=== PATIENT | male | born 1945 | race African-American/Black ===

== ENCOUNTER → 2016-05-19 | Outpatient (CLI) | payer MEDICARE, BC ==
[2014-12-27 11:24] VITALS: BP 149/92
[~2016-05-19] MED LIST: ACET325T9 PO; ALBUTEROL; AMOX1TAB11 PO; ASPI-482 PO; AZEL137S3 NS; Albuterol Sulfate NEB; Cholestyramine/Aspartame PO; DUTA0.5C PO; FLUT1DIS5 IH; FURO-69 PO; GABA-586 PO; Hydrocodone/Acetaminophen PO; Ipratropium/Albuterol Sulfate NEB; LACT1CAP PO; LORA1TAB47 PO; MONT10TA9 PO; NAPR500T3 PO; ONDA4TAB7 PO; PANT40TA5 PO; PRED20TA PO; SIMV20TA PO; TAMS0.4C97 PO; Vancomycin Hcl PO
--- NOTE | 2016-05-19 15:18 | RAD ---
EXAM: Chest 2 views. HISTORY: Chronic obstructive pulmonary disease. COMPARISON: 09/17/2015. FINDINGS: Frontal and lateral views of the chest are obtained. Negative for chronic obstructive pulmonary disease there is some scarring or atelectasis along one of the major fissures on the lateral projection. There are no clear acute infiltrates. There is no pneumothorax or pleural effusion. The heart is not enlarged. IMPRESSION: 1. Chronic obstructive pulmonary disease. Increased scarring or atelectasis along one of the major fissures. Ongoing follow-up is suggested.
== END | disposition home or self-care (01) ==
LOC: RAD 11:59
PROVIDERS: ATTEND Family Medicine
DX: J44.1 Chronic obstructive pulmonary disease with (acute) exacerbation (principal)
CPT/HCPCS: 71020

== ENCOUNTER 2016-05-25 03:57 | Inpatient (IN) | payer MEDICARE, BC ==
[~2016-05-25] VITALS: Ht 175.3 cm; Wt 43.2 kg
[~2016-05-25 03:57] MED LIST changes: -AMOX1TAB11 PO; -AZEL137S3 NS; -DUTA0.5C PO; -FLUT1DIS5 IH; -FURO-69 PO; -GABA-586 PO; -PANT40TA5 PO
[2016-05-25] MEDS ORDERED: PREDNISONE 10 MG TABLET PO ONE (04:15)
[2016-05-25] MEDS ORDERED: IPRATRPIUM/ALBUTEROL 0.5/2.5MG 3 ML NEBU. NEB ONE (04:15)
[2016-05-25] MEDS ORDERED: HYDROCODONE/APAP 5/325MG TABLET. PO ONE (04:45)
[2016-05-25 04:51] LABS: BASO % 0 % (0-3); EOS % 0 % (0-3); HEMATOCRIT 46.8 % (39.0-53.0); HEMOGLOBIN 15.2 g/dL (13.0-17.5); LYMPH # 1.1 x10^3/uL (1.0-4.8); LYMPH % 8 % (24-48); MEAN CORPUSCULAR HEMOGLOBIN 31 pg (25-35); MEAN CORPUSCULAR HGB CONC 33 g/dL (31-37); MEAN CORPUSCULAR VOLUME 95 fL (79-100); MONO % 7 % (0-9); NEUT % 84 % (31-73); PLATELET COUNT 150 x10^3/uL (140-400); RED BLOOD COUNT 4.92 x10^6/uL (4.30-5.70); RED CELL DISTRIBUTION WIDTH 15.5 % (11.5-14.5); WHITE BLOOD COUNT 12.7 x10^3/uL (4.0-11.0)
[2016-05-25 05:00] LABS: OBC FLU VALID
[2016-05-25 05:03] LABS: CALCIUM 8.8 mg/dL (8.5-10.1); CREATININE 1.3 mg/dL (0.7-1.3); GFR 66.2; POTASSIUM 4.1 mmol/L (3.5-5.1)
[2016-05-25 05:08] LABS: ALBUMIN 3.3 g/dL (3.4-5.0); ALBUMIN/GLOBULIN RATIO 1.1 (1.0-1.7); TOTAL BILIRUBIN 0.4 mg/dL (0.2-1.0); TOTAL PROTEIN 6.3 g/dL (6.4-8.2)
--- NOTE | 2016-05-25 05:25 | PHYS DOC ---
Past Medical History Past Medical History: COPD, High Cholesterol, Other Additional Past Medical Histor: enlarged prostate, sob(not actually dx copd, gets alb neb qid) Past Surgical History: Other Additional Past Surgical Histo: foot surgery, bladder surgery Alcohol Use: None Drug Use: None Adult General Chief Complaint Chief Complaint: SHORTNESS OF BREATH HPI HPI Patient is a 71 year old male who presents with SOB. Patient reports this is been building up over the past day. In addition, he says he was getting up to get to the bathroom tonight when he fell against a wall. He did not lose consciousness. He is little sore throat side, but does not have any focal pain. Lastly, his feet have been increasingly swollen over the past 2 days and painful. No prior similar episodes of swelling. He denies any chest pain. He has been taking Augmentin and prednisone (10mg) recently for a sinus infection. Review of Systems Review of Systems Constitutional: Denies fever or chills Eyes: Denies change in visual acuity or eye pain HENT: Denies nasal congestion or sore throat Respiratory: Shortness of breath, wheezing Cardiovascular: Denies chest pain GI: Denies abdominal pain, nausea, vomiting, bloody stools or diarrhea : Denies dysuria or hematuria Musculoskeletal: BLE edema. Denies back pain or joint pain Integument: Denies rash or skin lesions Neurologic: Denies headache, focal weakness or sensory changes Current Medications Current Medications Current Medications Medications (Trade) Dose Ordered Sig/Dandre Start Time Stop Time Status Last Admin Dose Admin Acetaminophen/ Hydrocodone Bitart (Lortab 5/325) 1 tab 1X ONCE 05/25/16 04:45 05/25/16 04:51 DC 05/25/16 04:44 1 TAB Albuterol/ Ipratropium (Duoneb) 6 ml 1X ONCE 05/25/16 04:15 05/25/16 04:16 DC 05/25/16 05:16 6 ML Prednisone (Prednisone) 50 mg 1X ONCE 05/25/16 04:15 05/25/16 04:16 DC 05/25/16 04:44 50 MG Allergies Allergies Allergies Coded Allergies Type Severity Reaction Last Updated Verified No Known Drug Allergies 12/27/14 No Physical Exam Physical Exam Constitutional: Well developed, well nourished, no acute distress, non-toxic appearance HENT: Normocephalic, atraumatic, bilateral external ears normal Eyes: EOMI, conjunctiva normal, no discharge Neck: Normal range of motion, no stridor Cardiovascular: Heart rate normal, regular rhythm, no murmur Lungs & Thorax: Speaking in stuttering breaths, diffuse expiratory wheezing Abdomen: Bowel sounds normal, soft, non-distended, no TTP Skin: Warm, dry, no erythema, no rash Extremities: No obvious deformity, 2+ BLE pitting edema Neurologic: Alert and oriented X 3, no gross deficits noted Current Patient Data Vital Signs Vital Signs Date Time Temp Pulse Resp B/P Pulse Ox O2 Delivery O2 Flow Rate FiO2 05/25/16 05:20 97 Room Air 05/25/16 04:44 23 05/25/16 03:57 98.4 73 161/92 98.4 Lab Values Laboratory Tests Test 05/25/16 03:50 05/25/16 04:35 White Blood Count 12.7x10^3/uL (4.0-11.0) H Red Blood Count 4.92x10^6/uL (4.30-5.70) Hemoglobin 15.2g/dL (13.0-17.5) Hematocrit 46.8% (39.0-53.0) Mean Corpuscular Volume 95fL (79-100) Mean Corpuscular Hemoglobin 31pg (25-35) Mean Corpuscular Hemoglobin Concent 33g/dL (31-37) Red Cell Distribution Width 15.5% (11.5-14.5) H Platelet Count 150x10^3/uL (140-400) Neutrophils (%) (Auto) 84% (31-73) H Lymphocytes (%) (Auto) 8% (24-48) L Monocytes (%) (Auto) 7% (0-9) Eosinophils (%) (Auto) 0% (0-3) Basophils (%) (Auto) 0% (0-3) Neutrophils # (Auto) 10.8x10^3uL (1.8-7.7) H Lymphocytes # (Auto) 1.1x10^3/uL (1.0-4.8) Monocytes # (Auto) 0.9x10^3/uL (0.0-1.1) Eosinophils # (Auto) 0.0x10^3/uL (0.0-0.7) Basophils # (Auto) 0.0x10^3/uL (0.0-0.2) Platelet Estimate Pending Sodium Level 146mmol/L (136-145) H Potassium Level 4.1mmol/L (3.5-5.1) Chloride Level 109mmol/L (98-107) H Carbon Dioxide Level 33mmol/L (21-32) H Anion Gap 4 (6-14) L Blood Urea Nitrogen 22mg/dL (8-26) Creatinine 1.3mg/dL (0.7-1.3) Estimated GFR (Cockcroft-Gault) 66.2 BUN/Creatinine Ratio 17 (6-20) Glucose Level 118mg/dL (70-99) H Calcium Level 8.8mg/dL (8.5-10.1) Total Bilirubin 0.4mg/dL (0.2-1.0) Aspartate Amino Transferase (AST) 14U/L (15-37) L Alanine Aminotransferase (ALT) 21U/L (16-63) Alkaline Phosphatase 66U/L (46-116) Troponin I Quantitative 0.022ng/mL (0.000-0.055) EL-Vci-G-Type Natriuretic Peptide 505pg/mL (0-124) H Total Protein 6.3g/dL (6.4-8.2) L Albumin 3.3g/dL (3.4-5.0) L Albumin/Globulin Ratio 1.1 (1.0-1.7) Influenza Type A Antigen Negative (NEGATIVE) Influenza Type B Antigen Negative (NEGATIVE) Laboratory Tests 05/25/16 03:50 Laboratory Tests 05/25/16 03:50 EKG EKG EKG (my read): sinus rhythm, rate 71, normal axis, intervals wnl, no acute ST/T changes Radiology/Procedures Radiology/Procedures CXR (my read): No acute abnormality Course & Med Decision Making Course & Med Decision Making Pertinent Labs and Imaging studies reviewed. (See chart for details) Patient is 71-year-old male presents with shortness of breath and wheezing; apparent COPD exacerbation. He also has significant bilateral lower extremity edema, concerning for possibility of heart failure. Will check EKG, chest x-ray , labs to evaluate. Breathing treatment and dose of steroids ordered. Labs notable for mild leukocytosis (possibly related to steroid use, no fever or tachycardia on exam), few minor electrolyte abnormalities, elevated BNP. Discussed results with patient, who still has significant wheezing after breathing treatments. Will give dose small dose of Lasix for peripheral edema. Discussed with Dr. Bland, will admit under his care for further evaluation and treatment. Dragon Disclaimer Dragon Disclaimer This electronic medical record was generated, in whole or in part, using a voice recognition dictation system. Departure Departure Impression: Primary Impression: COPD exacerbation Additional Impression: Peripheral edema Disposition: ADMITTED INPATIENT Admitting Physician: Haresh Bland Condition: STABLE Referrals: HARESH BLAND MD (PCP) Problem Qualifiers KAEL GAINES MD May 25, 2016 05:25
[2016-05-25] MEDS ORDERED: ONDANSETRON PF 4 MG/2 ML VIAL. IV PRN (05:45)
[2016-05-25] MEDS ORDERED: ACETAMINOPHEN 325 MG TABLET. PO PRN ×2 (05:45→08:30)
[2016-05-25] MEDS ORDERED: MORPHINE SULFATE 2 MG/ML DISP.SYRIN. IV PRN (05:45)
[2016-05-25] MEDS ORDERED: FUROSEMIDE 20 MG/2 ML VIAL IVP ONE (06:00)
--- NOTE | 2016-05-25 06:46 | ACF ---
Admission Forms Criteria COPD Clinical Indications for Admission to Inpatient Care (Place 'X' for any and all applicable criteria): Admission is indicated for ANY ONE of the following (1)(2)(3): [X]I. Acute exacerbation by high-risk comorbidity (e.g., pneumonia, dysrhythmia, heart failure, pleural effusion, pneumothorax) or severe underlying COPD (e.g., steroid dependent) [ ]II. Inpatient admission required rather than observation care (see Chronic Obstructive Pulmonary Disease: Observation Care) because of ANY ONE of the following: [ ]a) New or pre-existing signs or symptoms of COPD (eg, dyspnea or Tachypnea at rest or with minimal activity) that persist despite outpatient and observation care treatment [ ]b) New-onset hypoxemia (room air SaO2 less than 90%, PO2 less than 60 mm Hg (8.0 kPa)) that persists despite outpatient and observation care treatment [ ]c) Worsening of pre-existing hypoxemia (eg, new or increased requirement for supplemental oxygen to maintain oxygenation at baseline level) that persists despite outpatient and observation care treatment, with oxygen treatment needs performable only in acute inpatient setting [ ]d) Hypercarbia (PCO2 greater than 40 mm Hg (5.3 kPa))-induced respiratory acidosis (pH less than 7.35) that persists despite outpatient and observation care treatment [ ]e) Supplemental oxygen or respiratory treatments for over 24 hours that are performable only in acute inpatient setting [ ]f) Chest tube placement with active evacuation (e.g., suction, drainage) (5) [ ]g) Other condition, treatment or monitoring requiring inpatient admission [ ]III. Planned invasive surgical or diagnostic procedures requiring acute- care hospitalization [ ]IV. Acute respiratory failure (e.g., uncompensated hypercarbia, severe hypoxemia) [ ]V. Severe comorbid condition (e.g., severe steroid myopathy, acute vertebral fracture) that has acutely worsened pulmonary function [ ]. Confusion state, lethargy, obtundation, stupor or coma Extended stay beyond goal length of stay may be needed for (31)(32): [ ]a ) Respiratory Failure. [ ]b) Severe or persisting hypoxemia or hypercarbia [ ]c) Severe or persistent dyspnea [ ]d) Comorbidities (e.g. chronic heart failure, atrial fibrillation with rapid response, pneumonia) [ ]e) Malnutrition The original [facility] content created by [facility] has been revised. The portions of the content which have been revised are identified through the use of italic text or in bold, and [facility] has neither reviewed nor approved the modified material. All other unmodified content is copyright [facility]. Please see references footnoted in the original [facility] edition 2016 Admission Criteria Met?: Yes HEIDI VIZCAINO May 25, 2016 06:46
--- NOTE | 2016-05-25 07:11 | EKG ---
[facility] [address] [place] [address] Test Date: 2016-05-25 Test Time: 04:12:09 Pat Name: JUAN PABLO WATERMAN Department: Room: Gender: Male Nuclear Medicine Chief Technologist: KWASI : 1945 Requested By: KAEL GAINES Order Number: [id number] Reading MD: Dolores Gibbs Measurements Intervals [place] Rate: 71 P: 66 ME: 140 QRS: 38 QRSD: 86 T: 58 QT: 396 QTc: 435 Interpretive Statements SINUS RHYTHM. MISSING LEAD V4. OTHERWISE NORMAL EKG Electronically Signed On 05-26-2016 21:08:58 CDT by Dolores Gibbs
--- NOTE | 2016-05-25 07:15 | RAD ---
Indication: Short of breath and wheezing. Technique: Upright portable chest radiograph was obtained. Comparison is from May 19, 2016. Findings: There is no airspace disease. There is no pleural effusion. The heart is not enlarged. There are degenerative changes in the shoulders. Leads overlie the patient. Impression: No active pulmonary disease.
[2016-05-25 07:41] LABS: BILIRUBIN,URINE NEGATIVE (NEG); GLUCOSE,URINE NEGATIVE (NEG); NITRITE,URINE NEGATIVE (NEG); PH,URINE 6.5; PROTEIN,URINE NEGATIVE (NEG-TRACE); UROBILINOGEN,URINE 0.2 mg/dL (0.2 mg/dL)
[2016-05-25 07:55] LABS: BACTERIA,URINE 0 /HPF (0-FEW); RBC,URINE OCC /HPF (0-2); SQUAMOUS EPITHELIAL CELL,UR OCC /LPF; WBC,URINE 0 /HPF (0-4)
[2016-05-25 08:00] VITALS: BP 150/94
[2016-05-25] MEDS: IPRATRPIUM/ALBUTEROL 0.5/2.5MG 3 ML NEBU. NEB SCH ×5 (08:00→18:30)
--- NOTE | 2016-05-25 08:22 | PDOC ---
Provider Note Provider Note See Admission H&P dictation #[id number] Impression: 1. COPD exacerbation: 2. Lower extremity edema: 3. Hypertension: 4. BPH: 5. History of sleep apnea: HARESH BLAND MD May 25, 2016 08:22
[2016-05-25] MEDS ORDERED: NAPROXEN 500 MG TABLET PO PRN (08:30)
[2016-05-25] MEDS ORDERED: ALBUTEROL SULFATE 2.5 MG/3 ML NEBU. NEB PRN (08:30)
[2016-05-25] MEDS ORDERED: DUTA0.5C PO (08:54)
[2016-05-25] MEDS ORDERED: GABA-586 PO (08:55)
[2016-05-25] MEDS ORDERED: FLUT1DIS5 IH (08:56)
[2016-05-25] MEDS ORDERED: AZEL137S3 NS (08:57)
[2016-05-25] MEDS ORDERED: AMOX1TAB11 PO (08:59)
--- NOTE | 2016-05-25 09:51 | PDOC ---
PULMONARY PROGRESS NOTES Vitals Vital Signs Date Time Temp Pulse Resp B/P Pulse Ox O2 Delivery O2 Flow Rate FiO2 05/25/16 09:36 Room Air 05/25/16 08:41 20 95 05/25/16 08:00 98.0 62 150/94 2.0 98.0 General: Alert, Oriented X4 HEENT: Other Lungs: Clear, Other Cardiovascular: S1, S2 Abdomen: Soft, Non-tender Extremities: No Edema Labs Laboratory Tests Test 05/25/16 03:50 05/25/16 04:35 05/25/16 07:30 White Blood Count 12.7x10^3/uL (4.0-11.0) Red Blood Count 4.92x10^6/uL (4.30-5.70) Hemoglobin 15.2g/dL (13.0-17.5) Hematocrit 46.8% (39.0-53.0) Mean Corpuscular Volume 95fL (79-100) Mean Corpuscular Hemoglobin 31pg (25-35) Mean Corpuscular Hemoglobin Concent 33g/dL (31-37) Red Cell Distribution Width 15.5% (11.5-14.5) Platelet Count 150x10^3/uL (140-400) Neutrophils (%) (Auto) 84% (31-73) Lymphocytes (%) (Auto) 8% (24-48) Monocytes (%) (Auto) 7% (0-9) Eosinophils (%) (Auto) 0% (0-3) Basophils (%) (Auto) 0% (0-3) Neutrophils # (Auto) 10.8x10^3uL (1.8-7.7) Lymphocytes # (Auto) 1.1x10^3/uL (1.0-4.8) Monocytes # (Auto) 0.9x10^3/uL (0.0-1.1) Eosinophils # (Auto) 0.0x10^3/uL (0.0-0.7) Basophils # (Auto) 0.0x10^3/uL (0.0-0.2) Sodium Level 146mmol/L (136-145) Potassium Level 4.1mmol/L (3.5-5.1) Chloride Level 109mmol/L (98-107) Carbon Dioxide Level 33mmol/L (21-32) Anion Gap 4 (6-14) Blood Urea Nitrogen 22mg/dL (8-26) Creatinine 1.3mg/dL (0.7-1.3) Estimated GFR (Cockcroft-Gault) 66.2 BUN/Creatinine Ratio 17 (6-20) Glucose Level 118mg/dL (70-99) Calcium Level 8.8mg/dL (8.5-10.1) Total Bilirubin 0.4mg/dL (0.2-1.0) Aspartate Amino Transf (AST/SGOT) 14U/L (15-37) Alanine Aminotransferase (ALT/SGPT) 21U/L (16-63) Alkaline Phosphatase 66U/L (46-116) Troponin I Quantitative 0.022ng/mL (0.000-0.055) EE-Evd-V-Type Natriuretic Peptide 505pg/mL (0-124) Total Protein 6.3g/dL (6.4-8.2) Albumin 3.3g/dL (3.4-5.0) Albumin/Globulin Ratio 1.1 (1.0-1.7) Influenza Type A Antigen Negative (NEGATIVE) Influenza Type B Antigen Negative (NEGATIVE) Urine Collection Type Unknown Urine Color Yellow Urine Clarity Clear Urine pH 6.5 Urine Specific [place] <=1.005 Urine Protein Negativemg/dL (NEG-TRACE) Urine Glucose (UA) Negativemg/dL (NEG) Urine Ketones (Stick) Negativemg/dL (NEG) Urine Blood Negative (NEG) Urine Nitrite Negative (NEG) Urine Bilirubin Negative (NEG) Urine Urobilinogen Dipstick 0.2mg/dL (0.2 mg/dL) Urine Leukocyte Esterase Negative (NEG) Urine RBC Occ/HPF (0-2) Urine WBC 0/HPF (0-4) Urine Squamous Epithelial Cells Occ/LPF Urine Bacteria 0/HPF (0-FEW) Urine Mucus Slight/LPF Laboratory Tests Test 05/25/16 03:50 05/25/16 04:35 05/25/16 07:30 White Blood Count 12.7x10^3/uL (4.0-11.0) Red Blood Count 4.92x10^6/uL (4.30-5.70) Hemoglobin 15.2g/dL (13.0-17.5) Hematocrit 46.8% (39.0-53.0) Mean Corpuscular Volume 95fL (79-100) Mean Corpuscular Hemoglobin 31pg (25-35) Mean Corpuscular Hemoglobin Concent 33g/dL (31-37) Red Cell Distribution Width 15.5% (11.5-14.5) Platelet Count 150x10^3/uL (140-400) Neutrophils (%) (Auto) 84% (31-73) Lymphocytes (%) (Auto) 8% (24-48) Monocytes (%) (Auto) 7% (0-9) Eosinophils (%) (Auto) 0% (0-3) Basophils (%) (Auto) 0% (0-3) Neutrophils # (Auto) 10.8x10^3uL (1.8-7.7) Lymphocytes # (Auto) 1.1x10^3/uL (1.0-4.8) Monocytes # (Auto) 0.9x10^3/uL (0.0-1.1) Eosinophils # (Auto) 0.0x10^3/uL (0.0-0.7) Basophils # (Auto) 0.0x10^3/uL (0.0-0.2) Sodium Level 146mmol/L (136-145) Potassium Level 4.1mmol/L (3.5-5.1) Chloride Level 109mmol/L (98-107) Carbon Dioxide Level 33mmol/L (21-32) Anion Gap 4 (6-14) Blood Urea Nitrogen 22mg/dL (8-26) Creatinine 1.3mg/dL (0.7-1.3) Estimated GFR (Cockcroft-Gault) 66.2 BUN/Creatinine Ratio 17 (6-20) Glucose Level 118mg/dL (70-99) Calcium Level 8.8mg/dL (8.5-10.1) Total Bilirubin 0.4mg/dL (0.2-1.0) Aspartate Amino Transf (AST/SGOT) 14U/L (15-37) Alanine Aminotransferase (ALT/SGPT) 21U/L (16-63) Alkaline Phosphatase 66U/L (46-116) Troponin I Quantitative 0.022ng/mL (0.000-0.055) XT-Xqj-T-Type Natriuretic Peptide 505pg/mL (0-124) Total Protein 6.3g/dL (6.4-8.2) Albumin 3.3g/dL (3.4-5.0) Albumin/Globulin Ratio 1.1 (1.0-1.7) Influenza Type A Antigen Negative (NEGATIVE) Influenza Type B Antigen Negative (NEGATIVE) Urine Collection Type Unknown Urine Color Yellow Urine Clarity Clear Urine pH 6.5 Urine Specific [place] <=1.005 Urine Protein Negativemg/dL (NEG-TRACE) Urine Glucose (UA) Negativemg/dL (NEG) Urine Ketones (Stick) Negativemg/dL (NEG) Urine Blood Negative (NEG) Urine Nitrite Negative (NEG) Urine Bilirubin Negative (NEG) Urine Urobilinogen Dipstick 0.2mg/dL (0.2 mg/dL) Urine Leukocyte Esterase Negative (NEG) Urine RBC Occ/HPF (0-2) Urine WBC 0/HPF (0-4) Urine Squamous Epithelial Cells Occ/LPF Urine Bacteria 0/HPF (0-FEW) Urine Mucus Slight/LPF Medications Active Scripts Medications Dose Route/Sig Days Date Category Amox Tr-K Clv 875-125 Mg Tab (Amoxicillin/Potassium Clav) 1 Each Tablet 1 Tab PO BID 05/25/16 Reported Azelastine Hcl 137 Mcg/0.137 Ml [place].pump 2 [place] NS BID 05/25/16 Reported Advair 500-50 Diskus (Fluticasone/Salmeterol) 1 Each Disk.w.dev 1 Inh IH BID 05/25/16 Reported Gabapentin 300 Mg Capsule 300 Mg PO HS 05/25/16 Reported Avodart (Dutasteride) 0.5 Mg Capsule 1 Cap PO HS 05/25/16 Reported Claritin-D 12 Hour Tablet (Loratadine/Pseudoephedrine) 1 Each Tab.er.12h 1 Tab PO BID 09/17/15 Rx Montelukast Sodium Tablet (Montelukast Sodium) 10 Mg Tablet 1 Tab PO DAILY 12/27/14 Reported Naproxen 500 Mg Tablet 1 Tab PO BID 12/27/14 Reported Aspir 81 (Aspirin) 81 Mg Tablet.dr 1 Tab PO DAILY 12/27/14 Reported [Albuterol Sulfate] 2.5 MG/3 ML Nebu 2.5 Mg NEB PRN Q2HR PRN 1 11/15/13 Rx Tylenol (Acetaminophen) 325 Mg Tablet 650 Mg PO PRN Q6HRS PRN 28 11/15/13 Rx Flomax (Tamsulosin Hcl) 0.4 Mg Cap.er.24h 0.4 Mg PO QHS 02/10/13 Reported Zocor (Simvastatin) 20 Mg Tablet 20 Mg PO QHS 02/10/13 Reported GINA ERAZO MD May 25, 2016 09:51
[2016-05-25 10:15] LABS: % EOS 1 % (0-5)
[2016-05-25 10:24] LABS: PLT ESTIMATE ADEQUATE (ADEQUATE)
--- NOTE | 2016-05-25 10:43 | RAD ---
Clinical Indication: Bilateral lower extremity edema Technique: Study is dated May 25, 2016. Owen scale, color flow and spectral waveform analysis was performed of both lower extremities with and without compression. Findings: There is normal compressibility of all visualized vein segments. No evidence of DVT is present on grayscale or color images. There is normal phasicity of waveform. There is normal augmentation . Impression: No evidence of deep vein thrombosis in either lower extremity.
[2016-05-25 11:00] VITALS: BP 140/77
[2016-05-25] MEDS: ASPIRIN ENTERIC COATED 81 MG TABLET.DR. PO SCH (13:02)
[2016-05-25] MEDS: methylPREDNISolone SOD SUCC PF 40 MG/ML VIAL. IV SCH ×2 (13:02→21:18)
[2016-05-25 14:54] VITALS: BP 134/75
[2016-05-25] MEDS: ENOXAPARIN 40 MG/0.4 ML DISP.SYRIN. SQ SCH (16:01)
--- NOTE | 2016-05-25 16:51 | CARD ---
APPROVED REPORT EXAM: Two-dimensional and M-mode echocardiogram with Doppler and color Doppler. Other Information Quality : AverageHR: 70bpm INDICATION Edema, elevated BNP 2D DIMENSIONS RVDd3.2 (2.9-3.5cm)Left Atrium(2D)3.1 (1.6-4.0cm) IVSd1.0 (0.7-1.1cm)Aortic Root(2D)2.7 (2.0-3.7cm) LVDd5.0 (3.9-5.9cm)LVOT Diameter2.2 (1.8-2.4cm) PWd1.0 (0.7-1.1cm)LVDs3.5 (2.5-4.0cm) FS (%) 29.4 %SV66.7 ml LVEF(%)56.0 (>50%) Aortic Valve AoV Peak Jovani.133.8cm/sAoV VTI23.9cm AO Peak GR.7.2mmHgLVOT Peak Jovani.100.7cm/s LVOT VTI 22.41cmAO Mean GR.4mmHg RORO (VMAX)2.40se6RVJ (VTI)3.62cm2 Mitral Valve MV E Jptnofoe513.6cm/sMV DECEL AJZC519tc MV A Dbzpbwbb140.2cm/sMV E Mean Gr.3mmHg MV KAE08fxL/A Ratio0.8 MV A Bfbjugjn378bsEMG (PHT)3.59cm2 TDI E/Lateral E'11.8E/Medial E'14.1 Pulmonary Valve PV Peak Secsihvn545.5cm/sPV Peak Grad.4mmHg RVOT VTI14.3cm Tricuspid Valve TR P. Ehwbqhom029ca/sRAP HHQDMKDV9erCs TR Peak Gr.24cnJsSCZU68hhTg Pulmonary Vein S1 Cjmfnrgv26.8cm/sD2 Rhamhfki70.9cm/s PVa juosrhdt303vypw LEFT VENTRICLE The left ventricle is normal size. There is normal left ventricular wall thickness. Left ventricle sy stolic function is low normal. The Ejection Fraction is 56%. There is normal LV segmental wall motion . Transmitral Doppler flow pattern is Grade I-abnormal relaxation pattern. RIGHT VENTRICLE The right ventricle is normal size. The right ventricular systolic function is normal. ATRIA The left atrium size is normal. The right atrium size is normal. The interatrial septum is intact wit h no evidence for an atrial septal defect or patent foramen ovale as noted on 2-D or Doppler imaging. AORTIC VALVE The aortic valve is calcified but opens well. Doppler and Color Flow revealed no significant aortic r egurgitation. There is no significant aortic valvular stenosis. MITRAL VALVE The mitral valve is calcified but opens well. There is no evidence of mitral valve prolapse. There is no mitral valve stenosis. Doppler and Color-flow revealed trace mitral regurgitation. TRICUSPID VALVE The tricuspid valve is normal in structure Doppler and Color Flow revealed trace tricuspid regurgitat ion. There is moderate pulmonary hypertension. The PA pressure was estimated at 45 mmHg. There is no tricuspid valve stenosis. PULMONIC VALVE The pulmonary valve is normal in structure and function. Doppler and Color Flow revealed no pulmonic valvular regurgitation. There is no pulmonic valvular stenosis. GREAT VESSELS The aortic root is normal in size. The ascending aorta is not well seen. The IVC is dilated and colla pses >50% with inspiration. PERICARDIAL EFFUSION There is no evidence of significant pericardial effusion. Critical Notification Critical Value: No <Conclusion> Left ventricle systolic function is low normal. The Ejection Fraction is 56%. Transmitral Doppler flow pattern is Grade I-abnormal relaxation pattern. The left atrium size is normal. The right atrium size is normal. The aortic valve is calcified but opens well. Doppler and Color-flow revealed trace mitral regurgitation. Doppler and Color Flow revealed trace tricuspid regurgitation. There is moderate pulmonary hypertension. The PA pressure was estimated at 45 mmHg. The pulmonary valve is normal in structure and function. There is no evidence of significant pericardial effusion.
[2016-05-25 19:30] VITALS: BP 143/72
[2016-05-25] MEDS: BUDESONIDE 0.5 MG/2 ML NEBU NEB SCH (20:00)
--- NOTE | 2016-05-25 20:05 | PDOC ---
PULMONARY PROGRESS NOTES Vitals Vital Signs Date Time Temp Pulse Resp B/P Pulse Ox O2 Delivery O2 Flow Rate FiO2 05/25/16 18:30 96 Room Air 05/25/16 14:54 98.7 74 18 134/75 98.7 05/25/16 08:00 2.0 HEENT: Other Labs Laboratory Tests Test 05/25/16 03:50 05/25/16 04:35 05/25/16 07:30 White Blood Count 12.7x10^3/uL (4.0-11.0) Red Blood Count 4.92x10^6/uL (4.30-5.70) Hemoglobin 15.2g/dL (13.0-17.5) Hematocrit 46.8% (39.0-53.0) Mean Corpuscular Volume 95fL (79-100) Mean Corpuscular Hemoglobin 31pg (25-35) Mean Corpuscular Hemoglobin Concent 33g/dL (31-37) Red Cell Distribution Width 15.5% (11.5-14.5) Platelet Count 150x10^3/uL (140-400) Neutrophils (%) (Auto) 84% (31-73) Lymphocytes (%) (Auto) 8% (24-48) Monocytes (%) (Auto) 7% (0-9) Eosinophils (%) (Auto) 0% (0-3) Basophils (%) (Auto) 0% (0-3) Neutrophils # (Auto) 10.8x10^3uL (1.8-7.7) Lymphocytes # (Auto) 1.1x10^3/uL (1.0-4.8) Monocytes # (Auto) 0.9x10^3/uL (0.0-1.1) Eosinophils # (Auto) 0.0x10^3/uL (0.0-0.7) Basophils # (Auto) 0.0x10^3/uL (0.0-0.2) Segmented Neutrophils % 72% (35-66) Band Neutrophils % 12% (0-9) Lymphocytes % 8% (24-48) Monocytes % 6% (0-10) Eosinophils % 1% (0-5) Myelocytes % 1% (0-0) Platelet Estimate Adequate (ADEQUATE) Platelet Clumps, EDTA Present Sodium Level 146mmol/L (136-145) Potassium Level 4.1mmol/L (3.5-5.1) Chloride Level 109mmol/L (98-107) Carbon Dioxide Level 33mmol/L (21-32) Anion Gap 4 (6-14) Blood Urea Nitrogen 22mg/dL (8-26) Creatinine 1.3mg/dL (0.7-1.3) Estimated GFR (Cockcroft-Gault) 66.2 BUN/Creatinine Ratio 17 (6-20) Glucose Level 118mg/dL (70-99) Calcium Level 8.8mg/dL (8.5-10.1) Total Bilirubin 0.4mg/dL (0.2-1.0) Aspartate Amino Transf (AST/SGOT) 14U/L (15-37) Alanine Aminotransferase (ALT/SGPT) 21U/L (16-63) Alkaline Phosphatase 66U/L (46-116) Troponin I Quantitative 0.022ng/mL (0.000-0.055) EL-Wsz-V-Type Natriuretic Peptide 505pg/mL (0-124) Total Protein 6.3g/dL (6.4-8.2) Albumin 3.3g/dL (3.4-5.0) Albumin/Globulin Ratio 1.1 (1.0-1.7) Influenza Type A Antigen Negative (NEGATIVE) Influenza Type B Antigen Negative (NEGATIVE) Urine Collection Type Unknown Urine Color Yellow Urine Clarity Clear Urine pH 6.5 Urine Specific [place] <=1.005 Urine Protein Negativemg/dL (NEG-TRACE) Urine Glucose (UA) Negativemg/dL (NEG) Urine Ketones (Stick) Negativemg/dL (NEG) Urine Blood Negative (NEG) Urine Nitrite Negative (NEG) Urine Bilirubin Negative (NEG) Urine Urobilinogen Dipstick 0.2mg/dL (0.2 mg/dL) Urine Leukocyte Esterase Negative (NEG) Urine RBC Occ/HPF (0-2) Urine WBC 0/HPF (0-4) Urine Squamous Epithelial Cells Occ/LPF Urine Bacteria 0/HPF (0-FEW) Urine Mucus Slight/LPF Laboratory Tests Test 05/25/16 03:50 05/25/16 04:35 05/25/16 07:30 White Blood Count 12.7x10^3/uL (4.0-11.0) Red Blood Count 4.92x10^6/uL (4.30-5.70) Hemoglobin 15.2g/dL (13.0-17.5) Hematocrit 46.8% (39.0-53.0) Mean Corpuscular Volume 95fL (79-100) Mean Corpuscular Hemoglobin 31pg (25-35) Mean Corpuscular Hemoglobin Concent 33g/dL (31-37) Red Cell Distribution Width 15.5% (11.5-14.5) Platelet Count 150x10^3/uL (140-400) Neutrophils (%) (Auto) 84% (31-73) Lymphocytes (%) (Auto) 8% (24-48) Monocytes (%) (Auto) 7% (0-9) Eosinophils (%) (Auto) 0% (0-3) Basophils (%) (Auto) 0% (0-3) Neutrophils # (Auto) 10.8x10^3uL (1.8-7.7) Lymphocytes # (Auto) 1.1x10^3/uL (1.0-4.8) Monocytes # (Auto) 0.9x10^3/uL (0.0-1.1) Eosinophils # (Auto) 0.0x10^3/uL (0.0-0.7) Basophils # (Auto) 0.0x10^3/uL (0.0-0.2) Segmented Neutrophils % 72% (35-66) Band Neutrophils % 12% (0-9) Lymphocytes % 8% (24-48) Monocytes % 6% (0-10) Eosinophils % 1% (0-5) Myelocytes % 1% (0-0) Platelet Estimate Adequate (ADEQUATE) Platelet Clumps, EDTA Present Sodium Level 146mmol/L (136-145) Potassium Level 4.1mmol/L (3.5-5.1) Chloride Level 109mmol/L (98-107) Carbon Dioxide Level 33mmol/L (21-32) Anion Gap 4 (6-14) Blood Urea Nitrogen 22mg/dL (8-26) Creatinine 1.3mg/dL (0.7-1.3) Estimated GFR (Cockcroft-Gault) 66.2 BUN/Creatinine Ratio 17 (6-20) Glucose Level 118mg/dL (70-99) Calcium Level 8.8mg/dL (8.5-10.1) Total Bilirubin 0.4mg/dL (0.2-1.0) Aspartate Amino Transf (AST/SGOT) 14U/L (15-37) Alanine Aminotransferase (ALT/SGPT) 21U/L (16-63) Alkaline Phosphatase 66U/L (46-116) Troponin I Quantitative 0.022ng/mL (0.000-0.055) GM-Rbp-N-Type Natriuretic Peptide 505pg/mL (0-124) Total Protein 6.3g/dL (6.4-8.2) Albumin 3.3g/dL (3.4-5.0) Albumin/Globulin Ratio 1.1 (1.0-1.7) Influenza Type A Antigen Negative (NEGATIVE) Influenza Type B Antigen Negative (NEGATIVE) Urine Collection Type Unknown Urine Color Yellow Urine Clarity Clear Urine pH 6.5 Urine Specific [place] <=1.005 Urine Protein Negativemg/dL (NEG-TRACE) Urine Glucose (UA) Negativemg/dL (NEG) Urine Ketones (Stick) Negativemg/dL (NEG) Urine Blood Negative (NEG) Urine Nitrite Negative (NEG) Urine Bilirubin Negative (NEG) Urine Urobilinogen Dipstick 0.2mg/dL (0.2 mg/dL) Urine Leukocyte Esterase Negative (NEG) Urine RBC Occ/HPF (0-2) Urine WBC 0/HPF (0-4) Urine Squamous Epithelial Cells Occ/LPF Urine Bacteria 0/HPF (0-FEW) Urine Mucus Slight/LPF Medications Active Scripts Medications Dose Route/Sig Days Date Category Amox Tr-K Clv 875-125 Mg Tab (Amoxicillin/Potassium Clav) 1 Each Tablet 1 Tab PO BID 05/25/16 Reported Azelastine Hcl 137 Mcg/0.137 Ml [place].pump 2 [place] NS BID 05/25/16 Reported Advair 500-50 Diskus (Fluticasone/Salmeterol) 1 Each Disk.w.dev 1 Inh IH BID 05/25/16 Reported Gabapentin 300 Mg Capsule 300 Mg PO HS 05/25/16 Reported Avodart (Dutasteride) 0.5 Mg Capsule 1 Cap PO HS 05/25/16 Reported Claritin-D 12 Hour Tablet (Loratadine/Pseudoephedrine) 1 Each Tab.er.12h 1 Tab PO BID 7/6/16 Rx Montelukast Sodium Tablet (Montelukast Sodium) 10 Mg Tablet 1 Tab PO DAILY 12/27/14 Reported Naproxen 500 Mg Tablet 1 Tab PO BID 12/27/14 Reported Aspir 81 (Aspirin) 81 Mg Tablet.dr 1 Tab PO DAILY 12/27/14 Reported [Albuterol Sulfate] 2.5 MG/3 ML Nebu 2.5 Mg NEB PRN Q2HR PRN 1 11/15/13 Rx Tylenol (Acetaminophen) 325 Mg Tablet 650 Mg PO PRN Q6HRS PRN 28 11/15/13 Rx Flomax (Tamsulosin Hcl) 0.4 Mg Cap.er.24h 0.4 Mg PO QHS 02/10/13 Reported Zocor (Simvastatin) 20 Mg Tablet 20 Mg PO QHS 02/10/13 Reported Impression . AECOPD full note dictated agree with current RX thanks GINA ERAZO MD May 25, 2016 20:05
[2016-05-25] MEDS: MONTELUKAST SODIUM 10 MG TABLET. PO SCH (21:17)
[2016-05-25] MEDS: SIMVASTATIN 20 MG TABLET PO SCH (21:17)
[2016-05-25] MEDS: TAMSULOSIN 0.4 MG CAP.ER.24H. PO SCH (21:17)
[2016-05-25 23:35] VITALS: BP 135/103
[2016-05-25 23:46] VITALS: BP 139/77
--- NOTE | 2016-05-26 02:46 | CONS ---
DATE OF CONSULTATION: 05/25/2016 ATTENDING PHYSICIAN: Dr. Gallo. REASON FOR CONSULTATION: The patient seen in pulmonary consultation at the request of Dr. Gallo for increasing shortness of air. HISTORY OF PRESENT ILLNESS: The patient is a 71-year-old with history of COPD, smokes approximately 2-3 cigarettes a day, experiences acute exacerbation of COPD approximately 2-3 times a year, presented with increasing shortness of breath. He also lost his balance and fell at home. He had a sore throat. No fever, chills or night sweats. Denied any chest pain or pressure. He was taking Augmentin and prednisone as an outpatient sinus infection. PAST MEDICAL HISTORY: COPD, tobacco dependent, hyperlipidemia, BPH. PAST SURGICAL HISTORY: Foot surgery, bladder surgery. ALLERGIES: No known drug allergies. HOME MEDICATIONS: List was reviewed. Please see the MRAD. SOCIAL HISTORY: He continues to smoke. FAMILY HISTORY: Noncontributory. REVIEW OF SYSTEMS: As indicated above, otherwise, a 10-point system was reviewed and negative. PHYSICAL EXAMINATION: VITAL SIGNS: The patient is currently on 2 liters of oxygen supplementation normally. Normally he is on no oxygen. HEENT: Eyes, the sclerae were nonicteric. NECK: Jugular venous distention was not elevated. No lymphadenopathy. CHEST: Full expansion. LUNGS: Coarse breath sounds with expiratory wheeze. CARDIOVASCULAR: Regular rate and rhythm with S1, S2, no S3. ABDOMEN: Soft, nontender, nondistended. EXTREMITIES: No clubbing, cyanosis or edema. NEUROLOGIC: The patient was awake, alert, following commands. A detailed neuro exam was not performed. LABORATORY DATA: White count was slightly elevated. Hemoglobin and hematocrit were noted. Electrolytes were noted. BUN and creatinine was noted. Serology was negative for influenza. Chest x-ray reviewed, no acute cardiopulmonary process. IMPRESSION: 1. Progressive dyspnea secondary to acute exacerbation of chronic obstructive pulmonary disease. 2. Acute exacerbation of chronic obstructive pulmonary disease. 3. Recent sinusitis. 4. Hyperlipidemia. 5. Tobacco dependence. PLAN: 1. The patient instructed on the importance of discontinuing tobacco use. 2. Concur with current medical regimen including nebulized treatments and prednisone. 3. No need for antibiotics. 4. A 6-minute walk prior to discharge. I do appreciate the privilege in sharing in the patient's care. GINA ERAZO MD DR: Gera JOB#: [id number] / [id number]
[2016-05-26 03:35] VITALS: BP 137/84
[2016-05-26 05:25] LABS: CALCIUM 8.8 mg/dL (8.5-10.1); CREATININE 1.3 mg/dL (0.7-1.3); GFR 66.2; POTASSIUM 4.8 mmol/L (3.5-5.1)
[2016-05-26 05:30] LABS: BASO % 0 % (0-3); EOS % 0 % (0-3); HEMATOCRIT 45.8 % (39.0-53.0); HEMOGLOBIN 14.7 g/dL (13.0-17.5); LYMPH # 0.8 x10^3/uL (1.0-4.8); LYMPH % 5 % (24-48); MEAN CORPUSCULAR HEMOGLOBIN 31 pg (25-35); MEAN CORPUSCULAR HGB CONC 32 g/dL (31-37); MEAN CORPUSCULAR VOLUME 95 fL (79-100); MONO % 4 % (0-9); NEUT % 91 % (31-73); PLATELET COUNT 141 x10^3/uL (140-400); RED BLOOD COUNT 4.82 x10^6/uL (4.30-5.70); WHITE BLOOD COUNT 15.8 x10^3/uL (4.0-11.0)
[2016-05-26] MEDS: methylPREDNISolone SOD SUCC PF 40 MG/ML VIAL. IV SCH ×3 (06:07→20:38)
[2016-05-26 07:47] VITALS: BP 138/75
[2016-05-26] MEDS: IPRATRPIUM/ALBUTEROL 0.5/2.5MG 3 ML NEBU. NEB SCH ×4 (08:00→19:43)
[2016-05-26] MEDS: BUDESONIDE 0.5 MG/2 ML NEBU NEB SCH ×2 (08:00→20:00)
[2016-05-26] MEDS: ASPIRIN ENTERIC COATED 81 MG TABLET.DR. PO SCH (09:24)
--- NOTE | 2016-05-26 11:06 | PDOC ---
PULMONARY PROGRESS NOTES Subjective Pt feel better at times he looses his voice Vitals Vital Signs Date Time Temp Pulse Resp B/P Pulse Ox O2 Delivery O2 Flow Rate FiO2 05/26/16 08:02 95 Room Air 05/26/16 07:47 98.1 60 24 138/75 98.1 05/25/16 08:00 2.0 ROS: No Nausea, No Chest Pain, No Abdominal Pain, No Increase Cough HEENT: Other Lungs: Clear Cardiovascular: S1, S2 Abdomen: Soft Neuro Exam: Alert Extremities: No Edema Skin: Warm Labs Laboratory Tests Test 05/25/16 03:50 05/25/16 04:35 05/25/16 07:30 05/26/16 04:22 White Blood Count 12.7x10^3/uL (4.0-11.0) 15.8x10^3/uL (4.0-11.0) Red Blood Count 4.92x10^6/uL (4.30-5.70) 4.82x10^6/uL (4.30-5.70) Hemoglobin 15.2g/dL (13.0-17.5) 14.7g/dL (13.0-17.5) Hematocrit 46.8% (39.0-53.0) 45.8% (39.0-53.0) Mean Corpuscular Volume 95fL (79-100) 95fL (79-100) Mean Corpuscular Hemoglobin 31pg (25-35) 31pg (25-35) Mean Corpuscular Hemoglobin Concent 33g/dL (31-37) 32g/dL (31-37) Red Cell Distribution Width 15.5% (11.5-14.5) 16.0% (11.5-14.5) Platelet Count 150x10^3/uL (140-400) 141x10^3/uL (140-400) Neutrophils (%) (Auto) 84% (31-73) 91% (31-73) Lymphocytes (%) (Auto) 8% (24-48) 5% (24-48) Monocytes (%) (Auto) 7% (0-9) 4% (0-9) Eosinophils (%) (Auto) 0% (0-3) 0% (0-3) Basophils (%) (Auto) 0% (0-3) 0% (0-3) Neutrophils # (Auto) 10.8x10^3uL (1.8-7.7) 14.5x10^3uL (1.8-7.7) Lymphocytes # (Auto) 1.1x10^3/uL (1.0-4.8) 0.8x10^3/uL (1.0-4.8) Monocytes # (Auto) 0.9x10^3/uL (0.0-1.1) 0.6x10^3/uL (0.0-1.1) Eosinophils # (Auto) 0.0x10^3/uL (0.0-0.7) 0.0x10^3/uL (0.0-0.7) Basophils # (Auto) 0.0x10^3/uL (0.0-0.2) 0.0x10^3/uL (0.0-0.2) Segmented Neutrophils % 72% (35-66) Band Neutrophils % 12% (0-9) Lymphocytes % 8% (24-48) Monocytes % 6% (0-10) Eosinophils % 1% (0-5) Myelocytes % 1% (0-0) Platelet Estimate Adequate (ADEQUATE) Platelet Clumps, EDTA Present Sodium Level 146mmol/L (136-145) Potassium Level 4.1mmol/L (3.5-5.1) Chloride Level 109mmol/L (98-107) Carbon Dioxide Level 33mmol/L (21-32) Anion Gap 4 (6-14) Blood Urea Nitrogen 22mg/dL (8-26) Creatinine 1.3mg/dL (0.7-1.3) Estimated GFR (Cockcroft-Gault) 66.2 BUN/Creatinine Ratio 17 (6-20) Glucose Level 118mg/dL (70-99) Calcium Level 8.8mg/dL (8.5-10.1) Total Bilirubin 0.4mg/dL (0.2-1.0) Aspartate Amino Transf (AST/SGOT) 14U/L (15-37) Alanine Aminotransferase (ALT/SGPT) 21U/L (16-63) Alkaline Phosphatase 66U/L (46-116) Troponin I Quantitative 0.022ng/mL (0.000-0.055) NK-Gmm-P-Type Natriuretic Peptide 505pg/mL (0-124) Total Protein 6.3g/dL (6.4-8.2) Albumin 3.3g/dL (3.4-5.0) Albumin/Globulin Ratio 1.1 (1.0-1.7) Influenza Type A Antigen Negative (NEGATIVE) Influenza Type B Antigen Negative (NEGATIVE) Urine Collection Type Unknown Urine Color Yellow Urine Clarity Clear Urine pH 6.5 Urine Specific [place] <=1.005 Urine Protein Negativemg/dL (NEG-TRACE) Urine Glucose (UA) Negativemg/dL (NEG) Urine Ketones (Stick) Negativemg/dL (NEG) Urine Blood Negative (NEG) Urine Nitrite Negative (NEG) Urine Bilirubin Negative (NEG) Urine Urobilinogen Dipstick 0.2mg/dL (0.2 mg/dL) Urine Leukocyte Esterase Negative (NEG) Urine RBC Occ/HPF (0-2) Urine WBC 0/HPF (0-4) Urine Squamous Epithelial Cells Occ/LPF Urine Bacteria 0/HPF (0-FEW) Urine Mucus Slight/LPF Test 05/26/16 04:42 Sodium Level 143mmol/L (136-145) Potassium Level 4.8mmol/L (3.5-5.1) Chloride Level 104mmol/L (98-107) Carbon Dioxide Level 31mmol/L (21-32) Anion Gap 8 (6-14) Blood Urea Nitrogen 28mg/dL (8-26) Creatinine 1.3mg/dL (0.7-1.3) Estimated GFR (Cockcroft-Gault) 66.2 Glucose Level 149mg/dL (70-99) Calcium Level 8.8mg/dL (8.5-10.1) Laboratory Tests Test 05/26/16 04:22 05/26/16 04:42 White Blood Count 15.8x10^3/uL (4.0-11.0) Red Blood Count 4.82x10^6/uL (4.30-5.70) Hemoglobin 14.7g/dL (13.0-17.5) Hematocrit 45.8% (39.0-53.0) Mean Corpuscular Volume 95fL (79-100) Mean Corpuscular Hemoglobin 31pg (25-35) Mean Corpuscular Hemoglobin Concent 32g/dL (31-37) Red Cell Distribution Width 16.0% (11.5-14.5) Platelet Count 141x10^3/uL (140-400) Neutrophils (%) (Auto) 91% (31-73) Lymphocytes (%) (Auto) 5% (24-48) Monocytes (%) (Auto) 4% (0-9) Eosinophils (%) (Auto) 0% (0-3) Basophils (%) (Auto) 0% (0-3) Neutrophils # (Auto) 14.5x10^3uL (1.8-7.7) Lymphocytes # (Auto) 0.8x10^3/uL (1.0-4.8) Monocytes # (Auto) 0.6x10^3/uL (0.0-1.1) Eosinophils # (Auto) 0.0x10^3/uL (0.0-0.7) Basophils # (Auto) 0.0x10^3/uL (0.0-0.2) Sodium Level 143mmol/L (136-145) Potassium Level 4.8mmol/L (3.5-5.1) Chloride Level 104mmol/L (98-107) Carbon Dioxide Level 31mmol/L (21-32) Anion Gap 8 (6-14) Blood Urea Nitrogen 28mg/dL (8-26) Creatinine 1.3mg/dL (0.7-1.3) Estimated GFR (Cockcroft-Gault) 66.2 Glucose Level 149mg/dL (70-99) Calcium Level 8.8mg/dL (8.5-10.1) Medications Active Scripts Medications Dose Route/Sig Days Date Category Amox Tr-K Clv 875-125 Mg Tab (Amoxicillin/Potassium Clav) 1 Each Tablet 1 Tab PO BID 05/25/16 Reported Azelastine Hcl 137 Mcg/0.137 Ml [place].pump 2 [place] NS BID 05/25/16 Reported Advair 500-50 Diskus (Fluticasone/Salmeterol) 1 Each Disk.w.dev 1 Inh IH BID 05/25/16 Reported Gabapentin 300 Mg Capsule 300 Mg PO HS 05/25/16 Reported Avodart (Dutasteride) 0.5 Mg Capsule 1 Cap PO HS 05/25/16 Reported Claritin-D 12 Hour Tablet (Loratadine/Pseudoephedrine) 1 Each Tab.er.12h 1 Tab PO BID 09/17/15 Rx Montelukast Sodium Tablet (Montelukast Sodium) 10 Mg Tablet 1 Tab PO DAILY 12/27/14 Reported Naproxen 500 Mg Tablet 1 Tab PO BID 12/27/14 Reported Aspir 81 (Aspirin) 81 Mg Tablet.dr 1 Tab PO DAILY 12/27/14 Reported [Albuterol Sulfate] 2.5 MG/3 ML Nebu 2.5 Mg NEB PRN Q2HR PRN 1 11/15/13 Rx Tylenol (Acetaminophen) 325 Mg Tablet 650 Mg PO PRN Q6HRS PRN 28 11/15/13 Rx Flomax (Tamsulosin Hcl) 0.4 Mg Cap.er.24h 0.4 Mg PO QHS 02/10/13 Reported Zocor (Simvastatin) 20 Mg Tablet 20 Mg PO QHS 02/10/13 Reported Impression . 1. Progressive dyspnea secondary to acute exacerbation of chronic obstructive pulmonary disease. 2. Acute exacerbation of chronic obstructive pulmonary disease. 3. Recent sinusitis. 4. Hyperlipidemia. 5. Tobacco dependence. 6. Possible vocal cord dysfunction Plan . 1. The patient instructed on the importance of discontinuing tobacco use. 2. Concur with current medical regimen including nebulized treatments and prednisone. 3. No need for antibiotics. 4. A 6-minute walk prior to discharge. 5. Stop all caffine intake to avpid GERD 6. Spirometry to look at flow volume loop, spoke with Dr Gallo if no better in 2 months needs an ENT evaluation GINA ERAZO MD May 26, 2016 11:06
[2016-05-26 11:08] VITALS: BP 139/70
[2016-05-26 14:33] VITALS: BP 118/62
[2016-05-26] MEDS: ENOXAPARIN 40 MG/0.4 ML DISP.SYRIN. SQ SCH (16:23)
--- NOTE | 2016-05-26 18:31 | PDOC ---
SUBJECTIVE Subjective Feels like he is doing better overall. The voice is a little bit better but still very hoarse. He is breathing a little bit easier. The swelling is improved in his legs. He is eating and drinking okay. Voiding okay. OBJECTIVE Vital Signs Vital Signs Date Time Temp Pulse Resp B/P Pulse Ox O2 Delivery O2 Flow Rate FiO2 05/26/16 15:22 Room Air 05/26/16 14:33 99.1 70 18 118/62 93 Room Air 99.1 05/26/16 11:37 Room Air 05/26/16 11:08 98.1 66 20 139/70 94 Room Air 98.1 05/26/16 08:02 95 Room Air 05/26/16 08:00 Room Air 05/26/16 07:47 98.1 60 24 138/75 92 Room Air 98.1 05/26/16 03:35 98.2 57 18 137/84 95 Room Air 98.2 05/25/16 23:46 139/77 05/25/16 23:35 98.5 63 18 135/103 95 Room Air 98.5 05/25/16 23:24 Room Air 05/25/16 20:00 Room Air 05/25/16 19:30 99.1 63 16 143/72 93 Room Air 99.1 I & O Intake and Output 05/26/16 07:00 Intake Total 770 ml Output Total 1100 ml Balance -330 ml Intake Oral 770 ml Output Urine Total 1100 ml # Voids 3 # Bowel Movements 1 PHYSICAL EXAM Physical Exam General: No acute distress. Sitting in the chair. Mental status: Alert and oriented. Chest: Clear to auscultation except for some end expiratory wheezes with forced air movement. Fair air movement CV: Normal rate. Regular rhythm. No murmur. Abdomen: Normal bowel sounds. Soft. Not distended. No tenderness. No guarding. No rebound. Extremities: 1+ lower extremity edema. ASSESSMENT/PLAN Assessment/Plan 1. COPD exacerbation: Making improvement. Continue per pulmonology. Pulmonary function testing per their recommendations. Discussed with Dr. Sung. 2. Diastolic congestive heart failure, acute: likely due to underlying lung disease and moderate pulmonary hypertension. Continue diuresis for now. 3. Hypertension: Stable. 4. BPH: Stable. 5. History of sleep apnea: Stable. 6. Hoarseness: Probably due to spasm from gastroesophageal reflux. We will attempt to control that better with medication and if not improving in the next month or 2 then consider ENT evaluation. Problems: COMMENT Lab Laboratory Tests Test 05/26/16 04:22 05/26/16 04:42 White Blood Count 15.8x10^3/uL (4.0-11.0) Red Blood Count 4.82x10^6/uL (4.30-5.70) Hemoglobin 14.7g/dL (13.0-17.5) Hematocrit 45.8% (39.0-53.0) Mean Corpuscular Volume 95fL (79-100) Mean Corpuscular Hemoglobin 31pg (25-35) Mean Corpuscular Hemoglobin Concent 32g/dL (31-37) Red Cell Distribution Width 16.0% (11.5-14.5) Platelet Count 141x10^3/uL (140-400) Neutrophils (%) (Auto) 91% (31-73) Lymphocytes (%) (Auto) 5% (24-48) Monocytes (%) (Auto) 4% (0-9) Eosinophils (%) (Auto) 0% (0-3) Basophils (%) (Auto) 0% (0-3) Neutrophils # (Auto) 14.5x10^3uL (1.8-7.7) Lymphocytes # (Auto) 0.8x10^3/uL (1.0-4.8) Monocytes # (Auto) 0.6x10^3/uL (0.0-1.1) Eosinophils # (Auto) 0.0x10^3/uL (0.0-0.7) Basophils # (Auto) 0.0x10^3/uL (0.0-0.2) Sodium Level 143mmol/L (136-145) Potassium Level 4.8mmol/L (3.5-5.1) Chloride Level 104mmol/L (98-107) Carbon Dioxide Level 31mmol/L (21-32) Anion Gap 8 (6-14) Blood Urea Nitrogen 28mg/dL (8-26) Creatinine 1.3mg/dL (0.7-1.3) Estimated GFR (Cockcroft-Gault) 66.2 Glucose Level 149mg/dL (70-99) Calcium Level 8.8mg/dL (8.5-10.1) HARESH BLAND MD May 26, 2016 18:31
[2016-05-26 19:18] VITALS: BP 154/93
[2016-05-26] MEDS: SIMVASTATIN 20 MG TABLET PO SCH (20:37)
[2016-05-26] MEDS: TAMSULOSIN 0.4 MG CAP.ER.24H. PO SCH (20:37)
[2016-05-26] MEDS: MONTELUKAST SODIUM 10 MG TABLET. PO SCH (20:38)
[2016-05-26 23:30] VITALS: BP 143/76
[2016-05-27 04:00] VITALS: BP 134/84
[2016-05-27] MEDS: methylPREDNISolone SOD SUCC PF 40 MG/ML VIAL. IV SCH ×2 (06:12→14:50)
[2016-05-27 07:00] VITALS: BP 142/79
[2016-05-27] MEDS: IPRATRPIUM/ALBUTEROL 0.5/2.5MG 3 ML NEBU. NEB SCH ×3 (07:22→16:04)
[2016-05-27] MEDS: BUDESONIDE 0.5 MG/2 ML NEBU NEB SCH (07:22)
[2016-05-27] MEDS ORDERED: PANTOPRAZOLE 40 MG TABLET. PO SCH (07:30)
[2016-05-27] MEDS: ASPIRIN ENTERIC COATED 81 MG TABLET.DR. PO SCH (08:32)
[2016-05-27 10:45] VITALS: BP 139/78
--- NOTE | 2016-05-27 11:18 | PDOC ---
PULMONARY PROGRESS NOTES Vitals Vital Signs Date Time Temp Pulse Resp B/P Pulse Ox O2 Delivery O2 Flow Rate FiO2 05/27/16 10:45 98.1 69 20 139/78 95 Room Air 98.1 HEENT: Other Labs Laboratory Tests Test 05/26/16 04:22 05/26/16 04:42 White Blood Count 15.8x10^3/uL (4.0-11.0) Red Blood Count 4.82x10^6/uL (4.30-5.70) Hemoglobin 14.7g/dL (13.0-17.5) Hematocrit 45.8% (39.0-53.0) Mean Corpuscular Volume 95fL (79-100) Mean Corpuscular Hemoglobin 31pg (25-35) Mean Corpuscular Hemoglobin Concent 32g/dL (31-37) Red Cell Distribution Width 16.0% (11.5-14.5) Platelet Count 141x10^3/uL (140-400) Neutrophils (%) (Auto) 91% (31-73) Lymphocytes (%) (Auto) 5% (24-48) Monocytes (%) (Auto) 4% (0-9) Eosinophils (%) (Auto) 0% (0-3) Basophils (%) (Auto) 0% (0-3) Neutrophils # (Auto) 14.5x10^3uL (1.8-7.7) Lymphocytes # (Auto) 0.8x10^3/uL (1.0-4.8) Monocytes # (Auto) 0.6x10^3/uL (0.0-1.1) Eosinophils # (Auto) 0.0x10^3/uL (0.0-0.7) Basophils # (Auto) 0.0x10^3/uL (0.0-0.2) Sodium Level 143mmol/L (136-145) Potassium Level 4.8mmol/L (3.5-5.1) Chloride Level 104mmol/L (98-107) Carbon Dioxide Level 31mmol/L (21-32) Anion Gap 8 (6-14) Blood Urea Nitrogen 28mg/dL (8-26) Creatinine 1.3mg/dL (0.7-1.3) Estimated GFR (Cockcroft-Gault) 66.2 Glucose Level 149mg/dL (70-99) Calcium Level 8.8mg/dL (8.5-10.1) Medications Active Scripts Medications Dose Route/Sig Days Date Category Amox Tr-K Clv 875-125 Mg Tab (Amoxicillin/Potassium Clav) 1 Each Tablet 1 Tab PO BID 05/25/16 Reported Azelastine Hcl 137 Mcg/0.137 Ml [place].pump 2 [place] NS BID 05/25/16 Reported Advair 500-50 Diskus (Fluticasone/Salmeterol) 1 Each Disk.w.dev 1 Inh IH BID 05/25/16 Reported Gabapentin 300 Mg Capsule 300 Mg PO HS 05/25/16 Reported Avodart (Dutasteride) 0.5 Mg Capsule 1 Cap PO HS 05/25/16 Reported Claritin-D 12 Hour Tablet (Loratadine/Pseudoephedrine) 1 Each Tab.er.12h 1 Tab PO BID 09/17/15 Rx Montelukast Sodium Tablet (Montelukast Sodium) 10 Mg Tablet 1 Tab PO DAILY 12/27/14 Reported Naproxen 500 Mg Tablet 1 Tab PO BID 12/27/14 Reported Aspir 81 (Aspirin) 81 Mg Tablet.dr 1 Tab PO DAILY 12/27/14 Reported [Albuterol Sulfate] 2.5 MG/3 ML Nebu 2.5 Mg NEB PRN Q2HR PRN 1 11/15/13 Rx Tylenol (Acetaminophen) 325 Mg Tablet 650 Mg PO PRN Q6HRS PRN 28 11/15/13 Rx Flomax (Tamsulosin Hcl) 0.4 Mg Cap.er.24h 0.4 Mg PO QHS 02/10/13 Reported Zocor (Simvastatin) 20 Mg Tablet 20 Mg PO QHS 02/10/13 Reported Impression . 1. Progressive dyspnea secondary to acute exacerbation of chronic obstructive pulmonary disease. 2. Acute exacerbation of chronic obstructive pulmonary disease. 3. Recent sinusitis. 4. Hyperlipidemia. 5. Tobacco dependence. Plan . PLAN: 1. The patient instructed on the importance of discontinuing tobacco use. 2. Concur with current medical regimen including nebulized treatments and prednisone. 3. No need for antibiotics. 4. A 6-minute walk prior to discharge. GINA ERAZO MD May 27, 2016 11:18
[2016-05-27 15:00] VITALS: BP 125/69
--- NOTE | 2016-05-27 15:44 | DISCH ---
DISCHARGE INSTRUCTIONS Condition on Discharge Condition on Discharge: Stable Activity After Discharge Activity Instructions for Disc: Activity as tolerated Diet after Discharge Diet after Discharge: Cardiac Checks after Discharge Checks after discharge: Weigh Yourself Daily (his Lasix if weight increases 3 pounds in 3 days or 5 pounds in 1 week) Contacting the DR. after DC Call your doctor for: If your condition worsens Follow-Up Follow up with: Dr Bland in 1-2 weeks Treatment/Equipment after DC Discharge Respiratory Equipmen: Nebulizer (current nebulizer is not functioning ) HARESH BLAND MD May 27, 2016 15:44
[2016-05-27] MEDS ORDERED: PANT40TA5 PO (15:53)
[2016-05-27] MEDS ORDERED: Albuterol Sulfate NEB (15:53)
[2016-05-27] MEDS ORDERED: FURO-69 PO (15:53)
--- NOTE | 2016-05-27 16:28 | HP ---
ADMIT DATE: 05/25/2016 ATTENDING PHYSICIAN: Dr. Haresh Bland. CHIEF COMPLAINT: Shortness of breath. HISTORY OF PRESENT ILLNESS: The patient is a 71-year-old male with a history of COPD who had the onset approximately 3 weeks of worsening shortness of breath. He did have a recent sinus infection and was placed on antibiotics for that. He has had some worsening shortness of breath since then. On the morning of admission, he woke up and could not breathe. He has had some swelling in his bilateral lower legs for the last 2 days. He denies any fever. He has had a nonproductive cough for the most part, although he occasionally gets some phlegm and sputum. He was having difficulty with breathing and actually fell this morning and hit his left side which is causing him some pain with deep inspiration at this point. Shortness of breath is significant for him. PAST MEDICAL HISTORY: Significant for COPD, hyperlipidemia, hypertension, BPH, mild sleep apnea, perineal allergic rhinitis, recurrent sinusitis, and urethral stricture. PAST SURGICAL HISTORY: Bilateral foot surgery, cochlear implant on the right, right ear surgery, and tonsillectomy. SOCIAL HISTORY: The patient is . He smokes 3 to 4 cigarettes per month, although that varies. He denies any significant alcohol use, no illicit drug use. He has had surgery for his urethral stricture as well. FAMILY HISTORY: Noncontributory. ALLERGIES TO MEDICATIONS: No known drug allergies. MEDICATIONS: At the time of admission include Tylenol 650 mg p.o. q. 6 hours p.r.n., aspirin 81 mg p.o. daily, Astelin nasal spray 2 sprays b.i.d., Avodart 0.5 mg p.o. daily, Advair 500/50 one puff b.i.d., gabapentin 300 mg p.o. at bedtime, Claritin-D b.i.d. p.r.n., Singulair 10 mg p.o. daily, naproxen 500 mg p.o. b.i.d. p.r.n., Zocor 20 mg p.o. daily, Flomax 0.4 mg p.o. daily, and albuterol nebulizer treatments q.i.d. REVIEW OF SYSTEMS: The patient denies any fevers. He has been having some upper respiratory congestion and drainage. No hearing changes. He has seen ENT recently regarding his ear and hearing. He has had a hoarse voice for the last 3 weeks at least. He is not having any difficulty swallowing. He denies any heartburn or reflux symptoms. He denies any productive cough. He denies any chest pain or palpitations. He has had lower extremity edema, which has worsened over the past 2 days and is unusual for him. He has been voiding normally for him without any change. He denies any dysuria, hematuria, no blood in stools. No diarrhea. He denies any focal weakness or paraesthesia. Mood is okay. PHYSICAL EXAMINATION: VITAL SIGNS: At the time of admission, temperature 98.4, pulse 73, respiratory rate 22, blood pressure 161/92, and O2 sat 96% on room air. GENERAL: The patient is a well-developed, well-nourished male in some mild respiratory distress and unable to speak in full sentences at present. He is alert and oriented. HEENT: The pupils are equal and round. Extraocular motions are intact. Sclerae are anicteric. Oropharynx is moist. NECK: Without JVD. There is no bruit. No thyromegaly. CHEST: Has decreased air movement throughout. There are expiratory wheezes bilaterally. CARDIOVASCULAR: The heart has a regular rate and rhythm without murmur. ABDOMEN: Positive bowel sounds, soft, nontender, no guarding, or rebound. EXTREMITIES: There is 2+ edema in the bilateral lower legs. NEUROLOGIC: Grossly intact and nonfocal. PSYCHIATRIC: Mood and affect appear appropriate. LABORATORY DATA: At the time of admission, WBC 12.7, hemoglobin 15.2, hematocrit 46.8, and platelets 150. UA was negative for nitrite and leukocyte esterase. Influenza A and B were negative. Sodium 146, potassium 4.1, chloride 109, CO2 of 33, BUN 22, creatinine 1.3, and glucose 118. BNP was 505. Albumin was 3.3. Chest x-ray showed no acute or active pulmonary disease. EKG shows sinus rhythm, missing lead V4, otherwise normal. IMPRESSION: 1. Chronic obstructive pulmonary disease exacerbation. 2. Lower extremity edema, but this probably represents congestive heart failure. 3. Hypertension. 4. BPH. 5. History of sleep apnea. PLAN: The patient is admitted. We will give him IV Lasix. We will check ultrasound of the lower extremities to rule out deep venous thrombosis. We will use Lovenox for deep venous thrombosis prophylaxis. We will consult Pulmonology. We will get an echocardiogram to evaluate the heart for systolic dysfunction versus possible diastolic dysfunction. We will use supplemental oxygen as needed, frequent nebulizer treatments, and IV steroids. We will see how he does depending on those interventions and make further treatments based on that. It does not appear that he needs to be on antibiotics at this point in time. HARESH BLAND MD DR: MANISHA/hardik JOB#: [id number] / [id number] JAK
--- NOTE | 2016-06-03 18:28 | PDOC ---
Provider Note Provider Note See discharge summary dictation #[id number] HARESH BLAND MD Jun 03, 2016 18:28
--- NOTE | 2016-06-03 19:09 | DS ---
DATE OF DISCHARGE: 05/27/2016 ATTENDING PHYSICIAN: Haresh Bland M.D. CHIEF COMPLAINT: Shortness of breath. HISTORY OF PRESENT ILLNESS: The patient is a 71-year-old male with a history of COPD who had the onset approximately 3 weeks prior to admission with worsening shortness of breath. He was treated with antibiotics during that time. In the last 2-3 days, he had noticed increased shortness of breath as well as swelling in his bilateral lower extremities. Over the past 2 days, there was something relatively new for him. He did have a nonproductive cough, although he occasionally did have some minimal phlegm and sputum. He had fallen on his left side and hit that on the morning of admission, which made more pain with deep inspiration. HOSPITAL COURSE: The patient was admitted. He was started on empiric antibiotics as well as steroid. He had frequent nebulizer treatments. He was given supplemental oxygen. He was seen in consultation with Pulmonology. He did have improvement in his symptoms. The chest x-ray did not show any acute abnormality. Lower extremity ultrasound did not show any evidence of DVT in either leg. He did undergo an echocardiogram, which showed low normal systolic function with an ejection fraction of 56%. There is a grade 1 abnormal relaxation pattern, moderate pulmonary hypertension with a pulmonary artery pressure estimated at 45. No significant valvular disease. It was felt that his lower extremity swelling was probably due to diastolic dysfunction. At the time of discharge, the patient was tolerating his diet without any difficulty. He was eating and drinking. His voice was still hoarse. It was thought that that may be contributing to some of his wheezing. He was overall improved. He is afebrile. His vital signs were stable. He is maintaining O2 saturations in the mid 90s on room air. He was ambulating without any significant difficulty. He felt ready to go home. The chest was clear to auscultation with improved air movement. There are no wheezes. Heart had a regular rate and rhythm without murmur. The abdomen was nontender. The lower extremity edema was resolved. DISCHARGE DIAGNOSES: 1. Acute exacerbation of chronic obstructive pulmonary disease. 2. Diastolic congestive heart failure, acute with probably chronic underlying diastolic heart failure. 3. Hypertension. 4. History of sleep apnea. 5. Hoarseness probably related to spasm from gastroesophageal reflux. DISCHARGE DIET: Cardiac diet. DISCHARGE ACTIVITY: As tolerated. MEDICATIONS AT THE TIME OF DISCHARGE: Include Lasix 20 mg p.o. daily if he has increased weight. A discussion was had with him regarding the appropriate finding of that, but not on a daily basis regularly. At this time, Protonix 40 mg p.o. daily, prednisone taper, Tylenol 650 mg p.o. q. 6hours p.r.n., Augmentin 875 mg p.o. b.i.d., aspirin 81 mg p.o. daily, Azelastine 2 sprays each nostril b.i.d., Avodart 0.5 mg p.o. daily, Advair 500/50 Diskus 1 puff b.i.d., Singulair 10 mg p.o. daily, naproxen 500 mg p.o. b.i.d., Zocor 20 mg p.o. daily, Flomax 0.4 mg p.o. at bedtime, albuterol nebulizer treatments q.i.d. and every 2 hours as needed. FOLLOWUP: He is to follow up with Dr. Bland in 1 week. He is to follow up with Pulmonology per their recommendations. HARESH BLAND MD DR: MANISHA/hardik JOB#: [id number] / [id number]
== END 2016-05-27 18:10 | disposition home or self-care (01) | DRG 190 ==
LOC: ER 03:57 → 6 SOUTH 05:40
PROVIDERS: ADMIT Family Medicine; ATTEND Family Medicine
DX: J44.1 Chronic obstructive pulmonary disease with (acute) exacerbation (principal); I50.31 Acute diastolic (congestive) heart failure; E78.5 Hyperlipidemia, unspecified; F17.210 Nicotine dependence, cigarettes, uncomplicated; I27.2 Other secondary pulmonary hypertension; J32.9 Chronic sinusitis, unspecified; K21.9 Gastro-esophageal reflux disease without esophagitis; N40.0 Benign prostatic hyperplasia without lower urinary tract symptoms; E78.00 Pure hypercholesterolemia, unspecified; J30.9 Allergic rhinitis, unspecified; I11.0 Hypertensive heart disease with heart failure
CPT/HCPCS: 36415; 71010; 80048; 80053; 81001; 83880; 84484; 85007; 85027; 87804; 93005; 93306; 93970; 94250; 94620; 94640; 94760; 96374; J1650; J2920; J7512; J7620; 97110; 99285-25

== ENCOUNTER 2016-06-03 11:43 | Inpatient (IN) | payer MEDICARE, BC ==
[~2016-06-03] VITALS: Ht 177.8 cm; Wt 82.3 kg
[~2016-06-03 11:43] MED LIST changes: +AMOX1TAB11 PO; +AZEL137S3 NS; +DUTA0.5C PO; +FLUT1DIS5 IH; +FURO-69 PO; +GABA-586 PO; +PANT40TA5 PO
--- NOTE | 2016-06-03 12:13 | RAD ---
Portable chest, 06/03/2016: History: Chest pain, shortness of breath Comparison is made to a study from 05/25/2016. The heart size and pulmonary vascularity are normal. No pulmonary infiltrates are seen. There is no evidence of pleural fluid. There is a mild thoracic scoliosis. IMPRESSION: No acute cardiopulmonary abnormality is detected.
[2016-06-03] MEDS ORDERED: IPRATRPIUM/ALBUTEROL 0.5/2.5MG 3 ML NEBU. NEB ONE (12:15)
[2016-06-03 12:27] LABS: BASO # 0.1 x10^3/uL (0.0-0.2); BASO % 1 % (0-3); EOS % 2 % (0-3); LYMPH # 0.8 x10^3/uL (1.0-4.8); LYMPH % 6 % (24-48); MEAN CORPUSCULAR HEMOGLOBIN 31 pg (25-35); MEAN CORPUSCULAR HGB CONC 33 g/dL (31-37); MEAN CORPUSCULAR VOLUME 95 fL (79-100); MONO % 4 % (0-9); NEUT % 88 % (31-73); PLATELET COUNT 137 x10^3/uL (140-400); RED BLOOD COUNT 5.18 x10^6/uL (4.30-5.70); RED CELL DISTRIBUTION WIDTH 15.7 % (11.5-14.5)
[2016-06-03 12:37] LABS: CALCIUM 8.8 mg/dL (8.5-10.1); CREATININE 1.2 mg/dL (0.7-1.3); GFR 72.6; POTASSIUM 4.4 mmol/L (3.5-5.1)
[2016-06-03 12:43] LABS: ALBUMIN 3.2 g/dL (3.4-5.0); DIRECT BILIRUBIN 0.1 mg/dL (0.0-0.2); TOTAL BILIRUBIN 0.5 mg/dL (0.2-1.0); TOTAL PROTEIN 6.4 g/dL (6.4-8.2)
--- NOTE | 2016-06-03 12:59 | PHYS DOC ---
Past Medical History Past Medical History: CHF, COPD, High Cholesterol, Other Additional Past Medical Histor: enlarged prostate, sob(not actually dx copd, gets alb neb qid) Past Surgical History: Other Additional Past Surgical Histo: foot surgery, bladder surgery Alcohol Use: None Drug Use: None Adult General Chief Complaint Chief Complaint: SHORTNESS OF BREATH HPI HPI 71-year-old male presenting to the emergency department with worsening shortness of breath over the last few months with bilateral pedal edema and worsening weight gain. His shortness of breath is worse with walking. It is improved with rest. He denies chest pain. It is associated with weight gain. Nonradiating. Review of systems is negative for chest pain abdominal pain nausea vomiting fevers chills or cough. All other review of systems is negative unless otherwise noted in history of present illness. Review of Systems Review of Systems SEE ABOVE. Current Medications Current Medications Current Medications Medications (Trade) Dose Ordered Sig/Dandre Start Time Stop Time Status Last Admin Dose Admin Albuterol/ Ipratropium (Duoneb) 3 ml 1X ONCE 06/03/16 12:15 06/03/16 12:16 DC 06/03/16 12:20 3 ML Furosemide (Lasix) 20 mg 1X ONCE 06/03/16 13:00 06/03/16 13:02 DC 06/03/16 13:10 20 MG Allergies Allergies Allergies Coded Allergies Type Severity Reaction Last Updated Verified No Known Drug Allergies 12/27/14 No Physical Exam Physical Exam Constitutional: Well developed, well nourished, no acute distress, non-toxic appearance. HENT: Normocephalic, atraumatic, bilateral external ears normal, oropharynx moist, no oral exudates, nose normal. Eyes: PERRLA, EOMI, conjunctiva normal, no discharge. [] Neck: Normal range of motion, no tenderness, supple, no stridor. Cardiovascular: Lungs are clear to auscultation bilaterally. No crackles or wheezing present. Lungs & Thorax: Bilateral breath sounds clear to auscultation [] Abdomen: Bowel sounds normal, soft, no tenderness, no masses, no pulsatile masses. [] Skin: Warm, dry, no erythema, no rash. Back: No tenderness, no CVA tenderness. [] Extremities: No tenderness, no cyanosis, no clubbing, ROM intact, 3+ edema. Neurologic: Alert and oriented X 3, normal motor function, normal sensory function, no focal deficits noted. Psychologic: Affect normal, judgement normal, mood normal. [] Current Patient Data Vital Signs Vital Signs Date Time Temp Pulse Resp B/P Pulse Ox O2 Delivery O2 Flow Rate FiO2 06/03/16 12:20 Room Air 06/03/16 11:45 97.8 99 24 137/92 97 97.8 Lab Values Laboratory Tests Test 06/03/16 12:08 White Blood Count 15.0x10^3/uL (4.0-11.0) H Red Blood Count 5.18x10^6/uL (4.30-5.70) Hemoglobin 16.0g/dL (13.0-17.5) Hematocrit 49.0% (39.0-53.0) Mean Corpuscular Volume 95fL (79-100) Mean Corpuscular Hemoglobin 31pg (25-35) Mean Corpuscular Hemoglobin Concent 33g/dL (31-37) Red Cell Distribution Width 15.7% (11.5-14.5) H Platelet Count 137x10^3/uL (140-400) L Neutrophils (%) (Auto) 88% (31-73) H Lymphocytes (%) (Auto) 6% (24-48) L Monocytes (%) (Auto) 4% (0-9) Eosinophils (%) (Auto) 2% (0-3) Basophils (%) (Auto) 1% (0-3) Neutrophils # (Auto) 13.2x10^3uL (1.8-7.7) H Lymphocytes # (Auto) 0.8x10^3/uL (1.0-4.8) L Monocytes # (Auto) 0.6x10^3/uL (0.0-1.1) Eosinophils # (Auto) 0.4x10^3/uL (0.0-0.7) Basophils # (Auto) 0.1x10^3/uL (0.0-0.2) Segmented Neutrophils % 70% (35-66) H Band Neutrophils % 13% (0-9) H Lymphocytes % 14% (24-48) L Monocytes % 3% (0-10) Toxic Granulation Slight Toxic Vacuolation Slight Platelet Estimate Adequate (ADEQUATE) Sodium Level 142mmol/L (136-145) Potassium Level 4.4mmol/L (3.5-5.1) Chloride Level 101mmol/L (98-107) Carbon Dioxide Level 34mmol/L (21-32) H Anion Gap 7 (6-14) Blood Urea Nitrogen 24mg/dL (8-26) Creatinine 1.2mg/dL (0.7-1.3) Estimated GFR (Cockcroft-Gault) 72.6 Glucose Level 166mg/dL (70-99) H Calcium Level 8.8mg/dL (8.5-10.1) Total Bilirubin 0.5mg/dL (0.2-1.0) Direct Bilirubin 0.1mg/dL (0.0-0.2) Aspartate Amino Transferase (AST) 12U/L (15-37) L Alanine Aminotransferase (ALT) 29U/L (16-63) Alkaline Phosphatase 68U/L (46-116) Troponin I Quantitative < 0.017ng/mL (0.000-0.055) QJ-Fbc-W-Type Natriuretic Peptide 94pg/mL (0-124) Total Protein 6.4g/dL (6.4-8.2) Albumin 3.2g/dL (3.4-5.0) L Lipase 170U/L (73-393) Laboratory Tests 06/03/16 12:08 Laboratory Tests 06/03/16 12:08 EKG EKG EKG shows sinus rhythm with a regular rate. [place] is normal. Intervals are normal. ST segments are congruent. [] Radiology/Procedures Radiology/Procedures [] Course & Med Decision Making Course & Med Decision Making Pertinent Labs and Imaging studies reviewed. (See chart for details) [] 71-year-old male presenting to the emergency department with worsening weight gain and shortness of breath with exertion. Triage vital signs show that the patient is afebrile. Pulse mildly elevated at 99. Respiratory rate mildly increased at 24. Mildly hypertensive. The patient is saturating well on room air. Pertinent physical exam findings show edema without any crackles in the lungs. Chest x-ray obtained which was unremarkable. EKG unremarkable. Blood work sent. CBC shows leukocytosis likely secondary to recent initiation of steroids. Chemistry panel shows negative troponin. Normal lipase. Otherwise mild CO2 retention present. We attempted to get orthostatics and walking desaturations in the emergency department however unfortunately multiple attempts were unsuccessful. The patient had severe muscle cramping and was unable to walk in the emergency department. He was subsequently admitted to our hospital for further evaluation workup and care. He was given oral Lasix in the emergency department prior to being admitted. Dragon Disclaimer Dragon Disclaimer This electronic medical record was generated, in whole or in part, using a voice recognition dictation system. Departure Departure Impression: Primary Impression: Shortness of breath Additional Impressions: Weight gain Peripheral edema Disposition: ADMITTED INPATIENT Admitting Physician: Other (Dr. Agudelo) Condition: STABLE Referrals: HARESH BLAND MD (PCP) Patient Instructions: Edema Additional Instructions: Thank you for allowing us to participate in your care today. Followup with your primary care physician in 3 days if your symptoms do not improve. If you do not have a primary care provider you can ask for a list of our primary care providers. Return to the emergency department you have any new or concerning findings. This should be evaluated by the primary care physician and any necessary consulting services for continued management within a few days after discharge. Return to emergency room if you have any new or concerning symptoms including but not limited to fever, chills, nausea, vomiting, intractable pain, any new rashes, chest pain, shortness of air, uncontrolled bleeding, difficulty breathing, and/or vision loss. Problem Qualifiers INOCENCIA FINLEY MD Jun 03, 2016 12:59
[2016-06-03] MEDS ORDERED: FUROSEMIDE 40 MG TABLET PO ONE (13:00)
--- NOTE | 2016-06-03 13:07 | EKG ---
[facility] [address] [place] [address] Test Date: 2016-06-03 Test Time: 12:16:49 Pat Name: JUAN PABLO WATERMAN Department: Room: Gender: M Overhead Line Worker: : 1945 Requested By: INOCENCIA FINLEY Order Number: [id number] Reading MD: Measurements Intervals [place] Rate: 89 P: 78 MN: 134 QRS: 47 QRSD: 84 T: 55 QT: 360 QTc: 444 Interpretive Statements SINUS RHYTHM R-S TRANSITION ZONE IN V LEADS DISPLACED TO THE LEFT QRS(T) CONTOUR ABNORMALITY CONSIDER ANTEROSEPTAL MYOCARDIAL DAMAGE POSSIBLY ABNORMAL ECG RI6.01 No previous ECG available for comparison
[2016-06-03 14:14] LABS: PLT ESTIMATE ADEQUATE (ADEQUATE); TOXIC GRANULATION SLIGHT; TOXIC VACUOLATION SLIGHT
[2016-06-03] MEDS ORDERED: ONDANSETRON PF 4 MG/2 ML VIAL. IV PRN (15:15)
[2016-06-03] MEDS ORDERED: MORPHINE SULFATE 2 MG/ML DISP.SYRIN. IV PRN (15:15)
[2016-06-03 16:30] VITALS: BP 125/76
[2016-06-03] MEDS ORDERED: PRED20TA PO (18:14)
[2016-06-03 19:00] VITALS: BP 127/96
[2016-06-03] MEDS ORDERED: ACETAMINOPHEN 325 MG TABLET. PO PRN ×2 (19:00)
[2016-06-03] MEDS: CYCLOBENZAPRINE 10 MG TABLET. PO PRN (19:26)
[2016-06-03] MEDS: IPRATRPIUM/ALBUTEROL 0.5/2.5MG 3 ML NEBU. NEB SCH (21:02)
[2016-06-03] MEDS: TAMSULOSIN 0.4 MG CAP.ER.24H. PO SCH (21:10)
[2016-06-03] MEDS: SIMVASTATIN 20 MG TABLET PO SCH (21:10)
[2016-06-03 22:57] VITALS: BP 115/73
[2016-06-04 05:31] LABS: BASO # 0.1 x10^3/uL (0.0-0.2); BASO % 0 % (0-3); EOS % 0 % (0-3); HEMATOCRIT 51.9 % (39.0-53.0); HEMOGLOBIN 16.8 g/dL (13.0-17.5); LYMPH # 0.8 x10^3/uL (1.0-4.8); LYMPH % 5 % (24-48); MEAN CORPUSCULAR HEMOGLOBIN 30 pg (25-35); MEAN CORPUSCULAR HGB CONC 32 g/dL (31-37); MEAN CORPUSCULAR VOLUME 94 fL (79-100); MONO % 3 % (0-9); NEUT % 92 % (31-73); PLATELET COUNT 129 x10^3/uL (140-400); RED BLOOD COUNT 5.53 x10^6/uL (4.30-5.70); RED CELL DISTRIBUTION WIDTH 16.2 % (11.5-14.5); WHITE BLOOD COUNT 15.8 x10^3/uL (4.0-11.0)
[2016-06-04 05:52] LABS: CALCIUM 9.1 mg/dL (8.5-10.1); CREATININE 1.4 mg/dL (0.7-1.3); GFR 60.8; POTASSIUM 5.2 mmol/L (3.5-5.1)
[2016-06-04 07:10] VITALS: BP 126/78
[2016-06-04] MEDS: IPRATRPIUM/ALBUTEROL 0.5/2.5MG 3 ML NEBU. NEB SCH ×4 (07:17→19:47)
--- NOTE | 2016-06-04 08:17 | PDOC1 ---
History and Physical Date of Admission Date of Admission DATE: 06/03/16 Identification/Chief Complaint Chief Complaint swelling in feet, shortness of air Source Source: Patient History of Present Illness History of Present Illness Pt was recently admitted to the hospital and treated for COPD exacerbation and CHF. He says that his biggest concern which brought him back to the ER was increased swelling in his lower extremities. He also continues to feel short of air and started to experience muscle cramps. Past Medical History Cardiovascular: CHF, Hyperlipidemia, Pulmonary hypertension Pulmonary: COPD GI: Other (Hx SBO) Heme/Onc: No pertinent hx Hepatobiliary: No pertinent hx Psych: No pertinent hx Rheumatologic: No pertinent hx Infectious disease: No pertinent hx ENT: Sincusitis Renal/: Benign prostatic enlarg. Endocrine: No pertinent hx Dermatology: No pertinent hx Past Surgical History Past Surgical History: Other (Foot surgery, Bladder surgery, Bowel obstruction repair, hearing implant) Family History Family History: Cancer (Prostate), Stroke, Other Social History Smoke: <1 pack per day ALCOHOL: none Drugs: None Current Problem List Problem List Problems Medical Problems: (1) Peripheral edema Status: Acute (2) Shortness of breath Status: Acute (3) Shortness of breath Status: Acute (4) Weight gain Status: Acute Problems: Current Medications Current Medications Current Medications Albuterol/ Ipratropium (Duoneb) 3 ml 1X ONCE NEB Last administered on 12:20; Start 06/03/16 at 12:15; Stop 06/03/16 at 12:16; Status DC Furosemide (Lasix) 20 mg 1X ONCE PO Last administered on 06/03/16 13:10; Start 06/03/16 at 13:00; Stop 06/03/16 at 13:02; Status DC Ondansetron HCl (Zofran) 4 mg PRN Q8HRS PRN IV NAUSEA/VOMITING; Start 06/03/16 at 15:15; Stop 06/04/16 at 15:14 Morphine Sulfate 2 mg PRN Q2HR PRN IV PAIN; Start 06/03/16 at 15:15; Stop 06/04 at 15:14 Cyclobenzaprine HCl (Flexeril) 5 mg PRN TID PRN PO MUSCLE SPASMS Last administered on 06/03/16 19:26; Start 06/03/16 at 19:00 Acetaminophen (Tylenol) 325 mg PRN Q6HRS PRN PO MILD PAIN / TEMP; Start at 19:00 Acetaminophen (Tylenol) 650 mg PRN Q6HRS PRN PO MILD PAIN / TEMP; Start at 19:00 Albuterol/ Ipratropium (Duoneb) 3 ml RTQID NEB Last administered on 06/04/16 07:17; Start 06/03/16 at 20:00 Simvastatin (Zocor) 20 mg QHS PO Last administered on 06/03/16 21:10; Start at 21:00 Tamsulosin HCl (Flomax) 0.4 mg QHS PO Last administered on 06/03/16 21:10; Start 06/03/16 at 21:00 Active Scripts Active Lasix (Furosemide) 20 Mg Tablet 1 Tab PO DAILY PRN Pantoprazole Sodium 40 Mg Tablet.dr 40 Mg PO DAILYAC [Albuterol Sulfate] 2.5 MG/3 ML Nebu 2.5 Mg NEB QID AND Q 2 HOURS NE PRN Tylenol (Acetaminophen) 325 Mg Tablet 650 Mg PO PRN Q6HRS PRN 28 Days Reported Prednisone 20 Mg Tablet 1 Tab PO DAILY Amox Tr-K Clv 875-125 Mg Tab (Amoxicillin/Potassium Clav) 1 Each Tablet 1 Tab PO BID Azelastine Hcl 137 Mcg/0.137 Ml [place].pump 2 [place] NS BID Advair 500-50 Diskus (Fluticasone/Salmeterol) 1 Each Disk.w.dev 1 Inh IH BID Avodart (Dutasteride) 0.5 Mg Capsule 1 Cap PO HS Montelukast Sodium Tablet (Montelukast Sodium) 10 Mg Tablet 1 Tab PO DAILY Naproxen 500 Mg Tablet 1 Tab PO BID Aspir 81 (Aspirin) 81 Mg Tablet.dr 1 Tab PO DAILY Flomax (Tamsulosin Hcl) 0.4 Mg Cap.er.24h 0.4 Mg PO QHS Zocor (Simvastatin) 20 Mg Tablet 20 Mg PO QHS Allergies Allergies: Coded Allergies: No Known Drug Allergies (Unverified , 12/27/14) ROS General: No: Chills, Night Sweats PSYCHOLOGICAL ROS: No: Anxiety, Depression Eyes: No Decreased vision, No Eye Pain HEENT: YES: Nasal congestion, Sinus pain, Sore Throat ALLERGY AND IMMUNOLOGY: No: Hives, Post Nasal Drip Hematological and Lymphatic: No: Bleeding Problems, Blood Clots Respiratory: YES: Cough, Shortness of breath, No: Sputum Changes Cardiovascular: yes Edema, No Chest Pain, No Palpitations Gastrointestinal: No Abdominal Pain, No Constipation, No Diarrhea, No Nausea, No Vomiting Genitourinary: No Dysuria, No Urgency Musculoskeletal: Yes Joint Pain, Yes Muscle Pain Neurological: No Impaired Coord/balance, No Numbness/Tingling Skin: No Rash, No Skin Lesion Changes Physical Exam General: Alert, Oriented X3 HEENT: Atraumatic, PERRLA, EOMI, Mucous membr. moist/pink Lungs: Other (decreased air movement throughout, rhonchi anterior chest, clear posterior chest) Abdomen: Normal bowel sounds, Soft, No tenderness, No hepatosplenomegaly Extremities: No clubbing, No cyanosis, Other (2+ edema left foot and ankle) Skin: No rashes, No breakdown, No significant lesion Neuro: Normal speech, Normal tone, Sensation intact, Cranial nerves 3-12 NL, Other (decreased hearing) Psych/Mental Status: Mental status NL, Mood NL Vitals Vitals Vital Signs Date Time Temp Pulse Resp B/P Pulse Ox O2 Delivery O2 Flow Rate FiO2 06/04/16 07:17 94 Room Air 06/04/16 07:10 97.7 65 18 126/78 97.7 Labs Labs Laboratory Tests Test 06/03/16 12:08 06/03/16 20:40 06/04/16 03:15 White Blood Count 15.0x10^3/uL (4.0-11.0) 15.8x10^3/uL (4.0-11.0) Red Blood Count 5.18x10^6/uL (4.30-5.70) 5.53x10^6/uL (4.30-5.70) Hemoglobin 16.0g/dL (13.0-17.5) 16.8g/dL (13.0-17.5) Hematocrit 49.0% (39.0-53.0) 51.9% (39.0-53.0) Mean Corpuscular Volume 95fL (79-100) 94fL (79-100) Mean Corpuscular Hemoglobin 31pg (25-35) 30pg (25-35) Mean Corpuscular Hemoglobin Concent 33g/dL (31-37) 32g/dL (31-37) Red Cell Distribution Width 15.7% (11.5-14.5) 16.2% (11.5-14.5) Platelet Count 137x10^3/uL (140-400) 129x10^3/uL (140-400) Neutrophils (%) (Auto) 88% (31-73) 92% (31-73) Lymphocytes (%) (Auto) 6% (24-48) 5% (24-48) Monocytes (%) (Auto) 4% (0-9) 3% (0-9) Eosinophils (%) (Auto) 2% (0-3) 0% (0-3) Basophils (%) (Auto) 1% (0-3) 0% (0-3) Neutrophils # (Auto) 13.2x10^3uL (1.8-7.7) 14.5x10^3uL (1.8-7.7) Lymphocytes # (Auto) 0.8x10^3/uL (1.0-4.8) 0.8x10^3/uL (1.0-4.8) Monocytes # (Auto) 0.6x10^3/uL (0.0-1.1) 0.4x10^3/uL (0.0-1.1) Eosinophils # (Auto) 0.4x10^3/uL (0.0-0.7) 0.0x10^3/uL (0.0-0.7) Basophils # (Auto) 0.1x10^3/uL (0.0-0.2) 0.1x10^3/uL (0.0-0.2) Segmented Neutrophils % 70% (35-66) Band Neutrophils % 13% (0-9) Lymphocytes % 14% (24-48) Monocytes % 3% (0-10) Toxic Granulation Slight Toxic Vacuolation Slight Platelet Estimate Adequate (ADEQUATE) Sodium Level 142mmol/L (136-145) 140mmol/L (136-145) Potassium Level 4.4mmol/L (3.5-5.1) 5.2mmol/L (3.5-5.1) Chloride Level 101mmol/L (98-107) 100mmol/L (98-107) Carbon Dioxide Level 34mmol/L (21-32) 29mmol/L (21-32) Anion Gap 7 (6-14) 11 (6-14) Blood Urea Nitrogen 24mg/dL (8-26) 30mg/dL (8-26) Creatinine 1.2mg/dL (0.7-1.3) 1.4mg/dL (0.7-1.3) Estimated GFR (Cockcroft-Gault) 72.6 60.8 Glucose Level 166mg/dL (70-99) 174mg/dL (70-99) Calcium Level 8.8mg/dL (8.5-10.1) 9.1mg/dL (8.5-10.1) Total Bilirubin 0.5mg/dL (0.2-1.0) Direct Bilirubin 0.1mg/dL (0.0-0.2) Aspartate Amino Transf (AST/SGOT) 12U/L (15-37) Alanine Aminotransferase (ALT/SGPT) 29U/L (16-63) Alkaline Phosphatase 68U/L (46-116) Troponin I Quantitative < 0.017ng/mL (0.000-0.055) < 0.017ng/mL (0.000-0.055) < 0.017ng/mL (0.000-0.055) VR-Azq-X-Type Natriuretic Peptide 94pg/mL (0-124) Total Protein 6.4g/dL (6.4-8.2) Albumin 3.2g/dL (3.4-5.0) Lipase 170U/L (73-393) Laboratory Tests Test 06/03/16 12:08 06/03/16 20:40 06/04/16 03:15 White Blood Count 15.0x10^3/uL (4.0-11.0) 15.8x10^3/uL (4.0-11.0) Red Blood Count 5.18x10^6/uL (4.30-5.70) 5.53x10^6/uL (4.30-5.70) Hemoglobin 16.0g/dL (13.0-17.5) 16.8g/dL (13.0-17.5) Hematocrit 49.0% (39.0-53.0) 51.9% (39.0-53.0) Mean Corpuscular Volume 95fL (79-100) 94fL (79-100) Mean Corpuscular Hemoglobin 31pg (25-35) 30pg (25-35) Mean Corpuscular Hemoglobin Concent 33g/dL (31-37) 32g/dL (31-37) Red Cell Distribution Width 15.7% (11.5-14.5) 16.2% (11.5-14.5) Platelet Count 137x10^3/uL (140-400) 129x10^3/uL (140-400) Neutrophils (%) (Auto) 88% (31-73) 92% (31-73) Lymphocytes (%) (Auto) 6% (24-48) 5% (24-48) Monocytes (%) (Auto) 4% (0-9) 3% (0-9) Eosinophils (%) (Auto) 2% (0-3) 0% (0-3) Basophils (%) (Auto) 1% (0-3) 0% (0-3) Neutrophils # (Auto) 13.2x10^3uL (1.8-7.7) 14.5x10^3uL (1.8-7.7) Lymphocytes # (Auto) 0.8x10^3/uL (1.0-4.8) 0.8x10^3/uL (1.0-4.8) Monocytes # (Auto) 0.6x10^3/uL (0.0-1.1) 0.4x10^3/uL (0.0-1.1) Eosinophils # (Auto) 0.4x10^3/uL (0.0-0.7) 0.0x10^3/uL (0.0-0.7) Basophils # (Auto) 0.1x10^3/uL (0.0-0.2) 0.1x10^3/uL (0.0-0.2) Segmented Neutrophils % 70% (35-66) Band Neutrophils % 13% (0-9) Lymphocytes % 14% (24-48) Monocytes % 3% (0-10) Toxic Granulation Slight Toxic Vacuolation Slight Platelet Estimate Adequate (ADEQUATE) Sodium Level 142mmol/L (136-145) 140mmol/L (136-145) Potassium Level 4.4mmol/L (3.5-5.1) 5.2mmol/L (3.5-5.1) Chloride Level 101mmol/L (98-107) 100mmol/L (98-107) Carbon Dioxide Level 34mmol/L (21-32) 29mmol/L (21-32) Anion Gap 7 (6-14) 11 (6-14) Blood Urea Nitrogen 24mg/dL (8-26) 30mg/dL (8-26) Creatinine 1.2mg/dL (0.7-1.3) 1.4mg/dL (0.7-1.3) Estimated GFR (Cockcroft-Gault) 72.6 60.8 Glucose Level 166mg/dL (70-99) 174mg/dL (70-99) Calcium Level 8.8mg/dL (8.5-10.1) 9.1mg/dL (8.5-10.1) Total Bilirubin 0.5mg/dL (0.2-1.0) Direct Bilirubin 0.1mg/dL (0.0-0.2) Aspartate Amino Transf (AST/SGOT) 12U/L (15-37) Alanine Aminotransferase (ALT/SGPT) 29U/L (16-63) Alkaline Phosphatase 68U/L (46-116) Troponin I Quantitative < 0.017ng/mL (0.000-0.055) < 0.017ng/mL (0.000-0.055) < 0.017ng/mL (0.000-0.055) MP-Myc-I-Type Natriuretic Peptide 94pg/mL (0-124) Total Protein 6.4g/dL (6.4-8.2) Albumin 3.2g/dL (3.4-5.0) Lipase 170U/L (73-393) VTE Prophylaxis Ordered VTE Prophylaxis Devices: Yes VTE Pharmacological Prophylaxi: No Assessment/Plan Assessment/Plan Pt is a 71yo AAM admitted with limiting dyspnea and increased LE swelling 1)Dyspnea- pt has history of COPD and CHF. Pt was recently treated for COPD exacerbation. No wheezing heard on exam. Pt is having a dry cough. Pt is being treated for CHF. Cardiology consulted in ER; will consult pulm as well. Pt's current dyspnea possible related to pulmonary HTN as well? 2)COPD- pt continued on breathing treatments 3)CHF- diastolic, compensated. Will start IV Lasix 20mg 4)LLE swelling- pt had recent fall. Will get xray 5)Acute sinusitis- will treat with Augmentin 6)Dysuria- will get U/A 7)Leukocytosis- with bandemia. U/A ordered. Pt being treated for sinus infection as well. Pt with recent steroid use 8)Thrombocytopenia- mild 9)Hyperkalemia- possibly due to hemolyzation. Will repeat in am 10)MISAEL- likely 2/2 diuretic use. CTM 11)Hyperglycemia- pt was recently on steroids, will check HbA1C 12)PEM- mild 13)HLD- pt continued on Simvastatin 14)BPH- pt continued on flomax, holding Avodart KALANI FIERRO MD Jun 04, 2016 08:17
[2016-06-04] MEDS: FUROSEMIDE 20 MG/2 ML VIAL IVP SCH (08:30)
[2016-06-04] MEDS: AMOXICILLIN/K CLAV 875/125MG TABLET. PO SCH ×2 (08:30→20:44)
[2016-06-04 10:32] LABS: BILIRUBIN,URINE NEGATIVE (NEG); GLUCOSE,URINE NEGATIVE (NEG); NITRITE,URINE NEGATIVE (NEG); PH,URINE 7.5; PROTEIN,URINE NEGATIVE (NEG-TRACE); UROBILINOGEN,URINE 0.2 mg/dL (0.2 mg/dL)
[2016-06-04 10:40] VITALS: BP 118/75
[2016-06-04 10:46] LABS: BACTERIA,URINE 0 /HPF (0-FEW); RBC,URINE OCC /HPF (0-2); SQUAMOUS EPITHELIAL CELL,UR FEW /LPF
--- NOTE | 2016-06-04 11:01 | RAD ---
Left ankle, 2 views, 06/04/2016: History: Ankle pain and swelling after a fall There is moderate diffuse soft tissue swelling about the ankle. No fracture or dislocation is identified. IMPRESSION: No acute bony abnormality is detected.
--- NOTE | 2016-06-04 11:58 | PDOC ---
Provider Note Provider Note [id number] dyspnea chf copd acute bronchitis see orders. DEWEY MCNEAL MD Jun 04, 2016 11:58
--- NOTE | 2016-06-04 12:34 | CONS ---
DATE OF CONSULTATION: 06/04/2016 I was asked to see this 71-year-old gentleman for shortness of breath. HISTORY OF PRESENT ILLNESS: He was discharged from the hospital about a week ago. He was admitted with CHF and COPD. He has history of 28-30 pack a year smoking, continues to smoke a few cigarettes per day. He said he came to the hospital because of shortness of breath. He fell and also had lower extremity edema. He had lower extremity venous Doppler done on 05/25/2016,which did not show DVT. PAST MEDICAL HISTORY: CHF, COPD, hypercholesterolemia. ALLERGIES: No known drug allergies. MEDICATIONS: The patient on Atrovent nebulizer, Lasix 20 mg IV daily, Augmentin 1 b.i.d., Flomax, Zocor, DuoNeb, Tylenol. SOCIAL HISTORY: History of 20-30 pack a year smoking, continues to smoke a few cigarettes per day. FAMILY HISTORY: There is no history of lung disease. REVIEW OF SYSTEMS: As mentioned as above, other systems otherwise negative. PHYSICAL EXAMINATION: GENERAL: This is a well-developed gentleman. VITAL SIGNS: His O2 saturation is 94%, respiratory rate 18, heart rate 86, blood pressure 118/75, temperature 98.1. HEENT: Normocephalic, atraumatic. Pupils equal, round, reactive to light. Throat is clear. Nose is clear. NECK: There is no JVD, lymphadenopathy or thyromegaly. CARDIOVASCULAR: Regular rate and rhythm. PMI is nondisplaced. CHEST: Inspection is normal. LUNGS: There are a few bibasilar crackles. There is no wheezing. ABDOMEN: Soft. Bowel sounds are good. There is no mass. EXTREMITIES: There is trace edema. LYMPHATICS: There is no lymphadenopathy. NEUROLOGIC: Alert and oriented x 3. SKIN: Warm. LABORATORY DATA: I reviewed the following lab data: Chest x-ray does not show any infiltrate. Sodium 140, potassium 5.2, chloride 100, CO2 of 29, glucose 174, BUN 30, creatinine 1.4. WBC 15.8, hemoglobin 16.8. He has troponin less than 0.17. IMPRESSION: 1. Dyspnea, multifactorial in etiology, worse, which I suspect this secondary to congestive heart failure. 2. Chronic obstructive pulmonary disease. 3. Tobacco habituation. 4. Leukocytosis. 5. Hyperkalemia. 6. Acute kidney injury. 7. Status post fall. PLAN AND RECOMMENDATIONS: 1. Titrate FiO2 to keep O2 saturation 92%. 2. I agree with bronchodilator. 3. I agree with Augmentin for 7 days. 4. Keep intake less on output, monitor potassium and creatinine. 5. Lovenox for deep vein thrombosis prophylaxis. 6. Echocardiogram if it is not done. 7. The findings and recommendations were discussed with the patient and RN. I have answered all of the patient's questions. He understood and agreed to proceed with the plan. I had a long discussion with him regarding smoking cessation. I have advised him to stop smoking forever. Different methods of quitting were discussed. Thank you very much for allowing me to participate in care of this very nice gentleman. DEWEY MCNEAL M.D. DR: Phong JOB#: [id number] / [id number] JAK
--- NOTE | 2016-06-04 14:09 | PDOC2 ---
CONSULT Date of Consult Date of Consult DATE: 06/04/16 TIME: 14:05 Reason for Consult Reason for Consult: Worsening edema Referring Physician Referring Physician: Dr Agudelo Identification/Chief Complaint Chief Complaint Worsening edema in LE, L>R History of Present Illness Reason for Visit: Patient reports he was recently hospitalized last week and swelling had improved. After discharge, he noted swelling had returned and has been worsening since Tuesday. States it became painful to walk, has some shortness of breath on exertion. Denies pain in left calf, not hot or red. Also complains of cramping on left side in legs and abdomen. Lasix this visit has decreased swelling. Past Medical History Cardiovascular: CHF, Hyperlipidemia, Pulmonary hypertension Pulmonary: COPD GI: Other (Hx SBO) Heme/Onc: No pertinent hx Hepatobiliary: No pertinent hx Psych: No pertinent hx Rheumatologic: No pertinent hx Infectious disease: No pertinent hx ENT: Sincusitis Renal/: Benign prostatic enlarg. Endocrine: No pertinent hx Dermatology: No pertinent hx Past Surgical History Past Surgical History: Other (Foot surgery, Bladder surgery, Bowel obstruction repair, hearing implant) Family History Family History: Cancer (Prostate), Stroke, Other Social History <1 pack per day ALCOHOL: none Drugs: None Lives: Alone Current Problem List Problem List Problems Medical Problems: (1) Peripheral edema Status: Acute (2) Shortness of breath Status: Acute (3) Shortness of breath Status: Acute (4) Weight gain Status: Acute Current Medications Current Medications Current Medications Albuterol/ Ipratropium (Duoneb) 3 ml 1X ONCE NEB Last administered on 12:20; Start 06/03/16 at 12:15; Stop 06/03/16 at 12:16; Status DC Furosemide (Lasix) 20 mg 1X ONCE PO Last administered on 06/03/16t 13:10; Start 06/03/16 at 13:00; Stop 06/03/16 at 13:02; Status DC Ondansetron HCl (Zofran) 4 mg PRN Q8HRS PRN IV NAUSEA/VOMITING; Start 06/03/16 at 15:15; Stop 06/04/16 at 15:14 Morphine Sulfate 2 mg PRN Q2HR PRN IV PAIN; Start 06/03/16 at 15:15; Stop 06/04 at 15:14 Cyclobenzaprine HCl (Flexeril) 5 mg PRN TID PRN PO MUSCLE SPASMS Last administered on 06/03/16 19:26; Start 06/03/16 at 19:00 Acetaminophen (Tylenol) 325 mg PRN Q6HRS PRN PO MILD PAIN / TEMP; Start at 19:00 Acetaminophen (Tylenol) 650 mg PRN Q6HRS PRN PO MILD PAIN / TEMP; Start at 19:00 Albuterol/ Ipratropium (Duoneb) 3 ml RTQID NEB Last administered on 06/04/16 11:06; Start 06/03/16 at 20:00 Simvastatin (Zocor) 20 mg QHS PO Last administered on 06/03/16 21:10; Start at 21:00 Tamsulosin HCl (Flomax) 0.4 mg QHS PO Last administered on 06/03/16 21:10; Start 06/03/16 at 21:00 Amoxicillin/ Clavulanate Potassium (Augmentin 875/ 125mg) 1 tab BID PO Last administered on 06/04/16 08:30; Start 06/04/16 at 09:00 Furosemide (Lasix) 20 mg DAILY IVP Last administered on 06/04/16 08:30; Start 06/04/16 at 09:00 Enoxaparin Sodium (Lovenox 40mg Syringe) 40 mg Q24H SQ ; Start 06/04/16 at 13:00 Active Scripts Active Lasix (Furosemide) 20 Mg Tablet 1 Tab PO DAILY PRN Pantoprazole Sodium 40 Mg Tablet.dr 40 Mg PO DAILYAC [Albuterol Sulfate] 2.5 MG/3 ML Nebu 2.5 Mg NEB QID AND Q 2 HOURS [place] PRN Tylenol (Acetaminophen) 325 Mg Tablet 650 Mg PO PRN Q6HRS PRN 28 Days Reported Prednisone 20 Mg Tablet 1 Tab PO DAILY Amox Tr-K Clv 875-125 Mg Tab (Amoxicillin/Potassium Clav) 1 Each Tablet 1 Tab PO BID Azelastine Hcl 137 Mcg/0.137 Ml [place].pump 2 [place] NS BID Advair 500-50 Diskus (Fluticasone/Salmeterol) 1 Each Disk.w.dev 1 Inh IH BID Avodart (Dutasteride) 0.5 Mg Capsule 1 Cap PO HS Montelukast Sodium Tablet (Montelukast Sodium) 10 Mg Tablet 1 Tab PO DAILY Naproxen 500 Mg Tablet 1 Tab PO BID Aspir 81 (Aspirin) 81 Mg Tablet.dr 1 Tab PO DAILY Flomax (Tamsulosin Hcl) 0.4 Mg Cap.er.24h 0.4 Mg PO QHS Zocor (Simvastatin) 20 Mg Tablet 20 Mg PO QHS Allergies Allergies: Coded Allergies: No Known Drug Allergies (Unverified , 12/27/14) Physical Exam General: Alert, Cooperative, No acute distress Lungs: Clear to auscultation Heart: Regular rate, Other (S1-S2, 1/6 systolic murmur best at the left sternal border second intercostal space.) Extremities: Normal pulses, Other (Edema in LE, L>R) Vitals VITALS Vital Signs Date Time Temp Pulse Resp B/P Pulse Ox O2 Delivery O2 Flow Rate FiO2 06/04/16 11:07 92 Room Air 06/04/16 10:40 98.1 86 18 118/75 98.1 Labs Labs Laboratory Tests Test 06/03/16 12:08 06/03/16 20:40 06/04/16 03:15 06/04/16 09:30 White Blood Count 15.0x10^3/uL (4.0-11.0) 15.8x10^3/uL (4.0-11.0) Red Blood Count 5.18x10^6/uL (4.30-5.70) 5.53x10^6/uL (4.30-5.70) Hemoglobin 16.0g/dL (13.0-17.5) 16.8g/dL (13.0-17.5) Hematocrit 49.0% (39.0-53.0) 51.9% (39.0-53.0) Mean Corpuscular Volume 95fL (79-100) 94fL (79-100) Mean Corpuscular Hemoglobin 31pg (25-35) 30pg (25-35) Mean Corpuscular Hemoglobin Concent 33g/dL (31-37) 32g/dL (31-37) Red Cell Distribution Width 15.7% (11.5-14.5) 16.2% (11.5-14.5) Platelet Count 137x10^3/uL (140-400) 129x10^3/uL (140-400) Neutrophils (%) (Auto) 88% (31-73) 92% (31-73) Lymphocytes (%) (Auto) 6% (24-48) 5% (24-48) Monocytes (%) (Auto) 4% (0-9) 3% (0-9) Eosinophils (%) (Auto) 2% (0-3) 0% (0-3) Basophils (%) (Auto) 1% (0-3) 0% (0-3) Neutrophils # (Auto) 13.2x10^3uL (1.8-7.7) 14.5x10^3uL (1.8-7.7) Lymphocytes # (Auto) 0.8x10^3/uL (1.0-4.8) 0.8x10^3/uL (1.0-4.8) Monocytes # (Auto) 0.6x10^3/uL (0.0-1.1) 0.4x10^3/uL (0.0-1.1) Eosinophils # (Auto) 0.4x10^3/uL (0.0-0.7) 0.0x10^3/uL (0.0-0.7) Basophils # (Auto) 0.1x10^3/uL (0.0-0.2) 0.1x10^3/uL (0.0-0.2) Segmented Neutrophils % 70% (35-66) Band Neutrophils % 13% (0-9) Lymphocytes % 14% (24-48) Monocytes % 3% (0-10) Toxic Granulation Slight Toxic Vacuolation Slight Platelet Estimate Adequate (ADEQUATE) Sodium Level 142mmol/L (136-145) 140mmol/L (136-145) Potassium Level 4.4mmol/L (3.5-5.1) 5.2mmol/L (3.5-5.1) Chloride Level 101mmol/L (98-107) 100mmol/L (98-107) Carbon Dioxide Level 34mmol/L (21-32) 29mmol/L (21-32) Anion Gap 7 (6-14) 11 (6-14) Blood Urea Nitrogen 24mg/dL (8-26) 30mg/dL (8-26) Creatinine 1.2mg/dL (0.7-1.3) 1.4mg/dL (0.7-1.3) Estimated GFR (Cockcroft-Gault) 72.6 60.8 Glucose Level 166mg/dL (70-99) 174mg/dL (70-99) Calcium Level 8.8mg/dL (8.5-10.1) 9.1mg/dL (8.5-10.1) Total Bilirubin 0.5mg/dL (0.2-1.0) Direct Bilirubin 0.1mg/dL (0.0-0.2) Aspartate Amino Transf (AST/SGOT) 12U/L (15-37) Alanine Aminotransferase (ALT/SGPT) 29U/L (16-63) Alkaline Phosphatase 68U/L (46-116) Troponin I Quantitative < 0.017ng/mL (0.000-0.055) < 0.017ng/mL (0.000-0.055) < 0.017ng/mL (0.000-0.055) AD-Ord-I-Type Natriuretic Peptide 94pg/mL (0-124) Total Protein 6.4g/dL (6.4-8.2) Albumin 3.2g/dL (3.4-5.0) Lipase 170U/L (73-393) Urine Collection Type Unknown Urine Color Yellow Urine Clarity Clear Urine pH 7.5 Urine Specific [place] 1.025 Urine Protein Negativemg/dL (NEG-TRACE) Urine Glucose (UA) Negativemg/dL (NEG) Urine Ketones (Stick) Negativemg/dL (NEG) Urine Blood Negative (NEG) Urine Nitrite Negative (NEG) Urine Bilirubin Negative (NEG) Urine Urobilinogen Dipstick 0.2mg/dL (0.2 mg/dL) Urine Leukocyte Esterase Negative (NEG) Urine RBC Occ/HPF (0-2) Urine WBC 1-4/HPF (0-4) Urine Squamous Epithelial Cells Few/LPF Urine Bacteria 0/HPF (0-FEW) Urine Mucus Slight/LPF Laboratory Tests Test 06/03/16 20:40 06/04/16 03:15 06/04/16 09:30 Troponin I Quantitative < 0.017ng/mL (0.000-0.055) < 0.017ng/mL (0.000-0.055) White Blood Count 15.8x10^3/uL (4.0-11.0) Red Blood Count 5.53x10^6/uL (4.30-5.70) Hemoglobin 16.8g/dL (13.0-17.5) Hematocrit 51.9% (39.0-53.0) Mean Corpuscular Volume 94fL (79-100) Mean Corpuscular Hemoglobin 30pg (25-35) Mean Corpuscular Hemoglobin Concent 32g/dL (31-37) Red Cell Distribution Width 16.2% (11.5-14.5) Platelet Count 129x10^3/uL (140-400) Neutrophils (%) (Auto) 92% (31-73) Lymphocytes (%) (Auto) 5% (24-48) Monocytes (%) (Auto) 3% (0-9) Eosinophils (%) (Auto) 0% (0-3) Basophils (%) (Auto) 0% (0-3) Neutrophils # (Auto) 14.5x10^3uL (1.8-7.7) Lymphocytes # (Auto) 0.8x10^3/uL (1.0-4.8) Monocytes # (Auto) 0.4x10^3/uL (0.0-1.1) Eosinophils # (Auto) 0.0x10^3/uL (0.0-0.7) Basophils # (Auto) 0.1x10^3/uL (0.0-0.2) Sodium Level 140mmol/L (136-145) Potassium Level 5.2mmol/L (3.5-5.1) Chloride Level 100mmol/L (98-107) Carbon Dioxide Level 29mmol/L (21-32) Anion Gap 11 (6-14) Blood Urea Nitrogen 30mg/dL (8-26) Creatinine 1.4mg/dL (0.7-1.3) Estimated GFR (Cockcroft-Gault) 60.8 Glucose Level 174mg/dL (70-99) Calcium Level 9.1mg/dL (8.5-10.1) Urine Collection Type Unknown Urine Color Yellow Urine Clarity Clear Urine pH 7.5 Urine Specific [place] 1.025 Urine Protein Negativemg/dL (NEG-TRACE) Urine Glucose (UA) Negativemg/dL (NEG) Urine Ketones (Stick) Negativemg/dL (NEG) Urine Blood Negative (NEG) Urine Nitrite Negative (NEG) Urine Bilirubin Negative (NEG) Urine Urobilinogen Dipstick 0.2mg/dL (0.2 mg/dL) Urine Leukocyte Esterase Negative (NEG) Urine RBC Occ/HPF (0-2) Urine WBC 1-4/HPF (0-4) Urine Squamous Epithelial Cells Few/LPF Urine Bacteria 0/HPF (0-FEW) Urine Mucus Slight/LPF Assessment/Plan Assessment/Plan COPD Dyspnea A edema of the left leg with mild edema of the right leg. The patient has a normal left ventricular function with a normal ejection fraction in the echocardiogram done 2 weeks ago. That echocardiogram showed mild pulmonary hypertension and no significant valvular heart disease. I agree to continue with the diuresis in this patient but this is not all secondary to acute CHF. Thank you very much for asking me to participate in the care of this patient PABLITO FREDERICK MD Jun 04, 2016 14:08
[2016-06-04] MEDS: CYCLOBENZAPRINE 10 MG TABLET. PO PRN ×2 (14:17→20:44)
[2016-06-04] MEDS: DO NOT USE 40 MG/0.4 ML DISP.SYRIN SQ SCH (14:17)
[2016-06-04 14:45] VITALS: BP 119/80
[2016-06-04 19:45] VITALS: BP 103/74
[2016-06-04] MEDS: SIMVASTATIN 20 MG TABLET PO SCH (20:44)
[2016-06-04] MEDS: TAMSULOSIN 0.4 MG CAP.ER.24H. PO SCH (20:44)
[2016-06-04 23:59] VITALS: BP 124/80
[2016-06-05] VITALS (10 sets, daily range): BP systolic 108–121; BP diastolic 67–80
[2016-06-05 04:54] LABS: BASO % 0 % (0-3); EOS % 1 % (0-3); HEMATOCRIT 46.5 % (39.0-53.0); HEMOGLOBIN 14.9 g/dL (13.0-17.5); LYMPH # 1.8 x10^3/uL (1.0-4.8); LYMPH % 22 % (24-48); MEAN CORPUSCULAR HEMOGLOBIN 31 pg (25-35); MEAN CORPUSCULAR HGB CONC 32 g/dL (31-37); MEAN CORPUSCULAR VOLUME 95 fL (79-100); MONO % 6 % (0-9); NEUT % 71 % (31-73); PLATELET COUNT 120 x10^3/uL (140-400); RED BLOOD COUNT 4.89 x10^6/uL (4.30-5.70); RED CELL DISTRIBUTION WIDTH 16.6 % (11.5-14.5); WHITE BLOOD COUNT 8.4 x10^3/uL (4.0-11.0)
[2016-06-05 05:31] LABS: CALCIUM 8.3 mg/dL (8.5-10.1); CREATININE 1.3 mg/dL (0.7-1.3); GFR 66.2; POTASSIUM 3.9 mmol/L (3.5-5.1)
[2016-06-05] MEDS: IPRATRPIUM/ALBUTEROL 0.5/2.5MG 3 ML NEBU. NEB SCH ×4 (07:21→19:32)
--- NOTE | 2016-06-05 07:50 | PDOC ---
PULMONARY PROGRESS NOTES Subjective has sob, cough, better, has l ankle pain, has post nasal drip Vitals Vital Signs Date Time Temp Pulse Resp B/P Pulse Ox O2 Delivery O2 Flow Rate FiO2 06/05/16 07:23 92 Room Air 06/05/16 03:00 97.9 78 18 113/75 97.9 Comments ros as mentioned as above other sys otherwise neg ROS: No Nausea, No Chest Pain, No Abdominal Pain General: Alert, Oriented X4 (nc at perrl, throat nose clear. ) HEENT: Other Lungs: Clear Cardiovascular: S1, S2 Abdomen: Soft, Non-tender Neuro Exam: Alert, Oriented Extremities: No Edema Skin: Warm Labs Laboratory Tests Test 06/03/16 12:08 06/03/16 20:40 06/04/16 03:15 06/04/16 09:30 White Blood Count 15.0x10^3/uL (4.0-11.0) 15.8x10^3/uL (4.0-11.0) Red Blood Count 5.18x10^6/uL (4.30-5.70) 5.53x10^6/uL (4.30-5.70) Hemoglobin 16.0g/dL (13.0-17.5) 16.8g/dL (13.0-17.5) Hematocrit 49.0% (39.0-53.0) 51.9% (39.0-53.0) Mean Corpuscular Volume 95fL (79-100) 94fL (79-100) Mean Corpuscular Hemoglobin 31pg (25-35) 30pg (25-35) Mean Corpuscular Hemoglobin Concent 33g/dL (31-37) 32g/dL (31-37) Red Cell Distribution Width 15.7% (11.5-14.5) 16.2% (11.5-14.5) Platelet Count 137x10^3/uL (140-400) 129x10^3/uL (140-400) Neutrophils (%) (Auto) 88% (31-73) 92% (31-73) Lymphocytes (%) (Auto) 6% (24-48) 5% (24-48) Monocytes (%) (Auto) 4% (0-9) 3% (0-9) Eosinophils (%) (Auto) 2% (0-3) 0% (0-3) Basophils (%) (Auto) 1% (0-3) 0% (0-3) Neutrophils # (Auto) 13.2x10^3uL (1.8-7.7) 14.5x10^3uL (1.8-7.7) Lymphocytes # (Auto) 0.8x10^3/uL (1.0-4.8) 0.8x10^3/uL (1.0-4.8) Monocytes # (Auto) 0.6x10^3/uL (0.0-1.1) 0.4x10^3/uL (0.0-1.1) Eosinophils # (Auto) 0.4x10^3/uL (0.0-0.7) 0.0x10^3/uL (0.0-0.7) Basophils # (Auto) 0.1x10^3/uL (0.0-0.2) 0.1x10^3/uL (0.0-0.2) Segmented Neutrophils % 70% (35-66) Band Neutrophils % 13% (0-9) Lymphocytes % 14% (24-48) Monocytes % 3% (0-10) Toxic Granulation Slight Toxic Vacuolation Slight Platelet Estimate Adequate (ADEQUATE) Sodium Level 142mmol/L (136-145) 140mmol/L (136-145) Potassium Level 4.4mmol/L (3.5-5.1) 5.2mmol/L (3.5-5.1) Chloride Level 101mmol/L (98-107) 100mmol/L (98-107) Carbon Dioxide Level 34mmol/L (21-32) 29mmol/L (21-32) Anion Gap 7 (6-14) 11 (6-14) Blood Urea Nitrogen 24mg/dL (8-26) 30mg/dL (8-26) Creatinine 1.2mg/dL (0.7-1.3) 1.4mg/dL (0.7-1.3) Estimated GFR (Cockcroft-Gault) 72.6 60.8 Glucose Level 166mg/dL (70-99) 174mg/dL (70-99) Calcium Level 8.8mg/dL (8.5-10.1) 9.1mg/dL (8.5-10.1) Total Bilirubin 0.5mg/dL (0.2-1.0) Direct Bilirubin 0.1mg/dL (0.0-0.2) Aspartate Amino Transf (AST/SGOT) 12U/L (15-37) Alanine Aminotransferase (ALT/SGPT) 29U/L (16-63) Alkaline Phosphatase 68U/L (46-116) Troponin I Quantitative < 0.017ng/mL (0.000-0.055) < 0.017ng/mL (0.000-0.055) < 0.017ng/mL (0.000-0.055) LG-Nmd-J-Type Natriuretic Peptide 94pg/mL (0-124) Total Protein 6.4g/dL (6.4-8.2) Albumin 3.2g/dL (3.4-5.0) Lipase 170U/L (73-393) Hemoglobin A1c 6.5% (4.8-5.6) Urine Collection Type Unknown Urine Color Yellow Urine Clarity Clear Urine pH 7.5 Urine Specific [place] 1.025 Urine Protein Negativemg/dL (NEG-TRACE) Urine Glucose (UA) Negativemg/dL (NEG) Urine Ketones (Stick) Negativemg/dL (NEG) Urine Blood Negative (NEG) Urine Nitrite Negative (NEG) Urine Bilirubin Negative (NEG) Urine Urobilinogen Dipstick 0.2mg/dL (0.2 mg/dL) Urine Leukocyte Esterase Negative (NEG) Urine RBC Occ/HPF (0-2) Urine WBC 1-4/HPF (0-4) Urine Squamous Epithelial Cells Few/LPF Urine Bacteria 0/HPF (0-FEW) Urine Mucus Slight/LPF Test 06/05/16 04:00 White Blood Count 8.4x10^3/uL (4.0-11.0) Red Blood Count 4.89x10^6/uL (4.30-5.70) Hemoglobin 14.9g/dL (13.0-17.5) Hematocrit 46.5% (39.0-53.0) Mean Corpuscular Volume 95fL (79-100) Mean Corpuscular Hemoglobin 31pg (25-35) Mean Corpuscular Hemoglobin Concent 32g/dL (31-37) Red Cell Distribution Width 16.6% (11.5-14.5) Platelet Count 120x10^3/uL (140-400) Neutrophils (%) (Auto) 71% (31-73) Lymphocytes (%) (Auto) 22% (24-48) Monocytes (%) (Auto) 6% (0-9) Eosinophils (%) (Auto) 1% (0-3) Basophils (%) (Auto) 0% (0-3) Neutrophils # (Auto) 6.0x10^3uL (1.8-7.7) Lymphocytes # (Auto) 1.8x10^3/uL (1.0-4.8) Monocytes # (Auto) 0.5x10^3/uL (0.0-1.1) Eosinophils # (Auto) 0.1x10^3/uL (0.0-0.7) Basophils # (Auto) 0.0x10^3/uL (0.0-0.2) Sodium Level 146mmol/L (136-145) Potassium Level 3.9mmol/L (3.5-5.1) Chloride Level 108mmol/L (98-107) Carbon Dioxide Level 33mmol/L (21-32) Anion Gap 5 (6-14) Blood Urea Nitrogen 33mg/dL (8-26) Creatinine 1.3mg/dL (0.7-1.3) Estimated GFR (Cockcroft-Gault) 66.2 Glucose Level 139mg/dL (70-99) Calcium Level 8.3mg/dL (8.5-10.1) Laboratory Tests Test 06/04/16 09:30 06/05/16 04:00 Urine Collection Type Unknown Urine Color Yellow Urine Clarity Clear Urine pH 7.5 Urine Specific [place] 1.025 Urine Protein Negativemg/dL (NEG-TRACE) Urine Glucose (UA) Negativemg/dL (NEG) Urine Ketones (Stick) Negativemg/dL (NEG) Urine Blood Negative (NEG) Urine Nitrite Negative (NEG) Urine Bilirubin Negative (NEG) Urine Urobilinogen Dipstick 0.2mg/dL (0.2 mg/dL) Urine Leukocyte Esterase Negative (NEG) Urine RBC Occ/HPF (0-2) Urine WBC 1-4/HPF (0-4) Urine Squamous Epithelial Cells Few/LPF Urine Bacteria 0/HPF (0-FEW) Urine Mucus Slight/LPF White Blood Count 8.4x10^3/uL (4.0-11.0) Red Blood Count 4.89x10^6/uL (4.30-5.70) Hemoglobin 14.9g/dL (13.0-17.5) Hematocrit 46.5% (39.0-53.0) Mean Corpuscular Volume 95fL (79-100) Mean Corpuscular Hemoglobin 31pg (25-35) Mean Corpuscular Hemoglobin Concent 32g/dL (31-37) Red Cell Distribution Width 16.6% (11.5-14.5) Platelet Count 120x10^3/uL (140-400) Neutrophils (%) (Auto) 71% (31-73) Lymphocytes (%) (Auto) 22% (24-48) Monocytes (%) (Auto) 6% (0-9) Eosinophils (%) (Auto) 1% (0-3) Basophils (%) (Auto) 0% (0-3) Neutrophils # (Auto) 6.0x10^3uL (1.8-7.7) Lymphocytes # (Auto) 1.8x10^3/uL (1.0-4.8) Monocytes # (Auto) 0.5x10^3/uL (0.0-1.1) Eosinophils # (Auto) 0.1x10^3/uL (0.0-0.7) Basophils # (Auto) 0.0x10^3/uL (0.0-0.2) Sodium Level 146mmol/L (136-145) Potassium Level 3.9mmol/L (3.5-5.1) Chloride Level 108mmol/L (98-107) Carbon Dioxide Level 33mmol/L (21-32) Anion Gap 5 (6-14) Blood Urea Nitrogen 33mg/dL (8-26) Creatinine 1.3mg/dL (0.7-1.3) Estimated GFR (Cockcroft-Gault) 66.2 Glucose Level 139mg/dL (70-99) Calcium Level 8.3mg/dL (8.5-10.1) Medications Active Scripts Medications Dose Route/Sig Days Date Category Prednisone 20 Mg Tablet 1 Tab PO DAILY 06/03/16 Reported Lasix (Furosemide) 20 Mg Tablet 1 Tab PO DAILY PRN 05/27/16 Rx Pantoprazole Sodium 40 Mg Tablet.dr 40 Mg PO DAILYAC 05/27/16 Rx [Albuterol Sulfate] 2.5 MG/3 ML Nebu 2.5 Mg NEB QID AND Q 2 HOURS UT PRN 05/27/16 Rx Amox Tr-K Clv 875-125 Mg Tab (Amoxicillin/Potassium Clav) 1 Each Tablet 1 Tab PO BID 05/25/16 Reported Azelastine Hcl 137 Mcg/0.137 Ml [place].pump 2 [place] NS BID 05/25/16 Reported Advair 500-50 Diskus (Fluticasone/Salmeterol) 1 Each Disk.w.dev 1 Inh IH BID 05/25/16 Reported Avodart (Dutasteride) 0.5 Mg Capsule 1 Cap PO HS 05/25/16 Reported Montelukast Sodium Tablet (Montelukast Sodium) 10 Mg Tablet 1 Tab PO DAILY 12/27/14 Reported Naproxen 500 Mg Tablet 1 Tab PO BID 12/27/14 Reported Aspir 81 (Aspirin) 81 Mg Tablet.dr 1 Tab PO DAILY 12/27/14 Reported Tylenol (Acetaminophen) 325 Mg Tablet 650 Mg PO PRN Q6HRS PRN 28 11/15/13 Rx Flomax (Tamsulosin Hcl) 0.4 Mg Cap.er.24h 0.4 Mg PO QHS 02/10/13 Reported Zocor (Simvastatin) 20 Mg Tablet 20 Mg PO QHS 02/10/13 Reported Comments cxr reviewed. No acute cardiopulmonary abnormality is detected. Impression . IMPRESSION: 1. Dyspnea, multifactorial in etiology, worse, which I suspect this secondary to congestive heart failure. 2. Chronic obstructive pulmonary disease. 3. Tobacco habituation. 4. Leukocytosis. 5. Hyperkalemia. 6. Acute kidney injury. 7. Status post fall. 8. allergic rhinitis Plan . PLAN AND RECOMMENDATIONS: 1. Titrate FiO2 to keep O2 saturation 92%. 2. bronchodilator. 3. Augmentin for 7 days. 4. Keep intake less on output, monitor potassium and creatinine. 5. Lovenox for deep vein thrombosis prophylaxis. 6. Echocardiogram if it is not done. 7. I have advised him to stop smoking forever. Different methods of quitting were discussed. 8. add Singulair 9. l ankle edema, ? etiology, s/p fall, ? soft tissue injury The findings and recommendations were discussed with the patient and RN. I have answered all of the patient's questions. He understood and agreed to proceed with the plan. DEWEY MCNEAL MD Jun 05, 2016 07:50
[2016-06-05] MEDS: FUROSEMIDE 20 MG/2 ML VIAL IVP SCH (08:42)
[2016-06-05] MEDS: AMOXICILLIN/K CLAV 875/125MG TABLET. PO SCH ×2 (08:42→20:54)
[2016-06-05] MEDS: DO NOT USE 40 MG/0.4 ML DISP.SYRIN SQ SCH (14:00)
--- NOTE | 2016-06-05 14:00 | PDOC ---
PROGRESS NOTES Subjective Subjective Patient feels breathing is improving, as is swelling in L LE. Objective Objective Vital Signs Date Time Temp Pulse Resp B/P Pulse Ox O2 Delivery O2 Flow Rate FiO2 06/05/16 11:18 Room Air 06/05/16 11:00 99.7 90 18 121/80 92 99.7 Intake and Output 06/05/16 07:00 Intake Total 934 ml Output Total 800 ml Balance 134 ml Intake Oral 934 ml Output Urine Total 800 ml # Voids 3 Physical Exam Abdomen: Normal bowel sounds, Soft, No tenderness Heart: Regular rate Extremities: Other (R LE without edema. L LE with mild edema distally) General: Alert, Oriented X3, No acute distress Lungs: Other (BS moderately decreased throughout but otherwise CTA, no wheezing heard) Assessment Assessment Problems Medical Problems: (1) Peripheral edema Status: Acute (2) Shortness of breath Status: Acute (3) Shortness of breath Status: Acute (4) Weight gain Status: Acute Plan Plan of Care 1. COPD with SOA - no hypoxia on room air. Patient's symptoms are improving, continue present tx. Patient states he intends to quit smoking. 2 acute sinusitis with AR - continue Augmentin and present meds. 3. CHF - only mild diastolic dysfunction seen on recent Echo. Continue low dose Lasix, Dr Arcos does not think he will need to continue this on discharge. 4. L LE edema - patient had bilateral venous dopplers that were WNL on his last hospitalization but presented this time with only unilateral edema. Ankle xray without fracture. Edema is improving. Check L LE venous doppler. 5. glucose intolerance - new diagnosis for patient with A1C elevated to 6.5 Discussed. Patient has had a lot of sugar in his diet and feels he can definitely improve on this. Will change to ADA diet while he is here. Follow as outpatient. Comment Review of Relevant I have reviewed the following items myra (where applicable) has been applied. Labs Laboratory Tests Test 06/03/16 20:40 06/04/16 03:15 06/04/16 09:30 06/05/16 04:00 Troponin I Quantitative < 0.017ng/mL (0.000-0.055) < 0.017ng/mL (0.000-0.055) White Blood Count 15.8x10^3/uL (4.0-11.0) 8.4x10^3/uL (4.0-11.0) Red Blood Count 5.53x10^6/uL (4.30-5.70) 4.89x10^6/uL (4.30-5.70) Hemoglobin 16.8g/dL (13.0-17.5) 14.9g/dL (13.0-17.5) Hematocrit 51.9% (39.0-53.0) 46.5% (39.0-53.0) Mean Corpuscular Volume 94fL (79-100) 95fL (79-100) Mean Corpuscular Hemoglobin 30pg (25-35) 31pg (25-35) Mean Corpuscular Hemoglobin Concent 32g/dL (31-37) 32g/dL (31-37) Red Cell Distribution Width 16.2% (11.5-14.5) 16.6% (11.5-14.5) Platelet Count 129x10^3/uL (140-400) 120x10^3/uL (140-400) Neutrophils (%) (Auto) 92% (31-73) 71% (31-73) Lymphocytes (%) (Auto) 5% (24-48) 22% (24-48) Monocytes (%) (Auto) 3% (0-9) 6% (0-9) Eosinophils (%) (Auto) 0% (0-3) 1% (0-3) Basophils (%) (Auto) 0% (0-3) 0% (0-3) Neutrophils # (Auto) 14.5x10^3uL (1.8-7.7) 6.0x10^3uL (1.8-7.7) Lymphocytes # (Auto) 0.8x10^3/uL (1.0-4.8) 1.8x10^3/uL (1.0-4.8) Monocytes # (Auto) 0.4x10^3/uL (0.0-1.1) 0.5x10^3/uL (0.0-1.1) Eosinophils # (Auto) 0.0x10^3/uL (0.0-0.7) 0.1x10^3/uL (0.0-0.7) Basophils # (Auto) 0.1x10^3/uL (0.0-0.2) 0.0x10^3/uL (0.0-0.2) Sodium Level 140mmol/L (136-145) 146mmol/L (136-145) Potassium Level 5.2mmol/L (3.5-5.1) 3.9mmol/L (3.5-5.1) Chloride Level 100mmol/L (98-107) 108mmol/L (98-107) Carbon Dioxide Level 29mmol/L (21-32) 33mmol/L (21-32) Anion Gap 11 (6-14) 5 (6-14) Blood Urea Nitrogen 30mg/dL (8-26) 33mg/dL (8-26) Creatinine 1.4mg/dL (0.7-1.3) 1.3mg/dL (0.7-1.3) Estimated GFR (Cockcroft-Gault) 60.8 66.2 Glucose Level 174mg/dL (70-99) 139mg/dL (70-99) Hemoglobin A1c 6.5% (4.8-5.6) Calcium Level 9.1mg/dL (8.5-10.1) 8.3mg/dL (8.5-10.1) Urine Collection Type Unknown Urine Color Yellow Urine Clarity Clear Urine pH 7.5 Urine Specific [place] 1.025 Urine Protein Negativemg/dL (NEG-TRACE) Urine Glucose (UA) Negativemg/dL (NEG) Urine Ketones (Stick) Negativemg/dL (NEG) Urine Blood Negative (NEG) Urine Nitrite Negative (NEG) Urine Bilirubin Negative (NEG) Urine Urobilinogen Dipstick 0.2mg/dL (0.2 mg/dL) Urine Leukocyte Esterase Negative (NEG) Urine RBC Occ/HPF (0-2) Urine WBC 1-4/HPF (0-4) Urine Squamous Epithelial Cells Few/LPF Urine Bacteria 0/HPF (0-FEW) Urine Mucus Slight/LPF Laboratory Tests Test 06/05/16 04:00 White Blood Count 8.4x10^3/uL (4.0-11.0) Red Blood Count 4.89x10^6/uL (4.30-5.70) Hemoglobin 14.9g/dL (13.0-17.5) Hematocrit 46.5% (39.0-53.0) Mean Corpuscular Volume 95fL (79-100) Mean Corpuscular Hemoglobin 31pg (25-35) Mean Corpuscular Hemoglobin Concent 32g/dL (31-37) Red Cell Distribution Width 16.6% (11.5-14.5) Platelet Count 120x10^3/uL (140-400) Neutrophils (%) (Auto) 71% (31-73) Lymphocytes (%) (Auto) 22% (24-48) Monocytes (%) (Auto) 6% (0-9) Eosinophils (%) (Auto) 1% (0-3) Basophils (%) (Auto) 0% (0-3) Neutrophils # (Auto) 6.0x10^3uL (1.8-7.7) Lymphocytes # (Auto) 1.8x10^3/uL (1.0-4.8) Monocytes # (Auto) 0.5x10^3/uL (0.0-1.1) Eosinophils # (Auto) 0.1x10^3/uL (0.0-0.7) Basophils # (Auto) 0.0x10^3/uL (0.0-0.2) Sodium Level 146mmol/L (136-145) Potassium Level 3.9mmol/L (3.5-5.1) Chloride Level 108mmol/L (98-107) Carbon Dioxide Level 33mmol/L (21-32) Anion Gap 5 (6-14) Blood Urea Nitrogen 33mg/dL (8-26) Creatinine 1.3mg/dL (0.7-1.3) Estimated GFR (Cockcroft-Gault) 66.2 Glucose Level 139mg/dL (70-99) Calcium Level 8.3mg/dL (8.5-10.1) Medications Current Medications Albuterol/ Ipratropium (Duoneb) 3 ml 1X ONCE NEB Last administered on 12:20; Start 06/03/16 at 12:15; Stop 06/03/16 at 12:16; Status DC Furosemide (Lasix) 20 mg 1X ONCE PO Last administered on 06/03/16 13:10; Start 06/03/16 at 13:00; Stop 06/03/16 at 13:02; Status DC Ondansetron HCl (Zofran) 4 mg PRN Q8HRS PRN IV NAUSEA/VOMITING; Start 06/03/16 at 15:15; Stop 06/04/16 at 15:14; Status DC Morphine Sulfate 2 mg PRN Q2HR PRN IV PAIN; Start 06/03/16 at 15:15; Stop 06/04 at 15:14; Status DC Cyclobenzaprine HCl (Flexeril) 5 mg PRN TID PRN PO MUSCLE SPASMS Last administered on 06/04/16 20:44; Start 06/03/16 at 19:00 Acetaminophen (Tylenol) 325 mg PRN Q6HRS PRN PO MILD PAIN / TEMP; Start at 19:00 Acetaminophen (Tylenol) 650 mg PRN Q6HRS PRN PO MILD PAIN / TEMP; Start at 19:00 Albuterol/ Ipratropium (Duoneb) 3 ml RTQID NEB Last administered on 06/05/16 11:17; Start 06/03/16 at 20:00 Simvastatin (Zocor) 20 mg QHS PO Last administered on 06/04/16 20:44; Start at 21:00 Tamsulosin HCl (Flomax) 0.4 mg QHS PO Last administered on 06/04/16 20:44; Start 06/03/16 at 21:00 Amoxicillin/ Clavulanate Potassium (Augmentin 875/ 125mg) 1 tab BID PO Last administered on 06/05/16 08:42; Start 06/04/16 at 09:00 Furosemide (Lasix) 20 mg DAILY IVP Last administered on 06/05/16 08:42; Start 06/04/16 at 09:00 Enoxaparin Sodium (Lovenox 40mg Syringe) 40 mg Q24H SQ Last administered on 14:17; Start 06/04/16 at 13:00 Montelukast Sodium (Singulair) 10 mg QHS PO ; Start 06/05/16 at 21:00 Active Scripts Active Lasix (Furosemide) 20 Mg Tablet 1 Tab PO DAILY PRN Pantoprazole Sodium 40 Mg Tablet.dr 40 Mg PO DAILYAC [Albuterol Sulfate] 2.5 MG/3 ML Nebu 2.5 Mg NEB QID AND Q 2 HOURS NE PRN Tylenol (Acetaminophen) 325 Mg Tablet 650 Mg PO PRN Q6HRS PRN 28 Days Reported Prednisone 20 Mg Tablet 1 Tab PO DAILY Amox Tr-K Clv 875-125 Mg Tab (Amoxicillin/Potassium Clav) 1 Each Tablet 1 Tab PO BID Azelastine Hcl 137 Mcg/0.137 Ml [place].pump 2 [place] NS BID Advair 500-50 Diskus (Fluticasone/Salmeterol) 1 Each Disk.w.dev 1 Inh IH BID Avodart (Dutasteride) 0.5 Mg Capsule 1 Cap PO HS Montelukast Sodium Tablet (Montelukast Sodium) 10 Mg Tablet 1 Tab PO DAILY Naproxen 500 Mg Tablet 1 Tab PO BID Aspir 81 (Aspirin) 81 Mg Tablet.dr 1 Tab PO DAILY Flomax (Tamsulosin Hcl) 0.4 Mg Cap.er.24h 0.4 Mg PO QHS Zocor (Simvastatin) 20 Mg Tablet 20 Mg PO QHS Vitals/I & O Vital Sign - Last 24 Hours 06/04/16 06/04/16 06/04/16 06/04/16 14:45 19:45 19:47 20:45 Temp 97.7 98.8 97.7 98.8 Pulse 87 82 Resp 22 18 B/P 119/80 103/74 Pulse Ox 95 93 94 O2 Delivery Room Air Room Air Room Air Room Air 06/04/16 06/05/16 06/05/16 06/05/16 23:59 03:00 07:00 07:23 Temp 97.9 97.9 98.8 97.9 97.9 98.8 Pulse 84 78 86 Resp 18 18 20 B/P 124/80 113/75 120/79 Pulse Ox 94 94 94 92 O2 Delivery Room Air Room Air Room Air Room Air 06/05/16 06/05/16 06/05/16 06/05/16 08:00 08:55 08:59 09:00 Pulse 88 89 89 B/P 108/67 111/67 111/67 O2 Delivery Room Air 06/05/16 06/05/16 06/05/16 09:05 11:00 11:18 Temp 99.7 99.7 Pulse 104 90 Resp 18 B/P 119/75 121/80 Pulse Ox 92 O2 Delivery Room Air Room Air Intake and Output 06/04/16 06/04/16 06/05/16 15:00 23:00 07:00 Intake Total 400 ml 534 ml Output Total 800 ml Balance -400 ml 534 ml LESLI SCHWARTZ MD Jun 05, 2016 14:00
--- NOTE | 2016-06-05 14:13 | PDOC ---
PROGRESS NOTES Subjective Subjective Patient feels a little better. No complaints of chest pains. Objective Objective Vital Signs Date Time Temp Pulse Resp B/P Pulse Ox O2 Delivery O2 Flow Rate FiO2 06/05/16 11:18 Room Air 06/05/16 11:00 99.7 90 18 121/80 92 99.7 Intake and Output 06/05/16 07:00 Intake Total 934 ml Output Total 800 ml Balance 134 ml Intake Oral 934 ml Output Urine Total 800 ml # Voids 3 Physical Exam Physical Exam The edema of the left leg is decreasing. The edema of the right leg is gone. No other changes in cardiac exam. Assessment Assessment Patient seems to be a doing better. However I am still concerned with the situation of Y such severe edema on just one leg. Agree with a venous Doppler. Case discussed with Dr. Blanc. Problems Medical Problems: (1) Peripheral edema Status: Acute (2) Shortness of breath Status: Acute (3) Shortness of breath Status: Acute (4) Weight gain Status: Acute Comment Review of Relevant I have reviewed the following items myra (where applicable) has been applied. Labs Laboratory Tests Test 06/03/16 20:40 06/04/16 03:15 06/04/16 09:30 06/05/16 04:00 Troponin I Quantitative < 0.017ng/mL (0.000-0.055) < 0.017ng/mL (0.000-0.055) White Blood Count 15.8x10^3/uL (4.0-11.0) 8.4x10^3/uL (4.0-11.0) Red Blood Count 5.53x10^6/uL (4.30-5.70) 4.89x10^6/uL (4.30-5.70) Hemoglobin 16.8g/dL (13.0-17.5) 14.9g/dL (13.0-17.5) Hematocrit 51.9% (39.0-53.0) 46.5% (39.0-53.0) Mean Corpuscular Volume 94fL (79-100) 95fL (79-100) Mean Corpuscular Hemoglobin 30pg (25-35) 31pg (25-35) Mean Corpuscular Hemoglobin Concent 32g/dL (31-37) 32g/dL (31-37) Red Cell Distribution Width 16.2% (11.5-14.5) 16.6% (11.5-14.5) Platelet Count 129x10^3/uL (140-400) 120x10^3/uL (140-400) Neutrophils (%) (Auto) 92% (31-73) 71% (31-73) Lymphocytes (%) (Auto) 5% (24-48) 22% (24-48) Monocytes (%) (Auto) 3% (0-9) 6% (0-9) Eosinophils (%) (Auto) 0% (0-3) 1% (0-3) Basophils (%) (Auto) 0% (0-3) 0% (0-3) Neutrophils # (Auto) 14.5x10^3uL (1.8-7.7) 6.0x10^3uL (1.8-7.7) Lymphocytes # (Auto) 0.8x10^3/uL (1.0-4.8) 1.8x10^3/uL (1.0-4.8) Monocytes # (Auto) 0.4x10^3/uL (0.0-1.1) 0.5x10^3/uL (0.0-1.1) Eosinophils # (Auto) 0.0x10^3/uL (0.0-0.7) 0.1x10^3/uL (0.0-0.7) Basophils # (Auto) 0.1x10^3/uL (0.0-0.2) 0.0x10^3/uL (0.0-0.2) Sodium Level 140mmol/L (136-145) 146mmol/L (136-145) Potassium Level 5.2mmol/L (3.5-5.1) 3.9mmol/L (3.5-5.1) Chloride Level 100mmol/L (98-107) 108mmol/L (98-107) Carbon Dioxide Level 29mmol/L (21-32) 33mmol/L (21-32) Anion Gap 11 (6-14) 5 (6-14) Blood Urea Nitrogen 30mg/dL (8-26) 33mg/dL (8-26) Creatinine 1.4mg/dL (0.7-1.3) 1.3mg/dL (0.7-1.3) Estimated GFR (Cockcroft-Gault) 60.8 66.2 Glucose Level 174mg/dL (70-99) 139mg/dL (70-99) Hemoglobin A1c 6.5% (4.8-5.6) Calcium Level 9.1mg/dL (8.5-10.1) 8.3mg/dL (8.5-10.1) Urine Collection Type Unknown Urine Color Yellow Urine Clarity Clear Urine pH 7.5 Urine Specific [place] 1.025 Urine Protein Negativemg/dL (NEG-TRACE) Urine Glucose (UA) Negativemg/dL (NEG) Urine Ketones (Stick) Negativemg/dL (NEG) Urine Blood Negative (NEG) Urine Nitrite Negative (NEG) Urine Bilirubin Negative (NEG) Urine Urobilinogen Dipstick 0.2mg/dL (0.2 mg/dL) Urine Leukocyte Esterase Negative (NEG) Urine RBC Occ/HPF (0-2) Urine WBC 1-4/HPF (0-4) Urine Squamous Epithelial Cells Few/LPF Urine Bacteria 0/HPF (0-FEW) Urine Mucus Slight/LPF Laboratory Tests Test 06/05/16 04:00 White Blood Count 8.4x10^3/uL (4.0-11.0) Red Blood Count 4.89x10^6/uL (4.30-5.70) Hemoglobin 14.9g/dL (13.0-17.5) Hematocrit 46.5% (39.0-53.0) Mean Corpuscular Volume 95fL (79-100) Mean Corpuscular Hemoglobin 31pg (25-35) Mean Corpuscular Hemoglobin Concent 32g/dL (31-37) Red Cell Distribution Width 16.6% (11.5-14.5) Platelet Count 120x10^3/uL (140-400) Neutrophils (%) (Auto) 71% (31-73) Lymphocytes (%) (Auto) 22% (24-48) Monocytes (%) (Auto) 6% (0-9) Eosinophils (%) (Auto) 1% (0-3) Basophils (%) (Auto) 0% (0-3) Neutrophils # (Auto) 6.0x10^3uL (1.8-7.7) Lymphocytes # (Auto) 1.8x10^3/uL (1.0-4.8) Monocytes # (Auto) 0.5x10^3/uL (0.0-1.1) Eosinophils # (Auto) 0.1x10^3/uL (0.0-0.7) Basophils # (Auto) 0.0x10^3/uL (0.0-0.2) Sodium Level 146mmol/L (136-145) Potassium Level 3.9mmol/L (3.5-5.1) Chloride Level 108mmol/L (98-107) Carbon Dioxide Level 33mmol/L (21-32) Anion Gap 5 (6-14) Blood Urea Nitrogen 33mg/dL (8-26) Creatinine 1.3mg/dL (0.7-1.3) Estimated GFR (Cockcroft-Gault) 66.2 Glucose Level 139mg/dL (70-99) Calcium Level 8.3mg/dL (8.5-10.1) Medications Current Medications Albuterol/ Ipratropium (Duoneb) 3 ml 1X ONCE NEB Last administered on 12:20; Start 06/03/16 at 12:15; Stop 06/03/16 at 12:16; Status DC Furosemide (Lasix) 20 mg 1X ONCE PO Last administered on 06/03/16 13:10; Start 06/03/16 at 13:00; Stop 06/03/16 at 13:02; Status DC Ondansetron HCl (Zofran) 4 mg PRN Q8HRS PRN IV NAUSEA/VOMITING; Start 06/03/16 at 15:15; Stop 06/04/16 at 15:14; Status DC Morphine Sulfate 2 mg PRN Q2HR PRN IV PAIN; Start 06/03/16 at 15:15; Stop 06/04 at 15:14; Status DC Cyclobenzaprine HCl (Flexeril) 5 mg PRN TID PRN PO MUSCLE SPASMS Last administered on 06/04/16 20:44; Start 06/03/16 at 19:00 Acetaminophen (Tylenol) 325 mg PRN Q6HRS PRN PO MILD PAIN / TEMP; Start at 19:00 Acetaminophen (Tylenol) 650 mg PRN Q6HRS PRN PO MILD PAIN / TEMP; Start at 19:00 Albuterol/ Ipratropium (Duoneb) 3 ml RTQID NEB Last administered on 06/05/16 11:17; Start 06/03/16 at 20:00 Simvastatin (Zocor) 20 mg QHS PO Last administered on 06/04/16 20:44; Start at 21:00 Tamsulosin HCl (Flomax) 0.4 mg QHS PO Last administered on 06/04/16 20:44; Start 06/03/16 at 21:00 Amoxicillin/ Clavulanate Potassium (Augmentin 875/ 125mg) 1 tab BID PO Last administered on 06/05/16 08:42; Start 06/04/16 at 09:00 Furosemide (Lasix) 20 mg DAILY IVP Last administered on 06/05/16 08:42; Start 06/04/16 at 09:00 Enoxaparin Sodium (Lovenox 40mg Syringe) 40 mg Q24H SQ Last administered on 14:00; Start 06/04/16 at 13:00 Montelukast Sodium (Singulair) 10 mg QHS PO ; Start 06/05/16 at 21:00 Active Scripts Active Lasix (Furosemide) 20 Mg Tablet 1 Tab PO DAILY PRN Pantoprazole Sodium 40 Mg Tablet.dr 40 Mg PO DAILYAC [Albuterol Sulfate] 2.5 MG/3 ML Nebu 2.5 Mg NEB QID AND Q 2 HOURS [place] PRN Tylenol (Acetaminophen) 325 Mg Tablet 650 Mg PO PRN Q6HRS PRN 28 Days Reported Prednisone 20 Mg Tablet 1 Tab PO DAILY Amox Tr-K Clv 875-125 Mg Tab (Amoxicillin/Potassium Clav) 1 Each Tablet 1 Tab PO BID Azelastine Hcl 137 Mcg/0.137 Ml [place].pump 2 [place] NS BID Advair 500-50 Diskus (Fluticasone/Salmeterol) 1 Each Disk.w.dev 1 Inh IH BID Avodart (Dutasteride) 0.5 Mg Capsule 1 Cap PO HS Montelukast Sodium Tablet (Montelukast Sodium) 10 Mg Tablet 1 Tab PO DAILY Naproxen 500 Mg Tablet 1 Tab PO BID Aspir 81 (Aspirin) 81 Mg Tablet.dr 1 Tab PO DAILY Flomax (Tamsulosin Hcl) 0.4 Mg Cap.er.24h 0.4 Mg PO QHS Zocor (Simvastatin) 20 Mg Tablet 20 Mg PO QHS Vitals/I & O Vital Sign - Last 24 Hours 06/04/16 06/04/16 06/04/16 06/04/16 14:45 19:45 19:47 20:45 Temp 97.7 98.8 97.7 98.8 Pulse 87 82 Resp 22 18 B/P 119/80 103/74 Pulse Ox 95 93 94 O2 Delivery Room Air Room Air Room Air Room Air 06/04/16 06/05/16 06/05/16 06/05/16 23:59 03:00 07:00 07:23 Temp 97.9 97.9 98.8 97.9 97.9 98.8 Pulse 84 78 86 Resp 18 18 20 B/P 124/80 113/75 120/79 Pulse Ox 94 94 94 92 O2 Delivery Room Air Room Air Room Air Room Air 06/05/16 06/05/16 06/05/16 06/05/16 08:00 08:55 08:59 09:00 Pulse 88 89 89 B/P 108/67 111/67 111/67 O2 Delivery Room Air 06/05/16 06/05/16 06/05/16 09:05 11:00 11:18 Temp 99.7 99.7 Pulse 104 90 Resp 18 B/P 119/75 121/80 Pulse Ox 92 O2 Delivery Room Air Room Air Intake and Output 06/04/16 06/04/16 06/05/16 15:00 23:00 07:00 Intake Total 400 ml 534 ml Output Total 800 ml Balance -400 ml 534 ml PABLITO FREDERICK MD Jun 05, 2016 14:13
--- NOTE | 2016-06-05 14:49 | RAD ---
Indication pain. Grayscale color Doppler and spectral imaging was performed. The examination was targeted to the veins of the left lower extremity. The common femoral, femoral and popliteal vessels demonstrate normal flow compressibility and augmentation. No thrombus is seen. Those calf veins which are seen appeared normal. IMPRESSION: Negative left lower extremity venous analysis for DVT
[2016-06-05] MEDS: SIMVASTATIN 20 MG TABLET PO SCH (20:54)
[2016-06-05] MEDS: MONTELUKAST SODIUM 10 MG TABLET. PO SCH (20:54)
[2016-06-05] MEDS: TAMSULOSIN 0.4 MG CAP.ER.24H. PO SCH (20:54)
[2016-06-06 03:00] VITALS: BP 121/85
[2016-06-06 07:00] VITALS: BP 119/88
[2016-06-06] MEDS: FUROSEMIDE 20 MG/2 ML VIAL IVP SCH (08:47)
[2016-06-06] MEDS: AMOXICILLIN/K CLAV 875/125MG TABLET. PO SCH ×2 (08:47→20:50)
[2016-06-06] MEDS: IPRATRPIUM/ALBUTEROL 0.5/2.5MG 3 ML NEBU. NEB SCH ×4 (08:55→19:32)
--- NOTE | 2016-06-06 10:41 | PDOC ---
PROGRESS NOTES Subjective Subjective Patient reports some post-nasal drainage. Denies sinus pain at present. Objective Objective Vital Signs Date Time Temp Pulse Resp B/P Pulse Ox O2 Delivery O2 Flow Rate FiO2 06/06/16 08:56 96 Room Air 06/06/16 07:00 97.7 77 18 119/88 97.7 Intake and Output 06/06/16 07:00 Intake Total 686 ml Balance 686 ml Intake Oral 686 ml # Voids 6 Physical Exam Abdomen: Normal bowel sounds, Soft, No tenderness Heart: Regular rate Extremities: Other (scant edema L ankle area, otherwise WNL) General: Alert, Oriented X3, No acute distress Lungs: Other (BS decreased throughout but CTA) Assessment Assessment Problems Medical Problems: (1) Peripheral edema Status: Acute (2) Shortness of breath Status: Acute (3) Shortness of breath Status: Acute (4) Weight gain Status: Acute Plan Plan of Care 1. COPD with SOA - improving. Patient continues without hypoxia on RA. 2. elevated temperature with sinusitis - patient did have temp to 100 yesterday. CXR at admission was clear. Continue Augmentin, add Flonase. 3. glucose intolerance - new diagnosis for patient this admission with A1C 6.5 Continue ADA diet, patient aware he needs to change his diet at home to avoid sugars. 4. CHF with mild diastolic dysfunction - receiving low dose Lasix here, Dr Arcos does not think he will need this at discharge. Check electrolytes in AM. 5. L LE - much improved. Venous dopplers negative. Comment Review of Relevant I have reviewed the following items myra (where applicable) has been applied. Labs Laboratory Tests Test 06/05/16 04:00 White Blood Count 8.4x10^3/uL (4.0-11.0) Red Blood Count 4.89x10^6/uL (4.30-5.70) Hemoglobin 14.9g/dL (13.0-17.5) Hematocrit 46.5% (39.0-53.0) Mean Corpuscular Volume 95fL (79-100) Mean Corpuscular Hemoglobin 31pg (25-35) Mean Corpuscular Hemoglobin Concent 32g/dL (31-37) Red Cell Distribution Width 16.6% (11.5-14.5) Platelet Count 120x10^3/uL (140-400) Neutrophils (%) (Auto) 71% (31-73) Lymphocytes (%) (Auto) 22% (24-48) Monocytes (%) (Auto) 6% (0-9) Eosinophils (%) (Auto) 1% (0-3) Basophils (%) (Auto) 0% (0-3) Neutrophils # (Auto) 6.0x10^3uL (1.8-7.7) Lymphocytes # (Auto) 1.8x10^3/uL (1.0-4.8) Monocytes # (Auto) 0.5x10^3/uL (0.0-1.1) Eosinophils # (Auto) 0.1x10^3/uL (0.0-0.7) Basophils # (Auto) 0.0x10^3/uL (0.0-0.2) Sodium Level 146mmol/L (136-145) Potassium Level 3.9mmol/L (3.5-5.1) Chloride Level 108mmol/L (98-107) Carbon Dioxide Level 33mmol/L (21-32) Anion Gap 5 (6-14) Blood Urea Nitrogen 33mg/dL (8-26) Creatinine 1.3mg/dL (0.7-1.3) Estimated GFR (Cockcroft-Gault) 66.2 Glucose Level 139mg/dL (70-99) Calcium Level 8.3mg/dL (8.5-10.1) Microbiology 06/04/16 Urine Culture - Preliminary, Resulted 06/04/16 Urine Culture Result 1 (CHRISTIANO) - Preliminary, Resulted Medications Current Medications Albuterol/ Ipratropium (Duoneb) 3 ml 1X ONCE NEB Last administered on 12:20; Start 06/03/16 at 12:15; Stop 06/03/16 at 12:16; Status DC Furosemide (Lasix) 20 mg 1X ONCE PO Last administered on 06/03/16 13:10; Start 06/03/16 at 13:00; Stop 06/03/16 at 13:02; Status DC Ondansetron HCl (Zofran) 4 mg PRN Q8HRS PRN IV NAUSEA/VOMITING; Start 06/03/16 at 15:15; Stop 06/04/16 at 15:14; Status DC Morphine Sulfate 2 mg PRN Q2HR PRN IV PAIN; Start 06/03/16 at 15:15; Stop 06/04 at 15:14; Status DC Cyclobenzaprine HCl (Flexeril) 5 mg PRN TID PRN PO MUSCLE SPASMS Last administered on 06/04/16 20:44; Start 06/03/16 at 19:00 Acetaminophen (Tylenol) 325 mg PRN Q6HRS PRN PO MILD PAIN / TEMP; Start at 19:00 Acetaminophen (Tylenol) 650 mg PRN Q6HRS PRN PO MILD PAIN / TEMP Last administered on 06/05/16 20:54; Start 06/03/16 at 19:00 Albuterol/ Ipratropium (Duoneb) 3 ml RTQID NEB Last administered on 06/06/16 08:55; Start 06/03/16 at 20:00 Simvastatin (Zocor) 20 mg QHS PO Last administered on 06/05/16 20:54; Start at 21:00 Tamsulosin HCl (Flomax) 0.4 mg QHS PO Last administered on 06/05/16 20:54; Start 06/03/16 at 21:00 Amoxicillin/ Clavulanate Potassium (Augmentin 875/ 125mg) 1 tab BID PO Last administered on 06/06/16 08:47; Start 06/04/16 at 09:00 Furosemide (Lasix) 20 mg DAILY IVP Last administered on 06/06/16 08:47; Start 06/04/16 at 09:00 Enoxaparin Sodium (Lovenox 40mg Syringe) 40 mg Q24H SQ Last administered on 14:00; Start 06/04/16 at 13:00 Montelukast Sodium (Singulair) 10 mg QHS PO Last administered on 06/05/16 20: 54; Start 06/05/16 at 21:00 Active Scripts Active Lasix (Furosemide) 20 Mg Tablet 1 Tab PO DAILY PRN Pantoprazole Sodium 40 Mg Tablet.dr 40 Mg PO DAILYAC [Albuterol Sulfate] 2.5 MG/3 ML Nebu 2.5 Mg NEB QID AND Q 2 HOURS [place] PRN Tylenol (Acetaminophen) 325 Mg Tablet 650 Mg PO PRN Q6HRS PRN 28 Days Reported Prednisone 20 Mg Tablet 1 Tab PO DAILY Amox Tr-K Clv 875-125 Mg Tab (Amoxicillin/Potassium Clav) 1 Each Tablet 1 Tab PO BID Azelastine Hcl 137 Mcg/0.137 Ml [place].pump 2 [place] NS BID Advair 500-50 Diskus (Fluticasone/Salmeterol) 1 Each Disk.w.dev 1 Inh IH BID Avodart (Dutasteride) 0.5 Mg Capsule 1 Cap PO HS Montelukast Sodium Tablet (Montelukast Sodium) 10 Mg Tablet 1 Tab PO DAILY Naproxen 500 Mg Tablet 1 Tab PO BID Aspir 81 (Aspirin) 81 Mg Tablet.dr 1 Tab PO DAILY Flomax (Tamsulosin Hcl) 0.4 Mg Cap.er.24h 0.4 Mg PO QHS Zocor (Simvastatin) 20 Mg Tablet 20 Mg PO QHS Vitals/I & O Vital Sign - Last 24 Hours 06/05/16 06/05/16 06/05/16 06/05/16 11:00 11:18 15:57 16:16 Temp 99.7 99.7 99.7 99.7 Pulse 90 89 Resp 18 20 B/P 121/80 118/73 Pulse Ox 92 95 O2 Delivery Room Air Room Air Room Air Room Air 06/05/16 06/05/16 06/05/16 06/05/16 19:00 19:32 20:00 23:00 Temp 100.0 99.7 100.0 99.7 Pulse 84 80 Resp 18 18 B/P 113/77 115/76 Pulse Ox 93 95 O2 Delivery Room Air Room Air Room Air Room Air 06/06/16 06/06/16 06/06/16 06/06/16 03:00 07:00 08:00 08:56 Temp 98.1 97.7 98.1 97.7 Pulse 75 77 Resp 18 18 B/P 121/85 119/88 Pulse Ox 94 94 96 O2 Delivery Room Air Room Air Room Air Room Air Intake and Output 06/05/16 06/05/16 06/06/16 15:00 23:00 07:00 Intake Total 236 ml 450 ml Balance 236 ml 450 ml LESLI SCHWARTZ MD Jun 06, 2016 10:41
[2016-06-06] MEDS: FLUTICASONE 50MCG/NASAL SPRAY 16GM BOTTLE. NS SCH (10:45)
[2016-06-06 10:52] VITALS: BP 122/81
--- NOTE | 2016-06-06 11:25 | PDOC ---
PULMONARY PROGRESS NOTES Subjective has sob, cough, better, has l ankle pain better, has post nasal drip, better Vitals Vital Signs Date Time Temp Pulse Resp B/P Pulse Ox O2 Delivery O2 Flow Rate FiO2 06/06/16 10:52 98.6 103 18 122/81 92 Room Air 98.6 Comments ros as mentioned as above other sys otherwise neg ROS: No Nausea, No Chest Pain, No Abdominal Pain General: Alert, Oriented X4 (nc at perrl, throat nose clear. ) HEENT: Other Lungs: Clear Cardiovascular: S1, S2 Abdomen: Soft, Non-tender Neuro Exam: Alert, Oriented Extremities: No Edema Skin: Warm Labs Laboratory Tests Test 06/05/16 04:00 White Blood Count 8.4x10^3/uL (4.0-11.0) Red Blood Count 4.89x10^6/uL (4.30-5.70) Hemoglobin 14.9g/dL (13.0-17.5) Hematocrit 46.5% (39.0-53.0) Mean Corpuscular Volume 95fL (79-100) Mean Corpuscular Hemoglobin 31pg (25-35) Mean Corpuscular Hemoglobin Concent 32g/dL (31-37) Red Cell Distribution Width 16.6% (11.5-14.5) Platelet Count 120x10^3/uL (140-400) Neutrophils (%) (Auto) 71% (31-73) Lymphocytes (%) (Auto) 22% (24-48) Monocytes (%) (Auto) 6% (0-9) Eosinophils (%) (Auto) 1% (0-3) Basophils (%) (Auto) 0% (0-3) Neutrophils # (Auto) 6.0x10^3uL (1.8-7.7) Lymphocytes # (Auto) 1.8x10^3/uL (1.0-4.8) Monocytes # (Auto) 0.5x10^3/uL (0.0-1.1) Eosinophils # (Auto) 0.1x10^3/uL (0.0-0.7) Basophils # (Auto) 0.0x10^3/uL (0.0-0.2) Sodium Level 146mmol/L (136-145) Potassium Level 3.9mmol/L (3.5-5.1) Chloride Level 108mmol/L (98-107) Carbon Dioxide Level 33mmol/L (21-32) Anion Gap 5 (6-14) Blood Urea Nitrogen 33mg/dL (8-26) Creatinine 1.3mg/dL (0.7-1.3) Estimated GFR (Cockcroft-Gault) 66.2 Glucose Level 139mg/dL (70-99) Calcium Level 8.3mg/dL (8.5-10.1) Medications Active Scripts Medications Dose Route/Sig Days Date Category Prednisone 20 Mg Tablet 1 Tab PO DAILY 06/03/16 Reported Lasix (Furosemide) 20 Mg Tablet 1 Tab PO DAILY PRN 05/27/16 Rx Pantoprazole Sodium 40 Mg Tablet.dr 40 Mg PO DAILYAC 05/27/16 Rx [Albuterol Sulfate] 2.5 MG/3 ML Nebu 2.5 Mg NEB QID AND Q 2 HOURS [place] PRN 05/27/16 Rx Amox Tr-K Clv 875-125 Mg Tab (Amoxicillin/Potassium Clav) 1 Each Tablet 1 Tab PO BID 05/25/16 Reported Azelastine Hcl 137 Mcg/0.137 Ml [place].pump 2 [place] NS BID 05/25/16 Reported Advair 500-50 Diskus (Fluticasone/Salmeterol) 1 Each Disk.w.dev 1 Inh IH BID 05/25/16 Reported Avodart (Dutasteride) 0.5 Mg Capsule 1 Cap PO HS 05/25/16 Reported Montelukast Sodium Tablet (Montelukast Sodium) 10 Mg Tablet 1 Tab PO DAILY 12/27/14 Reported Naproxen 500 Mg Tablet 1 Tab PO BID 12/27/14 Reported Aspir 81 (Aspirin) 81 Mg Tablet.dr 1 Tab PO DAILY 12/27/14 Reported Tylenol (Acetaminophen) 325 Mg Tablet 650 Mg PO PRN Q6HRS PRN 28 11/15/13 Rx Flomax (Tamsulosin Hcl) 0.4 Mg Cap.er.24h 0.4 Mg PO QHS 02/10/13 Reported Zocor (Simvastatin) 20 Mg Tablet 20 Mg PO QHS 02/10/13 Reported Comments cxr reviewed. No acute cardiopulmonary abnormality is detected. Impression . IMPRESSION: 1. Dyspnea, multifactorial in etiology, worse, which I suspect this secondary to congestive heart failure. 2. Chronic obstructive pulmonary disease. 3. Tobacco habituation. 4. Leukocytosis. 5. Hyperkalemia. 6. Acute kidney injury. 7. Status post fall. 8. allergic rhinitis Plan . PLAN AND RECOMMENDATIONS: 1. Titrate FiO2 to keep O2 saturation 92%. 2. bronchodilator. 3. Augmentin for 7 days. 4. Keep intake less on output, monitor potassium and creatinine. 5. Lovenox for deep vein thrombosis prophylaxis. 6. Echocardiogram if it is not done. 7. I have advised him to stop smoking forever. Different methods of quitting were discussed. 8. Singulair 9. l ankle edema, ? etiology, s/p fall, ? soft tissue injury discussed w pt ok to dc from pulm standpoint DEWEY MCNEAL MD Jun 06, 2016 11:24
[2016-06-06] MEDS: DO NOT USE 40 MG/0.4 ML DISP.SYRIN SQ SCH (11:52)
[2016-06-06 15:00] VITALS: BP 125/92
--- NOTE | 2016-06-06 15:29 | PDOC ---
Provider Note Provider Note Covering for Dr. Arcos. There is no swelling of the left leg. There is minimal swelling of the right leg. There is no evidence of deep venous thrombosis. Dr. Arcos returns tomorrow. DEVONTE GRACE MD Jun 06, 2016 15:29
[2016-06-06 19:00] VITALS: BP 126/81
[2016-06-06] MEDS: TAMSULOSIN 0.4 MG CAP.ER.24H. PO SCH (20:50)
[2016-06-06] MEDS: MONTELUKAST SODIUM 10 MG TABLET. PO SCH (20:50)
[2016-06-06] MEDS: SIMVASTATIN 20 MG TABLET PO SCH (20:50)
[2016-06-06 23:00] VITALS: BP 120/74
[2016-06-07 03:00] VITALS: BP 138/75
[2016-06-07 05:12] LABS: CALCIUM 8.5 mg/dL (8.5-10.1); CREATININE 1.3 mg/dL (0.7-1.3); GFR 66.2; POTASSIUM 4.6 mmol/L (3.5-5.1)
[2016-06-07 07:00] VITALS: BP 136/82
[2016-06-07] MEDS: IPRATRPIUM/ALBUTEROL 0.5/2.5MG 3 ML NEBU. NEB SCH ×3 (07:33→15:45)
[2016-06-07] MEDS: AMOXICILLIN/K CLAV 875/125MG TABLET. PO SCH (08:07)
[2016-06-07] MEDS: FLUTICASONE 50MCG/NASAL SPRAY 16GM BOTTLE. NS SCH (08:08)
[2016-06-07] MEDS: FUROSEMIDE 20 MG/2 ML VIAL IVP SCH (08:08)
[2016-06-07 11:00] VITALS: BP 140/79
[2016-06-07] MEDS: DO NOT USE 40 MG/0.4 ML DISP.SYRIN SQ SCH (13:00)
--- NOTE | 2016-06-07 13:03 | PDOC ---
PROGRESS NOTES Subjective Subjective Patient is feeling better and swelling is much improved in his leg. Objective Objective Vital Signs Date Time Temp Pulse Resp B/P Pulse Ox O2 Delivery O2 Flow Rate FiO2 06/07/16 11:26 Room Air 06/07/16 11:00 97.9 95 18 140/79 95 97.9 Intake and Output 06/07/16 07:00 Intake Total 1250 ml Output Total 700 ml Balance 550 ml Intake Oral 1250 ml Output Urine Total 700 ml # Voids 5 Physical Exam Physical Exam Leg swelling markedly improved. Remainder of exam unchanged. Assessment Assessment Problems Medical Problems: (1) Peripheral edema Status: Acute (2) Shortness of breath Status: Acute (3) Shortness of breath Status: Acute (4) Weight gain Status: Acute Plan Plan of Care Patient is ready for discharge from a cardiac standpoint. Comment Review of Relevant I have reviewed the following items myra (where applicable) has been applied. Labs Laboratory Tests Test 06/07/16 04:10 Sodium Level 143mmol/L (136-145) Potassium Level 4.6mmol/L (3.5-5.1) Chloride Level 106mmol/L (98-107) Carbon Dioxide Level 30mmol/L (21-32) Anion Gap 7 (6-14) Blood Urea Nitrogen 27mg/dL (8-26) Creatinine 1.3mg/dL (0.7-1.3) Estimated GFR (Cockcroft-Gault) 66.2 Glucose Level 129mg/dL (70-99) Calcium Level 8.5mg/dL (8.5-10.1) Laboratory Tests Test 06/07/16 04:10 Sodium Level 143mmol/L (136-145) Potassium Level 4.6mmol/L (3.5-5.1) Chloride Level 106mmol/L (98-107) Carbon Dioxide Level 30mmol/L (21-32) Anion Gap 7 (6-14) Blood Urea Nitrogen 27mg/dL (8-26) Creatinine 1.3mg/dL (0.7-1.3) Estimated GFR (Cockcroft-Gault) 66.2 Glucose Level 129mg/dL (70-99) Calcium Level 8.5mg/dL (8.5-10.1) Microbiology 06/04/16 Urine Culture - Final, Complete 3/24/17 Urine Culture Result 1 (CHRISTIANO) - Final, Complete Medications Current Medications Albuterol/ Ipratropium (Duoneb) 3 ml 1X ONCE NEB Last administered on 12:20; Start 06/03/16 at 12:15; Stop 06/03/16 at 12:16; Status DC Furosemide (Lasix) 20 mg 1X ONCE PO Last administered on 06/03/16 13:10; Start 06/03/16 at 13:00; Stop 06/03/16 at 13:02; Status DC Ondansetron HCl (Zofran) 4 mg PRN Q8HRS PRN IV NAUSEA/VOMITING; Start 06/03/16 at 15:15; Stop 06/04/16 at 15:14; Status DC Morphine Sulfate 2 mg PRN Q2HR PRN IV PAIN; Start 06/03/16 at 15:15; Stop 06/04 at 15:14; Status DC Cyclobenzaprine HCl (Flexeril) 5 mg PRN TID PRN PO MUSCLE SPASMS Last administered on 06/04/16 20:44; Start 06/03/16 at 19:00 Acetaminophen (Tylenol) 325 mg PRN Q6HRS PRN PO MILD PAIN / TEMP; Start at 19:00 Acetaminophen (Tylenol) 650 mg PRN Q6HRS PRN PO MILD PAIN / TEMP Last administered on 06/05/16 20:54; Start 06/03/16 at 19:00 Albuterol/ Ipratropium (Duoneb) 3 ml RTQID NEB Last administered on 06/07/16 11:25; Start 06/03/16 at 20:00 Simvastatin (Zocor) 20 mg QHS PO Last administered on 06/06/16 20:50; Start at 21:00 Tamsulosin HCl (Flomax) 0.4 mg QHS PO Last administered on 06/06/16 20:50; Start 06/03/16 at 21:00 Amoxicillin/ Clavulanate Potassium (Augmentin 875/ 125mg) 1 tab BID PO Last administered on 06/07/16 08:07; Start 06/04/16 at 09:00 Furosemide (Lasix) 20 mg DAILY IVP Last administered on 06/07/16 08:08; Start 06/04/16 at 09:00 Enoxaparin Sodium (Lovenox 40mg Syringe) 40 mg Q24H SQ Last administered on 11:52; Start 06/04/16 at 13:00 Montelukast Sodium (Singulair) 10 mg QHS PO Last administered on 06/06/16 20: 50; Start 06/05/16 at 21:00 Fluticasone Propionate (Flonase) 2 spray DAILY NS Last administered on 08:08; Start 06/06/16 at 10:45 Active Scripts Active Lasix (Furosemide) 20 Mg Tablet 1 Tab PO DAILY PRN Pantoprazole Sodium 40 Mg Tablet.dr 40 Mg PO DAILYAC [Albuterol Sulfate] 2.5 MG/3 ML Nebu 2.5 Mg NEB QID AND Q 2 HOURS [place] PRN Tylenol (Acetaminophen) 325 Mg Tablet 650 Mg PO PRN Q6HRS PRN 28 Days Reported Prednisone 20 Mg Tablet 1 Tab PO DAILY Amox Tr-K Clv 875-125 Mg Tab (Amoxicillin/Potassium Clav) 1 Each Tablet 1 Tab PO BID Azelastine Hcl 137 Mcg/0.137 Ml [place].pump 2 [place] NS BID Advair 500-50 Diskus (Fluticasone/Salmeterol) 1 Each Disk.w.dev 1 Inh IH BID Avodart (Dutasteride) 0.5 Mg Capsule 1 Cap PO HS Montelukast Sodium Tablet (Montelukast Sodium) 10 Mg Tablet 1 Tab PO DAILY Naproxen 500 Mg Tablet 1 Tab PO BID Aspir 81 (Aspirin) 81 Mg Tablet.dr 1 Tab PO DAILY Flomax (Tamsulosin Hcl) 0.4 Mg Cap.er.24h 0.4 Mg PO QHS Zocor (Simvastatin) 20 Mg Tablet 20 Mg PO QHS Vitals/I & O Vital Sign - Last 24 Hours 06/06/16 06/06/16 06/06/16 06/06/16 15:00 16:12 19:00 19:32 Temp 97.7 97.7 97.7 97.7 Pulse 89 94 Resp 18 18 B/P 125/92 126/81 Pulse Ox 95 94 O2 Delivery Room Air Room Air Room Air Room Air 06/06/16 06/06/16 06/07/16 06/07/16 20:50 23:00 03:00 07:00 Temp 98.8 97.9 98.1 98.8 97.9 98.1 Pulse 64 88 96 Resp 18 18 18 B/P 120/74 138/75 136/82 Pulse Ox 93 92 95 O2 Delivery Room Air Room Air Room Air Room Air 06/07/16 06/07/16 06/07/16 06/07/16 07:35 08:00 11:00 11:26 Temp 97.9 97.9 Pulse 95 Resp 18 B/P 140/79 Pulse Ox 94 95 O2 Delivery Room Air Room Air Room Air Room Air Intake and Output 06/06/16 06/06/16 06/07/16 15:00 23:00 07:00 Intake Total 360 ml 890 ml Output Total 700 ml Balance 360 ml 890 ml -700 ml PABLITO FREDERICK MD Jun 07, 2016 13:03
--- NOTE | 2016-06-07 13:11 | PDOC ---
PULMONARY PROGRESS NOTES Subjective feels better Vitals Vital Signs Date Time Temp Pulse Resp B/P Pulse Ox O2 Delivery O2 Flow Rate FiO2 06/07/16 11:26 Room Air 06/07/16 11:00 97.9 95 18 140/79 95 97.9 Comments ros as mentioned as above other sys otherwise neg ROS: No Nausea, No Chest Pain, No Abdominal Pain General: Alert, Oriented X4 (nc at perrl, throat nose clear. ) HEENT: Other Lungs: Clear Cardiovascular: S1, S2 Abdomen: Soft, Non-tender Neuro Exam: Alert, Oriented Extremities: No Edema Skin: Warm Labs Laboratory Tests Test 06/07/16 04:10 Sodium Level 143mmol/L (136-145) Potassium Level 4.6mmol/L (3.5-5.1) Chloride Level 106mmol/L (98-107) Carbon Dioxide Level 30mmol/L (21-32) Anion Gap 7 (6-14) Blood Urea Nitrogen 27mg/dL (8-26) Creatinine 1.3mg/dL (0.7-1.3) Estimated GFR (Cockcroft-Gault) 66.2 Glucose Level 129mg/dL (70-99) Calcium Level 8.5mg/dL (8.5-10.1) Laboratory Tests Test 06/07/16 04:10 Sodium Level 143mmol/L (136-145) Potassium Level 4.6mmol/L (3.5-5.1) Chloride Level 106mmol/L (98-107) Carbon Dioxide Level 30mmol/L (21-32) Anion Gap 7 (6-14) Blood Urea Nitrogen 27mg/dL (8-26) Creatinine 1.3mg/dL (0.7-1.3) Estimated GFR (Cockcroft-Gault) 66.2 Glucose Level 129mg/dL (70-99) Calcium Level 8.5mg/dL (8.5-10.1) Medications Active Scripts Medications Dose Route/Sig Days Date Category Prednisone 20 Mg Tablet 1 Tab PO DAILY 06/03/16 Reported Lasix (Furosemide) 20 Mg Tablet 1 Tab PO DAILY PRN 05/27/16 Rx Pantoprazole Sodium 40 Mg Tablet.dr 40 Mg PO DAILYAC 05/27/16 Rx [Albuterol Sulfate] 2.5 MG/3 ML Nebu 2.5 Mg NEB QID AND Q 2 HOURS SC PRN 05/27/16 Rx Amox Tr-K Clv 875-125 Mg Tab (Amoxicillin/Potassium Clav) 1 Each Tablet 1 Tab PO BID 05/25/16 Reported Azelastine Hcl 137 Mcg/0.137 Ml [place].pump 2 [place] NS BID 05/25/16 Reported Advair 500-50 Diskus (Fluticasone/Salmeterol) 1 Each Disk.w.dev 1 Inh IH BID 05/25/16 Reported Avodart (Dutasteride) 0.5 Mg Capsule 1 Cap PO HS 05/25/16 Reported Montelukast Sodium Tablet (Montelukast Sodium) 10 Mg Tablet 1 Tab PO DAILY 12/27/14 Reported Naproxen 500 Mg Tablet 1 Tab PO BID 12/27/14 Reported Aspir 81 (Aspirin) 81 Mg Tablet.dr 1 Tab PO DAILY 12/27/14 Reported Tylenol (Acetaminophen) 325 Mg Tablet 650 Mg PO PRN Q6HRS PRN 28 11/15/13 Rx Flomax (Tamsulosin Hcl) 0.4 Mg Cap.er.24h 0.4 Mg PO QHS 02/10/13 Reported Zocor (Simvastatin) 20 Mg Tablet 20 Mg PO QHS 02/10/13 Reported Comments cxr reviewed. No acute cardiopulmonary abnormality is detected. Impression . 1. Dyspnea, multifactorial in etiology which I suspect this secondary to AECOPD and possible mild diastolic congestive heart failure. 2. Chronic obstructive pulmonary disease. 3. Tobacco habituation. 4. Leukocytosis. 5. Hyperkalemia. 6. Acute kidney injury. 7. Status post fall. 8. allergic rhinitis Plan . 1. wean off oxygen, keep O2 saturation 92%. 2. bronchodilator. 3. Augmentin for 7 days. 4. Keep intake less on output, monitor potassium and creatinine. 5. Lovenox for deep vein thrombosis prophylaxis. 6. Echocardiogram with grade I diastolic dysfunction 7. I have advised him to stop smoking forever. Different methods of quitting were discussed. 8. can shayna Tinajero 9. ok to dc from pulm standpoint ERASMO TORRES MD Jun 07, 2016 13:11
[2016-06-07 14:58] VITALS: BP 138/81
--- NOTE | 2016-06-07 18:15 | DISCH ---
DISCHARGE INSTRUCTIONS Condition on Discharge Condition on Discharge: Stable Activity After Discharge Activity Instructions for Disc: Activity as tolerated Diet after Discharge Diet after Discharge: Cardiac, No Added Sugar Checks after Discharge Checks after discharge: Weigh Yourself Daily Contacting the DR. after DC Call your doctor for: If your condition worsens Follow-Up Follow up with: Dr Bland as scheduled this Tuesday HARESH BLAND MD Jun 07, 2016 18:15
[2016-06-07] MEDS ORDERED: FURO-69 PO (18:18)
[2016-06-07] MEDS ORDERED: AMOX1TAB11 PO (18:18)
--- NOTE | 2016-06-07 18:19 | PDOC ---
Provider Note Provider Note See discharge summary dictation # HARESH BLAND MD Jun 07, 2016 18:19
== END 2016-06-07 18:51 | disposition home or self-care (01) | DRG 292 ==
LOC: ER 11:43 → 5 NORTH 14:22
PROVIDERS: ADMIT Family Medicine; ATTEND Family Medicine
DX: I50.30 Unspecified diastolic (congestive) heart failure (principal); N17.9 Acute kidney failure, unspecified; J44.1 Chronic obstructive pulmonary disease with (acute) exacerbation; J44.0 Chronic obstructive pulmonary disease with (acute) lower respiratory infection; D69.6 Thrombocytopenia, unspecified; E78.00 Pure hypercholesterolemia, unspecified; E78.5 Hyperlipidemia, unspecified; E87.5 Hyperkalemia; J20.9 Acute bronchitis, unspecified; Z60.2 Problems related to living alone; D72.825 Bandemia; R73.9 Hyperglycemia, unspecified; D72.829 Elevated white blood cell count, unspecified; I27.2 Other secondary pulmonary hypertension; J30.9 Allergic rhinitis, unspecified; N40.0 Benign prostatic hyperplasia without lower urinary tract symptoms; T50.2X5A Adverse effect of carbonic-anhydrase inhibitors, benzothiadiazides and other diuretics, initial encounter; Z87.891 Personal history of nicotine dependence; Z82.3 Family history of stroke; Z68.26 Body mass index [BMI] 26.0-26.9, adult
CPT/HCPCS: 36415; 71010; 73600; 80048; 80076; 81001; 83036; 83690; 83880; 84484; 85007; 85027; 87086; 93005; 93971; 94250; 94640; 94760; G0379; J1650; J7620; 99285-25

== ENCOUNTER → 2016-09-15 | Outpatient (CLI) | payer MEDICARE, BC ==
[2016-09-15 11:26] LABS: ALBUMIN 3.8 g/dL (3.4-5.0); ALBUMIN/GLOBULIN RATIO 1.2 (1.0-1.7); CALCIUM 8.9 mg/dL (8.5-10.1); CREATININE 1.3 mg/dL (0.7-1.3); GFR 66.2; POTASSIUM 3.7 mmol/L (3.5-5.1); TOTAL BILIRUBIN 0.5 mg/dL (0.2-1.0)
== END ==
LOC: LAB 10:37
PROVIDERS: ATTEND Family Medicine
DX: R73.09 Other abnormal glucose (principal)
CPT/HCPCS: 36415; 80053; 83036

== ENCOUNTER → 2016-09-15 | Outpatient (CLI) | payer MEDICARE, BC ==
--- NOTE | 2016-09-15 15:46 | RAD ---
Indication shortness of air. PA and lateral views of the chest were obtained. Comparison is made to a single view exam 06/03/2016. The heart and pulmonary vessels are unchanged. Acute parenchymal infiltrate is not seen. There is no significant pleural fluid. There is no pneumothorax. There is slight wedging of an upper thoracic vertebral body segment similar to an examination 05/31/2016. Mild scoliosis is additionally noted. IMPRESSION:: No acute finding apparent in the chest
== END ==
LOC: RAD 11:07
PROVIDERS: ATTEND Internal Medicine Pulmonary Disease
DX: R06.02 Shortness of breath (principal); M41.84 Other forms of scoliosis, thoracic region
CPT/HCPCS: 71020

== ENCOUNTER → 2016-10-25 | Outpatient (CLI) | payer MEDICARE, BC ==
--- NOTE | 2016-10-25 11:56 | RAD ---
CT lung cancer screening Clinical information: Screening baseline for lung cancer. Comparison: None Findings: Diagnostic quality: Satisfactory. Lung nodules: None. Lungs: Mild COPD. No evidence for fibrosis. No enlarged lymph nodes in the axilla, mediastinal or hilar regions. Pleural spaces: No pleural effusions, calcifications or thickening. No pneumothorax. Heart: Heart size is normal. No significant coronary vascular calcification. Upper Abdomen: There is a 3.5 cm cyst in the midpole the right kidney. There is a exophytic 16 mm cyst in the midpole the left kidney. Otherwise, visualized portions of upper abdomen are within normal limits. Impression: Lung- RADS 0. No solid noncalcified pulmonary nodules are identified. Follow up CT 12 months from screening examination. PQRS Compliance Statement: One or more of the following individualized dose reduction techniques were utilized for this examination: 1. Automated exposure control 2. Adjustment of the mA and/or kV according to patient size 3. Use of iterative reconstruction technique
== END | disposition home or self-care (01) ==
LOC: CT 10:15
PROVIDERS: ATTEND Internal Medicine Pulmonary Disease
DX: Z12.2 Encounter for screening for malignant neoplasm of respiratory organs (principal); J44.9 Chronic obstructive pulmonary disease, unspecified; Z72.0 Tobacco use
CPT/HCPCS: 71250

== ENCOUNTER 2017-03-05 11:07 | Inpatient (IN) | payer MEDICARE, BC ==
[~2017-03-05] VITALS: Ht 175.3 cm; Wt 79.4 kg
[~2017-03-05 11:07] MED LIST changes: -NAPR500T3 PO; +NAPR500T4 PO
--- NOTE | 2017-03-05 13:13 | RAD ---
AP PORTABLE CHEST Clinical Indication: hemoptysis. Chest pain. Comparison: Two-view chest 09/15/2016. Findings: The cardiomediastinal silhouette is normal. There is left basilar airspace disease. Considerations include pneumonia, atelectasis, or aspiration. There is no pneumothorax. No pleural effusion is appreciated. There is no acute bone abnormality. Mild right convexity upper thoracic scoliosis. IMPRESSION: Left basilar airspace disease.
[2017-03-05 14:01] LABS: BASO % 1 % (0-3); EOS % 2 % (0-3); HEMATOCRIT 45.4 % (39.0-53.0); HEMOGLOBIN 14.8 g/dL (13.0-17.5); LYMPH # 1.8 x10^3/uL (1.0-4.8); LYMPH % 28 % (24-48); MEAN CORPUSCULAR HEMOGLOBIN 31 pg (25-35); MEAN CORPUSCULAR HGB CONC 33 g/dL (31-37); MEAN CORPUSCULAR VOLUME 93 fL (79-100); MONO % 9 % (0-9); NEUT % 60 % (31-73); PLATELET COUNT 143 x10^3/uL (140-400); RED BLOOD COUNT 4.86 x10^6/uL (4.30-5.70); RED CELL DISTRIBUTION WIDTH 16.4 % (11.5-14.5); WHITE BLOOD COUNT 6.5 x10^3/uL (4.0-11.0)
--- NOTE | 2017-03-05 14:01 | EKG ---
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
[2017-03-05 14:08] LABS: INR 1.1 (0.8-1.1); PROTHROMBIN TIME PATIENT 13.2 SEC (11.7-14.0)
[2017-03-05 14:12] LABS: CALCIUM 8.2 mg/dL (8.5-10.1); CREATININE 1.1 mg/dL (0.7-1.3); GFR 80.1; POTASSIUM 4.2 mmol/L (3.5-5.1)
[2017-03-05 14:17] LABS: ALBUMIN 3.1 g/dL (3.4-5.0); TOTAL BILIRUBIN 0.5 mg/dL (0.2-1.0); TOTAL PROTEIN 6.3 g/dL (6.4-8.2)
[2017-03-05] MEDS ORDERED: IOHEXOL 300 MG/ML 100ML VIAL. IV ONE (14:30)
[2017-03-05] MEDS ORDERED: CONTRAST GIVEN MC PRN (14:30)
--- NOTE | 2017-03-05 14:58 | RAD ---
PQRS Compliance Statement: One or more of the following individualized dose reduction techniques were utilized for this examination: 1. Automated exposure control 2. Adjustment of the mA and/or kV according to patient size 3. Use of iterative reconstruction technique CT CHEST WITH CONTRAST, PULMONARY ANGIOGRAM History: HEMOPTYSIS, shortness of breath. Comparison: CT chest without contrast, 10/25/2016. Technique: Helical CT of the chest was performed after the administration of 75 cc of Omnipaque 300 intravenous contrast according to PE protocol. 3-D MIP coronal reconstruction was performed to better evaluate the pulmonary arteries. Findings: Pulmonary arteries are adequately opacified. There is no evidence of pulmonary embolism. Cannot evaluate the lumen of the thoracic aorta due to limited contrast opacification. The thyroid is symmetric. The great vessels are normal caliber. No adenopathy in the chest. Cardiac size normal, no pericardial effusion. No pleural effusion. The bilateral main stem bronchi demonstrate mild dependent retained secretions or mucous. There is moderate centrilobular emphysema. There is patchy consolidation in the basilar left lower lobe mainly posterior and lateral. There is consolidation in the inferior lingula that is unchanged from prior study. Tiny amount of contrast is present in the upper renal collecting systems. There may also be a tiny calculus in the upper pole of the left kidney, image 143. There is a right renal cyst, incompletely imaged. There are 2 small cysts of the left kidney. No compression fracture in the thoracic spine. IMPRESSION: 1. There is no CT evidence of pulmonary embolus. 2. There is patchy consolidation in the basilar left lower lobe, probably bronchopneumonia. 3. Centrilobular emphysema.
[2017-03-05] MEDS ORDERED: ONDANSETRON PF 4 MG/2 ML VIAL. IV PRN (15:30)
[2017-03-05] MEDS ORDERED: AZITHRMYCN 500MG IVPB FOR OMNI 250 ML IV ONE (15:30)
[2017-03-05] MEDS ORDERED: AZITHROMYCIN 500 MG in IV NORMAL SALINE 250ML 250 ML IV ONE (15:30)
[2017-03-05] MEDS ORDERED: MORPHINE SULFATE 2 MG/ML DISP.SYRIN. IV PRN (15:30)
[2017-03-05] MEDS ORDERED: ACETAMINOPHEN 325 MG TABLET. PO PRN ×2 (15:30→18:15)
[2017-03-05] MEDS ORDERED: IPRATRPIUM/ALBUTEROL 0.5/2.5MG 3 ML NEBU. NEB SCH (16:00)
[2017-03-05] MEDS ORDERED: ALBU2.5V5 NEB (17:16)
[2017-03-05] MEDS ORDERED: TAMS0.4C97 PO (17:16)
[2017-03-05] MEDS ORDERED: POTASSIUM CHLO10 MEQ PO (17:16)
--- NOTE | 2017-03-05 17:54 | PHYS DOC ---
Past Medical History Past Medical History: CHF, COPD, High Cholesterol, Prostatitis, Other Additional Past Medical Histor: enlarged prostate, sob(not actually dx copd, gets alb neb qid) Past Surgical History: Other Additional Past Surgical Histo: foot surgery, bladder surgery Alcohol Use: None Drug Use: None Adult General Chief Complaint Chief Complaint: COUGH HPI HPI Patient is a 72 year old male who presents with hemoptysis. The patient states that last night & twice today he coughed up sputum which was maroon colored. He reports recent cough. Denies wheezing or shortness of breath. He denies fevers/chills, chest pain, lower extremity pain/swelling. Denies epistaxis, hematemesis, hematochezia/melena, hematuria. Denies use of blood thinners. No previous similar episode. He has COPD/emphysema, current daily smoker. Took antibiotics last week for bronchitis, prescribed by his PCP Dr. Gallo. Review of Systems Review of Systems Constitutional: Denies fever or chills Eyes: Denies change in visual acuity HENT: Denies nasal congestion or sore throat Respiratory: Reports cough & hemoptysis, denies shortness of breath Cardiovascular: Denies chest pain or edema GI: Denies abdominal pain, nausea, vomiting, bloody stools or diarrhea : Denies dysuria or hematuria Musculoskeletal: Denies back pain or joint pain Integument: Denies rash or skin lesions Neurologic: Denies headache, focal weakness or sensory changes All other systems were reviewed and found to be within normal limits, except as documented in this note. Current Medications Current Medications Current Medications Medications (Trade) Dose Ordered Sig/Dandre Start Time Stop Time Status Last Admin Dose Admin Info (Do NOT chart on this entry -- for MONITORING) 1 each PRN DAILY PRN 03/05/17 14:30 03/07/17 14:29 Iohexol (Omnipaque 300 Mg/ml) 100 ml 1X ONCE 03/05/17 14:30 03/05/17 14:31 DC 03/05/17 14:40 100 ML Allergies Allergies Allergies Coded Allergies Type Severity Reaction Last Updated Verified No Known Drug Allergies 12/27/14 No Physical Exam Physical Exam Constitutional: Well developed, well nourished, no acute distress, non-toxic appearance. HENT: Normocephalic, atraumatic, bilateral external ears normal, oropharynx moist, nose normal. Eyes: PERRLA, EOMI, conjunctiva normal, no discharge. Neck: supple, no stridor. Cardiovascular: RRR, no murmurs, no edema. Lungs & Thorax: LCTAB, no wheezing, no respiratory distress. Abdomen: soft, nontender, nondistended. Skin: Warm, dry, no erythema, no rash. Back: No tenderness. Extremities: No tenderness, no edema. no calf tenderness or swelling. Neurologic: Alert and oriented X 3, no focal deficits noted. Psychologic: Affect normal, judgement normal, mood normal. Current Patient Data Vital Signs Vital Signs Date Time Temp Pulse Resp B/P (MAP) Pulse Ox O2 Delivery O2 Flow Rate FiO2 03/05/17 15:20 80 25 170/89 (116) 99 Room Air 03/05/17 11:11 97.5 97.5 Lab Values Laboratory Tests Test 03/05/17 13:42 White Blood Count 6.5 x10^3/uL (4.0-11.0) Red Blood Count 4.86 x10^6/uL (4.30-5.70) Hemoglobin 14.8 g/dL (13.0-17.5) Hematocrit 45.4 % (39.0-53.0) Mean Corpuscular Volume 93 fL (79-100) Mean Corpuscular Hemoglobin 31 pg (25-35) Mean Corpuscular Hemoglobin Concent 33 g/dL (31-37) Red Cell Distribution Width 16.4 % (11.5-14.5) H Platelet Count 143 x10^3/uL (140-400) Neutrophils (%) (Auto) 60 % (31-73) Lymphocytes (%) (Auto) 28 % (24-48) Monocytes (%) (Auto) 9 % (0-9) Eosinophils (%) (Auto) 2 % (0-3) Basophils (%) (Auto) 1 % (0-3) Neutrophils # (Auto) 3.9 x10^3uL (1.8-7.7) Lymphocytes # (Auto) 1.8 x10^3/uL (1.0-4.8) Monocytes # (Auto) 0.6 x10^3/uL (0.0-1.1) Eosinophils # (Auto) 0.2 x10^3/uL (0.0-0.7) Basophils # (Auto) 0.0 x10^3/uL (0.0-0.2) Prothrombin Time 13.2 SEC (11.7-14.0) Prothrombin Time INR 1.1 (0.8-1.1) PTT 24 SEC (24-38) Sodium Level 147 mmol/L (136-145) H Potassium Level 4.2 mmol/L (3.5-5.1) Chloride Level 109 mmol/L (98-107) H Carbon Dioxide Level 31 mmol/L (21-32) Anion Gap 7 (6-14) Blood Urea Nitrogen 13 mg/dL (8-26) Creatinine 1.1 mg/dL (0.7-1.3) Estimated GFR (Cockcroft-Gault) 80.1 BUN/Creatinine Ratio 12 (6-20) Glucose Level 110 mg/dL (70-99) H Calcium Level 8.2 mg/dL (8.5-10.1) L Total Bilirubin 0.5 mg/dL (0.2-1.0) Aspartate Amino Transferase (AST) 15 U/L (15-37) Alanine Aminotransferase (ALT) 13 U/L (16-63) L Alkaline Phosphatase 66 U/L (46-116) Troponin I Quantitative < 0.017 ng/mL (0.000-0.055) HB-Qqg-N-Type Natriuretic Peptide 179 pg/mL (0-124) H Total Protein 6.3 g/dL (6.4-8.2) L Albumin 3.1 g/dL (3.4-5.0) L Albumin/Globulin Ratio 1.0 (1.0-1.7) Laboratory Tests 03/05/17 13:42 Laboratory Tests 03/05/17 13:42 EKG EKG Interpreted by me: Sinus rhythm rate 55, QTC prolonged 494 ms, no acute ST or T wave changes, normal intervals, no ectopy[] Radiology/Procedures Radiology/Procedures PROCEDURE: CHEST AP ONLY AP PORTABLE CHEST Clinical Indication: hemoptysis. Chest pain. Comparison: Two-view chest 09/15/2016. Findings: The cardiomediastinal silhouette is normal. There is left basilar airspace disease. Considerations include pneumonia, atelectasis, or aspiration. There is no pneumothorax. No pleural effusion is appreciated. There is no acute bone abnormality. Mild right convexity upper thoracic scoliosis. IMPRESSION: Left basilar airspace disease. DICTATED and SIGNED BY: FENG PIERCE MD DATE: 03/05/17 1307 PROCEDURE: CT ANGIOGRAPHY CHEST PQRS Compliance Statement: One or more of the following individualized dose reduction techniques were utilized for this examination: 1. Automated exposure control 2. Adjustment of the mA and/or kV according to patient size 3. Use of iterative reconstruction technique CT CHEST WITH CONTRAST, PULMONARY ANGIOGRAM History: HEMOPTYSIS, shortness of breath. Comparison: CT chest without contrast, 10/25/2016. Technique: Helical CT of the chest was performed after the administration of 75 cc of Omnipaque 300 intravenous contrast according to PE protocol. 3-D MIP coronal reconstruction was performed to better evaluate the pulmonary arteries. Findings: Pulmonary arteries are adequately opacified. There is no evidence of pulmonary embolism. Cannot evaluate the lumen of the thoracic aorta due to limited contrast opacification. The thyroid is symmetric. The great vessels are normal caliber. No adenopathy in the chest. Cardiac size normal, no pericardial effusion. No pleural effusion. The bilateral main stem bronchi demonstrate mild dependent retained secretions or mucous. There is moderate centrilobular emphysema. There is patchy consolidation in the basilar left lower lobe mainly posterior and lateral. There is consolidation in the inferior lingula that is unchanged from prior study. Tiny amount of contrast is present in the upper renal collecting systems. There may also be a tiny calculus in the upper pole of the left kidney, image 143. There is a right renal cyst, incompletely imaged. There are 2 small cysts of the left kidney. No compression fracture in the thoracic spine. IMPRESSION: 1. There is no CT evidence of pulmonary embolus. 2. There is patchy consolidation in the basilar left lower lobe, probably bronchopneumonia. 3. Centrilobular emphysema. DICTATED and SIGNED BY: FENG PIERCE MD DATE: 03/05/17 3767[] Course & Med Decision Making Course & Med Decision Making Pertinent Labs and Imaging studies reviewed. (See chart for details) The patient presents with cough & hemoptysis. He had no further episodes here. Vitals are stable. His lungs were clear, declined breathing treatment. Obtained CXR which was unremarkable, obtained CTA chest to evaluated for PE or lung mass. Neither of these was identified, but he did have pneumonia. No evidence of large volume hemoptysis here but with failed outpatient treatment for bronchitis/pneumonia plus reported hemoptysis, recommend admit for pulmonary consultation & IV antibiotics. The patient agrees with plan of care. Discussed with Dr. Thompson who agrees to admit to inpatient status, pulmonary consult to Dr. Llamas. The patient is admitted in stable condition. [] Dragon Disclaimer Dragon Disclaimer This electronic medical record was generated, in whole or in part, using a voice recognition dictation system. Departure Departure Impression: Primary Impression: Hemoptysis Additional Impression: Community acquired pneumonia Disposition: ADMITTED INPATIENT Admitting Physician: Lolis Thompson Condition: STABLE Problem Qualifiers JOAQUIN ENCARNACION MD Mar 05, 2017 17:54
[2017-03-05 20:04] VITALS: BP 101/69
[2017-03-05] MEDS: ALBUTEROL SULFATE 2.5 MG/3 ML NEBU. NEB SCH (20:34)
[2017-03-05] MEDS: BUDESONIDE 0.5 MG/2 ML NEBU. NEB SCH (20:34)
[2017-03-05] MEDS: AZELASTINE NASAL SPRAY 30ML BOTTLE. NS SCH (20:57)
[2017-03-05] MEDS: SIMVASTATIN 20 MG TABLET PO SCH (20:57)
[2017-03-05] MEDS: DUTASTERIDE 0.5 MG CAPSULE PO SCH (20:57)
[2017-03-05] MEDS ORDERED: NON FORMULARY ITEM (Fluticasone/Salmeterol (Advair 500-50 Diskus) 1 INH) IH SCH (21:00)
--- NOTE | 2017-03-05 21:18 | PDOC1 ---
History and Physical Date of Admission Date of Admission DATE: 03/05/17 TIME: 21:14 Identification/Chief Complaint Chief Complaint cough, dyspnea Problems: Source Source: Chart review, Patient History of Present Illness History of Present Illness dyspnea w. cough for a few days, was seen in primary care office, given Augmentin, but symtpoms did not improve known COPD, still smokes, cough and dyspnea worse over days, productive sputum for > 24 horus then blood today, noted maroon sputum, then blood streaked sample here cough, myalgia, dyspnea, Past Medical History Cardiovascular: CHF, Hyperlipidemia, Pulmonary hypertension Pulmonary: COPD GI: Other Heme/Onc: No pertinent hx Hepatobiliary: No pertinent hx Psych: No pertinent hx Rheumatologic: No pertinent hx Infectious disease: No pertinent hx Renal/: Benign prostatic enlarg. Endocrine: No pertinent hx Past Surgical History Past Surgical History: Other Family History Family History: Cancer, Stroke, Other Social History Smoke: <1 pack per day ALCOHOL: none Drugs: None Current Problem List Problem List Problems Medical Problems: (1) Community acquired pneumonia Status: Acute (2) Hemoptysis Status: Acute Problems: Current Medications Current Medications Current Medications Iohexol (Omnipaque 300 Mg/ml) 100 ml 1X ONCE IV Last administered on 14:40; Start 03/05/17 at 14:30; Stop 03/05/17 at 14:31; Status DC Info (Do NOT chart on this entry -- for MONITORING) 1 each PRN DAILY PRN MC SEE COMMENTS; Start 03/05/17 at 14:30; Stop 03/07/17 at 14:29 Ceftriaxone Sodium 50 ml @ 100 mls/hr 1X ONCE IV Last administered on 15:39; Start 03/05/17 at 15:30; Stop 03/05/17 at 15:59; Status DC Azithromycin 500 mg/Sodium Chloride 250 ml @ 250 mls/hr 1X ONCE IV ; Start at 15:30; Stop 03/05/17 at 16:29; Status UNV Azithromycin 250 ml @ 250 mls/hr 1X ONCE IV Last administered on 03/05/17 15:39; Start 03/05/17 at 15:30; Stop 03/05/17 at 16:29; Status DC Ondansetron HCl (Zofran) 4 mg PRN Q8HRS PRN IV NAUSEA/VOMITING; Start at 15:30; Stop 03/06/17 at 15:29 Morphine Sulfate 2 mg PRN Q2HR PRN IV PAIN; Start 03/05/17 at 15:30; Stop at 15:29 Acetaminophen (Tylenol) 650 mg PRN Q4HRS PRN PO FEVER; Start 03/05/17 at 15:30 ; Stop 03/06/17 at 15:29 Albuterol/ Ipratropium (Duoneb) 3 ml RTQID NEB Last administered on 03/05/17 15:55; Start 03/05/17 at 16:00; Stop 03/05/17 at 18:18; Status DC Azithromycin (Zithromax) 250 mg DAILY PO ; Start 03/06/17 at 09:00 Ceftriaxone Sodium 1 gm/ Dextrose 50 ml @ 100 mls/hr Q24H IV ; Start 03/05/17 at 18:15; Status UNV Budesonide (Pulmicort) 0.5 mg RTBID NEB Last administered on 03/05/17 20:34; Start 03/05/17 at 20:00 Acetaminophen (Tylenol) 650 mg PRN Q6HRS PRN PO MILD PAIN / TEMP; Start at 18:15 Albuterol Sulfate (Ventolin Neb Soln) 2.5 mg RTQID NEB Last administered on 20:34; Start 03/05/17 at 20:00 Aspirin (Ecotrin) 81 mg DAILY PO ; Start 03/06/17 at 09:00 Azelastine HCl (Astelin) 2 spray BID NS Last administered on 03/05/17 20:57; Start 03/05/17 at 21:00 Dutasteride (Avodart) 0.5 mg HS PO Last administered on 03/05/17 20:57; Start 03/05/17 at 21:00 Furosemide (Lasix) 20 mg DAILY PO ; Start 03/06/17 at 09:00 Montelukast Sodium (Singulair) 10 mg DAILY PO ; Start 03/06/17 at 09:00 Pantoprazole Sodium (Protonix) 40 mg DAILYAC PO ; Start 03/06/17 at 07:30 Simvastatin (Zocor) 20 mg QHS PO Last administered on 03/05/17t 20:57; Start 03/05/17 at 21:00 Tamsulosin HCl (Flomax) 0.8 mg DAILY PO ; Start 03/06/17 at 09:00; Stop at 09:00; Status DC Non-Formulary Medication 1 inh BID IH ; Start 03/05/17 at 21:00; Stop at 21:00; Status DC Albuterol/ Ipratropium (Duoneb) 3 ml Q4HRS W/A NEB ; Start 03/05/17 at 22:00; Stop 03/06/17 at 21:59 Pneumococcal Polyvalent Vaccine (Do NOT chart on this placeholder) 1 each 1X ONCE MC ; Start 03/06/17 at 09:00; Stop 03/06/17 at 09:01; Status UNV Ceftriaxone Sodium (Rocephin) 1 gm Q24H IVP ; Start 03/06/17 at 09:00 Pneumococcal Polyvalent Vaccine (Pneumovax 23) 0.5 ml ONCE ONCE VAX IM ; Start 03/06/17 at 09:00; Stop 03/06/17 at 09:01 Tamsulosin HCl (Flomax) 0.8 mg DAILY PO ; Start 03/05/17 at 21:30; Stop at 21:30; Status DC Tamsulosin HCl (Flomax) 0.8 mg QHS PO ; Start 03/06/17 at 21:00 Active Scripts Active Lasix (Furosemide) 20 Mg Tablet 1 Tab PO DAILY Amox Tr-K Clv 875-125 Mg Tab (Amoxicillin/Potassium Clav) 1 Each Tablet 1 Tab PO BID Pantoprazole Sodium 40 Mg Tablet.dr 40 Mg PO DAILYAC [Albuterol Sulfate] 2.5 MG/3 ML Nebu 2.5 Mg NEB QID AND Q 2 HOURS [facility] PRN Tylenol (Acetaminophen) 325 Mg Tablet 650 Mg PO PRN Q6HRS PRN 28 Days Reported Flomax (Tamsulosin Hcl) 0.4 Mg Cap.er.24h 2 Cap PO DAILY Albuterol Sulfate Neb Soln (Albuterol Sulfate) 2.5 Mg/3 Ml Vial.neb 2.5 Mg NEB QID Potassium Chloride 10 Meq Capsule.er 10 Meq PO DAILY Azelastine Hcl 137 Mcg/0.137 Ml [place].pump 2 [place] NS BID Advair 500-50 Diskus (Fluticasone/Salmeterol) 1 Each Disk.w.dev 1 Inh IH BID Avodart (Dutasteride) 0.5 Mg Capsule 1 Cap PO HS Montelukast Sodium Tablet (Montelukast Sodium) 10 Mg Tablet 1 Tab PO DAILY Naproxen 500 Mg Tablet 1 Tab PO BID Aspir 81 (Aspirin) 81 Mg Tablet.dr 1 Tab PO DAILY Zocor (Simvastatin) 20 Mg Tablet 20 Mg PO QHS Allergies Allergies: Coded Allergies: No Known Drug Allergies (Unverified , 12/27/14) ROS General: YES: Fatigue, Malaise, No: Chills, Night Sweats, Appetite, Other PSYCHOLOGICAL ROS: No: Anxiety, Behavioral Disorder, Concentration difficultie , Decreased libido, Depression, Disorientation, Hallucinations, Hostility, Irritablity, Memory difficulties, Mood Swings, Obsessive thoughts, Physical abuse, Sexual abuse, Sleep disturbances, Suicidal ideation, Other Eyes: No Blurry vision, No Decreased vision, No Double vision, No Dry eyes, No Excessive tearing, No Eye Pain, No Itchy Eyes, No Loss of vision, No Photophobia , No Scotomata, No Uses contacts, No Uses glasses, No Other HEENT: YES: Heacaches, No: Visual Changes, Hearing change, Nasal congestion, Nasal discharge, Oral lesions, Sinus pain, Sore Throat, Epistaxis, Sneezing, Snoring, Tinnitus, Vertigo, Vocal changes, Other Respiratory: YES: Cough, SOB with excertion, Sputum Changes, Tachypnea, Other ( hemoptysis) Cardiovascular: No Chest Pain, No Palpitations, No Orthopnea, No Paroxysmal Noc. Dyspnea, No Edema, No Lt Headedness, No Other Gastrointestinal: Yes Nausea, No Vomiting, No Abdominal Pain, No Diarrhea, No Constipation, No Melena, No Hematochezia, No Other Genitourinary: No Dysuria, No Frequency, No Incontinence, No Hematuria, No Retention, No Discharge, No Urgency, No Pain, No Flank Pain, No Other, No , No , No , No , No , No , No Musculoskeletal: No Gait Disturbance, No Joint Pain, No Joint Stiffness, No Joint Swelling, No Muscle Pain, No Muscular Weakness, No Pain In:, No Swelling In:, No Other Neurological: No Behavorial Changes, No Bowel/Bladder ControlChng, No Confusion , No Dizziness, No Gait Disturbance, No Headaches, No Impaired Coord/balance, No Memory Loss, No Numbness/Tingling, No Seizures, No Speech Problems, No Tremors, No Visual Changes, No Weakness, No Other Skin: Yes Dry Skin, No Eczema, No Hair Changes, No Lumps, No Mole Changes, No Mottling, No Nail Changes, No Pruritus, No Rash, No Skin Lesion Changes, No Other, No Acne Physical Exam General: Alert, Oriented X3, mild distress HEENT: Atraumatic, PERRLA Lungs: Other (limited vol, dull bases, rales, no wheeze) Breasts: Normal Abdomen: Normal bowel sounds, Soft Rectal Exam: not examined Extremities: No cyanosis, No edema, Normal pulses Skin: No rashes, No significant lesion Neuro: Normal speech, Normal tone, Sensation intact, Cranial nerves 3-12 NL Psych/Mental Status: Mental status NL, Mood NL Vitals Vitals Vital Signs Date Time Temp Pulse Resp B/P (MAP) Pulse Ox O2 Delivery O2 Flow Rate FiO2 03/05/17 20:36 95 Room Air 03/05/17 20:04 98.4 74 16 101/69 (80) 98.4 Labs Labs Laboratory Tests Test 03/05/17 13:42 White Blood Count 6.5 x10^3/uL (4.0-11.0) Red Blood Count 4.86 x10^6/uL (4.30-5.70) Hemoglobin 14.8 g/dL (13.0-17.5) Hematocrit 45.4 % (39.0-53.0) Mean Corpuscular Volume 93 fL (79-100) Mean Corpuscular Hemoglobin 31 pg (25-35) Mean Corpuscular Hemoglobin Concent 33 g/dL (31-37) Red Cell Distribution Width 16.4 % (11.5-14.5) Platelet Count 143 x10^3/uL (140-400) Neutrophils (%) (Auto) 60 % (31-73) Lymphocytes (%) (Auto) 28 % (24-48) Monocytes (%) (Auto) 9 % (0-9) Eosinophils (%) (Auto) 2 % (0-3) Basophils (%) (Auto) 1 % (0-3) Neutrophils # (Auto) 3.9 x10^3uL (1.8-7.7) Lymphocytes # (Auto) 1.8 x10^3/uL (1.0-4.8) Monocytes # (Auto) 0.6 x10^3/uL (0.0-1.1) Eosinophils # (Auto) 0.2 x10^3/uL (0.0-0.7) Basophils # (Auto) 0.0 x10^3/uL (0.0-0.2) Prothrombin Time 13.2 SEC (11.7-14.0) Prothromb Time International Ratio 1.1 (0.8-1.1) Activated Partial Thromboplast Time 24 SEC (24-38) Sodium Level 147 mmol/L (136-145) Potassium Level 4.2 mmol/L (3.5-5.1) Chloride Level 109 mmol/L (98-107) Carbon Dioxide Level 31 mmol/L (21-32) Anion Gap 7 (6-14) Blood Urea Nitrogen 13 mg/dL (8-26) Creatinine 1.1 mg/dL (0.7-1.3) Estimated GFR (Cockcroft-Gault) 80.1 BUN/Creatinine Ratio 12 (6-20) Glucose Level 110 mg/dL (70-99) Calcium Level 8.2 mg/dL (8.5-10.1) Total Bilirubin 0.5 mg/dL (0.2-1.0) Aspartate Amino Transf (AST/SGOT) 15 U/L (15-37) Alanine Aminotransferase (ALT/SGPT) 13 U/L (16-63) Alkaline Phosphatase 66 U/L (46-116) Troponin I Quantitative < 0.017 ng/mL (0.000-0.055) XN-Tmi-Q-Type Natriuretic Peptide 179 pg/mL (0-124) Total Protein 6.3 g/dL (6.4-8.2) Albumin 3.1 g/dL (3.4-5.0) Albumin/Globulin Ratio 1.0 (1.0-1.7) Laboratory Tests Test 03/05/17 13:42 White Blood Count 6.5 x10^3/uL (4.0-11.0) Red Blood Count 4.86 x10^6/uL (4.30-5.70) Hemoglobin 14.8 g/dL (13.0-17.5) Hematocrit 45.4 % (39.0-53.0) Mean Corpuscular Volume 93 fL (79-100) Mean Corpuscular Hemoglobin 31 pg (25-35) Mean Corpuscular Hemoglobin Concent 33 g/dL (31-37) Red Cell Distribution Width 16.4 % (11.5-14.5) Platelet Count 143 x10^3/uL (140-400) Neutrophils (%) (Auto) 60 % (31-73) Lymphocytes (%) (Auto) 28 % (24-48) Monocytes (%) (Auto) 9 % (0-9) Eosinophils (%) (Auto) 2 % (0-3) Basophils (%) (Auto) 1 % (0-3) Neutrophils # (Auto) 3.9 x10^3uL (1.8-7.7) Lymphocytes # (Auto) 1.8 x10^3/uL (1.0-4.8) Monocytes # (Auto) 0.6 x10^3/uL (0.0-1.1) Eosinophils # (Auto) 0.2 x10^3/uL (0.0-0.7) Basophils # (Auto) 0.0 x10^3/uL (0.0-0.2) Prothrombin Time 13.2 SEC (11.7-14.0) Prothromb Time International Ratio 1.1 (0.8-1.1) Activated Partial Thromboplast Time 24 SEC (24-38) Sodium Level 147 mmol/L (136-145) Potassium Level 4.2 mmol/L (3.5-5.1) Chloride Level 109 mmol/L (98-107) Carbon Dioxide Level 31 mmol/L (21-32) Anion Gap 7 (6-14) Blood Urea Nitrogen 13 mg/dL (8-26) Creatinine 1.1 mg/dL (0.7-1.3) Estimated GFR (Cockcroft-Gault) 80.1 BUN/Creatinine Ratio 12 (6-20) Glucose Level 110 mg/dL (70-99) Calcium Level 8.2 mg/dL (8.5-10.1) Total Bilirubin 0.5 mg/dL (0.2-1.0) Aspartate Amino Transf (AST/SGOT) 15 U/L (15-37) Alanine Aminotransferase (ALT/SGPT) 13 U/L (16-63) Alkaline Phosphatase 66 U/L (46-116) Troponin I Quantitative < 0.017 ng/mL (0.000-0.055) TB-Cbx-Q-Type Natriuretic Peptide 179 pg/mL (0-124) Total Protein 6.3 g/dL (6.4-8.2) Albumin 3.1 g/dL (3.4-5.0) Albumin/Globulin Ratio 1.0 (1.0-1.7) VTE Prophylaxis Ordered VTE Prophylaxis Devices: Yes VTE Pharmacological Prophylaxi: No Assessment/Plan Assessment/Plan pneumonia, LLL, suspect gram negatives, broad abx started, hemoptysis, from PNA COPD, acute bronchitis, consult PULM, nebs, steriods, abx BPH hyperlipids, hypernatremia, dry moderate malnutrition KODAK HILLS MD Mar 05, 2017 21:18
[2017-03-05] MEDS ORDERED: predniSONE 20 MG TABLET PO ONE (21:30)
[2017-03-05] MEDS ORDERED: TAMSULOSIN 0.4 MG CAP.ER.24H. PO SCH (21:30)
[2017-03-05] MEDS: IPRATRPIUM/ALBUTEROL 0.5/2.5MG 3 ML NEBU. NEB SCH (21:49)
[2017-03-05] MEDS ORDERED: ENOXAPARIN 40 MG/0.4 ML SYRINGE. SQ SCH (22:00)
[2017-03-05] MEDS: TAMSULOSIN 0.4 MG CAP.ER.24H. PO SCH (23:08)
[2017-03-05 23:11] VITALS: BP 124/79
[2017-03-06 03:21] VITALS: BP 129/74
[2017-03-06 04:29] LABS: BASO % 0 % (0-3); EOS % 0 % (0-3); HEMATOCRIT 46.5 % (39.0-53.0); HEMOGLOBIN 15.2 g/dL (13.0-17.5); LYMPH # 0.7 x10^3/uL (1.0-4.8); LYMPH % 9 % (24-48); MEAN CORPUSCULAR HEMOGLOBIN 31 pg (25-35); MEAN CORPUSCULAR HGB CONC 33 g/dL (31-37); MEAN CORPUSCULAR VOLUME 94 fL (79-100); MONO % 1 % (0-9); NEUT % 90 % (31-73); PLATELET COUNT 142 x10^3/uL (140-400); RED BLOOD COUNT 4.95 x10^6/uL (4.30-5.70); RED CELL DISTRIBUTION WIDTH 15.9 % (11.5-14.5); WHITE BLOOD COUNT 7.7 x10^3/uL (4.0-11.0)
[2017-03-06 05:44] LABS: CALCIUM 8.4 mg/dL (8.5-10.1); CREATININE 1.3 mg/dL (0.7-1.3); POTASSIUM 4.4 mmol/L (3.5-5.1)
[2017-03-06] MEDS: IPRATRPIUM/ALBUTEROL 0.5/2.5MG 3 ML NEBU. NEB SCH (06:00)
[2017-03-06 07:00] VITALS: BP 129/78
[2017-03-06 08:06] LABS: % EOS 1 % (0-5); PLT ESTIMATE ADEQUATE (ADEQUATE)
[2017-03-06] MEDS: AZELASTINE NASAL SPRAY 30ML BOTTLE. NS SCH ×2 (08:17→20:24)
[2017-03-06] MEDS: PANTOPRAZOLE 40 MG TABLET.DR. PO SCH (08:17)
[2017-03-06] MEDS: MONTELUKAST SODIUM 10 MG TABLET. PO SCH (08:17)
[2017-03-06] MEDS: AZITHROMYCIN 250 MG TABLET. PO SCH (08:17)
[2017-03-06] MEDS: ASPIRIN ENTERIC COATED 81 MG TABLET.DR. PO SCH (08:17)
[2017-03-06] MEDS: FUROSEMIDE 20 MG TABLET PO SCH (08:18)
[2017-03-06] MEDS: predniSONE 20 MG TABLET PO SCH (08:18)
[2017-03-06] MEDS: TAMSULOSIN 0.4 MG CAP.ER.24H. PO SCH ×2 (08:22→20:25)
[2017-03-06] MEDS: cefTRIAXone IV Push 1 GM VIAL. IVP SCH (08:25)
[2017-03-06] MEDS: ALBUTEROL SULFATE 2.5 MG/3 ML NEBU. NEB SCH ×4 (08:37→19:24)
[2017-03-06] MEDS: BUDESONIDE 0.5 MG/2 ML NEBU. NEB SCH ×2 (08:37→19:24)
[2017-03-06] MEDS ORDERED: TAMSULOSIN 0.4 MG CAP.ER.24H. PO SCH (09:00)
[2017-03-06] MEDS ORDERED: PNEUMOCOCCAL VAX SCREEN BY RX. MC ONE (09:00)
[2017-03-06] MEDS ORDERED: PNEUMOC CONJ VACC 23-VALENT 0.5 ML VIAL. VAX IM ONE (09:00)
[2017-03-06 11:00] VITALS: BP 137/76
--- NOTE | 2017-03-06 11:51 | CONS ---
DATE OF CONSULTATION: 03/06/2017 PULMONARY CONSULTATION ATTENDING PHYSICIAN: Dr. Thompson. REASON FOR CONSULTATION: Hemoptysis and abnormal CT chest. HISTORY OF PRESENT ILLNESS: The patient is a 72-year-old male who has a history of smoking since age 19 and continues to smoke 1/2 pack per day. He came in to the hospital with dark-colored hemoptysis. It was not bright red. This was for the last 24 hours. He had some subjective fever at home, but had no significant shortness of breath. No significant weight loss. He underwent CT angiogram, which was reviewed by me. There was no evidence of pulmonary embolism. However, there was evidence of consolidation involving the left lower lobe consistent with pneumonia. He was started on IV antibiotics, and I have been asked to see him for further evaluation. PAST MEDICAL HISTORY: Significant for ongoing tobaccoism, suspect COPD, history of hyperlipidemia and pulmonary hypertension secondary to his COPD, BPH. PAST SURGICAL HISTORY: No recent surgery. ALLERGIES: None. MEDICATIONS: Reviewed including antibiotics, oral prednisone and Lovenox for DVT prophylaxis. REVIEW OF SYSTEMS: Twelve-point system obtained. Pertinent positives discussed in my history of present illness, otherwise noncontributory. All systems that were negative were reviewed as well. SOCIAL HISTORY: Smoker since age 19 and continues to smoke 1/2 pack per day. PHYSICAL EXAMINATION: VITAL SIGNS: Stable. Pulse ox 93% room air. NECK: Supple. LUNGS: With diminished breath sounds anteriorly and slightly rhonchi in the left lower lobe. CARDIOVASCULAR: Regular rate and rhythm. ABDOMEN: Soft, nontender. EXTREMITIES: With no pitting edema. LABORATORY DATA: Reviewed. White cell count 7.7, hemoglobin 15.2 and platelets are 142. BUN is 13, creatinine 1.3. IMPRESSION: 1. Hemoptysis, most likely secondary to underlying left lower lobe pneumonia. 2. 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 [address] chest with left lower lobe consolidation, no definite mass seen. RECOMMENDATIONS: 1. At this time, I would continue with antibiotics. His hemoptysis related to infectious etiology. 2. I would recommend discontinuing Lovenox until hemoptysis has resolved. 3. If hemoptysis persist after being on antibiotics for 48-72 hours, then we will consider doing bronchoscopy. 4. Smoking cessation counseling provided. 5. PFTs as an outpatient. 6. Continue bronchodilators. 7. Continue oral steroids. Appreciate the privilege in providing care for your patient. ERASMO TORRES MD DR: DIMPLE/hardik JOB#: [id number] / [id number] KODAK Wolf MD
--- NOTE | 2017-03-06 12:24 | PDOC ---
PROGRESS NOTES Chief Complaint Chief Complaint Cough, dyspnea, pneumonia COPD Hemoptysis CHF Pulmonary HTN Hyperlipidemia History of Present Illness History of Present Illness Awaiting pulmonary input Short of breath VSS Receiving breathing treatments Receiving antibiotics Vitals Vitals Vital Signs Date Time Temp Pulse Resp B/P (MAP) Pulse Ox O2 Delivery O2 Flow Rate FiO2 03/06/17 11:08 Room Air 03/06/17 11:00 97.6 71 18 137/76 (96) 93 97.6 Physical Exam General: Alert, Oriented X3, mild distress Lungs: Clear Abdomen: Normal bowel sounds, Soft Extremities: No cyanosis, No edema, Normal pulses Skin: No rashes, No significant lesion Labs LABS Laboratory Tests Test 03/05/17 13:42 03/06/17 03:35 White Blood Count 6.5 x10^3/uL (4.0-11.0) 7.7 x10^3/uL (4.0-11.0) Red Blood Count 4.86 x10^6/uL (4.30-5.70) 4.95 x10^6/uL (4.30-5.70) Hemoglobin 14.8 g/dL (13.0-17.5) 15.2 g/dL (13.0-17.5) Hematocrit 45.4 % (39.0-53.0) 46.5 % (39.0-53.0) Mean Corpuscular Volume 93 fL (79-100) 94 fL (79-100) Mean Corpuscular Hemoglobin 31 pg (25-35) 31 pg (25-35) Mean Corpuscular Hemoglobin Concent 33 g/dL (31-37) 33 g/dL (31-37) Red Cell Distribution Width 16.4 % (11.5-14.5) 15.9 % (11.5-14.5) Platelet Count 143 x10^3/uL (140-400) 142 x10^3/uL (140-400) Neutrophils (%) (Auto) 60 % (31-73) 90 % (31-73) Lymphocytes (%) (Auto) 28 % (24-48) 9 % (24-48) Monocytes (%) (Auto) 9 % (0-9) 1 % (0-9) Eosinophils (%) (Auto) 2 % (0-3) 0 % (0-3) Basophils (%) (Auto) 1 % (0-3) 0 % (0-3) Neutrophils # (Auto) 3.9 x10^3uL (1.8-7.7) 6.9 x10^3uL (1.8-7.7) Lymphocytes # (Auto) 1.8 x10^3/uL (1.0-4.8) 0.7 x10^3/uL (1.0-4.8) Monocytes # (Auto) 0.6 x10^3/uL (0.0-1.1) 0.1 x10^3/uL (0.0-1.1) Eosinophils # (Auto) 0.2 x10^3/uL (0.0-0.7) 0.0 x10^3/uL (0.0-0.7) Basophils # (Auto) 0.0 x10^3/uL (0.0-0.2) 0.0 x10^3/uL (0.0-0.2) Prothrombin Time 13.2 SEC (11.7-14.0) Prothromb Time International Ratio 1.1 (0.8-1.1) Activated Partial Thromboplast Time 24 SEC (24-38) Sodium Level 147 mmol/L (136-145) 141 mmol/L (136-145) Potassium Level 4.2 mmol/L (3.5-5.1) 4.4 mmol/L (3.5-5.1) Chloride Level 109 mmol/L (98-107) 106 mmol/L (98-107) Carbon Dioxide Level 31 mmol/L (21-32) 25 mmol/L (21-32) Anion Gap 7 (6-14) 10 (6-14) Blood Urea Nitrogen 13 mg/dL (8-26) 13 mg/dL (8-26) Creatinine 1.1 mg/dL (0.7-1.3) 1.3 mg/dL (0.7-1.3) Estimated GFR (Cockcroft-Gault) 80.1 66.0 BUN/Creatinine Ratio 12 (6-20) Glucose Level 110 mg/dL (70-99) 173 mg/dL (70-99) Calcium Level 8.2 mg/dL (8.5-10.1) 8.4 mg/dL (8.5-10.1) Total Bilirubin 0.5 mg/dL (0.2-1.0) Aspartate Amino Transf (AST/SGOT) 15 U/L (15-37) Alanine Aminotransferase (ALT/SGPT) 13 U/L (16-63) Alkaline Phosphatase 66 U/L (46-116) Troponin I Quantitative < 0.017 ng/mL (0.000-0.055) DQ-Iah-N-Type Natriuretic Peptide 179 pg/mL (0-124) Total Protein 6.3 g/dL (6.4-8.2) Albumin 3.1 g/dL (3.4-5.0) Albumin/Globulin Ratio 1.0 (1.0-1.7) Segmented Neutrophils % 84 % (35-66) Lymphocytes % 15 % (24-48) Eosinophils % 1 % (0-5) Platelet Estimate Adequate (ADEQUATE) Review of Systems Review of Systems Short of breath Denies abdominal pain Assessment and Plan Assessmemt and Plan Problems Medical Problems: (1) Community acquired pneumonia Status: Acute (2) Hemoptysis Status: Acute Assessment Cough, dyspnea, pneumonia COPD Hemoptysis CHF Pulmonary HTN Hyperlipidemia Plan Continue antibiotics - azithromycin Continue steroids - prednisone Continue breathing treatments PT/OT Home meds Recheck labs Await pulmonary input Problems: Comment Review of Relevant I have reviewed the following items myra (where applicable) has been applied. Labs Laboratory Tests Test 03/05/17 13:42 03/06/17 03:35 White Blood Count 6.5 x10^3/uL (4.0-11.0) 7.7 x10^3/uL (4.0-11.0) Red Blood Count 4.86 x10^6/uL (4.30-5.70) 4.95 x10^6/uL (4.30-5.70) Hemoglobin 14.8 g/dL (13.0-17.5) 15.2 g/dL (13.0-17.5) Hematocrit 45.4 % (39.0-53.0) 46.5 % (39.0-53.0) Mean Corpuscular Volume 93 fL (79-100) 94 fL (79-100) Mean Corpuscular Hemoglobin 31 pg (25-35) 31 pg (25-35) Mean Corpuscular Hemoglobin Concent 33 g/dL (31-37) 33 g/dL (31-37) Red Cell Distribution Width 16.4 % (11.5-14.5) 15.9 % (11.5-14.5) Platelet Count 143 x10^3/uL (140-400) 142 x10^3/uL (140-400) Neutrophils (%) (Auto) 60 % (31-73) 90 % (31-73) Lymphocytes (%) (Auto) 28 % (24-48) 9 % (24-48) Monocytes (%) (Auto) 9 % (0-9) 1 % (0-9) Eosinophils (%) (Auto) 2 % (0-3) 0 % (0-3) Basophils (%) (Auto) 1 % (0-3) 0 % (0-3) Neutrophils # (Auto) 3.9 x10^3uL (1.8-7.7) 6.9 x10^3uL (1.8-7.7) Lymphocytes # (Auto) 1.8 x10^3/uL (1.0-4.8) 0.7 x10^3/uL (1.0-4.8) Monocytes # (Auto) 0.6 x10^3/uL (0.0-1.1) 0.1 x10^3/uL (0.0-1.1) Eosinophils # (Auto) 0.2 x10^3/uL (0.0-0.7) 0.0 x10^3/uL (0.0-0.7) Basophils # (Auto) 0.0 x10^3/uL (0.0-0.2) 0.0 x10^3/uL (0.0-0.2) Prothrombin Time 13.2 SEC (11.7-14.0) Prothromb Time International Ratio 1.1 (0.8-1.1) Activated Partial Thromboplast Time 24 SEC (24-38) Sodium Level 147 mmol/L (136-145) 141 mmol/L (136-145) Potassium Level 4.2 mmol/L (3.5-5.1) 4.4 mmol/L (3.5-5.1) Chloride Level 109 mmol/L (98-107) 106 mmol/L (98-107) Carbon Dioxide Level 31 mmol/L (21-32) 25 mmol/L (21-32) Anion Gap 7 (6-14) 10 (6-14) Blood Urea Nitrogen 13 mg/dL (8-26) 13 mg/dL (8-26) Creatinine 1.1 mg/dL (0.7-1.3) 1.3 mg/dL (0.7-1.3) Estimated GFR (Cockcroft-Gault) 80.1 66.0 BUN/Creatinine Ratio 12 (6-20) Glucose Level 110 mg/dL (70-99) 173 mg/dL (70-99) Calcium Level 8.2 mg/dL (8.5-10.1) 8.4 mg/dL (8.5-10.1) Total Bilirubin 0.5 mg/dL (0.2-1.0) Aspartate Amino Transf (AST/SGOT) 15 U/L (15-37) Alanine Aminotransferase (ALT/SGPT) 13 U/L (16-63) Alkaline Phosphatase 66 U/L (46-116) Troponin I Quantitative < 0.017 ng/mL (0.000-0.055) HU-Xyk-P-Type Natriuretic Peptide 179 pg/mL (0-124) Total Protein 6.3 g/dL (6.4-8.2) Albumin 3.1 g/dL (3.4-5.0) Albumin/Globulin Ratio 1.0 (1.0-1.7) Segmented Neutrophils % 84 % (35-66) Lymphocytes % 15 % (24-48) Eosinophils % 1 % (0-5) Platelet Estimate Adequate (ADEQUATE) Laboratory Tests Test 03/05/17 13:42 03/06/17 03:35 White Blood Count 6.5 x10^3/uL (4.0-11.0) 7.7 x10^3/uL (4.0-11.0) Red Blood Count 4.86 x10^6/uL (4.30-5.70) 4.95 x10^6/uL (4.30-5.70) Hemoglobin 14.8 g/dL (13.0-17.5) 15.2 g/dL (13.0-17.5) Hematocrit 45.4 % (39.0-53.0) 46.5 % (39.0-53.0) Mean Corpuscular Volume 93 fL (79-100) 94 fL (79-100) Mean Corpuscular Hemoglobin 31 pg (25-35) 31 pg (25-35) Mean Corpuscular Hemoglobin Concent 33 g/dL (31-37) 33 g/dL (31-37) Red Cell Distribution Width 16.4 % (11.5-14.5) 15.9 % (11.5-14.5) Platelet Count 143 x10^3/uL (140-400) 142 x10^3/uL (140-400) Neutrophils (%) (Auto) 60 % (31-73) 90 % (31-73) Lymphocytes (%) (Auto) 28 % (24-48) 9 % (24-48) Monocytes (%) (Auto) 9 % (0-9) 1 % (0-9) Eosinophils (%) (Auto) 2 % (0-3) 0 % (0-3) Basophils (%) (Auto) 1 % (0-3) 0 % (0-3) Neutrophils # (Auto) 3.9 x10^3uL (1.8-7.7) 6.9 x10^3uL (1.8-7.7) Lymphocytes # (Auto) 1.8 x10^3/uL (1.0-4.8) 0.7 x10^3/uL (1.0-4.8) Monocytes # (Auto) 0.6 x10^3/uL (0.0-1.1) 0.1 x10^3/uL (0.0-1.1) Eosinophils # (Auto) 0.2 x10^3/uL (0.0-0.7) 0.0 x10^3/uL (0.0-0.7) Basophils # (Auto) 0.0 x10^3/uL (0.0-0.2) 0.0 x10^3/uL (0.0-0.2) Prothrombin Time 13.2 SEC (11.7-14.0) Prothromb Time International Ratio 1.1 (0.8-1.1) Activated Partial Thromboplast Time 24 SEC (24-38) Sodium Level 147 mmol/L (136-145) 141 mmol/L (136-145) Potassium Level 4.2 mmol/L (3.5-5.1) 4.4 mmol/L (3.5-5.1) Chloride Level 109 mmol/L (98-107) 106 mmol/L (98-107) Carbon Dioxide Level 31 mmol/L (21-32) 25 mmol/L (21-32) Anion Gap 7 (6-14) 10 (6-14) Blood Urea Nitrogen 13 mg/dL (8-26) 13 mg/dL (8-26) Creatinine 1.1 mg/dL (0.7-1.3) 1.3 mg/dL (0.7-1.3) Estimated GFR (Cockcroft-Gault) 80.1 66.0 BUN/Creatinine Ratio 12 (6-20) Glucose Level 110 mg/dL (70-99) 173 mg/dL (70-99) Calcium Level 8.2 mg/dL (8.5-10.1) 8.4 mg/dL (8.5-10.1) Total Bilirubin 0.5 mg/dL (0.2-1.0) Aspartate Amino Transf (AST/SGOT) 15 U/L (15-37) Alanine Aminotransferase (ALT/SGPT) 13 U/L (16-63) Alkaline Phosphatase 66 U/L (46-116) Troponin I Quantitative < 0.017 ng/mL (0.000-0.055) ZQ-Qun-K-Type Natriuretic Peptide 179 pg/mL (0-124) Total Protein 6.3 g/dL (6.4-8.2) Albumin 3.1 g/dL (3.4-5.0) Albumin/Globulin Ratio 1.0 (1.0-1.7) Segmented Neutrophils % 84 % (35-66) Lymphocytes % 15 % (24-48) Eosinophils % 1 % (0-5) Platelet Estimate Adequate (ADEQUATE) Medications Current Medications Iohexol (Omnipaque 300 Mg/ml) 100 ml 1X ONCE IV Last administered on t 14:40; Start 03/05/17 at 14:30; Stop 03/05/17 at 14:31; Status DC Info (Do NOT chart on this entry -- for MONITORING) 1 each PRN DAILY PRN MC SEE COMMENTS; Start 03/05/17 at 14:30; Stop 03/07/17 at 14:29 Ceftriaxone Sodium 50 ml @ 100 mls/hr 1X ONCE IV Last administered on 15:39; Start 03/05/17 at 15:30; Stop 03/05/17 at 15:59; Status DC Azithromycin 500 mg/Sodium Chloride 250 ml @ 250 mls/hr 1X ONCE IV ; Start at 15:30; Stop 03/05/17 at 16:29; Status UNV Azithromycin 250 ml @ 250 mls/hr 1X ONCE IV Last administered on 03/05/17 15:39; Start 03/05/17 at 15:30; Stop 03/05/17 at 16:29; Status DC Ondansetron HCl (Zofran) 4 mg PRN Q8HRS PRN IV NAUSEA/VOMITING; Start at 15:30; Stop 03/06/17 at 15:29 Morphine Sulfate 2 mg PRN Q2HR PRN IV PAIN; Start 03/05/17 at 15:30; Stop at 15:29 Acetaminophen (Tylenol) 650 mg PRN Q4HRS PRN PO FEVER; Start 03/05/17 at 15:30 ; Stop 03/06/17 at 15:29 Albuterol/ Ipratropium (Duoneb) 3 ml RTQID NEB Last administered on 03/05/17 15:55; Start 03/05/17 at 16:00; Stop 03/05/17 at 18:18; Status DC Azithromycin (Zithromax) 250 mg DAILY PO Last administered on 03/06/17 08:17 ; Start 03/06/17 at 09:00 Ceftriaxone Sodium 1 gm/ Dextrose 50 ml @ 100 mls/hr Q24H IV ; Start 03/05/17 at 18:15; Status UNV Budesonide (Pulmicort) 0.5 mg RTBID NEB Last administered on 03/06/17 08:37; Start 03/05/17 at 20:00 Acetaminophen (Tylenol) 650 mg PRN Q6HRS PRN PO MILD PAIN / TEMP; Start at 18:15 Albuterol Sulfate (Ventolin Neb Soln) 2.5 mg RTQID NEB Last administered on 11:06; Start 03/05/17 at 20:00 Aspirin (Ecotrin) 81 mg DAILY PO Last administered on 03/06/17 08:17; Start 03/06/17 at 09:00 Azelastine HCl (Astelin) 2 spray BID NS Last administered on 03/06/17 08:17; Start 03/05/17 at 21:00 Dutasteride (Avodart) 0.5 mg HS PO Last administered on 03/05/17 20:57; Start 03/05/17 at 21:00 Furosemide (Lasix) 20 mg DAILY PO Last administered on 03/06/17 08:18; Start 03/06/17 at 09:00 Montelukast Sodium (Singulair) 10 mg DAILY PO Last administered on 03/06/17 08:17; Start 03/06/17 at 09:00 Pantoprazole Sodium (Protonix) 40 mg DAILYAC PO Last administered on 08:17; Start 03/06/17 at 07:30 Simvastatin (Zocor) 20 mg QHS PO Last administered on 03/05/17 20:57; Start 03/05/17 at 21:00 Tamsulosin HCl (Flomax) 0.8 mg DAILY PO ; Start 03/06/17 at 09:00; Stop at 09:00; Status DC Non-Formulary Medication 1 inh BID IH ; Start 03/05/17 at 21:00; Stop at 21:00; Status DC Albuterol/ Ipratropium (Duoneb) 3 ml Q4HRS W/A NEB ; Start 03/05/17 at 22:00; Stop 03/06/17 at 21:59 Pneumococcal Polyvalent Vaccine (Do NOT chart on this placeholder) 1 each 1X ONCE MC ; Start 03/06/17 at 09:00; Stop 03/06/17 at 09:01; Status UNV Ceftriaxone Sodium (Rocephin) 1 gm Q24H IVP Last administered on 03/06/17 08: 25; Start 03/06/17 at 09:00 Pneumococcal Polyvalent Vaccine (Pneumovax 23) 0.5 ml ONCE ONCE VAX IM Last administered on 03/06/17 11:56; Start 03/06/17 at 09:00; Stop 12/24/17 at 09 :01; Status DC Tamsulosin HCl (Flomax) 0.8 mg DAILY PO ; Start 03/05/17 at 21:30; Stop at 21:30; Status DC Tamsulosin HCl (Flomax) 0.8 mg QHS PO Last administered on 03/05/17 23:08; Start 03/05/17 at 22:00 Prednisone (Prednisone) 60 mg 1X ONCE PO Last administered on 03/05/17 23:07 ; Start 03/05/17 at 21:30; Stop 03/05/17 at 21:31; Status DC Prednisone (Prednisone) 40 mg DAILY PO Last administered on 03/06/17 08:18; Start 03/06/17 at 09:00 Enoxaparin Sodium (Lovenox Per Pharmacy Prophylaxis Dosing) 1 each PRN DAILY PRN MC SEE COMMENTS; Start 03/05/17 at 21:30; Stop 03/06/17 at 11:28; Status DC Enoxaparin Sodium (Lovenox 40mg Syringe) 40 mg Q24H SQ Last administered on 23:09; Start 03/05/17 at 22:00; Stop 03/06/17 at 11:28; Status DC Active Scripts Active Lasix (Furosemide) 20 Mg Tablet 1 Tab PO DAILY Amox Tr-K Clv 875-125 Mg Tab (Amoxicillin/Potassium Clav) 1 Each Tablet 1 Tab PO BID Pantoprazole Sodium 40 Mg Tablet.dr 40 Mg PO DAILYAC [Albuterol Sulfate] 2.5 MG/3 ML Nebu 2.5 Mg NEB QID AND Q 2 HOURS MA PRN Tylenol (Acetaminophen) 325 Mg Tablet 650 Mg PO PRN Q6HRS PRN 28 Days Reported Flomax (Tamsulosin Hcl) 0.4 Mg Cap.er.24h 2 Cap PO DAILY Albuterol Sulfate Neb Soln (Albuterol Sulfate) 2.5 Mg/3 Ml Vial.neb 2.5 Mg NEB QID Potassium Chloride 10 Meq Capsule.er 10 Meq PO DAILY Azelastine Hcl 137 Mcg/0.137 Ml [place].pump 2 [place] NS BID Advair 500-50 Diskus (Fluticasone/Salmeterol) 1 Each Disk.w.dev 1 Inh IH BID Avodart (Dutasteride) 0.5 Mg Capsule 1 Cap PO HS Montelukast Sodium Tablet (Montelukast Sodium) 10 Mg Tablet 1 Tab PO DAILY Naproxen 500 Mg Tablet 1 Tab PO BID Aspir 81 (Aspirin) 81 Mg Tablet. 1 Tab PO DAILY Zocor (Simvastatin) 20 Mg Tablet 20 Mg PO QHS Vitals/I & O Vital Sign - Last 24 Hours 03/05/17 03/05/17 03/05/17 03/05/17 12:50 13:20 13:50 14:20 Pulse 64 70 84 64 Resp 16 17 26 25 B/P (MAP) 137/73 (94) 142/72 (95) 154/97 (116) 161/105 (123) Pulse Ox 100 98 98 99 O2 Delivery Room Air Room Air Room Air Room Air 03/05/17 03/05/17 03/05/17 03/05/17 15:02 15:20 15:50 15:55 Pulse 64 80 70 Resp 25 28 B/P (MAP) 156/88 (110) 170/89 (116) 164/122 (136) Pulse Ox 98 99 98 99 O2 Delivery Room Air Room Air Room Air Room Air 03/05/17 03/05/17 03/05/17 03/05/17 15:57 16:20 18:17 20:00 Pulse 64 84 Resp 11 20 B/P (MAP) 158/77 (104) 132/80 (97) Pulse Ox 99 99 O2 Delivery Room Air Room Air Room Air Room Air 03/05/17 03/05/17 03/05/17 03/05/17 20:04 20:35 20:36 23:11 Temp 98.4 98.2 98.4 98.2 Pulse 74 75 Resp 16 16 B/P (MAP) 101/69 (80) 124/79 (94) Pulse Ox 93 95 95 91 O2 Delivery Room Air Room Air Room Air Room Air 03/06/17 03/06/17 03/06/17 03/06/17 03:21 07:00 08:00 08:38 Temp 98.4 98.2 98.4 98.2 Pulse 62 72 Resp 16 18 B/P (MAP) 129/74 (92) 129/78 (95) Pulse Ox 93 97 95 O2 Delivery Room Air Room Air Room Air Room Air 03/06/17 03/06/17 11:00 11:08 Temp 97.6 97.6 Pulse 71 Resp 18 B/P (MAP) 137/76 (96) Pulse Ox 93 O2 Delivery Room Air Room Air Intake and Output 03/05/17 03/05/17 03/06/17 15:00 23:00 07:00 Intake Total 170 ml 270 ml Balance 170 ml 270 ml GISELL ORTEGA III DO Mar 06, 2017 12:24
[2017-03-06 15:00] VITALS: BP 112/67
[2017-03-06 19:25] VITALS: BP 109/57
[2017-03-06] MEDS: DUTASTERIDE 0.5 MG CAPSULE PO SCH (20:25)
[2017-03-06] MEDS: LACTOBACILLUS RHAMNOSUS GG 1 CAPSULE. PO SCH (20:25)
[2017-03-06] MEDS: SIMVASTATIN 20 MG TABLET PO SCH (20:25)
[2017-03-06 23:25] VITALS: BP 102/63
[2017-03-07 03:25] VITALS: BP 129/72
[2017-03-07 05:44] LABS: BASO % 0 % (0-3); EOS % 0 % (0-3); HEMATOCRIT 44.9 % (39.0-53.0); HEMOGLOBIN 14.5 g/dL (13.0-17.5); LYMPH # 1.8 x10^3/uL (1.0-4.8); LYMPH % 12 % (24-48); MEAN CORPUSCULAR HEMOGLOBIN 30 pg (25-35); MEAN CORPUSCULAR HGB CONC 32 g/dL (31-37); MEAN CORPUSCULAR VOLUME 94 fL (79-100); MONO % 7 % (0-9); NEUT % 81 % (31-73); PLATELET COUNT 155 x10^3/uL (140-400); RED BLOOD COUNT 4.78 x10^6/uL (4.30-5.70); RED CELL DISTRIBUTION WIDTH 15.8 % (11.5-14.5)
[2017-03-07 06:07] LABS: CALCIUM 8.6 mg/dL (8.5-10.1); CREATININE 1.3 mg/dL (0.7-1.3)
[2017-03-07] MEDS ORDERED: ALBUTEROL SULFATE 2.5 MG/3 ML NEBU. NEB PRN (06:15)
[2017-03-07] MEDS: ALBUTEROL SULFATE 2.5 MG/3 ML NEBU. NEB SCH ×4 (06:26→19:19)
[2017-03-07] MEDS: BUDESONIDE 0.5 MG/2 ML NEBU. NEB SCH ×2 (06:31→19:19)
[2017-03-07 07:00] VITALS: BP 128/82
[2017-03-07] MEDS: PANTOPRAZOLE 40 MG TABLET.DR. PO SCH (08:15)
[2017-03-07] MEDS: FUROSEMIDE 20 MG TABLET PO SCH (08:15)
[2017-03-07] MEDS: MONTELUKAST SODIUM 10 MG TABLET. PO SCH (08:15)
[2017-03-07] MEDS: AZITHROMYCIN 250 MG TABLET. PO SCH (08:15)
[2017-03-07] MEDS: LACTOBACILLUS RHAMNOSUS GG 1 CAPSULE. PO SCH ×2 (08:15→20:24)
[2017-03-07] MEDS: ASPIRIN ENTERIC COATED 81 MG TABLET.DR. PO SCH (08:15)
[2017-03-07] MEDS: AZELASTINE NASAL SPRAY 30ML BOTTLE. NS SCH ×2 (08:16→20:23)
[2017-03-07] MEDS: cefTRIAXone IV Push 1 GM VIAL. IVP SCH (08:16)
[2017-03-07] MEDS: predniSONE 20 MG TABLET PO SCH (08:16)
--- NOTE | 2017-03-07 10:20 | PDOC ---
PROGRESS NOTES Chief Complaint Chief Complaint Cough, dyspnea, pneumonia COPD Hemoptysis CHF Pulmonary HTN Hyperlipidemia History of Present Illness History of Present Illness Short of breath VSS Receiving breathing treatments Receiving antibiotics Pulmonology DC lovenox, considering bronchoscopy if hemoptysis continues, oral steroids and bronchodilators being applied Vitals Vitals Vital Signs Date Time Temp Pulse Resp B/P (MAP) Pulse Ox O2 Delivery O2 Flow Rate FiO2 03/07/17 07:36 Room Air 03/07/17 07:00 98.0 72 18 128/82 (97) 93 98.0 Physical Exam General: Alert, Oriented X3, mild distress Lungs: Clear Abdomen: Normal bowel sounds, Soft Extremities: No cyanosis, No edema, Normal pulses Skin: No rashes, No significant lesion Labs LABS Laboratory Tests Test 03/07/17 04:20 White Blood Count 15.0 x10^3/uL (4.0-11.0) Red Blood Count 4.78 x10^6/uL (4.30-5.70) Hemoglobin 14.5 g/dL (13.0-17.5) Hematocrit 44.9 % (39.0-53.0) Mean Corpuscular Volume 94 fL (79-100) Mean Corpuscular Hemoglobin 30 pg (25-35) Mean Corpuscular Hemoglobin Concent 32 g/dL (31-37) Red Cell Distribution Width 15.8 % (11.5-14.5) Platelet Count 155 x10^3/uL (140-400) Neutrophils (%) (Auto) 81 % (31-73) Lymphocytes (%) (Auto) 12 % (24-48) Monocytes (%) (Auto) 7 % (0-9) Eosinophils (%) (Auto) 0 % (0-3) Basophils (%) (Auto) 0 % (0-3) Neutrophils # (Auto) 12.1 x10^3uL (1.8-7.7) Lymphocytes # (Auto) 1.8 x10^3/uL (1.0-4.8) Monocytes # (Auto) 1.1 x10^3/uL (0.0-1.1) Eosinophils # (Auto) 0.0 x10^3/uL (0.0-0.7) Basophils # (Auto) 0.0 x10^3/uL (0.0-0.2) Sodium Level 144 mmol/L (136-145) Potassium Level 4.0 mmol/L (3.5-5.1) Chloride Level 108 mmol/L (98-107) Carbon Dioxide Level 28 mmol/L (21-32) Anion Gap 8 (6-14) Blood Urea Nitrogen 21 mg/dL (8-26) Creatinine 1.3 mg/dL (0.7-1.3) Estimated GFR (Cockcroft-Gault) 66.0 Glucose Level 126 mg/dL (70-99) Calcium Level 8.6 mg/dL (8.5-10.1) Review of Systems Review of Systems Denies abdominal pain Denies weakness or confusion Assessment and Plan Assessmemt and Plan Problems Medical Problems: (1) Community acquired pneumonia Status: Acute (2) Hemoptysis Status: Acute Assessment Cough, dyspnea, pneumonia COPD Hemoptysis CHF Pulmonary HTN Hyperlipidemia Plan Continue home meds Continue antibiotics - ceftriaxone, azithromycin Continue steroids - budesonide, prednisone PT/OT Recheck labs Appreciate subspecialty Problems: Comment Review of Relevant I have reviewed the following items myra (where applicable) has been applied. Labs Laboratory Tests Test 03/05/17 13:42 03/06/17 03:35 03/07/17 04:20 White Blood Count 6.5 x10^3/uL (4.0-11.0) 7.7 x10^3/uL (4.0-11.0) 15.0 x10^3/uL (4.0-11.0) Red Blood Count 4.86 x10^6/uL (4.30-5.70) 4.95 x10^6/uL (4.30-5.70) 4.78 x10^6/uL (4.30-5.70) Hemoglobin 14.8 g/dL (13.0-17.5) 15.2 g/dL (13.0-17.5) 14.5 g/dL (13.0-17.5) Hematocrit 45.4 % (39.0-53.0) 46.5 % (39.0-53.0) 44.9 % (39.0-53.0) Mean Corpuscular Volume 93 fL (79-100) 94 fL (79-100) 94 fL (79-100) Mean Corpuscular Hemoglobin 31 pg (25-35) 31 pg (25-35) 30 pg (25-35) Mean Corpuscular Hemoglobin Concent 33 g/dL (31-37) 33 g/dL (31-37) 32 g/dL (31-37) Red Cell Distribution Width 16.4 % (11.5-14.5) 15.9 % (11.5-14.5) 15.8 % (11.5-14.5) Platelet Count 143 x10^3/uL (140-400) 142 x10^3/uL (140-400) 155 x10^3/uL (140-400) Neutrophils (%) (Auto) 60 % (31-73) 90 % (31-73) 81 % (31-73) Lymphocytes (%) (Auto) 28 % (24-48) 9 % (24-48) 12 % (24-48) Monocytes (%) (Auto) 9 % (0-9) 1 % (0-9) 7 % (0-9) Eosinophils (%) (Auto) 2 % (0-3) 0 % (0-3) 0 % (0-3) Basophils (%) (Auto) 1 % (0-3) 0 % (0-3) 0 % (0-3) Neutrophils # (Auto) 3.9 x10^3uL (1.8-7.7) 6.9 x10^3uL (1.8-7.7) 12.1 x10^3uL (1.8-7.7) Lymphocytes # (Auto) 1.8 x10^3/uL (1.0-4.8) 0.7 x10^3/uL (1.0-4.8) 1.8 x10^3/uL (1.0-4.8) Monocytes # (Auto) 0.6 x10^3/uL (0.0-1.1) 0.1 x10^3/uL (0.0-1.1) 1.1 x10^3/uL (0.0-1.1) Eosinophils # (Auto) 0.2 x10^3/uL (0.0-0.7) 0.0 x10^3/uL (0.0-0.7) 0.0 x10^3/uL (0.0-0.7) Basophils # (Auto) 0.0 x10^3/uL (0.0-0.2) 0.0 x10^3/uL (0.0-0.2) 0.0 x10^3/uL (0.0-0.2) Prothrombin Time 13.2 SEC (11.7-14.0) Prothromb Time International Ratio 1.1 (0.8-1.1) Activated Partial Thromboplast Time 24 SEC (24-38) Sodium Level 147 mmol/L (136-145) 141 mmol/L (136-145) 144 mmol/L (136-145) Potassium Level 4.2 mmol/L (3.5-5.1) 4.4 mmol/L (3.5-5.1) 4.0 mmol/L (3.5-5.1) Chloride Level 109 mmol/L (98-107) 106 mmol/L (98-107) 108 mmol/L (98-107) Carbon Dioxide Level 31 mmol/L (21-32) 25 mmol/L (21-32) 28 mmol/L (21-32) Anion Gap 7 (6-14) 10 (6-14) 8 (6-14) Blood Urea Nitrogen 13 mg/dL (8-26) 13 mg/dL (8-26) 21 mg/dL (8-26) Creatinine 1.1 mg/dL (0.7-1.3) 1.3 mg/dL (0.7-1.3) 1.3 mg/dL (0.7-1.3) Estimated GFR (Cockcroft-Gault) 80.1 66.0 66.0 BUN/Creatinine Ratio 12 (6-20) Glucose Level 110 mg/dL (70-99) 173 mg/dL (70-99) 126 mg/dL (70-99) Calcium Level 8.2 mg/dL (8.5-10.1) 8.4 mg/dL (8.5-10.1) 8.6 mg/dL (8.5-10.1) Total Bilirubin 0.5 mg/dL (0.2-1.0) Aspartate Amino Transf (AST/SGOT) 15 U/L (15-37) Alanine Aminotransferase (ALT/SGPT) 13 U/L (16-63) Alkaline Phosphatase 66 U/L (46-116) Troponin I Quantitative < 0.017 ng/mL (0.000-0.055) MH-Guh-F-Type Natriuretic Peptide 179 pg/mL (0-124) Total Protein 6.3 g/dL (6.4-8.2) Albumin 3.1 g/dL (3.4-5.0) Albumin/Globulin Ratio 1.0 (1.0-1.7) Segmented Neutrophils % 84 % (35-66) Lymphocytes % 15 % (24-48) Eosinophils % 1 % (0-5) Platelet Estimate Adequate (ADEQUATE) Laboratory Tests Test 03/07/17 04:20 White Blood Count 15.0 x10^3/uL (4.0-11.0) Red Blood Count 4.78 x10^6/uL (4.30-5.70) Hemoglobin 14.5 g/dL (13.0-17.5) Hematocrit 44.9 % (39.0-53.0) Mean Corpuscular Volume 94 fL (79-100) Mean Corpuscular Hemoglobin 30 pg (25-35) Mean Corpuscular Hemoglobin Concent 32 g/dL (31-37) Red Cell Distribution Width 15.8 % (11.5-14.5) Platelet Count 155 x10^3/uL (140-400) Neutrophils (%) (Auto) 81 % (31-73) Lymphocytes (%) (Auto) 12 % (24-48) Monocytes (%) (Auto) 7 % (0-9) Eosinophils (%) (Auto) 0 % (0-3) Basophils (%) (Auto) 0 % (0-3) Neutrophils # (Auto) 12.1 x10^3uL (1.8-7.7) Lymphocytes # (Auto) 1.8 x10^3/uL (1.0-4.8) Monocytes # (Auto) 1.1 x10^3/uL (0.0-1.1) Eosinophils # (Auto) 0.0 x10^3/uL (0.0-0.7) Basophils # (Auto) 0.0 x10^3/uL (0.0-0.2) Sodium Level 144 mmol/L (136-145) Potassium Level 4.0 mmol/L (3.5-5.1) Chloride Level 108 mmol/L (98-107) Carbon Dioxide Level 28 mmol/L (21-32) Anion Gap 8 (6-14) Blood Urea Nitrogen 21 mg/dL (8-26) Creatinine 1.3 mg/dL (0.7-1.3) Estimated GFR (Cockcroft-Gault) 66.0 Glucose Level 126 mg/dL (70-99) Calcium Level 8.6 mg/dL (8.5-10.1) Medications Current Medications Iohexol (Omnipaque 300 Mg/ml) 100 ml 1X ONCE IV Last administered on 14:40; Start 03/05/17 at 14:30; Stop 03/05/17 at 14:31; Status DC Info (Do NOT chart on this entry -- for MONITORING) 1 each PRN DAILY PRN MC SEE COMMENTS; Start 03/05/17 at 14:30; Stop 03/07/17 at 14:29 Ceftriaxone Sodium 50 ml @ 100 mls/hr 1X ONCE IV Last administered on 15:39; Start 03/05/17 at 15:30; Stop 03/05/17 at 15:59; Status DC Azithromycin 500 mg/Sodium Chloride 250 ml @ 250 mls/hr 1X ONCE IV ; Start at 15:30; Stop 03/05/17 at 16:29; Status UNV Azithromycin 250 ml @ 250 mls/hr 1X ONCE IV Last administered on 03/05/17 15:39; Start 03/05/17 at 15:30; Stop 03/05/17 at 16:29; Status DC Ondansetron HCl (Zofran) 4 mg PRN Q8HRS PRN IV NAUSEA/VOMITING; Start at 15:30; Stop 03/06/17 at 15:29; Status DC Morphine Sulfate 2 mg PRN Q2HR PRN IV PAIN; Start 03/05/17 at 15:30; Stop at 15:29; Status DC Acetaminophen (Tylenol) 650 mg PRN Q4HRS PRN PO FEVER; Start 03/05/17 at 15:30 ; Stop 03/06/17 at 15:29; Status DC Albuterol/ Ipratropium (Duoneb) 3 ml RTQID NEB Last administered on 03/05/17 15:55; Start 03/05/17 at 16:00; Stop 03/05/17 at 18:18; Status DC Azithromycin (Zithromax) 250 mg DAILY PO Last administered on 03/07/17 08:15 ; Start 03/06/17 at 09:00 Ceftriaxone Sodium 1 gm/ Dextrose 50 ml @ 100 mls/hr Q24H IV ; Start 03/05/17 at 18:15; Status UNV Budesonide (Pulmicort) 0.5 mg RTBID NEB Last administered on 03/07/17 06:31; Start 03/05/17 at 20:00 Acetaminophen (Tylenol) 650 mg PRN Q6HRS PRN PO MILD PAIN / TEMP; Start at 18:15 Albuterol Sulfate (Ventolin Neb Soln) 2.5 mg RTQID NEB Last administered on 06:26; Start 03/05/17 at 20:00 Aspirin (Ecotrin) 81 mg DAILY PO Last administered on 03/07/17 08:15; Start 03/06/17 at 09:00 Azelastine HCl (Astelin) 2 spray BID NS Last administered on 03/07/17 08:16; Start 03/05/17 at 21:00 Dutasteride (Avodart) 0.5 mg HS PO Last administered on 03/06/17 20:25; Start 03/05/17 at 21:00 Furosemide (Lasix) 20 mg DAILY PO Last administered on 03/07/17 08:15; Start 03/06/17 at 09:00 Montelukast Sodium (Singulair) 10 mg DAILY PO Last administered on 03/07/17 08:15; Start 03/06/17 at 09:00 Pantoprazole Sodium (Protonix) 40 mg DAILYAC PO Last administered on 08:15; Start 03/06/17 at 07:30 Simvastatin (Zocor) 20 mg QHS PO Last administered on 03/06/17 20:25; Start 03/05/17 at 21:00 Tamsulosin HCl (Flomax) 0.8 mg DAILY PO ; Start 03/06/17 at 09:00; Stop at 09:00; Status DC Non-Formulary Medication 1 inh BID IH ; Start 03/05/17 at 21:00; Stop at 21:00; Status DC Albuterol/ Ipratropium (Duoneb) 3 ml Q4HRS W/A NEB ; Start 03/05/17 at 22:00; Stop 03/06/17 at 12:58; Status DC Pneumococcal Polyvalent Vaccine (Do NOT chart on this placeholder) 1 each 1X ONCE MC ; Start 03/06/17 at 09:00; Stop 03/06/17 at 09:01; Status UNV Ceftriaxone Sodium (Rocephin) 1 gm Q24H IVP Last administered on 03/07/17 08: 16; Start 03/06/17 at 09:00 Pneumococcal Polyvalent Vaccine (Pneumovax 23) 0.5 ml ONCE ONCE VAX IM Last administered on 03/06/17 11:56; Start 03/06/17 at 09:00; Stop 03/06/17 at 09 :01; Status DC Tamsulosin HCl (Flomax) 0.8 mg DAILY PO ; Start 03/05/17 at 21:30; Stop at 21:30; Status DC Tamsulosin HCl (Flomax) 0.8 mg QHS PO Last administered on 03/06/17 20:25; Start 03/05/17 at 22:00 Prednisone (Prednisone) 60 mg 1X ONCE PO Last administered on 03/05/17 23:07 ; Start 03/05/17 at 21:30; Stop 03/05/17 at 21:31; Status DC Prednisone (Prednisone) 40 mg DAILY PO Last administered on 03/07/17 08:16; Start 03/06/17 at 09:00 Enoxaparin Sodium (Lovenox Per Pharmacy Prophylaxis Dosing) 1 each PRN DAILY PRN MC SEE COMMENTS; Start 03/05/17 at 21:30; Stop 03/06/17 at 11:28; Status DC Enoxaparin Sodium (Lovenox 40mg Syringe) 40 mg Q24H SQ Last administered on 23:09; Start 03/05/17 at 22:00; Stop 03/06/17 at 11:28; Status DC Lactobacillus Rhamnosus (Culturelle) 1 cap BID PO Last administered on 12/25/ 17at 08:15; Start 03/06/17 at 21:00 Albuterol Sulfate (Ventolin Neb Soln) 2.5 mg PRN Q4HRS PRN NEB SHORTNESS OF BREATH; Start 03/07/17 at 06:15 Active Scripts Active Lasix (Furosemide) 20 Mg Tablet 1 Tab PO DAILY Amox Tr-K Clv 875-125 Mg Tab (Amoxicillin/Potassium Clav) 1 Each Tablet 1 Tab PO BID Pantoprazole Sodium 40 Mg Tablet.dr 40 Mg PO DAILYAC [Albuterol Sulfate] 2.5 MG/3 ML Nebu 2.5 Mg NEB QID AND Q 2 HOURS [place] PRN Tylenol (Acetaminophen) 325 Mg Tablet 650 Mg PO PRN Q6HRS PRN 28 Days Reported Flomax (Tamsulosin Hcl) 0.4 Mg Cap.er.24h 2 Cap PO DAILY Albuterol Sulfate Neb Soln (Albuterol Sulfate) 2.5 Mg/3 Ml Vial.neb 2.5 Mg NEB QID Potassium Chloride 10 Meq Capsule.er 10 Meq PO DAILY Azelastine Hcl 137 Mcg/0.137 Ml [place].pump 2 [place] NS BID Advair 500-50 Diskus (Fluticasone/Salmeterol) 1 Each Disk.w.dev 1 Inh IH BID Avodart (Dutasteride) 0.5 Mg Capsule 1 Cap PO HS Montelukast Sodium Tablet (Montelukast Sodium) 10 Mg Tablet 1 Tab PO DAILY Naproxen 500 Mg Tablet 1 Tab PO BID Aspir 81 (Aspirin) 81 Mg Tablet. 1 Tab PO DAILY Zocor (Simvastatin) 20 Mg Tablet 20 Mg PO QHS Vitals/I & O Vital Sign - Last 24 Hours 03/06/17 03/06/17 03/06/17 03/06/17 11:00 11:08 15:00 15:23 Temp 97.6 98.2 97.6 98.2 Pulse 71 91 Resp 18 18 B/P (MAP) 137/76 (96) 112/67 (82) Pulse Ox 93 94 O2 Delivery Room Air Room Air Room Air Room Air 03/06/17 03/06/17 03/06/17 03/06/17 19:25 19:25 19:27 20:05 Temp 97.7 97.7 Pulse 79 Resp 20 B/P (MAP) 109/57 (74) Pulse Ox 95 95 O2 Delivery Room Air Room Air Room Air Room Air 03/06/17 03/07/17 03/07/17 03/07/17 23:25 03:25 06:32 06:34 Temp 98.1 97.9 98.1 97.9 Pulse 68 68 Resp 20 20 B/P (MAP) 102/63 (76) 129/72 (91) Pulse Ox 95 94 O2 Delivery Room Air Room Air Room Air Room Air 03/07/17 03/07/17 07:00 07:36 Temp 98.0 98.0 Pulse 72 Resp 18 B/P (MAP) 128/82 (97) Pulse Ox 93 O2 Delivery Room Air Room Air Intake and Output 03/06/17 03/06/17 03/07/17 15:00 23:00 07:00 Intake Total 500 ml 240 ml Balance 500 ml 240 ml GISELL ORTEGA III DO Mar 07, 2017 10:20
[2017-03-07 11:00] VITALS: BP 118/79
--- NOTE | 2017-03-07 11:11 | PDOC ---
PULMONARY PROGRESS NOTES Subjective no hemoptysis since yesterday afternoon Vitals Vital Signs Date Time Temp Pulse Resp B/P (MAP) Pulse Ox O2 Delivery O2 Flow Rate FiO2 03/07/17 07:36 Room Air 03/07/17 07:00 98.0 72 18 128/82 (97) 93 98.0 ROS: No Nausea, No Chest Pain, No Abdominal Pain, No Increase Cough General: Alert, Oriented X4, No acute distress HEENT: Other Lungs: Clear Cardiovascular: S1, S2 Abdomen: Soft, Non-tender Neuro Exam: Alert Extremities: No Edema Skin: Warm Labs Laboratory Tests Test 03/05/17 13:42 03/06/17 03:35 03/07/17 04:20 White Blood Count 6.5 x10^3/uL (4.0-11.0) 7.7 x10^3/uL (4.0-11.0) 15.0 x10^3/uL (4.0-11.0) Red Blood Count 4.86 x10^6/uL (4.30-5.70) 4.95 x10^6/uL (4.30-5.70) 4.78 x10^6/uL (4.30-5.70) Hemoglobin 14.8 g/dL (13.0-17.5) 15.2 g/dL (13.0-17.5) 14.5 g/dL (13.0-17.5) Hematocrit 45.4 % (39.0-53.0) 46.5 % (39.0-53.0) 44.9 % (39.0-53.0) Mean Corpuscular Volume 93 fL (79-100) 94 fL (79-100) 94 fL (79-100) Mean Corpuscular Hemoglobin 31 pg (25-35) 31 pg (25-35) 30 pg (25-35) Mean Corpuscular Hemoglobin Concent 33 g/dL (31-37) 33 g/dL (31-37) 32 g/dL (31-37) Red Cell Distribution Width 16.4 % (11.5-14.5) 15.9 % (11.5-14.5) 15.8 % (11.5-14.5) Platelet Count 143 x10^3/uL (140-400) 142 x10^3/uL (140-400) 155 x10^3/uL (140-400) Neutrophils (%) (Auto) 60 % (31-73) 90 % (31-73) 81 % (31-73) Lymphocytes (%) (Auto) 28 % (24-48) 9 % (24-48) 12 % (24-48) Monocytes (%) (Auto) 9 % (0-9) 1 % (0-9) 7 % (0-9) Eosinophils (%) (Auto) 2 % (0-3) 0 % (0-3) 0 % (0-3) Basophils (%) (Auto) 1 % (0-3) 0 % (0-3) 0 % (0-3) Neutrophils # (Auto) 3.9 x10^3uL (1.8-7.7) 6.9 x10^3uL (1.8-7.7) 12.1 x10^3uL (1.8-7.7) Lymphocytes # (Auto) 1.8 x10^3/uL (1.0-4.8) 0.7 x10^3/uL (1.0-4.8) 1.8 x10^3/uL (1.0-4.8) Monocytes # (Auto) 0.6 x10^3/uL (0.0-1.1) 0.1 x10^3/uL (0.0-1.1) 1.1 x10^3/uL (0.0-1.1) Eosinophils # (Auto) 0.2 x10^3/uL (0.0-0.7) 0.0 x10^3/uL (0.0-0.7) 0.0 x10^3/uL (0.0-0.7) Basophils # (Auto) 0.0 x10^3/uL (0.0-0.2) 0.0 x10^3/uL (0.0-0.2) 0.0 x10^3/uL (0.0-0.2) Prothrombin Time 13.2 SEC (11.7-14.0) Prothromb Time International Ratio 1.1 (0.8-1.1) Activated Partial Thromboplast Time 24 SEC (24-38) Sodium Level 147 mmol/L (136-145) 141 mmol/L (136-145) 144 mmol/L (136-145) Potassium Level 4.2 mmol/L (3.5-5.1) 4.4 mmol/L (3.5-5.1) 4.0 mmol/L (3.5-5.1) Chloride Level 109 mmol/L (98-107) 106 mmol/L (98-107) 108 mmol/L (98-107) Carbon Dioxide Level 31 mmol/L (21-32) 25 mmol/L (21-32) 28 mmol/L (21-32) Anion Gap 7 (6-14) 10 (6-14) 8 (6-14) Blood Urea Nitrogen 13 mg/dL (8-26) 13 mg/dL (8-26) 21 mg/dL (8-26) Creatinine 1.1 mg/dL (0.7-1.3) 1.3 mg/dL (0.7-1.3) 1.3 mg/dL (0.7-1.3) Estimated GFR (Cockcroft-Gault) 80.1 66.0 66.0 BUN/Creatinine Ratio 12 (6-20) Glucose Level 110 mg/dL (70-99) 173 mg/dL (70-99) 126 mg/dL (70-99) Calcium Level 8.2 mg/dL (8.5-10.1) 8.4 mg/dL (8.5-10.1) 8.6 mg/dL (8.5-10.1) Total Bilirubin 0.5 mg/dL (0.2-1.0) Aspartate Amino Transf (AST/SGOT) 15 U/L (15-37) Alanine Aminotransferase (ALT/SGPT) 13 U/L (16-63) Alkaline Phosphatase 66 U/L (46-116) Troponin I Quantitative < 0.017 ng/mL (0.000-0.055) PM-Ehp-C-Type Natriuretic Peptide 179 pg/mL (0-124) Total Protein 6.3 g/dL (6.4-8.2) Albumin 3.1 g/dL (3.4-5.0) Albumin/Globulin Ratio 1.0 (1.0-1.7) Segmented Neutrophils % 84 % (35-66) Lymphocytes % 15 % (24-48) Eosinophils % 1 % (0-5) Platelet Estimate Adequate (ADEQUATE) Laboratory Tests Test 03/07/17 04:20 White Blood Count 15.0 x10^3/uL (4.0-11.0) Red Blood Count 4.78 x10^6/uL (4.30-5.70) Hemoglobin 14.5 g/dL (13.0-17.5) Hematocrit 44.9 % (39.0-53.0) Mean Corpuscular Volume 94 fL (79-100) Mean Corpuscular Hemoglobin 30 pg (25-35) Mean Corpuscular Hemoglobin Concent 32 g/dL (31-37) Red Cell Distribution Width 15.8 % (11.5-14.5) Platelet Count 155 x10^3/uL (140-400) Neutrophils (%) (Auto) 81 % (31-73) Lymphocytes (%) (Auto) 12 % (24-48) Monocytes (%) (Auto) 7 % (0-9) Eosinophils (%) (Auto) 0 % (0-3) Basophils (%) (Auto) 0 % (0-3) Neutrophils # (Auto) 12.1 x10^3uL (1.8-7.7) Lymphocytes # (Auto) 1.8 x10^3/uL (1.0-4.8) Monocytes # (Auto) 1.1 x10^3/uL (0.0-1.1) Eosinophils # (Auto) 0.0 x10^3/uL (0.0-0.7) Basophils # (Auto) 0.0 x10^3/uL (0.0-0.2) Sodium Level 144 mmol/L (136-145) Potassium Level 4.0 mmol/L (3.5-5.1) Chloride Level 108 mmol/L (98-107) Carbon Dioxide Level 28 mmol/L (21-32) Anion Gap 8 (6-14) Blood Urea Nitrogen 21 mg/dL (8-26) Creatinine 1.3 mg/dL (0.7-1.3) Estimated GFR (Cockcroft-Gault) 66.0 Glucose Level 126 mg/dL (70-99) Calcium Level 8.6 mg/dL (8.5-10.1) Medications Active Scripts Medications Dose Route/Sig Max Daily Dose Days Date Category Flomax (Tamsulosin Hcl) 0.4 Mg Cap.er.24h 2 Cap PO DAILY 03/05/17 Reported Albuterol Sulfate Neb Soln (Albuterol Sulfate) 2.5 Mg/3 Ml Vial.neb 2.5 Mg NEB QID 03/05/17 Reported Potassium Chloride 10 Meq Capsule.er 10 Meq PO DAILY 03/05/17 Reported Lasix (Furosemide) 20 Mg Tablet 1 Tab PO DAILY 06/07/16 Rx Amox Tr-K Clv 875-125 Mg Tab (Amoxicillin/Potassium Clav) 1 Each Tablet 1 Tab PO BID 06/07/16 Rx Pantoprazole Sodium 40 Mg Tablet.dr 40 Mg PO DAILYAC 05/27/16 Rx [Albuterol Sulfate] 2.5 MG/3 ML Nebu 2.5 Mg NEB QID AND Q 2 HOURS [place] PRN 05/27/16 Rx Azelastine Hcl 137 Mcg/0.137 Ml [place].pump 2 [place] NS BID 05/25/16 Reported Advair 500-50 Diskus (Fluticasone/Salmeterol) 1 Each Disk.w.dev 1 Inh IH BID 05/25/16 Reported Avodart (Dutasteride) 0.5 Mg Capsule 1 Cap PO HS 05/25/16 Reported Montelukast Sodium Tablet (Montelukast Sodium) 10 Mg Tablet 1 Tab PO DAILY 12/27/14 Reported Naproxen 500 Mg Tablet 1 Tab PO BID 12/27/14 Reported Aspir 81 (Aspirin) 81 Mg Tablet.dr 1 Tab PO DAILY 12/27/14 Reported Tylenol (Acetaminophen) 325 Mg Tablet 650 Mg PO PRN Q6HRS PRN 28 11/15/13 Rx Zocor (Simvastatin) 20 Mg Tablet 20 Mg PO QHS 02/10/13 Reported Impression . 1. Hemoptysis, most likely secondary to underlying left lower lobe pneumonia. 2. 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 3[address] chest with left lower lobe consolidation, no definite mass seen. Plan . 1. At this time, I would continue with antibiotics. His hemoptysis related to infectious etiology. 2. off Lovenox 3. If hemoptysis continues to resolve, dc home in am 4. Smoking cessation counseling provided. 5. PFTs as an outpatient. 6. Continue bronchodilators. 7. Continue oral steroids. 8. f/u ct chest in 4-6 weeks ERASMO TORRES MD Mar 07, 2017 11:11
[2017-03-07 15:00] VITALS: BP 125/76
[2017-03-07 19:00] VITALS: BP 155/82
[2017-03-07] MEDS: SIMVASTATIN 20 MG TABLET PO SCH (20:23)
[2017-03-07] MEDS: DUTASTERIDE 0.5 MG CAPSULE PO SCH (20:23)
[2017-03-07] MEDS: TAMSULOSIN 0.4 MG CAP.ER.24H. PO SCH (20:24)
[2017-03-07 23:59] VITALS: BP 137/86
[2017-03-08 03:00] VITALS: BP 122/81
[2017-03-08 05:39] LABS: BASO % 0 % (0-3); EOS % 0 % (0-3); HEMATOCRIT 43.8 % (39.0-53.0); HEMOGLOBIN 14.2 g/dL (13.0-17.5); LYMPH # 1.1 x10^3/uL (1.0-4.8); LYMPH % 9 % (24-48); MEAN CORPUSCULAR HEMOGLOBIN 30 pg (25-35); MEAN CORPUSCULAR HGB CONC 33 g/dL (31-37); MEAN CORPUSCULAR VOLUME 93 fL (79-100); MONO % 7 % (0-9); NEUT % 85 % (31-73); PLATELET COUNT 151 x10^3/uL (140-400); RED BLOOD COUNT 4.69 x10^6/uL (4.30-5.70); WHITE BLOOD COUNT 13.5 x10^3/uL (4.0-11.0)
[2017-03-08 06:01] LABS: CALCIUM 8.3 mg/dL (8.5-10.1); CREATININE 1.2 mg/dL (0.7-1.3); GFR 72.4
[2017-03-08] MEDS: BUDESONIDE 0.5 MG/2 ML NEBU. NEB SCH (06:19)
[2017-03-08] MEDS: ALBUTEROL SULFATE 2.5 MG/3 ML NEBU. NEB SCH (06:19)
[2017-03-08 07:11] VITALS: BP 103/75
[2017-03-08] MEDS: AZITHROMYCIN 250 MG TABLET. PO SCH (08:21)
[2017-03-08] MEDS: AZELASTINE NASAL SPRAY 30ML BOTTLE. NS SCH (08:21)
[2017-03-08] MEDS: PANTOPRAZOLE 40 MG TABLET.DR. PO SCH (08:21)
[2017-03-08] MEDS: MONTELUKAST SODIUM 10 MG TABLET. PO SCH (08:22)
[2017-03-08] MEDS: ASPIRIN ENTERIC COATED 81 MG TABLET.DR. PO SCH (08:22)
[2017-03-08] MEDS: LACTOBACILLUS RHAMNOSUS GG 1 CAPSULE. PO SCH (08:22)
[2017-03-08] MEDS: FUROSEMIDE 20 MG TABLET PO SCH (08:22)
[2017-03-08] MEDS: predniSONE 20 MG TABLET PO SCH (08:22)
[2017-03-08] MEDS: cefTRIAXone IV Push 1 GM VIAL. IVP SCH (08:23)
--- NOTE | 2017-03-08 09:55 | PDOC ---
PULMONARY PROGRESS NOTES Subjective no further hemoptysis Vitals Vital Signs Date Time Temp Pulse Resp B/P (MAP) Pulse Ox O2 Delivery O2 Flow Rate FiO2 03/08/17 07:25 Room Air 03/08/17 07:11 97.8 56 17 103/75 (84) 97 97.8 ROS: No Nausea, No Chest Pain, No Abdominal Pain, No Increase Cough General: Alert, Oriented X4, No acute distress HEENT: Other Lungs: Clear Cardiovascular: S1, S2 Abdomen: Soft, Non-tender Neuro Exam: Alert Extremities: No Edema Skin: Warm Labs Laboratory Tests Test 03/07/17 04:20 03/08/17 04:15 White Blood Count 15.0 x10^3/uL (4.0-11.0) 13.5 x10^3/uL (4.0-11.0) Red Blood Count 4.78 x10^6/uL (4.30-5.70) 4.69 x10^6/uL (4.30-5.70) Hemoglobin 14.5 g/dL (13.0-17.5) 14.2 g/dL (13.0-17.5) Hematocrit 44.9 % (39.0-53.0) 43.8 % (39.0-53.0) Mean Corpuscular Volume 94 fL (79-100) 93 fL (79-100) Mean Corpuscular Hemoglobin 30 pg (25-35) 30 pg (25-35) Mean Corpuscular Hemoglobin Concent 32 g/dL (31-37) 33 g/dL (31-37) Red Cell Distribution Width 15.8 % (11.5-14.5) 16.0 % (11.5-14.5) Platelet Count 155 x10^3/uL (140-400) 151 x10^3/uL (140-400) Neutrophils (%) (Auto) 81 % (31-73) 85 % (31-73) Lymphocytes (%) (Auto) 12 % (24-48) 9 % (24-48) Monocytes (%) (Auto) 7 % (0-9) 7 % (0-9) Eosinophils (%) (Auto) 0 % (0-3) 0 % (0-3) Basophils (%) (Auto) 0 % (0-3) 0 % (0-3) Neutrophils # (Auto) 12.1 x10^3uL (1.8-7.7) 11.4 x10^3uL (1.8-7.7) Lymphocytes # (Auto) 1.8 x10^3/uL (1.0-4.8) 1.1 x10^3/uL (1.0-4.8) Monocytes # (Auto) 1.1 x10^3/uL (0.0-1.1) 0.9 x10^3/uL (0.0-1.1) Eosinophils # (Auto) 0.0 x10^3/uL (0.0-0.7) 0.0 x10^3/uL (0.0-0.7) Basophils # (Auto) 0.0 x10^3/uL (0.0-0.2) 0.0 x10^3/uL (0.0-0.2) Sodium Level 144 mmol/L (136-145) 146 mmol/L (136-145) Potassium Level 4.0 mmol/L (3.5-5.1) 4.0 mmol/L (3.5-5.1) Chloride Level 108 mmol/L (98-107) 108 mmol/L (98-107) Carbon Dioxide Level 28 mmol/L (21-32) 29 mmol/L (21-32) Anion Gap 8 (6-14) 9 (6-14) Blood Urea Nitrogen 21 mg/dL (8-26) 24 mg/dL (8-26) Creatinine 1.3 mg/dL (0.7-1.3) 1.2 mg/dL (0.7-1.3) Estimated GFR (Cockcroft-Gault) 66.0 72.4 Glucose Level 126 mg/dL (70-99) 120 mg/dL (70-99) Calcium Level 8.6 mg/dL (8.5-10.1) 8.3 mg/dL (8.5-10.1) Laboratory Tests Test 03/08/17 04:15 White Blood Count 13.5 x10^3/uL (4.0-11.0) Red Blood Count 4.69 x10^6/uL (4.30-5.70) Hemoglobin 14.2 g/dL (13.0-17.5) Hematocrit 43.8 % (39.0-53.0) Mean Corpuscular Volume 93 fL (79-100) Mean Corpuscular Hemoglobin 30 pg (25-35) Mean Corpuscular Hemoglobin Concent 33 g/dL (31-37) Red Cell Distribution Width 16.0 % (11.5-14.5) Platelet Count 151 x10^3/uL (140-400) Neutrophils (%) (Auto) 85 % (31-73) Lymphocytes (%) (Auto) 9 % (24-48) Monocytes (%) (Auto) 7 % (0-9) Eosinophils (%) (Auto) 0 % (0-3) Basophils (%) (Auto) 0 % (0-3) Neutrophils # (Auto) 11.4 x10^3uL (1.8-7.7) Lymphocytes # (Auto) 1.1 x10^3/uL (1.0-4.8) Monocytes # (Auto) 0.9 x10^3/uL (0.0-1.1) Eosinophils # (Auto) 0.0 x10^3/uL (0.0-0.7) Basophils # (Auto) 0.0 x10^3/uL (0.0-0.2) Sodium Level 146 mmol/L (136-145) Potassium Level 4.0 mmol/L (3.5-5.1) Chloride Level 108 mmol/L (98-107) Carbon Dioxide Level 29 mmol/L (21-32) Anion Gap 9 (6-14) Blood Urea Nitrogen 24 mg/dL (8-26) Creatinine 1.2 mg/dL (0.7-1.3) Estimated GFR (Cockcroft-Gault) 72.4 Glucose Level 120 mg/dL (70-99) Calcium Level 8.3 mg/dL (8.5-10.1) Medications Active Scripts Medications Dose Route/Sig Max Daily Dose Days Date Category Flomax (Tamsulosin Hcl) 0.4 Mg Cap.er.24h 2 Cap PO DAILY 03/05/17 Reported Albuterol Sulfate Neb Soln (Albuterol Sulfate) 2.5 Mg/3 Ml Vial.neb 2.5 Mg NEB QID 03/05/17 Reported Potassium Chloride 10 Meq Capsule.er 10 Meq PO DAILY 03/05/17 Reported Lasix (Furosemide) 20 Mg Tablet 1 Tab PO DAILY 06/07/16 Rx Amox Tr-K Clv 875-125 Mg Tab (Amoxicillin/Potassium Clav) 1 Each Tablet 1 Tab PO BID 06/07/16 Rx Pantoprazole Sodium 40 Mg Tablet.dr 40 Mg PO DAILYAC 05/27/16 Rx [Albuterol Sulfate] 2.5 MG/3 ML Nebu 2.5 Mg NEB QID AND Q 2 HOURS PA PRN 05/27/16 Rx Azelastine Hcl 137 Mcg/0.137 Ml Asotin.pump 2 Asotin NS BID 05/25/16 Reported Advair 500-50 Diskus (Fluticasone/Salmeterol) 1 Each Disk.w.dev 1 Inh IH BID 05/25/16 Reported Avodart (Dutasteride) 0.5 Mg Capsule 1 Cap PO HS 05/25/16 Reported Montelukast Sodium Tablet (Montelukast Sodium) 10 Mg Tablet 1 Tab PO DAILY 12/27/14 Reported Naproxen 500 Mg Tablet 1 Tab PO BID 12/27/14 Reported Aspir 81 (Aspirin) 81 Mg Tablet.dr 1 Tab PO DAILY 12/27/14 Reported Tylenol (Acetaminophen) 325 Mg Tablet 650 Mg PO PRN Q6HRS PRN 28 11/15/13 Rx Zocor (Simvastatin) 20 Mg Tablet 20 Mg PO QHS 02/10/13 Reported Impression . 1. Hemoptysis, most likely secondary to underlying left lower lobe pneumonia.resolved. 2. 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 3[address] chest with left lower lobe consolidation, no definite mass seen. Plan . 1. At this time, I would continue with antibiotics. His hemoptysis related to infectious etiology. 2. off Lovenox 3. dc home today 4. Smoking cessation counseling provided. 5. PFTs as an outpatient. 6. Continue bronchodilators. 7. Continue oral steroids. 8. f/u ct chest in 4-6 weeks/ f/u given for apr 27, 1pm ERASMO TORRES MD Mar 08, 2017 09:54
--- NOTE | 2017-03-08 10:37 | PDOC ---
PROGRESS NOTES Chief Complaint Chief Complaint Cough, dyspnea, pneumonia COPD Hemoptysis CHF Pulmonary HTN Hyperlipidemia History of Present Illness History of Present Illness Patient up and walking about Pulmonology is ok with discharge and follow up in 1-2 months as outpatient VSS Receiving breathing treatments Receiving antibiotics CAROL nurse Vitals Vitals Vital Signs Date Time Temp Pulse Resp B/P (MAP) Pulse Ox O2 Delivery O2 Flow Rate FiO2 03/08/17 07:25 Room Air 03/08/17 07:11 97.8 56 17 103/75 (84) 97 97.8 Physical Exam General: Alert, Oriented X3, mild distress Lungs: Clear Abdomen: Normal bowel sounds, Soft Extremities: No cyanosis, No edema, Normal pulses Skin: No rashes, No significant lesion Labs LABS Laboratory Tests Test 03/08/17 04:15 White Blood Count 13.5 x10^3/uL (4.0-11.0) Red Blood Count 4.69 x10^6/uL (4.30-5.70) Hemoglobin 14.2 g/dL (13.0-17.5) Hematocrit 43.8 % (39.0-53.0) Mean Corpuscular Volume 93 fL (79-100) Mean Corpuscular Hemoglobin 30 pg (25-35) Mean Corpuscular Hemoglobin Concent 33 g/dL (31-37) Red Cell Distribution Width 16.0 % (11.5-14.5) Platelet Count 151 x10^3/uL (140-400) Neutrophils (%) (Auto) 85 % (31-73) Lymphocytes (%) (Auto) 9 % (24-48) Monocytes (%) (Auto) 7 % (0-9) Eosinophils (%) (Auto) 0 % (0-3) Basophils (%) (Auto) 0 % (0-3) Neutrophils # (Auto) 11.4 x10^3uL (1.8-7.7) Lymphocytes # (Auto) 1.1 x10^3/uL (1.0-4.8) Monocytes # (Auto) 0.9 x10^3/uL (0.0-1.1) Eosinophils # (Auto) 0.0 x10^3/uL (0.0-0.7) Basophils # (Auto) 0.0 x10^3/uL (0.0-0.2) Sodium Level 146 mmol/L (136-145) Potassium Level 4.0 mmol/L (3.5-5.1) Chloride Level 108 mmol/L (98-107) Carbon Dioxide Level 29 mmol/L (21-32) Anion Gap 9 (6-14) Blood Urea Nitrogen 24 mg/dL (8-26) Creatinine 1.2 mg/dL (0.7-1.3) Estimated GFR (Cockcroft-Gault) 72.4 Glucose Level 120 mg/dL (70-99) Calcium Level 8.3 mg/dL (8.5-10.1) Review of Systems Review of Systems Denies SOA or dyspnea Denies abdominal pain, N/V/D/C Assessment and Plan Assessmemt and Plan Problems Medical Problems: (1) Community acquired pneumonia Status: Acute (2) Hemoptysis Status: Acute Assessment Cough, dyspnea, pneumonia COPD Hemoptysis CHF Pulmonary HTN Hyperlipidemia Plan Discharge home with antibiotics - Augmentin and z-pack Continue home meds PT/OT Follow up with PCP in 1-2 weeks Follow up with pulmonology in 1-2 months Appreciate subspecialty Problems: Comment Review of Relevant I have reviewed the following items myra (where applicable) has been applied. Labs Laboratory Tests Test 03/07/17 04:20 03/08/17 04:15 White Blood Count 15.0 x10^3/uL (4.0-11.0) 13.5 x10^3/uL (4.0-11.0) Red Blood Count 4.78 x10^6/uL (4.30-5.70) 4.69 x10^6/uL (4.30-5.70) Hemoglobin 14.5 g/dL (13.0-17.5) 14.2 g/dL (13.0-17.5) Hematocrit 44.9 % (39.0-53.0) 43.8 % (39.0-53.0) Mean Corpuscular Volume 94 fL (79-100) 93 fL (79-100) Mean Corpuscular Hemoglobin 30 pg (25-35) 30 pg (25-35) Mean Corpuscular Hemoglobin Concent 32 g/dL (31-37) 33 g/dL (31-37) Red Cell Distribution Width 15.8 % (11.5-14.5) 16.0 % (11.5-14.5) Platelet Count 155 x10^3/uL (140-400) 151 x10^3/uL (140-400) Neutrophils (%) (Auto) 81 % (31-73) 85 % (31-73) Lymphocytes (%) (Auto) 12 % (24-48) 9 % (24-48) Monocytes (%) (Auto) 7 % (0-9) 7 % (0-9) Eosinophils (%) (Auto) 0 % (0-3) 0 % (0-3) Basophils (%) (Auto) 0 % (0-3) 0 % (0-3) Neutrophils # (Auto) 12.1 x10^3uL (1.8-7.7) 11.4 x10^3uL (1.8-7.7) Lymphocytes # (Auto) 1.8 x10^3/uL (1.0-4.8) 1.1 x10^3/uL (1.0-4.8) Monocytes # (Auto) 1.1 x10^3/uL (0.0-1.1) 0.9 x10^3/uL (0.0-1.1) Eosinophils # (Auto) 0.0 x10^3/uL (0.0-0.7) 0.0 x10^3/uL (0.0-0.7) Basophils # (Auto) 0.0 x10^3/uL (0.0-0.2) 0.0 x10^3/uL (0.0-0.2) Sodium Level 144 mmol/L (136-145) 146 mmol/L (136-145) Potassium Level 4.0 mmol/L (3.5-5.1) 4.0 mmol/L (3.5-5.1) Chloride Level 108 mmol/L (98-107) 108 mmol/L (98-107) Carbon Dioxide Level 28 mmol/L (21-32) 29 mmol/L (21-32) Anion Gap 8 (6-14) 9 (6-14) Blood Urea Nitrogen 21 mg/dL (8-26) 24 mg/dL (8-26) Creatinine 1.3 mg/dL (0.7-1.3) 1.2 mg/dL (0.7-1.3) Estimated GFR (Cockcroft-Gault) 66.0 72.4 Glucose Level 126 mg/dL (70-99) 120 mg/dL (70-99) Calcium Level 8.6 mg/dL (8.5-10.1) 8.3 mg/dL (8.5-10.1) Laboratory Tests Test 03/08/17 04:15 White Blood Count 13.5 x10^3/uL (4.0-11.0) Red Blood Count 4.69 x10^6/uL (4.30-5.70) Hemoglobin 14.2 g/dL (13.0-17.5) Hematocrit 43.8 % (39.0-53.0) Mean Corpuscular Volume 93 fL (79-100) Mean Corpuscular Hemoglobin 30 pg (25-35) Mean Corpuscular Hemoglobin Concent 33 g/dL (31-37) Red Cell Distribution Width 16.0 % (11.5-14.5) Platelet Count 151 x10^3/uL (140-400) Neutrophils (%) (Auto) 85 % (31-73) Lymphocytes (%) (Auto) 9 % (24-48) Monocytes (%) (Auto) 7 % (0-9) Eosinophils (%) (Auto) 0 % (0-3) Basophils (%) (Auto) 0 % (0-3) Neutrophils # (Auto) 11.4 x10^3uL (1.8-7.7) Lymphocytes # (Auto) 1.1 x10^3/uL (1.0-4.8) Monocytes # (Auto) 0.9 x10^3/uL (0.0-1.1) Eosinophils # (Auto) 0.0 x10^3/uL (0.0-0.7) Basophils # (Auto) 0.0 x10^3/uL (0.0-0.2) Sodium Level 146 mmol/L (136-145) Potassium Level 4.0 mmol/L (3.5-5.1) Chloride Level 108 mmol/L (98-107) Carbon Dioxide Level 29 mmol/L (21-32) Anion Gap 9 (6-14) Blood Urea Nitrogen 24 mg/dL (8-26) Creatinine 1.2 mg/dL (0.7-1.3) Estimated GFR (Cockcroft-Gault) 72.4 Glucose Level 120 mg/dL (70-99) Calcium Level 8.3 mg/dL (8.5-10.1) Microbiology 03/07/17 - Final, Resulted 03/07/17 - Final, Resulted 03/07/17 - Final, Resulted 03/07/17 Gram Stain Evaluation - Final, Resulted 03/07/17 Sputum Culture, Resulted Pending Medications Current Medications Iohexol (Omnipaque 300 Mg/ml) 100 ml 1X ONCE IV Last administered on 14:40; Start 03/05/17 at 14:30; Stop 03/05/17 at 14:31; Status DC Info (Do NOT chart on this entry -- for MONITORING) 1 each PRN DAILY PRN MC SEE COMMENTS; Start 03/05/17 at 14:30; Stop 03/07/17 at 14:29; Status DC Ceftriaxone Sodium 50 ml @ 100 mls/hr 1X ONCE IV Last administered on 15:39; Start 03/05/17 at 15:30; Stop 03/05/17 at 15:59; Status DC Azithromycin 500 mg/Sodium Chloride 250 ml @ 250 mls/hr 1X ONCE IV ; Start at 15:30; Stop 03/05/17 at 16:29; Status UNV Azithromycin 250 ml @ 250 mls/hr 1X ONCE IV Last administered on 03/05/17 15:39; Start 03/05/17 at 15:30; Stop 03/05/17 at 16:29; Status DC Ondansetron HCl (Zofran) 4 mg PRN Q8HRS PRN IV NAUSEA/VOMITING; Start at 15:30; Stop 03/06/17 at 15:29; Status DC Morphine Sulfate 2 mg PRN Q2HR PRN IV PAIN; Start 03/05/17 at 15:30; Stop at 15:29; Status DC Acetaminophen (Tylenol) 650 mg PRN Q4HRS PRN PO FEVER; Start 03/05/17 at 15:30 ; Stop 03/06/17 at 15:29; Status DC Albuterol/ Ipratropium (Duoneb) 3 ml RTQID NEB Last administered on 12/23/17at 15:55; Start 03/05/17 at 16:00; Stop 03/05/17 at 18:18; Status DC Azithromycin (Zithromax) 250 mg DAILY PO Last administered on 03/08/17 08:21 ; Start 03/06/17 at 09:00 Ceftriaxone Sodium 1 gm/ Dextrose 50 ml @ 100 mls/hr Q24H IV ; Start 03/05/17 at 18:15; Status UNV Budesonide (Pulmicort) 0.5 mg RTBID NEB Last administered on 03/08/17 06:19; Start 03/05/17 at 20:00 Acetaminophen (Tylenol) 650 mg PRN Q6HRS PRN PO MILD PAIN / TEMP; Start at 18:15 Albuterol Sulfate (Ventolin Neb Soln) 2.5 mg RTQID NEB Last administered on 06:19; Start 03/05/17 at 20:00 Aspirin (Ecotrin) 81 mg DAILY PO Last administered on 03/08/17 08:22; Start 03/06/17 at 09:00 Azelastine HCl (Astelin) 2 spray BID NS Last administered on 03/08/17 08:21; Start 03/05/17 at 21:00 Dutasteride (Avodart) 0.5 mg HS PO Last administered on 03/07/17 20:23; Start 03/05/17 at 21:00 Furosemide (Lasix) 20 mg DAILY PO Last administered on 03/08/17 08:22; Start 03/06/17 at 09:00 Montelukast Sodium (Singulair) 10 mg DAILY PO Last administered on 03/08/17 08:22; Start 03/06/17 at 09:00 Pantoprazole Sodium (Protonix) 40 mg DAILYAC PO Last administered on 08:21; Start 03/06/17 at 07:30 Simvastatin (Zocor) 20 mg QHS PO Last administered on 03/07/17 20:23; Start 03/05/17 at 21:00 Tamsulosin HCl (Flomax) 0.8 mg DAILY PO ; Start 03/06/17 at 09:00; Stop at 09:00; Status DC Non-Formulary Medication 1 inh BID IH ; Start 03/05/17 at 21:00; Stop at 21:00; Status DC Albuterol/ Ipratropium (Duoneb) 3 ml Q4HRS W/A NEB ; Start 03/05/17 at 22:00; Stop 03/06/17 at 12:58; Status DC Pneumococcal Polyvalent Vaccine (Do NOT chart on this placeholder) 1 each 1X ONCE MC ; Start 03/06/17 at 09:00; Stop 03/06/17 at 09:01; Status UNV Ceftriaxone Sodium (Rocephin) 1 gm Q24H IVP Last administered on 03/08/17 08: 23; Start 03/06/17 at 09:00 Pneumococcal Polyvalent Vaccine (Pneumovax 23) 0.5 ml ONCE ONCE VAX IM Last administered on 03/06/17 11:56; Start 03/06/17 at 09:00; Stop 03/06/17 at 09 :01; Status DC Tamsulosin HCl (Flomax) 0.8 mg DAILY PO ; Start 03/05/17 at 21:30; Stop at 21:30; Status DC Tamsulosin HCl (Flomax) 0.8 mg QHS PO Last administered on 03/07/17 20:24; Start 03/05/17 at 22:00 Prednisone (Prednisone) 60 mg 1X ONCE PO Last administered on 03/05/17 23:07 ; Start 03/05/17 at 21:30; Stop 03/05/17 at 21:31; Status DC Prednisone (Prednisone) 40 mg DAILY PO Last administered on 03/08/17 08:22; Start 03/06/17 at 09:00 Enoxaparin Sodium (Lovenox Per Pharmacy Prophylaxis Dosing) 1 each PRN DAILY PRN MC SEE COMMENTS; Start 03/05/17 at 21:30; Stop 03/06/17 at 11:28; Status DC Enoxaparin Sodium (Lovenox 40mg Syringe) 40 mg Q24H SQ Last administered on 23:09; Start 03/05/17 at 22:00; Stop 03/06/17 at 11:28; Status DC Lactobacillus Rhamnosus (Culturelle) 1 cap BID PO Last administered on 08:22; Start 03/06/17 at 21:00 Albuterol Sulfate (Ventolin Neb Soln) 2.5 mg PRN Q4HRS PRN NEB SHORTNESS OF BREATH; Start 03/07/17 at 06:15 Active Scripts Active Lasix (Furosemide) 20 Mg Tablet 1 Tab PO DAILY Amox Tr-K Clv 875-125 Mg Tab (Amoxicillin/Potassium Clav) 1 Each Tablet 1 Tab PO BID Pantoprazole Sodium 40 Mg Tablet.dr 40 Mg PO DAILYAC [Albuterol Sulfate] 2.5 MG/3 ML Nebu 2.5 Mg NEB QID AND Q 2 HOURS CO PRN Tylenol (Acetaminophen) 325 Mg Tablet 650 Mg PO PRN Q6HRS PRN 28 Days Reported Flomax (Tamsulosin Hcl) 0.4 Mg Cap.er.24h 2 Cap PO DAILY Albuterol Sulfate Neb Soln (Albuterol Sulfate) 2.5 Mg/3 Ml Vial.neb 2.5 Mg NEB QID Potassium Chloride 10 Meq Capsule.er 10 Meq PO DAILY Azelastine Hcl 137 Mcg/0.137 Ml [place].pump 2 [place] NS BID Advair 500-50 Diskus (Fluticasone/Salmeterol) 1 Each Disk.w.dev 1 Inh IH BID Avodart (Dutasteride) 0.5 Mg Capsule 1 Cap PO HS Montelukast Sodium Tablet (Montelukast Sodium) 10 Mg Tablet 1 Tab PO DAILY Naproxen 500 Mg Tablet 1 Tab PO BID Aspir 81 (Aspirin) 81 Mg Tablet. 1 Tab PO DAILY Zocor (Simvastatin) 20 Mg Tablet 20 Mg PO QHS Vitals/I & O Vital Sign - Last 24 Hours 03/07/17 03/07/17 03/07/17 03/07/17 11:00 11:30 15:00 15:00 Temp 98.2 98.0 98.2 98.0 Pulse 81 78 Resp 20 20 B/P (MAP) 118/79 (92) 125/76 (92) Pulse Ox 94 94 O2 Delivery Room Air Room Air Room Air Room Air 03/07/17 03/07/17 03/07/17 03/07/17 19:00 19:20 19:20 20:00 Temp 98.2 98.2 Pulse 68 Resp 18 B/P (MAP) 155/82 (106) Pulse Ox 99 O2 Delivery Room Air Room Air Room Air Room Air 03/07/17 03/08/17 03/08/17 03/08/17 23:59 03:00 06:19 06:20 Temp 98.1 98.1 98.1 98.1 Pulse 66 73 Resp 18 18 B/P (MAP) 137/86 (103) 122/81 (95) Pulse Ox 96 93 96 O2 Delivery Room Air Room Air Room Air Room Air 03/08/17 03/08/17 07:11 07:25 Temp 97.8 97.8 Pulse 56 Resp 17 B/P (MAP) 103/75 (84) Pulse Ox 97 O2 Delivery Room Air Room Air Intake and Output 03/07/17 03/07/17 03/08/17 15:00 23:00 07:00 Intake Total 750 ml 400 ml Balance 750 ml 400 ml GISELL ORTEGA III DO Mar 08, 2017 10:37
--- NOTE | 2017-03-10 15:53 | DS ---
DATE OF DISCHARGE: 03/08/2017 ADMISSION DIAGNOSIS: Hemoptysis. DISCHARGE DIAGNOSIS: Resolving hemoptysis. HOSPITAL COURSE: The patient is a pleasant 72-year-old male who presented with hemoptysis. He was admitted. We consulted GI. We gave him IV proton pump inhibitors and followed his hemoglobin. Over the next few days, he did better. We discharged with close outpatient followup. DISPOSITION: Home. ACTIVITY: As tolerated. MEDICATIONS: Please see MRAD. TOTAL TIME: 32 minutes. GISELL ORTEGA DO DR: GUSTAVO/hardik JOB#: [id number] / [id number]
== END 2017-03-08 10:40 | disposition home or self-care (01) | DRG 194 ==
LOC: ER 11:07 → 6 SOUTH 15:27
PROVIDERS: ADMIT Internal Medicine; ATTEND Internal Medicine
DX: J18.9 Pneumonia, unspecified organism (principal); E44.0 Moderate protein-calorie malnutrition; E87.0 Hyperosmolality and hypernatremia; I27.20 Pulmonary hypertension, unspecified; J44.0 Chronic obstructive pulmonary disease with (acute) lower respiratory infection; I50.9 Heart failure, unspecified; E78.5 Hyperlipidemia, unspecified; F17.210 Nicotine dependence, cigarettes, uncomplicated; J20.9 Acute bronchitis, unspecified; N40.0 Benign prostatic hyperplasia without lower urinary tract symptoms; Z82.3 Family history of stroke; Z68.25 Body mass index [BMI] 25.0-25.9, adult; Z71.6 Tobacco abuse counseling
CPT/HCPCS: 36415; 71010; 71275; 80048; 80053; 83880; 84484; 85007; 85025; 85610; 85730; 87070; 87205; 90732; 93005; 94640; 94760; 96365; 96368; J0456; J0690; J0696; J1650; J7512; J7613; J7620; J7626; Q0144; Q9967; 99285-25

== ENCOUNTER → 2017-04-22 | Outpatient (CLI) | payer MEDICARE | END | disposition home or self-care (01) | LOC: CT 10:02 | DX: J43.9 Emphysema, unspecified (principal); I25.10 Atherosclerotic heart disease of native coronary artery without angina pectoris; M47.894 Other spondylosis, thoracic region | CPT/HCPCS: 71250 ==

== ENCOUNTER → 2017-10-21 | Day surgery (SDC) | payer MEDICARE ==
[~2017-10-21] MED LIST changes: +ALBU2.5V5 NEB; +IV RINGERS,LACTATED 1000ML 1,000 ML IV SCH; +LIDOCAINE 1% PF 2 ML VIAL. ID PRN; +LIDOCAINE 2% PF Vial for OR 5 ML VIAL. ONE; +MIDAZOLAM HCL/PF 2 MG/2 ML VIAL. IV PRN; +NAPR-514 PO; -NAPR500T4 PO; +POTA10TA12 PO; +PROPOFOL 20 ML IV ONE; +fentaNYL PF VIAL 100 MCG/2 ML VIAL IV PRN
[2017-10-21 09:30] VITALS: BP 124/76
--- NOTE | 2017-10-24 14:12 | PATHOLOGY ---
[facility] Accession Number: [id number] . 01 Material submitted: . GASTRIC POLYP BIOPSY . 01 Clinical history: . Bloating . 02 Diagnosis: Gastric biopsies, gastric polyp: - Gastric xanthelasma. S/10/24/2017 . 02 Comment: Sections of the gastric biopsy reveal several segments of gastric body mucosa. Two of the biopsy segments show expansion of the lamina propria by an infiltrate of foamy histiocytes consistent with gastric xanthelsma. There is focal mild chronic inflammation. There are no adenomatous changes or evidence of malignancy. (JPM:sg; 10/24/2017) . 02 Electronically signed: . Saurav Mccann MD, Pathologist NPI- [id number] . 01 Gross description: . The specimen is received in formalin, labeled "Brittine, Mario and gastric polyp", are several irregular fragments of cervantes soft tissues ranging from 0.1 cm up to 0.9 cm in greatest dimension and measuring 1.0 x 0.4 x 0.2 cm in aggregate. The specimen is entirely submitted in A1. ([facility]; 10/21/2017) SHS/SHS . 02 Pathologist provided ICD-10: K31.9 . 02 CPT . 094137 Performed at: 01 [facility] [address], [place] [id number] MD Jeff Cortés MD Phone: [phone] Performed at: 02 [facility] [address] [place], [place] [id number] MD Saurav Mccann MD Phone: [phone]
== END | disposition home or self-care (01) ==
LOC: ENDOS 08:10
PROVIDERS: ATTEND Internal Medicine Gastroenterology
DX: K31.7 Polyp of stomach and duodenum (principal); K29.50 Unspecified chronic gastritis without bleeding; K31.89 Other diseases of stomach and duodenum; E78.00 Pure hypercholesterolemia, unspecified; M19.90 Unspecified osteoarthritis, unspecified site; F17.210 Nicotine dependence, cigarettes, uncomplicated; Z79.82 Long term (current) use of aspirin; Z79.899 Other long term (current) drug therapy; Z98.890 Other specified postprocedural states; I11.0 Hypertensive heart disease with heart failure; I50.9 Heart failure, unspecified; J44.9 Chronic obstructive pulmonary disease, unspecified; Z90.49 Acquired absence of other specified parts of digestive tract; K21.9 Gastro-esophageal reflux disease without esophagitis; N40.0 Benign prostatic hyperplasia without lower urinary tract symptoms; Z80.42 Family history of malignant neoplasm of prostate; Z99.81 Dependence on supplemental oxygen; Z82.3 Family history of stroke
CPT/HCPCS: 43239; 88305; J2001; J2704

== ENCOUNTER → 2017-10-31 | Outpatient (CLI) | payer MEDICARE ==
[2017-10-21 09:30] VITALS: BP 124/76
[~2017-10-31] MED LIST changes: -IV RINGERS,LACTATED 1000ML 1,000 ML IV SCH; -LIDOCAINE 1% PF 2 ML VIAL. ID PRN; -LIDOCAINE 2% PF Vial for OR 5 ML VIAL. ONE; -MIDAZOLAM HCL/PF 2 MG/2 ML VIAL. IV PRN; -PROPOFOL 20 ML IV ONE; -fentaNYL PF VIAL 100 MCG/2 ML VIAL IV PRN
--- NOTE | 2017-10-31 17:17 | RAD ---
CT CHEST WO CONTRAST Indication: Pneumonia Technique: Noncontrast CT imaging was performed of the chest, multiplanar reconstruction images submitted. One or more of the following individualized dose reduction techniques were utilized for this examination: 1. Automated exposure control 2. Adjustment of the mA and/or kV according to patient size 3. Use of iterative reconstruction technique. Contrast: None Comparison: 04/22/2017 FINDINGS: There is stable linear-appearing density of the left upper lobe abutting the fissure, also mild likely atelectasis and fibrotic change of the right middle lobe closer to the lung base. There is persistent mild density of the left lower lobe closer to the base although likely due to component of atelectasis and fibrotic change. There is noncalcified left lower lobe nodule axial image 31 series 3 about 0.7 cm. There is no pleural or pericardial effusion or pneumothorax. The major airways are patent. Thoracic aortic caliber is within normal limits. No new significantly enlarged nodes are identified of the chest. There is a hypodense lesion of the visualized right kidney about 4.7 cm, internal density measurements of 10 Hounsfield units, adjacent small subtle focus of calcification overall unchanged. There is also small likely cyst of the left kidney about 1.8 cm. There is centrilobular emphysema. There is thoracic degenerative disc disease greatest about mid thoracic levels. IMPRESSION: 1. There is stable more linear-appearing density probably related to fibrotic change of the left upper lobe abutting the fissure, also mild density left lower lobe near the base likely due to component of fibrotic change and atelectasis. There is a separate small stable noncalcified left lower lobe nodule about 0.7 cm for which attention on future follow-up at 18-24 months is recommended as per Fleischner guidelines.. 2. There is again emphysema. 3. There is again cyst right kidney with adjacent small focus of calcification, smaller cyst of the left kidney. Electronically signed by: Dimas Jimenez MD (10/31/2017 5:13 PM) [facility]
== END | disposition home or self-care (01) ==
LOC: CT 10:57
PROVIDERS: ATTEND Internal Medicine Critical Care Medicine
DX: J43.2 Centrilobular emphysema (principal); N28.1 Cyst of kidney, acquired; M51.34 Other intervertebral disc degeneration, thoracic region; I11.0 Hypertensive heart disease with heart failure; I50.9 Heart failure, unspecified; K21.9 Gastro-esophageal reflux disease without esophagitis; I25.10 Atherosclerotic heart disease of native coronary artery without angina pectoris; E78.5 Hyperlipidemia, unspecified; E78.00 Pure hypercholesterolemia, unspecified; Z90.49 Acquired absence of other specified parts of digestive tract; Z90.89 Acquired absence of other organs; Z87.891 Personal history of nicotine dependence
CPT/HCPCS: 71250

== ENCOUNTER → 2017-11-15 | Outpatient (CLI) | payer MEDICARE ==
[2017-10-21 09:30] VITALS: BP 124/76
--- NOTE | 2017-11-15 07:54 | RAD ---
Right upper quadrant abdominal ultrasound, 11/15/2017: HISTORY: Epigastric pain and bloating The gallbladder is within normal limits in size. There is no sonographic evidence of cholelithiasis. The gallbladder wall is not thickened. The common hepatic duct is of normal caliber. There is no evidence of a hepatic mass. A 4.6 cm cyst is noted in the right kidney. The right kidney is otherwise unremarkable. The visualized portions of the pancreas show no abnormality. IMPRESSION: 1. No significant gallbladder abnormality is detected. 2. Right renal cyst. Electronically signed by: Regulo Slade MD (11/15/2017 7:51 AM) [facility]
--- NOTE | 2017-11-15 11:44 | RAD ---
Radionuclide hepatobiliary scan with gallbladder ejection fraction, 11/15/2017: HISTORY: Bloating Following IV injection of 5.5 mCi of technetium 99m Choletec there was prompt uptake of the radionuclide from the blood stream by the liver. Activity is present in the gallbladder and bile ducts at 10 minutes. Small bowel activity is evident at 50 minutes. Additional imaging of the gallbladder was then performed following oral ingestion of 8 ounces of Ensure. Cholecystokinin is currently unavailable. The gallbladder ejection fraction was calculated at 62 percent. IMPRESSION: 1. Normal radionuclide hepatobiliary scan. 2. The gallbladder ejection fraction is 62 percent. Electronically signed by: Regulo Slade MD (11/15/2017 11:41 AM) [facility]
== END | disposition home or self-care (01) ==
LOC: US 06:31
PROVIDERS: ATTEND Internal Medicine Gastroenterology
DX: N28.1 Cyst of kidney, acquired (principal); E78.00 Pure hypercholesterolemia, unspecified; J43.9 Emphysema, unspecified; I13.0 Hypertensive heart and chronic kidney disease with heart failure and stage 1 through stage 4 chronic kidney disease, or unspecified chronic kidney disease; I50.9 Heart failure, unspecified; N18.9 Chronic kidney disease, unspecified; K21.9 Gastro-esophageal reflux disease without esophagitis; J43.2 Centrilobular emphysema; Z68.26 Body mass index [BMI] 26.0-26.9, adult; Z87.891 Personal history of nicotine dependence; Z80.42 Family history of malignant neoplasm of prostate
CPT/HCPCS: 76705; 78226; 96374; 96375; A9537

== ENCOUNTER → 2017-12-16 | Outpatient (CLI) | payer MEDICARE ==
[2017-10-21 09:30] VITALS: BP 124/76
--- NOTE | 2017-12-16 09:03 | RAD ---
MR#: [id number] Date of Study: 12/16/2017 Ordering Physician: KEL WALLER, Referring Physician: KEL WALLER, Tech: Halima De Luna RDMS RVT APPROVED REPORT Patient Location : OUT-PATIENT Indications History of DVT Findings Grayscale images of the bilateral saphenofemoral junctions do not reveal any obvious evidence of thro mbus on limited images. Spectral waveforms at the level of the proximal greater saphenous vein do not reveal any evidence of reflux. Bilateral lesser saphenous veins also do not reveal any evidence of r eflux. The right great saphenous vein measures 4 mm in the left great saphenous vein measures 6 mm. Critical Notification Critical Value: No <Conclusion> No evidence of reflux in the bilateral greater and lesser saphenous veins Signed by : Jacinto Mckeon, Electronically Approved : 12/16/2017 09:02:01
--- NOTE | 2017-12-16 09:40 | CARD ---
MR#: [id number] Date of Study: 12/16/2017 Ordering Physician: KEL WLALER, Referring Physician: KEL WALLER, Tech: Yolanda Allison APPROVED REPORT EXAM: Two-dimensional and M-mode echocardiogram with Doppler and color Doppler. Other Information Quality : FairHR: 56bpm Technically limited study due to body habitus. INDICATION Systolic Heart Failure RISK FACTORS Hyperlipidemia Smoking 2D DIMENSIONS RVDd3.3 (2.9-3.5cm)Left Atrium(2D)3.1 (1.6-4.0cm) IVSd1.0 (0.7-1.1cm)Aortic Root(2D)2.8 (2.0-3.7cm) LVDd4.9 (3.9-5.9cm)LVOT Diameter2.0 (1.8-2.4cm) PWd1.1 (0.7-1.1cm)IVSs3.8 (0.8-1.2cm) Aortic Valve AoV Peak Jovani.121.0cm/sAoV VTI26.8cm AO Peak GR.5.9mmHgLVOT Peak Jovani.70.8cm/s LVOT VTI 19.44cmAO Mean GR.3mmHg RORO (VMAX)1.95bn7IIB (VTI)2.21cm2 Mitral Valve MV E Ajuyntuc18.2cm/sMV DECEL SZDT367ht MV A Ukuztgwp450.8cm/sMV KXQ32us E/A Ratio0.7MVA (PHT)4.22cm2 TDI E/Lateral E'10.1E/Medial E'11.1 Pulmonary Valve PV Peak Jhqujenz93.8cm/sPV Peak Grad.4mmHg Tricuspid Valve TR P. Jualtpmg065gg/sRAP OELOFGXX7sgFq TR Peak Gr.55npBqHHAG05xkCi Pulmonary Vein S1 Nnyupitq14.6cm/sD2 Ovqovcuz91.0cm/s PVa [id number] LEFT VENTRICLE The left ventricle is normal size. There is normal left ventricular wall thickness. The systolic func tion is mildly impaired. The Ejection Fraction is 40-45%. Mild global hypokinesis with lateral wall m oderate hypokinesis. Transmitral Doppler flow pattern is Grade I-abnormal relaxation pattern. RIGHT VENTRICLE The right ventricle is mildly dilated. There is normal right ventricular wall thickness. The right ve ntricular systolic function is normal. ATRIA The left atrium size is normal. The right atrium size is normal. The interatrial septum is intact wit h no evidence for an atrial septal defect or patent foramen ovale as noted on 2-D or Doppler imaging. AORTIC VALVE The aortic valve is mildly thickened but opens well. Doppler and Color Flow revealed trace aortic reg urgitation. There is no significant aortic valvular stenosis. MITRAL VALVE The mitral valve is thickened but opens well. There is no mitral valve stenosis. Doppler and Color Fl ow revealed no mitral valve regurgitation noted. TRICUSPID VALVE The tricuspid valve is normal in structure and function. Doppler and Color Flow revealed trace tricus pid regurgitation. There is no tricuspid valve stenosis. PULMONIC VALVE The pulmonic valve is not well visualized. Doppler and Color Flow revealed no pulmonic valvular regur gitation. There is no pulmonic valvular stenosis. GREAT VESSELS The aortic root is normal in size. The IVC is normal in size and collapses >50% with inspiration. PERICARDIAL EFFUSION There is no evidence of significant pericardial effusion. Critical Notification Critical Value: No <Conclusion> The systolic function is mildly impaired. The Ejection Fraction is 40-45%. Mild global hypokinesis with lateral wall moderate hypokinesis. Signed by : Jacinto Mckeon, Electronically Approved : 12/16/2017 09:38:37
== END | disposition home or self-care (01) ==
LOC: US 07:38
PROVIDERS: ATTEND Internal Medicine Cardiovascular Disease
DX: I13.0 Hypertensive heart and chronic kidney disease with heart failure and stage 1 through stage 4 chronic kidney disease, or unspecified chronic kidney disease (principal); I50.20 Unspecified systolic (congestive) heart failure; N18.9 Chronic kidney disease, unspecified; Z86.718 Personal history of other venous thrombosis and embolism
CPT/HCPCS: 93306; 93970

== ENCOUNTER → 2018-01-26 | Outpatient (CLI) | payer MEDICARE ==
[2017-12-25 11:08] VITALS: BP 117/72
[~2018-01-26] MED LIST changes: +IPRA4AER IH; +REGADENOSON 0.4 MG/5 ML DISP.SYRIN. IV ONE
--- NOTE | 2018-01-26 12:02 | RAD ---
MR#: [id number] Date of Study: 01/26/2018 Ordering Physician: KEL GRIFFIN, Referring Physician: ANNA WATSON Tech: RHONDA Cifuentes APPROVED REPORT Test Type: Pharmacological Stress Nurse/Tech: Vivi ALLEN Test Indications: Cardiomyopathy Cardiac History: HTN, CHF, Cardiomyopathy, See EMR Medications: ASA, See EMR Medical History: COPD, Smoker, See EMR Resting Heart Rate: 57 bpm Resting Blood Pressure: 151/76mmHg Pretest Chest Pain: No chest pain Nurse/Tech Notes Lungs wheezy bilaterally in bases. Heart tones regular. Consent: The procedure was explained to the patient in lay terms. Informed consent was witnessed. Enrique eout was entered into [employer]. History and Stress Test performed by RT Jannie (R) (N) Pharm. Details Pharmacologic stress testing was performed using 0.4mg per 5ml of regadenoson given intravenously ove r 7-10 seconds. Stress Symptoms Dyspnea POST EXERCISE Reason for Termination: Infusion complete Max HR: 103 bpm Max Blood Pressure: 151/76mmHg Chest Pain: No. Arrhythmia: Yes. frequent PVCs ST Change: Yes. ST depression from resting ECG, returned to baseline during stress. No other ST bergeron es noted. INTERPRETATION Stress EKG Conclusion: The resting EKG shows a sinus rhythm with ST segment changes. The stress EKG shows no significant changes from baseline. No EKG evidence of stress-induced ischemia. Imaging Protocol IMAGE PROTOCOL: Rest Tc-99m/stress Tc-99m 1 day Rest: Stress: Viability: Radiopharm.Tc99m BhkdxewoxPp59h Sestamibi Dose11.3mCi 33mCi Duration 15min. 13min. Img Date 01/26/2018 01/26/2018 Inj-Img Ixem52alb. 60min. Rest Admin Site:IV - Left AntecubitalAdministrator:RHONDA Cifuentes Stress Admin Site: IV - Left AntecubitalAdministrator: RT Jannie (R)(N) STRESS DATA End Diast. Vol.134.0mlLVEDV index BSA70.0ml End Syst. Vol.66.0mlLVESV index BSA34.0ml Myocardial Hmbz784.0gEject. Ngwevdxr90.0% Stress Scores Regional WT2.00Summed WT17.00 Regional WM0.00Summed WM2.00 LV Perfusion The stress scans showed mild apical thinning. The rest scans showed mild apical thinning. Nuclear imaging shows no reversible ischemia. Nuclear imaging shows a fixed apical defect which may represent a small prior infarct or a technical defect in the setting of normal LV function. Wall Motion Left ventricular systolic function shows no regional wall motion abnormalities and an ejection fracti on of 51%. LV Perf. Quant 17 Seg. SSS7.00 17 Seg. SRS7.00 17 Seg. SDS0.00 Stress Defect Extent (% LAD)13.10Rest Defect Extent (% LAD)18.80Rev. Defect Extent (% LAD)0.00 Stress Defect Extent (% LCX) 7.50Rest Defect Extent (% LCX)10.00Rev. Defect Extent (% LCX)0.00 Stress Defect Extent (% RCA)0.00Rest Defect Extent (% RCA)8.90Rev. Defect Extent (% RCA)0.00 Stress Defect Extent (% TOPHER)11.70Rest Defect Extent (% TOPHER)18.90Rev. Defect Extent (% TOPHER)0.00 Conclusion 1. Abnormal baseline EKG but no EKG evidence of stressed induced ischemia. 2. Nuclear imaging shows no significant reversible ischemia. 3. Nuclear imaging shows a small fixed apical defect which may represent a previous infarct or possib ly a technical defect in the setting of normal LV function. 4. Left ventricle systolic function shows no regional wall motion abnormalities and an ejection frac tion of 51%. 5. Moderately low risk Lexiscan nuclear stress test with no reversible ischemia and an ejection fract ion of 61%. Signed by : Kel Griffin MD Electronically Approved : 01/26/2018 12:01:05
== END | disposition home or self-care (01) ==
LOC: NM 07:55
PROVIDERS: ATTEND Internal Medicine Cardiovascular Disease
DX: I42.9 Cardiomyopathy, unspecified (principal); R94.31 Abnormal electrocardiogram [ECG] [EKG]; I11.0 Hypertensive heart disease with heart failure; I50.9 Heart failure, unspecified; J44.9 Chronic obstructive pulmonary disease, unspecified; F17.200 Nicotine dependence, unspecified, uncomplicated; F32.9 Major depressive disorder, single episode, unspecified
CPT/HCPCS: 78452; 93017; 96374; 96375; 96376; A9500; J2785

== ENCOUNTER 2018-07-19 01:20 | Inpatient (IN) | payer MEDICARE ==
[~2018-07-19] VITALS: Ht 175.3 cm; Wt 79.6 kg
[~2018-07-19 01:20] MED LIST changes: -GABA-586 PO; +GABA300C18 PO; -REGADENOSON 0.4 MG/5 ML DISP.SYRIN. IV ONE
[2018-07-19 01:42] LABS: BASO # 0.1 x10^3/uL (0.0-0.2); BASO % 1 % (0-3); EOS # 0.1 x10^3/uL (0.0-0.7); EOS % 2 % (0-3); HEMATOCRIT 43.3 % (39.0-53.0); HEMOGLOBIN 14.1 g/dL (13.0-17.5); LYMPH # 2.5 x10^3/uL (1.0-4.8); LYMPH % 37 % (24-48); MEAN CORPUSCULAR HEMOGLOBIN 30 pg (25-35); MEAN CORPUSCULAR HGB CONC 33 g/dL (31-37); MEAN CORPUSCULAR VOLUME 92 fL (79-100); MONO # 0.6 x10^3/uL (0.0-1.1); MONO % 10 % (0-9); NEUT # 3.4 x10^3uL (1.8-7.7); NEUT % 51 % (31-73); PLATELET COUNT 127 x10^3/uL (140-400); RED CELL DISTRIBUTION WIDTH 15.3 % (11.5-14.5); WHITE BLOOD COUNT 6.7 x10^3/uL (4.0-11.0)
[2018-07-19] MEDS ORDERED: DEXAMETHASONE SOD PHOS 4 MG/ML VIAL IV ONE (01:45)
[2018-07-19] MEDS ORDERED: ASPIRIN 325 MG TABLET PO ONE (01:45)
[2018-07-19] MEDS ORDERED: IPRATRPIUM/ALBUTEROL 0.5/2.5MG 3 ML NEBU. NEB ONE (01:45)
--- NOTE | 2018-07-19 01:48 | PHYS DOC ---
Past Medical History Past Medical History: CHF, COPD, High Cholesterol, Hypertension Additional Past Medical Histor: enlarged prostate, sob(not actually dx copd,gets alb neb qid) Past Surgical History: No Surgical History, Tonsillectomy Additional Past Surgical Histo: foot surgery, bladder surgery, BOWEL RESECTION Smoking: Quit Less Than 1 Year Alcohol Use: None Drug Use: None Adult General Chief Complaint Chief Complaint: SHORTNESS OF BREATH HPI HPI Patient is a 73 year old male who presents with shortness of breath that began around 0030 tonight. Patient states that for the past couple days he has started feeling ill and coughing up yellow sputum with yellow nasal discharge. He felt feverish but has not taken his temperature at home. Shortness of breath was a fairly quick onset tonight while he was washing the dishes. He uses 2 L/min O2 as needed at home, typically only at nighttime. He has some chest tightness with this shortness of breath by denies nausea, diaphoresis, or radiation of the sensation. He feels that lately his dyspnea on exertion has been worse and that his LE have swollen a little more than usual. Pt received a Duoneb in transit to ED and has since had a headache that he rates at 5/10. Review of Systems Review of Systems Constitutional: Reports fever and feeling ill [] Eyes: Denies blurred vision or diplopia [] HENT: Reports nasal congestion. Denies sore throat. [] Respiratory: Reports cough or shortness of breath [] Cardiovascular: Reports chest tightness but denies palpitations [] GI: Denies abdominal pain, nausea, vomiting, or diarrhea [] : Denies dysuria or hematuria [] Musculoskeletal: Denies back pain or joint pain [] Integument: Denies rash or skin lesions [] Neurologic: Reports headache. Denies focal weakness or sensory changes [] Complete review of systems found to be within normal limits, except as documented in this note. Current Medications Current Medications Current Medications Medications (Trade) Dose Ordered Sig/Dandre Start Time Stop Time Status Last Admin Dose Admin Acetaminophen (Tylenol) 500 mg 1X ONCE 07/19/18 02:00 07/19/18 02:01 DC 07/19/18 02:14 500 MG Albuterol/ Ipratropium (Duoneb) 3 ml 1X ONCE 07/19/18 01:45 07/19/18 01:46 DC 07/19/18 01:50 3 ML Aspirin (Carlos Aspirin) 325 mg 1X ONCE 07/19/18 01:45 07/19/18 01:46 DC 07/19/18 02:14 325 MG Dexamethasone Sodium Phosphate (Decadron) 10 mg 1X ONCE 07/19/18 01:45 07/19/18 01:46 DC 07/19/18 02:17 10 MG Allergies Allergies Allergies Coded Allergies Type Severity Reaction Last Updated Verified No Known Drug Allergies 10/21/17 No Physical Exam Physical Exam Constitutional: Well developed in mild respiratory distress. [] HENT: Normocephalic, atraumatic, oropharynx moist. [] Eyes: EOMI, conjunctiva normal, no discharge. [] Neck: Supple without tenderness or lymphadenopathy [] Cardiovascular:Heart rate regular rhythm, no murmur [] Lungs & Thorax: Breath sounds diminished throughout with mild expiratory wheezing. No focal adventitious lung sounds. [] Abdomen: Soft and nontender [] Skin: Warm, dry, no erythema, no rash. [] Neurologic: Alert and oriented, no focal deficits noted. [] Psychologic: Affect normal, judgement normal, mood normal. [] Current Patient Data Vital Signs Vital Signs Date Time Temp Pulse Resp B/P (MAP) Pulse Ox O2 Delivery O2 Flow Rate FiO2 07/19/18 02:46 78 20 142/81 (101) 97 Nasal Cannula 2.0 07/19/18 01:30 97.7 97.7 Lab Values Laboratory Tests Test 07/19/18 01:30 07/19/18 01:45 White Blood Count 6.7 x10^3/uL (4.0-11.0) Red Blood Count 4.70 x10^6/uL (4.30-5.70) Hemoglobin 14.1 g/dL (13.0-17.5) Hematocrit 43.3 % (39.0-53.0) Mean Corpuscular Volume 92 fL (79-100) Mean Corpuscular Hemoglobin 30 pg (25-35) Mean Corpuscular Hemoglobin Concent 33 g/dL (31-37) Red Cell Distribution Width 15.3 % (11.5-14.5) H Platelet Count 127 x10^3/uL (140-400) L Neutrophils (%) (Auto) 51 % (31-73) Lymphocytes (%) (Auto) 37 % (24-48) Monocytes (%) (Auto) 10 % (0-9) H Eosinophils (%) (Auto) 2 % (0-3) Basophils (%) (Auto) 1 % (0-3) Neutrophils # (Auto) 3.4 x10^3uL (1.8-7.7) Lymphocytes # (Auto) 2.5 x10^3/uL (1.0-4.8) Monocytes # (Auto) 0.6 x10^3/uL (0.0-1.1) Eosinophils # (Auto) 0.1 x10^3/uL (0.0-0.7) Basophils # (Auto) 0.1 x10^3/uL (0.0-0.2) Sodium Level 143 mmol/L (136-145) Potassium Level 3.9 mmol/L (3.5-5.1) Chloride Level 108 mmol/L (98-107) H Carbon Dioxide Level 32 mmol/L (21-32) Anion Gap 3 (6-14) L Blood Urea Nitrogen 14 mg/dL (8-26) Creatinine 1.1 mg/dL (0.7-1.3) Estimated GFR (Cockcroft-Gault) 79.8 BUN/Creatinine Ratio 13 (6-20) Glucose Level 104 mg/dL (70-99) H Calcium Level 8.7 mg/dL (8.5-10.1) Magnesium Level 2.0 mg/dL (1.8-2.4) Total Bilirubin 0.5 mg/dL (0.2-1.0) Aspartate Amino Transferase (AST) 15 U/L (15-37) Alanine Aminotransferase (ALT) 13 U/L (16-63) L Alkaline Phosphatase 83 U/L (46-116) Creatine Kinase 151 U/L (39-308) Creatine Kinase MB (Mass) 3.8 ng/mL (0.0-3.6) H Creatine Kinase MB Relative Index 2.5 % (0-4) Troponin I Quantitative < 0.017 ng/mL (0.000-0.055) CC-Qjb-S-Type Natriuretic Peptide 438 pg/mL (0-124) H Total Protein 6.9 g/dL (6.4-8.2) Albumin 3.5 g/dL (3.4-5.0) Albumin/Globulin Ratio 1.0 (1.0-1.7) Lactic Acid Level 1.3 mmol/L (0.4-2.0) Influenza Type A Antigen Negative (NEGATIVE) Influenza Type B Antigen Negative (NEGATIVE) Laboratory Tests 07/19/18 01:30 Laboratory Tests 07/19/18 01:30 EKG EKG @0146: Normal sinus rhythm with rate of 66. Normal axis. No Q waves present. QT/QTc 480/505. No ST segment elevation or depression. No T wave inversion.[] Radiology/Procedures Radiology/Procedures Portable Chest 1-View @ 0119: Hyperinflated lungs. Some increased pulmonary vasculature markings compared to film on 12/24/2017. Mediastinum unremarkable. No pleural effusion or overt evidence of pneumonia. No osseous abnormalities. [] Course & Med Decision Making Course & Med Decision Making Pertinent Labs and Imaging studies reviewed. (See chart for details) Patient is a 73 year old male with past medical history of COPD, CHF and HTN who had acute onset shortness of breath and dyspnea this morning around midnight following feeling ill with productive cough for the past 2 days. On arrival, patient had SpO2 of 94% on room air but had physical signs of increased work of breathing as well as diminished breath sounds and expiratory wheezing throughout. CBC, CMP, lactate were within normal limits. Patient was afebrile. Pro-BNP 438. CK-MB mildly elevated at 438. Troponin within normal limits. Flu negative. Patient was given DuoNeb in ED with some improvement in respiratory effort. Steroids and antibiotics given for COPD exacerbation. Patient agreeable to admission for treatment of COPD exacerbation. Will admit inpatient to Dr. Haro. [] Dragon Disclaimer Dragon Disclaimer This electronic medical record was generated, in whole or in part, using a voice recognition dictation system. Departure Departure Impression: Primary Impression: COPD exacerbation Disposition: ADMITTED INPATIENT Admitting Physician: Mehdi Catalan Condition: STABLE Referrals: HARESH BLAND MD (PCP) CIRO SANTA DO July 19, 2018 01:48
[2018-07-19 01:52] LABS: CALCIUM 8.7 mg/dL (8.5-10.1); CREATININE 1.1 mg/dL (0.7-1.3); GFR 79.8; POTASSIUM 3.9 mmol/L (3.5-5.1)
[2018-07-19 01:59] LABS: ALBUMIN 3.5 g/dL (3.4-5.0); TOTAL BILIRUBIN 0.5 mg/dL (0.2-1.0); TOTAL PROTEIN 6.9 g/dL (6.4-8.2)
[2018-07-19] MEDS ORDERED: ACETAMINOPHEN 500 MG TABLET PO ONE (02:00)
[2018-07-19 02:16] LABS: INFLUENZA A PATIENT NEGATIVE (NEGATIVE); INFLUENZA B PATIENT NEGATIVE (NEGATIVE)
[2018-07-19] MEDS ORDERED: fentaNYL PF VIAL 100 MCG/2 ML VIAL IV PRN (04:15)
[2018-07-19] MEDS ORDERED: ONDANSETRON PF 4 MG/2 ML VIAL. IV PRN ×2 (04:15→09:15)
--- NOTE | 2018-07-19 05:22 | NUR ---
The patient, JUAN PABLO WATERMAN, 73 y/o, M admitted by RONNY FLORES MD, was given written information regarding hospital policies, unit procedures and contact persons. Valuables were checked and left with patient.
[2018-07-19] MEDS ORDERED: TIOT4MIS3 IH (05:32)
[2018-07-19] MEDS ORDERED: LISI-338 PO (05:32)
[2018-07-19] MEDS ORDERED: PANT20TA2 PO (05:32)
[2018-07-19] MEDS ORDERED: RANI300T PO (05:32)
[2018-07-19] MEDS ORDERED: NAPR-514 PO (05:32)
[2018-07-19 05:40] VITALS: BP 133/77
--- NOTE | 2018-07-19 06:55 | EKG ---
[facility] [address] [place] [address] Test Date: 2018-07-19 Test Time: 01:46:29 Pat Name: JUAN PABLO WATERMAN Department: Room: [facility] Gender: M Top Closer: ANGELIKA : 1945 Requested By: CIRO SANTA Order Number: [id number] Reading MD: Jacinto Mckeon MD Measurements Intervals [place] Rate: 66 P: 61 ND: 148 QRS: 28 QRSD: 88 T: 28 QT: 480 QTc: 505 Interpretive Statements SINUS RHYTHM NON-SPECIFIC ST/T CHANGES PROLONGED QT Electronically Signed On 08-14-2018 9:27:34 CDT by Jacinto Mckeon MD
[2018-07-19 07:00] VITALS: BP 134/77
[2018-07-19] MEDS ORDERED: IPRATRPIUM/ALBUTEROL 0.5/2.5MG 3 ML NEBU. NEB SCH (08:00)
--- NOTE | 2018-07-19 08:08 | RAD ---
Portable chest, 07/19/2018: HISTORY: Dyspnea Comparison is made to a study from 12/24/2017. The heart size and pulmonary vascularity are within normal limits. No pulmonary infiltrate is seen. There is no evidence of pleural fluid. IMPRESSION: No acute cardiopulmonary abnormality is detected. Electronically signed by: Regulo Slade MD (07/19/2018 8:05 AM) [facility]
[2018-07-19] MEDS ORDERED: ACETAMINOPHEN/CODEINE 300/30MG TABLET. PO PRN (09:15)
[2018-07-19] MEDS ORDERED: ACETAMINOPHEN 500 MG TABLET PO PRN (09:15)
[2018-07-19] MEDS: NAPROXEN 500 MG TABLET PO SCH ×2 (09:38→21:20)
[2018-07-19] MEDS: LISINOPRIL 5 MG TABLET. PO SCH (09:38)
[2018-07-19] MEDS: FUROSEMIDE 20 MG TABLET PO SCH (09:38)
[2018-07-19] MEDS: PANTOPRAZOLE 40 MG TABLET.DR. PO SCH (09:38)
[2018-07-19] MEDS: TAMSULOSIN 0.4 MG CAP.ER.24H. PO SCH ×3 (09:38→21:19)
[2018-07-19] MEDS: AZELASTINE NASAL SPRAY 30ML BOTTLE. NS SCH ×2 (09:39→21:00)
--- NOTE | 2018-07-19 10:57 | NUR ---
SW following pt for anticipated dc needs. Chart reviewed and discussed with RN. Pt lives at home alone. PT/OT pending. SW will await for PT/OT recommendations to assess skilled needs. Will continue to assess needs. Addendum: 07/20/18 at 0834 by SIN GLASS No skilled needs noted at this time.
[2018-07-19 11:00] VITALS: BP 125/75
[2018-07-19] MEDS: IPRATRPIUM/ALBUTEROL 0.5/2.5MG 3 ML NEBU. NEB SCH ×3 (11:50→21:14)
[2018-07-19] MEDS: BUDESONIDE 0.5 MG/2 ML NEBU. NEB SCH ×2 (11:50→21:14)
--- NOTE | 2018-07-19 12:40 | PDOC1 ---
History and Physical Date of Admission Date of Admission DATE: 07/19/18 TIME: 12:39 Identification/Chief Complaint Chief Complaint SOA, cough Source Source: Caregiver, Chart review, Patient History of Present Illness History of Present Illness 73-year-old -[place] male, not on O2 at home, known COPD, maintained on inhalers, SOA and cough few days. Flu negative. Chest x-ray negative. Wheezing and coughing after sentences or taking deep breaths. Admitted for COPD exacerbation. Walking around with no PT needs. Being treated for acute bronchitis. He takes 2 L when necessary at home usually in the night. I cant Recall if he smokes,it did not strike me as he does significantly Past Medical History Cardiovascular: CHF, Hyperlipidemia, Pulmonary hypertension Pulmonary: Bronchitis, COPD GI: Other Heme/Onc: No pertinent hx Hepatobiliary: No pertinent hx Psych: No pertinent hx Rheumatologic: No pertinent hx Infectious disease: No pertinent hx Renal/: Benign prostatic enlarg. Endocrine: No pertinent hx Past Surgical History Past Surgical History: Other Family History Family History: Cancer, Stroke, Other Social History Smoke: No ALCOHOL: none Drugs: None Current Problem List Problem List Problems Medical Problems: (1) COPD exacerbation Status: Acute Current Medications Current Medications Current Medications Aspirin (Carlos Aspirin) 325 mg 1X ONCE PO Last administered on 07/19/18at 02:14; Start 07/19/18 at 01:45; Stop 07/19/18 at 01:46; Status DC Albuterol/ Ipratropium (Duoneb) 3 ml 1X ONCE NEB Last administered on 07/19/18at 01:50; Start 07/19/18 at 01:45; Stop 07/19/18 at 01:46; Status DC Dexamethasone Sodium Phosphate (Decadron) 10 mg 1X ONCE IV Last administered on 07/19/18at 02:17; Start 07/19/18 at 01:45; Stop 07/19/18 at 01:46; Status DC Acetaminophen (Tylenol) 500 mg 1X ONCE PO Last administered on 07/19/18at 02:14; Start 07/19/18 at 02:00; Stop 07/19/18 at 02:01; Status DC Ondansetron HCl (Zofran) 4 mg PRN Q8HRS PRN IV NAUSEA/VOMITING; Start 07/19/18 at 04:15; Stop 07/19/18 at 09:08; Status DC Fentanyl Citrate (Fentanyl 2ml Vial) 50 mcg PRN Q4HRS PRN IV PAIN; Start 07/19/18 at 04:15 Albuterol/ Ipratropium (Duoneb) 3 ml RTQID NEB Last administered on 07/19/18at 08:02; Start 07/19/18 at 08:00; Stop 07/19/18 at 09:16; Status DC Levofloxacin/ Dextrose 150 ml @ 100 mls/hr 1X ONCE IV Last administered on 07/19/18at 05:41; Start 07/19/18 at 04:30; Stop 07/19/18 at 05:59; Status DC Ondansetron HCl (Zofran) 4 mg PRN Q6HRS PRN IV NAUSEA/VOMITING; Start 07/19/18 at 09:15 Acetaminophen (Tylenol) 500 mg PRN Q6HRS PRN PO MILD PAIN / TEMP; Start 07/19/18 at 09:15 Acetaminophen/ Codeine Phosphate (Tylenol #3) 1 tab PRN Q6HRS PRN PO MODERATE PAIN; Start 07/19/18 at 09:15 Aspirin (Ecotrin) 81 mg DAILY PO ; Start 07/20/18 at 10:00 Azelastine HCl (Astelin) 2 spray BID NS Last administered on 07/19/18at 09:39; Start 07/19/18 at 10:00 Furosemide (Lasix) 20 mg DAILY PO Last administered on 07/19/18at 09:38; Start 07/19/18 at 10:00 Tamsulosin HCl (Flomax) 0.8 mg DAILY PO ; Start 07/19/18 at 10:00; Stop 07/19/18 at 10:00; Status DC Dutasteride (Avodart) 0.5 mg QHS PO ; Start 07/19/18 at 21:00 Non-Formulary Medication (Fluticasone/ Salmeterol (Advair 500-50 Diskus)) 1 inh BID IH ; Start 07/19/18 at 21:00; Status UNV Lisinopril (Prinivil) 5 mg DAILY PO Last administered on 07/19/18at 09:38; Start 07/19/18 at 10:00 Naproxen (Naprosyn) 500 mg BID PO Last administered on 07/19/18at 09:38; Start 07/19/18 at 10:00 Pantoprazole Sodium (Protonix) 40 mg DAILYAC PO Last administered on 07/19/18at 09:38; Start 07/19/18 at 10:00 Famotidine (Pepcid) 20 mg QHS PO ; Start 07/19/18 at 21:00 Simvastatin (Zocor) 20 mg HS PO ; Start 07/19/18 at 21:00 Non-Formulary Medication (Tiotropium Br/ Olodaterol HCl (Stiolto Respimat Inhal [place])) 2.5 gm DAILY IH ; Start 07/20/18 at 09:00; Status UNV Albuterol/ Ipratropium (Duoneb) 3 ml RTQID NEB Last administered on 07/19/18at 11:50; Start 07/19/18 at 12:00 Budesonide (Pulmicort) 0.5 mg RTBID NEB Last administered on 07/19/18at 11:50; Start 07/19/18 at 09:30 Tamsulosin HCl (Flomax) 0.8 mg HS PO ; Start 07/19/18 at 21:00 Active Scripts Active Lasix (Furosemide) 20 Mg Tablet 1 Tab PO DAILY [Albuterol Sulfate] 2.5 MG/3 ML Nebu 2.5 Mg NEB QID AND Q 2 HOURS [place] PRN Tylenol (Acetaminophen) 325 Mg Tablet 650 Mg PO PRN Q6HRS PRN 28 Days Reported Ranitidine Hcl 300 Mg Tablet 1 Tab PO QHS Protonix (Pantoprazole Sodium) 20 Mg Tablet.dr 40 Mg PO DAILYAC Naproxen 500 Mg Tablet 1 Tab PO BID Stiolto Respimat Inhal [place] (Tiotropium Br/Olodaterol HCl) 4 Gm Mist.inhal 2.5 Gm IH DAILY Lisinopril 5 Mg Tablet 1 Tab PO DAILY Flomax (Tamsulosin Hcl) 0.4 Mg Cap.er.24h 2 Cap PO DAILY Albuterol Sulfate Neb Soln (Albuterol Sulfate) 2.5 Mg/3 Ml Vial.neb 2.5 Mg NEB QID Azelastine Hcl 137 Mcg/0.137 Ml [place].pump 2 [place] NS BID Advair 500-50 Diskus (Fluticasone/Salmeterol) 1 Each Disk.w.dev 1 Inh IH BID Avodart (Dutasteride) 0.5 Mg Capsule 1 Cap PO HS Aspir 81 (Aspirin) 81 Mg Tablet.dr 1 Tab PO DAILY Zocor (Simvastatin) 20 Mg Tablet 20 Mg PO QHS Allergies Allergies: Coded Allergies: No Known Drug Allergies (Unverified , 10/21/17) ROS Review of System As per history of present illness, the rest of ROS 14 point negative Physical Exam General: No acute distress HEENT: Atraumatic, PERRLA Lungs: Normal air movement, Other (symmetrical chest expansion no crackles, wheezy, coughs after deep breaths) Heart: S1S2, RRR, no thrills, no rubs, no gallops, no murmurs Cardiovascular: S1, S2 Abdomen: Normal bowel sounds, Soft, No tenderness, No hepatosplenomegaly, No masses Rectal Exam: not examined PELVIC: Nml ext genitalia Extremities: No clubbing, No cyanosis, No edema, Normal pulses, No tenderness/swelling Skin: No rashes, No breakdown, No significant lesion Neuro: Normal gait, Normal speech, Strength at 5/5 X4 ext, Normal tone, Sensation intact, Cranial nerves 3-12 NL, Reflexes 2+ Psych/Mental Status: Mental status NL, Mood NL Vitals Vitals Vital Signs Date Time Temp Pulse Resp B/P (MAP) Pulse Ox O2 Delivery O2 Flow Rate FiO2 07/19/18 11:50 Nasal Cannula 2.0 07/19/18 11:00 97.6 65 16 125/75 (92) 98 97.6 Labs Labs Laboratory Tests Test 07/19/18 01:30 07/19/18 01:45 White Blood Count 6.7 x10^3/uL (4.0-11.0) Red Blood Count 4.70 x10^6/uL (4.30-5.70) Hemoglobin 14.1 g/dL (13.0-17.5) Hematocrit 43.3 % (39.0-53.0) Mean Corpuscular Volume 92 fL (79-100) Mean Corpuscular Hemoglobin 30 pg (25-35) Mean Corpuscular Hemoglobin Concent 33 g/dL (31-37) Red Cell Distribution Width 15.3 % (11.5-14.5) Platelet Count 127 x10^3/uL (140-400) Neutrophils (%) (Auto) 51 % (31-73) Lymphocytes (%) (Auto) 37 % (24-48) Monocytes (%) (Auto) 10 % (0-9) Eosinophils (%) (Auto) 2 % (0-3) Basophils (%) (Auto) 1 % (0-3) Neutrophils # (Auto) 3.4 x10^3uL (1.8-7.7) Lymphocytes # (Auto) 2.5 x10^3/uL (1.0-4.8) Monocytes # (Auto) 0.6 x10^3/uL (0.0-1.1) Eosinophils # (Auto) 0.1 x10^3/uL (0.0-0.7) Basophils # (Auto) 0.1 x10^3/uL (0.0-0.2) Sodium Level 143 mmol/L (136-145) Potassium Level 3.9 mmol/L (3.5-5.1) Chloride Level 108 mmol/L (98-107) Carbon Dioxide Level 32 mmol/L (21-32) Anion Gap 3 (6-14) Blood Urea Nitrogen 14 mg/dL (8-26) Creatinine 1.1 mg/dL (0.7-1.3) Estimated GFR (Cockcroft-Gault) 79.8 BUN/Creatinine Ratio 13 (6-20) Glucose Level 104 mg/dL (70-99) Calcium Level 8.7 mg/dL (8.5-10.1) Magnesium Level 2.0 mg/dL (1.8-2.4) Total Bilirubin 0.5 mg/dL (0.2-1.0) Aspartate Amino Transf (AST/SGOT) 15 U/L (15-37) Alanine Aminotransferase (ALT/SGPT) 13 U/L (16-63) Alkaline Phosphatase 83 U/L (46-116) Creatine Kinase 151 U/L (39-308) Creatine Kinase MB (Mass) 3.8 ng/mL (0.0-3.6) Creatine Kinase MB Relative Index 2.5 % (0-4) Troponin I Quantitative < 0.017 ng/mL (0.000-0.055) ZR-Fzp-C-Type Natriuretic Peptide 438 pg/mL (0-124) Total Protein 6.9 g/dL (6.4-8.2) Albumin 3.5 g/dL (3.4-5.0) Albumin/Globulin Ratio 1.0 (1.0-1.7) Lactic Acid Level 1.3 mmol/L (0.4-2.0) Influenza Type A Antigen Negative (NEGATIVE) Influenza Type B Antigen Negative (NEGATIVE) Laboratory Tests Test 07/19/18 01:30 07/19/18 01:45 White Blood Count 6.7 x10^3/uL (4.0-11.0) Red Blood Count 4.70 x10^6/uL (4.30-5.70) Hemoglobin 14.1 g/dL (13.0-17.5) Hematocrit 43.3 % (39.0-53.0) Mean Corpuscular Volume 92 fL (79-100) Mean Corpuscular Hemoglobin 30 pg (25-35) Mean Corpuscular Hemoglobin Concent 33 g/dL (31-37) Red Cell Distribution Width 15.3 % (11.5-14.5) Platelet Count 127 x10^3/uL (140-400) Neutrophils (%) (Auto) 51 % (31-73) Lymphocytes (%) (Auto) 37 % (24-48) Monocytes (%) (Auto) 10 % (0-9) Eosinophils (%) (Auto) 2 % (0-3) Basophils (%) (Auto) 1 % (0-3) Neutrophils # (Auto) 3.4 x10^3uL (1.8-7.7) Lymphocytes # (Auto) 2.5 x10^3/uL (1.0-4.8) Monocytes # (Auto) 0.6 x10^3/uL (0.0-1.1) Eosinophils # (Auto) 0.1 x10^3/uL (0.0-0.7) Basophils # (Auto) 0.1 x10^3/uL (0.0-0.2) Sodium Level 143 mmol/L (136-145) Potassium Level 3.9 mmol/L (3.5-5.1) Chloride Level 108 mmol/L (98-107) Carbon Dioxide Level 32 mmol/L (21-32) Anion Gap 3 (6-14) Blood Urea Nitrogen 14 mg/dL (8-26) Creatinine 1.1 mg/dL (0.7-1.3) Estimated GFR (Cockcroft-Gault) 79.8 BUN/Creatinine Ratio 13 (6-20) Glucose Level 104 mg/dL (70-99) Calcium Level 8.7 mg/dL (8.5-10.1) Magnesium Level 2.0 mg/dL (1.8-2.4) Total Bilirubin 0.5 mg/dL (0.2-1.0) Aspartate Amino Transf (AST/SGOT) 15 U/L (15-37) Alanine Aminotransferase (ALT/SGPT) 13 U/L (16-63) Alkaline Phosphatase 83 U/L (46-116) Creatine Kinase 151 U/L (39-308) Creatine Kinase MB (Mass) 3.8 ng/mL (0.0-3.6) Creatine Kinase MB Relative Index 2.5 % (0-4) Troponin I Quantitative < 0.017 ng/mL (0.000-0.055) OY-Ryu-L-Type Natriuretic Peptide 438 pg/mL (0-124) Total Protein 6.9 g/dL (6.4-8.2) Albumin 3.5 g/dL (3.4-5.0) Albumin/Globulin Ratio 1.0 (1.0-1.7) Lactic Acid Level 1.3 mmol/L (0.4-2.0) Influenza Type A Antigen Negative (NEGATIVE) Influenza Type B Antigen Negative (NEGATIVE) VTE Prophylaxis Ordered VTE Prophylaxis Devices: Yes VTE Pharmacological Prophylaxi: Yes Assessment/Plan Assessment/Plan COPD exacerbation, acute bronchitis-no pneumonia on x-ray History CHF-chronic stable Flu negative Plan:pulmo consulted, might able to DC later this afternoon or tomorrow Observation status I provided copies of his x-ray NIEVES LYNNE MD July 19, 2018 12:40
[2018-07-19 15:10] VITALS: BP 124/68
--- NOTE | 2018-07-19 16:28 | PDOC ---
PULMONARY PROGRESS NOTES Vitals Vital Signs Date Time Temp Pulse Resp B/P (MAP) Pulse Ox O2 Delivery O2 Flow Rate FiO2 07/19/18 15:39 Nasal Cannula 2.0 07/19/18 15:10 98.2 91 16 124/68 (86) 96 98.2 General: Alert, Oriented X4, No acute distress HEENT: Other Lungs: Wheezing Cardiovascular: S1, S2 Abdomen: Soft, Non-tender Extremities: No Edema Labs Laboratory Tests Test 07/19/18 01:30 07/19/18 01:45 White Blood Count 6.7 x10^3/uL (4.0-11.0) Red Blood Count 4.70 x10^6/uL (4.30-5.70) Hemoglobin 14.1 g/dL (13.0-17.5) Hematocrit 43.3 % (39.0-53.0) Mean Corpuscular Volume 92 fL (79-100) Mean Corpuscular Hemoglobin 30 pg (25-35) Mean Corpuscular Hemoglobin Concent 33 g/dL (31-37) Red Cell Distribution Width 15.3 % (11.5-14.5) Platelet Count 127 x10^3/uL (140-400) Neutrophils (%) (Auto) 51 % (31-73) Lymphocytes (%) (Auto) 37 % (24-48) Monocytes (%) (Auto) 10 % (0-9) Eosinophils (%) (Auto) 2 % (0-3) Basophils (%) (Auto) 1 % (0-3) Neutrophils # (Auto) 3.4 x10^3uL (1.8-7.7) Lymphocytes # (Auto) 2.5 x10^3/uL (1.0-4.8) Monocytes # (Auto) 0.6 x10^3/uL (0.0-1.1) Eosinophils # (Auto) 0.1 x10^3/uL (0.0-0.7) Basophils # (Auto) 0.1 x10^3/uL (0.0-0.2) Sodium Level 143 mmol/L (136-145) Potassium Level 3.9 mmol/L (3.5-5.1) Chloride Level 108 mmol/L (98-107) Carbon Dioxide Level 32 mmol/L (21-32) Anion Gap 3 (6-14) Blood Urea Nitrogen 14 mg/dL (8-26) Creatinine 1.1 mg/dL (0.7-1.3) Estimated GFR (Cockcroft-Gault) 79.8 BUN/Creatinine Ratio 13 (6-20) Glucose Level 104 mg/dL (70-99) Calcium Level 8.7 mg/dL (8.5-10.1) Magnesium Level 2.0 mg/dL (1.8-2.4) Total Bilirubin 0.5 mg/dL (0.2-1.0) Aspartate Amino Transf (AST/SGOT) 15 U/L (15-37) Alanine Aminotransferase (ALT/SGPT) 13 U/L (16-63) Alkaline Phosphatase 83 U/L (46-116) Creatine Kinase 151 U/L (39-308) Creatine Kinase MB (Mass) 3.8 ng/mL (0.0-3.6) Creatine Kinase MB Relative Index 2.5 % (0-4) Troponin I Quantitative < 0.017 ng/mL (0.000-0.055) RS-Sls-F-Type Natriuretic Peptide 438 pg/mL (0-124) Total Protein 6.9 g/dL (6.4-8.2) Albumin 3.5 g/dL (3.4-5.0) Albumin/Globulin Ratio 1.0 (1.0-1.7) Lactic Acid Level 1.3 mmol/L (0.4-2.0) Influenza Type A Antigen Negative (NEGATIVE) Influenza Type B Antigen Negative (NEGATIVE) Laboratory Tests Test 07/19/18 01:30 07/19/18 01:45 White Blood Count 6.7 x10^3/uL (4.0-11.0) Red Blood Count 4.70 x10^6/uL (4.30-5.70) Hemoglobin 14.1 g/dL (13.0-17.5) Hematocrit 43.3 % (39.0-53.0) Mean Corpuscular Volume 92 fL (79-100) Mean Corpuscular Hemoglobin 30 pg (25-35) Mean Corpuscular Hemoglobin Concent 33 g/dL (31-37) Red Cell Distribution Width 15.3 % (11.5-14.5) Platelet Count 127 x10^3/uL (140-400) Neutrophils (%) (Auto) 51 % (31-73) Lymphocytes (%) (Auto) 37 % (24-48) Monocytes (%) (Auto) 10 % (0-9) Eosinophils (%) (Auto) 2 % (0-3) Basophils (%) (Auto) 1 % (0-3) Neutrophils # (Auto) 3.4 x10^3uL (1.8-7.7) Lymphocytes # (Auto) 2.5 x10^3/uL (1.0-4.8) Monocytes # (Auto) 0.6 x10^3/uL (0.0-1.1) Eosinophils # (Auto) 0.1 x10^3/uL (0.0-0.7) Basophils # (Auto) 0.1 x10^3/uL (0.0-0.2) Sodium Level 143 mmol/L (136-145) Potassium Level 3.9 mmol/L (3.5-5.1) Chloride Level 108 mmol/L (98-107) Carbon Dioxide Level 32 mmol/L (21-32) Anion Gap 3 (6-14) Blood Urea Nitrogen 14 mg/dL (8-26) Creatinine 1.1 mg/dL (0.7-1.3) Estimated GFR (Cockcroft-Gault) 79.8 BUN/Creatinine Ratio 13 (6-20) Glucose Level 104 mg/dL (70-99) Calcium Level 8.7 mg/dL (8.5-10.1) Magnesium Level 2.0 mg/dL (1.8-2.4) Total Bilirubin 0.5 mg/dL (0.2-1.0) Aspartate Amino Transf (AST/SGOT) 15 U/L (15-37) Alanine Aminotransferase (ALT/SGPT) 13 U/L (16-63) Alkaline Phosphatase 83 U/L (46-116) Creatine Kinase 151 U/L (39-308) Creatine Kinase MB (Mass) 3.8 ng/mL (0.0-3.6) Creatine Kinase MB Relative Index 2.5 % (0-4) Troponin I Quantitative < 0.017 ng/mL (0.000-0.055) FD-Clm-K-Type Natriuretic Peptide 438 pg/mL (0-124) Total Protein 6.9 g/dL (6.4-8.2) Albumin 3.5 g/dL (3.4-5.0) Albumin/Globulin Ratio 1.0 (1.0-1.7) Lactic Acid Level 1.3 mmol/L (0.4-2.0) Influenza Type A Antigen Negative (NEGATIVE) Influenza Type B Antigen Negative (NEGATIVE) Medications Active Scripts Medications Dose Route/Sig Max Daily Dose Days Date Category Ranitidine Hcl 300 Mg Tablet 1 Tab PO QHS 07/19/18 Reported Protonix (Pantoprazole Sodium) 20 Mg Tablet.dr 40 Mg PO DAILYAC 07/19/18 Reported Naproxen 500 Mg Tablet 1 Tab PO BID 07/19/18 Reported Stiolto Respimat Inhal [place] (Tiotropium Br/Olodaterol HCl) 4 Gm Mist.inhal 2.5 Gm IH DAILY 07/19/18 Reported Lisinopril 5 Mg Tablet 1 Tab PO DAILY 07/19/18 Reported Flomax (Tamsulosin Hcl) 0.4 Mg Cap.er.24h 2 Cap PO DAILY 03/05/17 Reported Albuterol Sulfate Neb Soln (Albuterol Sulfate) 2.5 Mg/3 Ml Vial.neb 2.5 Mg NEB QID 03/05/17 Reported Lasix (Furosemide) 20 Mg Tablet 1 Tab PO DAILY 06/07/16 Rx [Albuterol Sulfate] 2.5 MG/3 ML Nebu 2.5 Mg NEB QID AND Q 2 HOURS [place] PRN 05/27/16 Rx Azelastine Hcl 137 Mcg/0.137 Ml [place].pump 2 [place] NS BID 05/25/16 Reported Advair 500-50 Diskus (Fluticasone/Salmeterol) 1 Each Disk.w.dev 1 Inh IH BID 05/25/16 Reported Avodart (Dutasteride) 0.5 Mg Capsule 1 Cap PO HS 05/25/16 Reported Aspir 81 (Aspirin) 81 Mg Tablet. 1 Tab PO DAILY 12/27/14 Reported Tylenol (Acetaminophen) 325 Mg Tablet 650 Mg PO PRN Q6HRS PRN 28 11/15/13 Rx Zocor (Simvastatin) 20 Mg Tablet 20 Mg PO QHS 02/10/13 Reported Impression . DICTATED AECOPD AGREE WITH CURRENT RX GINA ERAZO MD July 19, 2018 16:28
[2018-07-19 19:42] VITALS: BP 110/57
[2018-07-19] MEDS: SIMVASTATIN 20 MG TABLET PO SCH (21:00)
[2018-07-19] MEDS ORDERED: NON FORMULARY ITEM (Fluticasone/Salmeterol (Advair 500-50 Diskus) 1 INH) IH SCH (21:00)
[2018-07-19] MEDS ORDERED: FAMOTIDINE 20 MG TABLET. PO SCH (21:00)
[2018-07-19] MEDS: DUTASTERIDE 0.5 MG CAPSULE PO SCH (21:18)
[2018-07-19 23:53] VITALS: BP 102/50
[2018-07-20] VITALS (8 sets, daily range): BP systolic 102–158; BP diastolic 61–88
--- NOTE | 2018-07-20 03:11 | CONS ---
DATE OF CONSULTATION: 07/19/2018 ATTENDING PHYSICIAN: Dr. Hendrix. REASON FOR CONSULTATION: The patient is seen in pulmonary consultation at the request of Dr. Hendrix for increasing shortness of air. HISTORY OF PRESENT ILLNESS: The patient is 73-year-old and normally follows Dr. Russo in the office. He has underlying very severe COPD, tobacco dependent, currently in remission. He states that he quit tobacco approximately a month ago. He has had previous lung nodule. The patient presented with increasing shortness of breath, cough, wheezing and coughing up some dark sputum. No teofilo hemoptysis. He does have oxygen at home, utilizes p.r.n. and at bedtime. He denies fever, chills, nausea, vomiting. PAST MEDICAL HISTORY: 1. Severe COPD. 2. Chronic respiratory failure. 3. Secondary pulmonary hypertension. 4. Hyperlipidemia. 5. Chronic heart failure. PAST SURGICAL HISTORY: No recent major surgeries. HOME MEDICATIONS: List was reviewed. ALLERGIES: No known drug allergies. FAMILY HISTORY: Hypertension. SOCIAL HISTORY: He has well over [id number] history of tobacco use, continues to smoke. He stated that he quit approximately 3-4 weeks ago. REVIEW OF SYSTEMS: CONSTITUTIONAL: No fever or chills. EYES: No change in visual acuity. HEENT: As indicated above. PULMONARY: As indicated above. CARDIOVASCULAR: No chest pain. No pressure. GASTROINTESTINAL: No nausea, vomiting or diarrhea. GENITOURINARY: No dysuria or frequency. MUSCULOSKELETAL: No localized muscle aches or joint pain. CURRENT MEDICATIONS: List was reviewed. PHYSICAL EXAMINATION: GENERAL: The patient did not appear to be in any respiratory distress. VITAL SIGNS: Stable. O2 saturation was greater than 92%, currently on 2 liters. HEENT: Eyes, the sclerae were nonicteric. NECK: Jugular venous distention was not elevated. No lymphadenopathy. CHEST: Full expansion. LUNGS: There was coarse breath sounds with inspiratory and expiratory wheeze. CARDIOVASCULAR: Regular rate and rhythm with S1, S2, no S3. ABDOMEN: Soft, nontender, nondistended. EXTREMITIES: No clubbing, cyanosis or edema. Chest x-ray reviewed. I do not appreciate a new infiltrate. IMPRESSION: 1. Acute exacerbation of chronic obstructive pulmonary disease. 2. Acute on chronic hypoxemic respiratory failure. 3. Acute nonspecific bronchitis. 4. Previously abnormal CT chest revealing pulmonary nodule. He is scheduled to follow up in the office with Dr. Russo with a repeat scan. 5. Tobacco dependence, in remission. PLAN: 1. Continue current steroids and antibiotics. 2. The patient instructed on the importance of discontinuing tobacco use. 3. Once discharged, follow up with Dr. Russo in the office. I do appreciate the privilege in sharing in the patient's care. GINA ERAZO MD DR: ALEJANDRA/hardik JOB#: [id number] / [id number]
[2018-07-20] MEDS ORDERED: ALBUTEROL SULFATE 2.5 MG/3 ML NEBU. IH PRN (04:30)
[2018-07-20] MEDS: IPRATRPIUM/ALBUTEROL 0.5/2.5MG 3 ML NEBU. NEB SCH ×4 (08:09→21:50)
[2018-07-20] MEDS: BUDESONIDE 0.5 MG/2 ML NEBU. NEB SCH ×2 (08:09→21:51)
[2018-07-20] MEDS ORDERED: NON FORMULARY ITEM (Tiotropium Br/Olodaterol HCl (Stiolto Respimat Inhal Spray) 2.5 GM) IH SCH (09:00)
--- NOTE | 2018-07-20 09:01 | PDOC ---
PULMONARY PROGRESS NOTES Subjective PT STILL [facility] Vitals Vital Signs Date Time Temp Pulse Resp B/P (MAP) Pulse Ox O2 Delivery O2 Flow Rate FiO2 07/20/18 08:12 94 Nasal Cannula 2.0 07/20/18 07:12 98.1 63 20 102/61 (75) 98.1 ROS: No Nausea, No Chest Pain, No Abdominal Pain, No Increase Cough General: Alert, Oriented X4, No acute distress HEENT: Other Lungs: Wheezing Cardiovascular: S1, S2 Abdomen: Soft, Non-tender Extremities: No Edema Labs Laboratory Tests Test 07/19/18 01:30 07/19/18 01:45 White Blood Count 6.7 x10^3/uL (4.0-11.0) Red Blood Count 4.70 x10^6/uL (4.30-5.70) Hemoglobin 14.1 g/dL (13.0-17.5) Hematocrit 43.3 % (39.0-53.0) Mean Corpuscular Volume 92 fL (79-100) Mean Corpuscular Hemoglobin 30 pg (25-35) Mean Corpuscular Hemoglobin Concent 33 g/dL (31-37) Red Cell Distribution Width 15.3 % (11.5-14.5) Platelet Count 127 x10^3/uL (140-400) Neutrophils (%) (Auto) 51 % (31-73) Lymphocytes (%) (Auto) 37 % (24-48) Monocytes (%) (Auto) 10 % (0-9) Eosinophils (%) (Auto) 2 % (0-3) Basophils (%) (Auto) 1 % (0-3) Neutrophils # (Auto) 3.4 x10^3uL (1.8-7.7) Lymphocytes # (Auto) 2.5 x10^3/uL (1.0-4.8) Monocytes # (Auto) 0.6 x10^3/uL (0.0-1.1) Eosinophils # (Auto) 0.1 x10^3/uL (0.0-0.7) Basophils # (Auto) 0.1 x10^3/uL (0.0-0.2) Sodium Level 143 mmol/L (136-145) Potassium Level 3.9 mmol/L (3.5-5.1) Chloride Level 108 mmol/L (98-107) Carbon Dioxide Level 32 mmol/L (21-32) Anion Gap 3 (6-14) Blood Urea Nitrogen 14 mg/dL (8-26) Creatinine 1.1 mg/dL (0.7-1.3) Estimated GFR (Cockcroft-Gault) 79.8 BUN/Creatinine Ratio 13 (6-20) Glucose Level 104 mg/dL (70-99) Calcium Level 8.7 mg/dL (8.5-10.1) Magnesium Level 2.0 mg/dL (1.8-2.4) Total Bilirubin 0.5 mg/dL (0.2-1.0) Aspartate Amino Transf (AST/SGOT) 15 U/L (15-37) Alanine Aminotransferase (ALT/SGPT) 13 U/L (16-63) Alkaline Phosphatase 83 U/L (46-116) Creatine Kinase 151 U/L (39-308) Creatine Kinase MB (Mass) 3.8 ng/mL (0.0-3.6) Creatine Kinase MB Relative Index 2.5 % (0-4) Troponin I Quantitative < 0.017 ng/mL (0.000-0.055) CK-Ymi-U-Type Natriuretic Peptide 438 pg/mL (0-124) Total Protein 6.9 g/dL (6.4-8.2) Albumin 3.5 g/dL (3.4-5.0) Albumin/Globulin Ratio 1.0 (1.0-1.7) Lactic Acid Level 1.3 mmol/L (0.4-2.0) Influenza Type A Antigen Negative (NEGATIVE) Influenza Type B Antigen Negative (NEGATIVE) Medications Active Scripts Medications Dose Route/Sig Max Daily Dose Days Date Category Ranitidine Hcl 300 Mg Tablet 1 Tab PO QHS 07/19/18 Reported Protonix (Pantoprazole Sodium) 20 Mg Tablet.dr 40 Mg PO DAILYAC 07/19/18 Reported Naproxen 500 Mg Tablet 1 Tab PO BID 07/19/18 Reported Stiolto Respimat Inhal [place] (Tiotropium Br/Olodaterol HCl) 4 Gm Mist.inhal 2.5 Gm IH DAILY 07/19/18 Reported Lisinopril 5 Mg Tablet 1 Tab PO DAILY 07/19/18 Reported Flomax (Tamsulosin Hcl) 0.4 Mg Cap.er.24h 2 Cap PO DAILY 03/05/17 Reported Albuterol Sulfate Neb Soln (Albuterol Sulfate) 2.5 Mg/3 Ml Vial.neb 2.5 Mg NEB QID 03/05/17 Reported Lasix (Furosemide) 20 Mg Tablet 1 Tab PO DAILY 06/07/16 Rx [Albuterol Sulfate] 2.5 MG/3 ML Nebu 2.5 Mg NEB QID AND Q 2 HOURS [place] PRN 05/27/16 Rx Azelastine Hcl 137 Mcg/0.137 Ml [place].pump 2 [place] NS BID 05/25/16 Reported Advair 500-50 Diskus (Fluticasone/Salmeterol) 1 Each Disk.w.dev 1 Inh IH BID 05/25/16 Reported Avodart (Dutasteride) 0.5 Mg Capsule 1 Cap PO HS 05/25/16 Reported Aspir 81 (Aspirin) 81 Mg Tablet.dr 1 Tab PO DAILY 12/27/14 Reported Tylenol (Acetaminophen) 325 Mg Tablet 650 Mg PO PRN Q6HRS PRN 28 11/15/13 Rx Zocor (Simvastatin) 20 Mg Tablet 20 Mg PO QHS 02/10/13 Reported Impression . IMPRESSION: 1. Acute exacerbation of chronic obstructive pulmonary disease. 2. Acute on chronic hypoxemic respiratory failure. 3. Acute nonspecific bronchitis. 4. Previously abnormal CT chest revealing pulmonary nodule. He is scheduled to follow up in the office with Dr. Perea with a repeat scan. 5. Tobacco dependence, in remission. <Conclusion> The left ventricular systolic function is mildly impaired. The Ejection Fraction is 45-50%. Transmitral Doppler flow pattern is Grade I-abnormal relaxation pattern. No significant valvular abnormalities. There is no evidence of significant pericardial effusion. Plan . HOME IN AM OK 07/[address] STEROIDS FOLLOW UP [address] PEREA D/C GINA DICK MD July 20, 2018 09:01
[2018-07-20] MEDS: AZELASTINE NASAL SPRAY 30ML BOTTLE. NS SCH ×2 (09:14→21:00)
[2018-07-20] MEDS: ASPIRIN ENTERIC COATED 81 MG TABLET.DR. PO SCH (09:14)
[2018-07-20] MEDS: NAPROXEN 500 MG TABLET PO SCH ×2 (09:15→11:22)
[2018-07-20] MEDS: PANTOPRAZOLE 40 MG TABLET.DR. PO SCH (09:15)
[2018-07-20] MEDS: LISINOPRIL 5 MG TABLET. PO SCH (09:15)
[2018-07-20] MEDS: FUROSEMIDE 20 MG TABLET PO SCH (09:16)
--- NOTE | 2018-07-20 10:06 | PDOC ---
PROGRESS NOTES Chief Complaint Chief Complaint COPD exacerbation, acute bronchitis-no pneumonia on x-ray History CHF-chronic stable Flu negative History of Present Illness History of Present Illness Not good Wheezy today Also sinus congestion all over was not able to sleep last night' Asks about abx Pt of dr Russo HE does smoke Plan Start Rocephin and azithromycin start H1 antagonist Continue other meds Start Solu-Medrol 40 IV every 8 hrs, 60 IV now Not ready to DC Smoking cessation done one-to-one Pulmonary note reviewed, follow-up Dr. Russo on discharge Vitals Vitals Vital Signs Date Time Temp Pulse Resp B/P (MAP) Pulse Ox O2 Delivery O2 Flow Rate FiO2 07/20/18 09:15 63 102/61 07/20/18 08:12 94 Nasal Cannula 2.0 07/20/18 07:12 98.1 20 98.1 Physical Exam General: Alert, Oriented X3, Cooperative, No acute distress Heart: Regular rate, Normal S1, Normal S2, No murmurs Lungs: Wheezing Abdomen: Normal bowel sounds, Soft, No tenderness, No hepatosplenomegaly, No masses Extremities: No clubbing, No cyanosis, No edema, Normal pulses, No tenderness/swelling Skin: No rashes, No breakdown, No significant lesion Review of Systems Review of Systems Wheezy, sinus congestion, cough, the rest of ROS 14 point negative Assessment and Plan Assessmemt and Plan Problems Medical Problems: (1) COPD exacerbation Status: Acute Comment Review of Relevant I have reviewed the following items myra (where applicable) has been applied. Labs Laboratory Tests Test 07/19/18 01:30 07/19/18 01:45 White Blood Count 6.7 x10^3/uL (4.0-11.0) Red Blood Count 4.70 x10^6/uL (4.30-5.70) Hemoglobin 14.1 g/dL (13.0-17.5) Hematocrit 43.3 % (39.0-53.0) Mean Corpuscular Volume 92 fL (79-100) Mean Corpuscular Hemoglobin 30 pg (25-35) Mean Corpuscular Hemoglobin Concent 33 g/dL (31-37) Red Cell Distribution Width 15.3 % (11.5-14.5) Platelet Count 127 x10^3/uL (140-400) Neutrophils (%) (Auto) 51 % (31-73) Lymphocytes (%) (Auto) 37 % (24-48) Monocytes (%) (Auto) 10 % (0-9) Eosinophils (%) (Auto) 2 % (0-3) Basophils (%) (Auto) 1 % (0-3) Neutrophils # (Auto) 3.4 x10^3uL (1.8-7.7) Lymphocytes # (Auto) 2.5 x10^3/uL (1.0-4.8) Monocytes # (Auto) 0.6 x10^3/uL (0.0-1.1) Eosinophils # (Auto) 0.1 x10^3/uL (0.0-0.7) Basophils # (Auto) 0.1 x10^3/uL (0.0-0.2) Sodium Level 143 mmol/L (136-145) Potassium Level 3.9 mmol/L (3.5-5.1) Chloride Level 108 mmol/L (98-107) Carbon Dioxide Level 32 mmol/L (21-32) Anion Gap 3 (6-14) Blood Urea Nitrogen 14 mg/dL (8-26) Creatinine 1.1 mg/dL (0.7-1.3) Estimated GFR (Cockcroft-Gault) 79.8 BUN/Creatinine Ratio 13 (6-20) Glucose Level 104 mg/dL (70-99) Calcium Level 8.7 mg/dL (8.5-10.1) Magnesium Level 2.0 mg/dL (1.8-2.4) Total Bilirubin 0.5 mg/dL (0.2-1.0) Aspartate Amino Transf (AST/SGOT) 15 U/L (15-37) Alanine Aminotransferase (ALT/SGPT) 13 U/L (16-63) Alkaline Phosphatase 83 U/L (46-116) Creatine Kinase 151 U/L (39-308) Creatine Kinase MB (Mass) 3.8 ng/mL (0.0-3.6) Creatine Kinase MB Relative Index 2.5 % (0-4) Troponin I Quantitative < 0.017 ng/mL (0.000-0.055) HV-Gwx-A-Type Natriuretic Peptide 438 pg/mL (0-124) Total Protein 6.9 g/dL (6.4-8.2) Albumin 3.5 g/dL (3.4-5.0) Albumin/Globulin Ratio 1.0 (1.0-1.7) Lactic Acid Level 1.3 mmol/L (0.4-2.0) Influenza Type A Antigen Negative (NEGATIVE) Influenza Type B Antigen Negative (NEGATIVE) Medications Current Medications Aspirin (Carlos Aspirin) 325 mg 1X ONCE PO Last administered on 07/19/18at 02:14; Start 07/19/18 at 01:45; Stop 07/19/18 at 01:46; Status DC Albuterol/ Ipratropium (Duoneb) 3 ml 1X ONCE NEB Last administered on 07/19/18at 01:50; Start 07/19/18 at 01:45; Stop 07/19/18 at 01:46; Status DC Dexamethasone Sodium Phosphate (Decadron) 10 mg 1X ONCE IV Last administered on 07/19/18at 02:17; Start 07/19/18 at 01:45; Stop 07/19/18 at 01:46; Status DC Acetaminophen (Tylenol) 500 mg 1X ONCE PO Last administered on 07/19/18at 02:14; Start 07/19/18 at 02:00; Stop 07/19/18 at 02:01; Status DC Ondansetron HCl (Zofran) 4 mg PRN Q8HRS PRN IV NAUSEA/VOMITING; Start 07/19/18 at 04:15; Stop 07/19/18 at 09:08; Status DC Fentanyl Citrate (Fentanyl 2ml Vial) 50 mcg PRN Q4HRS PRN IV PAIN; Start 07/19/18 at 04:15 Albuterol/ Ipratropium (Duoneb) 3 ml RTQID NEB Last administered on 07/19/18at 08:02; Start 07/19/18 at 08:00; Stop 07/19/18 at 09:16; Status DC Levofloxacin/ Dextrose 150 ml @ 100 mls/hr 1X ONCE IV Last administered on 07/19/18at 05:41; Start 07/19/18 at 04:30; Stop 07/19/18 at 05:59; Status DC Ondansetron HCl (Zofran) 4 mg PRN Q6HRS PRN IV NAUSEA/VOMITING; Start 07/19/18 at 09:15 Acetaminophen (Tylenol) 500 mg PRN Q6HRS PRN PO MILD PAIN / TEMP; Start 07/19/18 at 09:15 Acetaminophen/ Codeine Phosphate (Tylenol #3) 1 tab PRN Q6HRS PRN PO MODERATE PAIN; Start 07/19/18 at 09:15 Aspirin (Ecotrin) 81 mg DAILY PO Last administered on 07/20/18 09:14; Start 07/20/18 at 10:00 Azelastine HCl (Astelin) 2 spray BID NS Last administered on 07/20/18 09:14; Start 07/19/18 at 10:00 Furosemide (Lasix) 20 mg DAILY PO Last administered on 07/20/18 09:16; Start 07/19/18 at 10:00 Tamsulosin HCl (Flomax) 0.8 mg DAILY PO ; Start 07/19/18 at 10:00; Stop 07/19/18 at 10:00; Status DC Dutasteride (Avodart) 0.5 mg QHS PO Last administered on 07/19/18 21:18; Start 07/19/18 at 21:00 Non-Formulary Medication (Fluticasone/ Salmeterol (Advair 500-50 Diskus)) 1 inh BID IH ; Start 07/19/18 at 21:00; Status UNV Lisinopril (Prinivil) 5 mg DAILY PO Last administered on 07/20/18 09:15; Start 07/19/18 at 10:00 Naproxen (Naprosyn) 500 mg BID PO Last administered on 07/20/18 09:15; Start 07/19/18 at 10:00 Pantoprazole Sodium (Protonix) 40 mg DAILYAC PO Last administered on 07/20/18 09:15; Start 07/19/18 at 10:00 Famotidine (Pepcid) 20 mg QHS PO ; Start 07/19/18 at 21:00; Stop 07/19/18 at 21:00; Status DC Simvastatin (Zocor) 20 mg HS PO Last administered on 07/19/18at 21:00; Start 07/19/18 at 21:00 Non-Formulary Medication (Tiotropium Br/ Olodaterol HCl (Stiolto Respimat Inhal [place])) 2.5 gm DAILY IH ; Start 07/20/18 at 09:00; Status UNV Albuterol/ Ipratropium (Duoneb) 3 ml RTQID NEB Last administered on 07/20/18at 08:09; Start 07/19/18 at 12:00 Budesonide (Pulmicort) 0.5 mg RTBID NEB Last administered on 07/20/18at 08:09; Start 07/19/18 at 09:30 Tamsulosin HCl (Flomax) 0.8 mg HS PO Last administered on 07/19/18at 21:19; Start 07/19/18 at 21:00 Albuterol Sulfate (Ventolin Neb Soln) 2.5 mg PRN Q2HRS PRN IH SHORTNESS OF BREATH Last administered on 07/20/18at 04:39; Start 07/20/18 at 04:30 Active Scripts Active Lasix (Furosemide) 20 Mg Tablet 1 Tab PO DAILY [Albuterol Sulfate] 2.5 MG/3 ML Nebu 2.5 Mg NEB QID AND Q 2 HOURS [place] PRN Tylenol (Acetaminophen) 325 Mg Tablet 650 Mg PO PRN Q6HRS PRN 28 Days Reported Ranitidine Hcl 300 Mg Tablet 1 Tab PO QHS Protonix (Pantoprazole Sodium) 20 Mg Tablet.dr 40 Mg PO DAILYAC Naproxen 500 Mg Tablet 1 Tab PO BID Stiolto Respimat Inhal [place] (Tiotropium Br/Olodaterol HCl) 4 Gm Mist.inhal 2.5 Gm IH DAILY Lisinopril 5 Mg Tablet 1 Tab PO DAILY Flomax (Tamsulosin Hcl) 0.4 Mg Cap.er.24h 2 Cap PO DAILY Albuterol Sulfate Neb Soln (Albuterol Sulfate) 2.5 Mg/3 Ml Vial.neb 2.5 Mg NEB QID Azelastine Hcl 137 Mcg/0.137 Ml [place].pump 2 [place] NS BID Advair 500-50 Diskus (Fluticasone/Salmeterol) 1 Each Disk.w.dev 1 Inh IH BID Avodart (Dutasteride) 0.5 Mg Capsule 1 Cap PO HS Aspir 81 (Aspirin) 81 Mg Tablet.dr 1 Tab PO DAILY Zocor (Simvastatin) 20 Mg Tablet 20 Mg PO QHS Vitals/I & O Vital Sign - Last 24 Hours 07/19/18 07/19/18 07/19/18 07/19/18 11:00 11:50 15:10 15:39 Temp 97.6 98.2 97.6 98.2 Pulse 65 91 Resp 16 16 B/P (MAP) 125/75 (92) 124/68 (86) Pulse Ox 98 96 O2 Delivery Nasal Cannula Nasal Cannula Nasal Cannula Nasal Cannula O2 Flow Rate 2.0 2.0 2.0 2.0 07/19/18 07/19/18 07/19/18 07/19/18 19:42 19:49 21:15 23:53 Temp 98.3 97.9 98.3 97.9 Pulse 59 65 Resp 16 16 B/P (MAP) 110/57 (74) 102/50 (67) Pulse Ox 96 90 98 O2 Delivery Nasal Cannula Nasal Cannula Room Air Nasal Cannula O2 Flow Rate 2.0 2.0 2.0 07/20/18 07/20/18 07/20/18 07/20/18 03:39 04:39 07:12 08:12 Temp 97.8 98.1 97.8 98.1 Pulse 66 63 Resp 16 20 B/P (MAP) 158/68 (98) 102/61 (75) Pulse Ox 98 94 99 94 O2 Delivery Nasal Cannula Nasal Cannula Nasal Cannula Nasal Cannula O2 Flow Rate 2.0 2.0 2.0 2.0 07/20/18 09:15 Pulse 63 B/P (MAP) 102/61 Intake and Output 07/19/18 07/19/18 07/20/18 15:00 23:00 07:00 Intake Total 360 ml 600 ml 200 ml Balance 360 ml 600 ml 200 ml NIEVES LYNNE MD July 20, 2018 10:06
[2018-07-20] MEDS ORDERED: AZITHROMYCIN 500 MG in IV NORMAL SALINE 250ML 250 ML IV ONE (10:15)
[2018-07-20] MEDS ORDERED: methylPREDNISolone SOD SUCC PF 125 MG/2 ML VIAL. IV ONE (10:15)
[2018-07-20] MEDS: cefTRIAXone IV Push 1 GM VIAL. IVP SCH (11:12)
[2018-07-20] MEDS: CETIRIZINE HCL 10 MG TABLET. PO SCH (11:22)
--- NOTE | 2018-07-20 13:02 | PDOC2 ---
CARDIAC CONSULT DATE OF CONSULT Date of Consult DATE: 07/20/18 TIME: 12:33 REASON FOR CONSULT Reason for Consult: Frequent PVC REFERRING PHYSICIAN Referring Physician: Simeon SOURCE Source: Chart review, Patient HISTORY OF PRESENT ILLNESS HISTORY OF PRESENT ILLNESS This is a pleasant 73 yo male admitted for complains of SOA. In the last 2-3 months his activity tolerance He has told me that this yr so far he has visited the hospital twice primarily due to his COPD. In the last week he has been getting increasingly SOA despite O2 supplementation. It has gotten to a point that he could not lay down to his usual angle due to SOA and also has been having PND. Also with chills and diaphoresis and more importantly increasing productive cough with yellow sputum. His legs have been getting increasingly swollen but no redness. Denies any chest pain or palpitations or sinking feeling on his chest but has been having brief periods of dizziness parituclarly with positional changes and after bouts of coughing. Denies any nausea, vomiting or diarrhea. He has stopped smoking tobacco and has been comp;aint with his medications. PAST MEDICAL HISTORY Past Medical History Cardiovascular: CHF, Hyperlipidemia, Pulmonary hypertension, NICM Pulmonary: severe COPD, FEV1 35% GI: SBO, GERD, gastric polyp, diverticulosis Heme/Onc: No pertinent hx Hepatobiliary: No pertinent hx Psych: No pertinent hx Rheumatologic: No pertinent hx Infectious disease: No pertinent hx ENT: Sinusitis, allergic rhinitis Renal/: Benign prostatic enlarg. Endocrine: No pertinent hx Dermatology: No pertinent hx PAST SURGICAL HISTORY Past Surgical History (Foot surgery, Bladder surgery, Bowel obstruction repair, hearing implant) FAMILY HISTORY Family History: Stroke SOCIAL HISTORY Smoke: <1 pack per day ALCOHOL: none Drugs: None Lives: Alone CURRENT MEDICATIONS CURRENT MEDICATIONS Current Medications Medications (Trade) Dose Ordered Sig/Dandre Route PRN Reason Start Time Stop Time Status Last Admin Dose Admin Aspirin (Ecotrin) 81 mg DAILY PO 07/20/18 10:00 07/20/18 09:14 Dutasteride (Avodart) 0.5 mg QHS PO 07/19/18 21:00 07/19/18 21:18 Simvastatin (Zocor) 20 mg HS PO 07/19/18 21:00 07/19/18 21:00 Tamsulosin HCl (Flomax) 0.8 mg HS PO 07/19/18 21:00 07/19/18 21:19 Albuterol Sulfate (Ventolin Neb Soln) 2.5 mg PRN Q2HRS PRN IH SHORTNESS OF BREATH 07/20/18 04:30 07/20/18 04:39 Ceftriaxone Sodium (Rocephin) 1 gm Q24H IVP 07/20/18 10:00 07/20/18 11:12 Azithromycin 500 mg/Sodium Chloride 250 ml @ 250 mls/hr 1X ONCE IV 07/20/18 10:15 07/20/18 11:14 DC 07/20/18 11:13 Cetirizine HCl (ZyrTEC) 10 mg DAILY PO 07/20/18 10:15 07/20/18 11:22 Methylprednisolone Sodium Succinate (SOLU-Medrol 125MG VIAL) 60 mg 1X ONCE IV 07/20/18 10:15 07/20/18 10:16 DC 07/20/18 11:21 ALLERGIES ALLERGIES: Coded Allergies: No Known Drug Allergies (Unverified , 10/21/17) ROS Review of System 14 point ROS evaluated with pertinent positives noted per HPI PHYSICAL EXAM General: Alert, Oriented X3, Cooperative, No acute distress HEENT: Mucous membr. moist/pink, Other (JVD) Lungs: Other (diminished throughout) Heart: Regular rate (SR with PVCs), Normal S1, Normal S2, Other (2/6 systolic murmur to LLS border) Abdomen: Soft, No tenderness Extremities: No cyanosis, Other (2+ bilateral LE pitting edema) Skin: No breakdown, Other (LE brownish hyperpigmentation bilaterally) Neuro: Normal speech, Sensation intact Psych/Mental Status: Mental status NL, Mood NL MUSCULOSKELETAL: Osteoarthritic changes both hands VITALS VITALS Vital Signs Date Time Temp Pulse Resp B/P (MAP) Pulse Ox O2 Delivery O2 Flow Rate FiO2 07/20/18 10:32 97.7 78 19 112/88 (96) 100 Nasal Cannula 2.0 97.7 STRESS TEST STRESS TEST Conclusion 1. Abnormal baseline EKG but no EKG evidence of stressed induced ischemia. 2. Nuclear imaging shows no significant reversible ischemia. 3. Nuclear imaging shows a small fixed apical defect which may represent a previous infarct or possibly a technical defect in the setting of normal LV function. 4. Left ventricle systolic function shows no regional wall motion abnormalities and an ejection fraction of 51%. 5. Moderately low risk Lexiscan nuclear stress test with no reversible ischemia and an ejection fraction of 61%. DATE: 01/26/18 1201 ASSESSMENT/PLAN ASSESSMENT/PLAN 1. Asymptomatic Arrhythmia: frequent PVCs, B2 agonist could be contributing. 2. Prolonged QTc: per review ranging from 470 to 520 per past EKG reviews, currently at 505 3. AECOPD: last known FEV1 35% 4. Acute on chronic diastolic CHF/cor pulmonale: clinically dyspnea is more from severe COPD, currently appears compensated 5. Hx of NICM: prior 40% and recent MPI with no reversible defect as noted above with EF at 61% 6. HTN: controlled 7. HLP 8. Postural and posttussive presyncopal spells: no falls or syncope. Recommendations 1. If possible avoid QT prolonging agents 2. Check TSH, BMP and Mg. TTE today 3. Continue with secondary prevention measures. Replace Mg and K as warranted. 4. BB is a consideration pending test. 5. Check orthostatic readings. 6. MCOT for 1 wk to note PVC burden 7. Noted A1C in 2017 at 6.5, could be steroid induced vs DM2, recheck A1C. 8. Continue home PO lasix and encouraged daily wt and to call if wt gain or CHF symptoms. TAYLOR WADDELL APRN July 20, 2018 13:02
[2018-07-20 13:45] LABS: CALCIUM 8.3 mg/dL (8.5-10.1); CREATININE 1.3 mg/dL (0.7-1.3); GFR 65.8; MAGNESIUM 1.7 mg/dL (1.8-2.4); POTASSIUM 4.2 mmol/L (3.5-5.1)
[2018-07-20] MEDS ORDERED: MAGNESIUM SULFATE 2GM 50 ML IV ONE (14:00)
[2018-07-20] MEDS: methylPREDNISolone SOD SUCC PF 40 MG/ML VIAL. IV SCH ×2 (15:09→21:36)
--- NOTE | 2018-07-20 15:46 | CARD ---
MR#: [id number] Date of Study: 07/20/2018 Ordering Physician: TAYLOR WADDELL, Referring Physician: RONNY FLORES, Tech: Yolanda Allison APPROVED REPORT EXAM: Two-dimensional and M-mode echocardiogram with Doppler and color Doppler. Other Information Quality : FairHR: 67bpm Technically limited study due to COPD INDICATION COPD Arrhythmia Dyspnea Cardiomyopathy 2D DIMENSIONS RVDd3.2 (2.9-3.5cm)IVSd1.0 (0.7-1.1cm) Aortic Root(2D)2.9 (2.0-3.7cm)LVDd4.8 (3.9-5.9cm) LVOT Diameter2.2 (1.8-2.4cm)PWd0.9 (0.7-1.1cm) LVDs3.5 (2.5-4.0cm)FS (%) 26.0 % SV54.5 mlLVEF(%)51.0 (>50%) Aortic Valve AoV Peak Jovani.130.7cm/sAoV VTI27.4cm AO Peak GR.6.8mmHgLVOT Peak Jovani.71.6cm/s LVOT VTI 17.19cmAO Mean GR.4mmHg RORO (VMAX)1.74vq7DOP (VTI)2.33cm2 Mitral Valve MV E Aqwcwhdw51.0cm/sMV DECEL GMBC806rh MV A Biyrsfwj974.6cm/sMV SOG86cw E/A Ratio0.9MVA (PHT)2.59cm2 TDI E/Lateral E'10.8E/Medial E'12.3 Pulmonary Valve PV Peak Gzlsziqi826.1cm/sPV Peak Grad.6mmHg Pulmonary Vein S1 Riyzxavr01.0cm/sD2 Chzgwtks57.9cm/s PVa [id number] LEFT VENTRICLE The left ventricle is normal size. There is normal left ventricular wall thickness. The left ventricu lar systolic function is mildly impaired. The Ejection Fraction is 45-50%. There is global hypokinesi s of the left ventricle. Transmitral Doppler flow pattern is Grade I-abnormal relaxation pattern. RIGHT VENTRICLE The right ventricle is normal size. There is normal right ventricular wall thickness. The right ventr icular systolic function is normal. ATRIA The left atrium size is normal. The right atrium size is normal. The interatrial septum bows toward r ight atrium consistent with elevated left atrial pressure. AORTIC VALVE The aortic valve is thickened but opens well. Doppler and Color Flow revealed no significant aortic r egurgitation. There is no significant aortic valvular stenosis. MITRAL VALVE The mitral valve is thickened but opens well. There is no evidence of mitral valve prolapse. There is no mitral valve stenosis. Doppler and Color Flow revealed no mitral valve regurgitation noted. TRICUSPID VALVE The tricuspid valve is not well visualized. Doppler and Color Flow revealed no tricuspid valve regurg itation noted. There is no tricuspid valve stenosis. PULMONIC VALVE The pulmonic valve is not well visualized. Doppler and Color Flow revealed no pulmonic valvular regur gitation. GREAT VESSELS The aortic root is normal in size. The IVC is dilated and collapses >50% with inspiration. PERICARDIAL EFFUSION There is no evidence of significant pericardial effusion. Critical Notification Critical Value: No <Conclusion> The left ventricular systolic function is mildly impaired. The Ejection Fraction is 45-50%. Transmitral Doppler flow pattern is Grade I-abnormal relaxation pattern. No significant valvular abnormalities. There is no evidence of significant pericardial effusion. Signed by : Poncho Wylie, Electronically Approved : 07/20/2018 15:45:25
[2018-07-20] MEDS ORDERED: FUROSEMIDE 40 MG TABLET. PO ONE (16:00)
[2018-07-20] MEDS: TAMSULOSIN 0.4 MG CAP.ER.24H. PO SCH (21:36)
[2018-07-20] MEDS: DUTASTERIDE 0.5 MG CAPSULE PO SCH (21:37)
[2018-07-20] MEDS: LACTOBACILLUS RHAMNOSUS GG 1 CAPSULE. PO SCH (21:37)
[2018-07-20] MEDS: SIMVASTATIN 20 MG TABLET PO SCH (21:37)
[2018-07-20 22:09] LABS: HEMOGLOBIN A1C 5.9 % (4.8-5.6)
[2018-07-21 03:20] VITALS: BP 123/54
[2018-07-21] MEDS: methylPREDNISolone SOD SUCC PF 40 MG/ML VIAL. IV SCH ×2 (06:19→13:17)
[2018-07-21 07:15] VITALS: BP 99/60
[2018-07-21] MEDS: BUDESONIDE 0.5 MG/2 ML NEBU. NEB SCH (08:07)
[2018-07-21] MEDS: IPRATRPIUM/ALBUTEROL 0.5/2.5MG 3 ML NEBU. NEB SCH ×2 (08:07→11:44)
[2018-07-21] MEDS: AZELASTINE NASAL SPRAY 30ML BOTTLE. NS SCH (08:14)
[2018-07-21] MEDS: ASPIRIN ENTERIC COATED 81 MG TABLET.DR. PO SCH (08:15)
[2018-07-21] MEDS: CETIRIZINE HCL 10 MG TABLET. PO SCH (08:15)
[2018-07-21] MEDS: NAPROXEN 500 MG TABLET PO SCH (08:15)
[2018-07-21] MEDS: FUROSEMIDE 20 MG TABLET PO SCH (08:15)
[2018-07-21] MEDS: LACTOBACILLUS RHAMNOSUS GG 1 CAPSULE. PO SCH (08:15)
[2018-07-21] MEDS: PANTOPRAZOLE 40 MG TABLET.DR. PO SCH (08:15)
[2018-07-21] MEDS: LISINOPRIL 5 MG TABLET. PO SCH ×2 (08:16→08:23)
[2018-07-21] MEDS ORDERED: AZITHROMYCIN 250 MG TABLET. PO SCH (09:00)
--- NOTE | 2018-07-21 09:43 | PDOC ---
PULMONARY PROGRESS NOTES Subjective PT STILL SOA Vitals Vital Signs Date Time Temp Pulse Resp B/P (MAP) Pulse Ox O2 Delivery O2 Flow Rate FiO2 07/21/18 08:23 61 99/60 07/21/18 08:09 97 Nasal Cannula 2.0 07/21/18 07:15 97.2 20 97.2 ROS: No Nausea, No Chest Pain, No Abdominal Pain, No Increase Cough General: Alert, Oriented X4, No acute distress HEENT: Other Lungs: Wheezing Cardiovascular: S1, S2 Abdomen: Soft, Non-tender Extremities: No Edema Labs Laboratory Tests Test 07/20/18 13:10 Sodium Level 142 mmol/L (136-145) Potassium Level 4.2 mmol/L (3.5-5.1) Chloride Level 105 mmol/L (98-107) Carbon Dioxide Level 29 mmol/L (21-32) Anion Gap 8 (6-14) Blood Urea Nitrogen 22 mg/dL (8-26) Creatinine 1.3 mg/dL (0.7-1.3) Estimated GFR (Cockcroft-Gault) 65.8 Glucose Level 158 mg/dL (70-99) Hemoglobin A1c 5.9 % (4.8-5.6) Calcium Level 8.3 mg/dL (8.5-10.1) Magnesium Level 1.7 mg/dL (1.8-2.4) Thyroid Stimulating Hormone (TSH) 0.153 uIU/mL (0.358-3.74) Laboratory Tests Test 07/20/18 13:10 Sodium Level 142 mmol/L (136-145) Potassium Level 4.2 mmol/L (3.5-5.1) Chloride Level 105 mmol/L (98-107) Carbon Dioxide Level 29 mmol/L (21-32) Anion Gap 8 (6-14) Blood Urea Nitrogen 22 mg/dL (8-26) Creatinine 1.3 mg/dL (0.7-1.3) Estimated GFR (Cockcroft-Gault) 65.8 Glucose Level 158 mg/dL (70-99) Hemoglobin A1c 5.9 % (4.8-5.6) Calcium Level 8.3 mg/dL (8.5-10.1) Magnesium Level 1.7 mg/dL (1.8-2.4) Thyroid Stimulating Hormone (TSH) 0.153 uIU/mL (0.358-3.74) Medications Active Scripts Medications Dose Route/Sig Max Daily Dose Days Date Category Ranitidine Hcl 300 Mg Tablet 1 Tab PO QHS 07/19/18 Reported Protonix (Pantoprazole Sodium) 20 Mg Tablet.dr 40 Mg PO DAILYAC 07/19/18 Reported Naproxen 500 Mg Tablet 1 Tab PO BID 07/19/18 Reported Stiolto Respimat Inhal [place] (Tiotropium Br/Olodaterol HCl) 4 Gm Mist.inhal 2.5 Gm IH DAILY 07/19/18 Reported Lisinopril 5 Mg Tablet 1 Tab PO DAILY 07/19/18 Reported Flomax (Tamsulosin Hcl) 0.4 Mg Cap.er.24h 2 Cap PO DAILY 03/05/17 Reported Albuterol Sulfate Neb Soln (Albuterol Sulfate) 2.5 Mg/3 Ml Vial.neb 2.5 Mg NEB QID 03/05/17 Reported Lasix (Furosemide) 20 Mg Tablet 1 Tab PO DAILY 06/07/16 Rx [Albuterol Sulfate] 2.5 MG/3 ML Nebu 2.5 Mg NEB QID AND Q 2 HOURS WA PRN 05/27/16 Rx Azelastine Hcl 137 Mcg/0.137 Ml [place].pump 2 [place]mer NS BID 05/25/16 Reported Advair 500-50 Diskus (Fluticasone/Salmeterol) 1 Each Disk.w.dev 1 Inh IH BID 05/25/16 Reported Avodart (Dutasteride) 0.5 Mg Capsule 1 Cap PO HS 05/25/16 Reported Aspir 81 (Aspirin) 81 Mg Tablet.dr 1 Tab PO DAILY 12/27/14 Reported Tylenol (Acetaminophen) 325 Mg Tablet 650 Mg PO PRN Q6HRS PRN 28 11/15/13 Rx Zocor (Simvastatin) 20 Mg Tablet 20 Mg PO QHS 02/10/13 Reported Impression . IMPRESSION: 1. Acute exacerbation of chronic obstructive pulmonary disease. 2. Acute on chronic hypoxemic respiratory failure. 3. Acute nonspecific bronchitis. 4. Previously abnormal CT chest revealing pulmonary nodule. He is scheduled to follow up in the office with Dr. Perea with a repeat scan. 5. Tobacco dependence, in remission. <Conclusion> The left ventricular systolic function is mildly impaired. The Ejection Fraction is 45-50%. Transmitral Doppler flow pattern is Grade I-abnormal relaxation pattern. No significant valvular abnormalities. There is no evidence of significant pericardial effusion. Plan . HOME IN AM OK 07/21 STEROIDS FOLLOW UP WITH DR PEREA D/C GINA DICK MD July 21, 2018 09:43
[2018-07-21] MEDS: cefTRIAXone IV Push 1 GM VIAL. IVP SCH (10:00)
[2018-07-21 10:44] LABS: CALCIUM 8.6 mg/dL (8.5-10.1); CREATININE 1.4 mg/dL (0.7-1.3); GFR 60.4; MAGNESIUM 2.1 mg/dL (1.8-2.4); POTASSIUM 4.4 mmol/L (3.5-5.1)
[2018-07-21 10:59] LABS: FREE T4 1.04 ng/dL (0.76-1.46)
[2018-07-21 11:00] VITALS: BP 116/59
--- NOTE | 2018-07-21 12:34 | PDOC3 ---
Discharge Summary Visit Information Date of Admission: July 19, 2018 Date of Discharge: July 21, 2018 Admitting Diagnosis Comment: COPD exacerbation, acute bronchitis-no pneumonia on x-ray History CHF-chronic stable Flu negative SMoker Final Diagnosis Problems Medical Problems: (1) COPD exacerbation Status: Acute Brief Hospital Course Allergies Allergies Coded Allergies Type Severity Reaction Last Updated Verified No Known Drug Allergies 10/21/17 No Vital Signs Vital Signs Date Time Temp Pulse Resp B/P (MAP) Pulse Ox O2 Delivery O2 Flow Rate FiO2 07/21/18 11:45 Nasal Cannula 2.0 07/21/18 11:00 97.5 65 20 116/59 (78) 97 97.5 Lab Results Laboratory Tests Test 07/20/18 13:10 07/21/18 09:20 07/21/18 09:24 Sodium Level 142 mmol/L (136-145) 144 mmol/L (136-145) Potassium Level 4.2 mmol/L (3.5-5.1) 4.4 mmol/L (3.5-5.1) Chloride Level 105 mmol/L (98-107) 106 mmol/L (98-107) Carbon Dioxide Level 29 mmol/L (21-32) 28 mmol/L (21-32) Anion Gap 8 (6-14) 10 (6-14) Blood Urea Nitrogen 22 mg/dL (8-26) 26 mg/dL (8-26) Creatinine 1.3 mg/dL (0.7-1.3) 1.4 mg/dL (0.7-1.3) Estimated GFR (Cockcroft-Gault) 65.8 60.4 Glucose Level 158 mg/dL (70-99) 153 mg/dL (70-99) Hemoglobin A1c 5.9 % (4.8-5.6) Calcium Level 8.3 mg/dL (8.5-10.1) 8.6 mg/dL (8.5-10.1) Magnesium Level 1.7 mg/dL (1.8-2.4) 2.1 mg/dL (1.8-2.4) Thyroid Stimulating Hormone (TSH) 0.153 uIU/mL (0.358-3.74) Free Thyroxine 1.04 ng/dL (0.76-1.46) Free Triiodothyronine (T3) pg/mL 1.74 pg/mL (2.18-3.98) Laboratory Tests Test 07/20/18 13:10 07/21/18 09:20 07/21/18 09:24 Sodium Level 142 mmol/L (136-145) 144 mmol/L (136-145) Potassium Level 4.2 mmol/L (3.5-5.1) 4.4 mmol/L (3.5-5.1) Chloride Level 105 mmol/L (98-107) 106 mmol/L (98-107) Carbon Dioxide Level 29 mmol/L (21-32) 28 mmol/L (21-32) Anion Gap 8 (6-14) 10 (6-14) Blood Urea Nitrogen 22 mg/dL (8-26) 26 mg/dL (8-26) Creatinine 1.3 mg/dL (0.7-1.3) 1.4 mg/dL (0.7-1.3) Estimated GFR (Cockcroft-Gault) 65.8 60.4 Glucose Level 158 mg/dL (70-99) 153 mg/dL (70-99) Hemoglobin A1c 5.9 % (4.8-5.6) Calcium Level 8.3 mg/dL (8.5-10.1) 8.6 mg/dL (8.5-10.1) Magnesium Level 1.7 mg/dL (1.8-2.4) 2.1 mg/dL (1.8-2.4) Thyroid Stimulating Hormone (TSH) 0.153 uIU/mL (0.358-3.74) Free Thyroxine 1.04 ng/dL (0.76-1.46) Free Triiodothyronine (T3) pg/mL 1.74 pg/mL (2.18-3.98) Brief Hospital Course Mr. Caceres is a 73 old [place] male with good IADLs, known patient of Dr. Russo from pulmonary, admitted because of COPD exacerbation/acute bronchitis, very wheezy high wheezing component, but no pneumonia on CXR. Needed 2 midnights No PT needs and stable to go home with Z-Davide and Medrol Dosepak and follow-up with analysis intern as instructed consults: pulmo Proc none Advised smoking cessation Discharge Information Condition at Discharge: Improved, Stable Follow Up: Weeks (analysis intern as instructed) Disposition/Orders: D/C to Home Scheduled Albuterol Sulfate (Albuterol Sulfate Neb Soln) 2.5 Mg/3 Ml Vial.neb, 2.5 MG NEB QID for FOR ASTHMA, Ref 0 (Reported) Entered as Reported by: ROBINA GARCIA on 03/05/17 1716 Last Action: HELD on 07/19/18907 by NIEVES TERMULO Aspirin (Aspir 81) 81 Mg Tablet.dr, 1 TAB PO DAILY, #30 Ref 5 (Reported) Entered as Reported by: GERALD LYNCH on 12/27/14 1005 Last Action: Continued on 07/19/18907 by NIEVES TERMULO Azelastine Hcl (Azelastine Hcl) 137 Mcg/0.137 Ml [place].pump, 2 SPRAY NS BID, #30 Ref 5 (Reported) Entered as Reported by: LEO DON on 05/25/16 0857 Last Action: Continued on 07/19/18907 by NIEVES TERMULO Dutasteride (Avodart) 0.5 Mg Capsule, 1 CAP PO HS, #30 Ref 5 (Reported) Entered as Reported by: LEO DON on 05/25/16 0854 Last Action: Converted on 07/19/18907 by NIEVES TERMULO Fluticasone/Salmeterol (Advair 500-50 Diskus) 1 Each Disk.w.dev, 1 INH IH BID, (Reported) Entered as Reported by: LEO DON on 05/25/16 0856 Last Action: Converted on 07/19/18907 by NIEVES TERMULO Furosemide (Lasix) 20 Mg Tablet, 1 TAB PO DAILY, #30 Ref 1 Prescribed by: HARESH BLAND on 06/07/16 1818 Last Action: Continued on 07/19/18907 by NIEVES TERMULO Lisinopril (Lisinopril) 5 Mg Tablet, 1 TAB PO DAILY for HTN, #30 Ref 5 (Reported) Entered as Reported by: JOHN ALMODOVAR RN on 07/19/18 0532 Last Taken: Unknown Dose on 07/18/18 Last Action: Converted on 07/19/18907 by NIEVES TERMULO Naproxen (Naproxen) 500 Mg Tablet, 1 TAB PO BID for ., #60 Ref 1 (Reported) Entered as Reported by: JOHN ALMODOVAR RN on 07/19/18531 Last Taken: Unknown Dose on 07/18/18 Last Action: Converted on 07/19/18907 by NIEVES LYNNE Pantoprazole Sodium (Protonix) 20 Mg Tablet.dr, 40 MG PO DAILYAC for ., (Reported) Entered as Reported by: JOHN ALMODOVAR RN on 07/19/18531 Last Taken: Unknown Dose on 07/18/18 Last Action: Converted on 07/19/18907 by NIEVES LYNNE Ranitidine Hcl (Ranitidine Hcl) 300 Mg Tablet, 1 TAB PO QHS for ., #90 Ref 3 (Reported) Entered as Reported by: JOHN ALMODOVAR RN on 07/19/18531 Last Taken: Unknown Dose on 07/18/18 Last Action: Converted on 07/19/18908 by NIEVES LYNNE Simvastatin (Zocor) 20 Mg Tablet, 20 MG PO QHS, (Reported) Entered as Reported by: SHAKIR TALLEY on 02/10/13 2231 Last Action: Converted on 07/19/18907 by NIEVES LYNNE Tamsulosin Hcl (Flomax) 0.4 Mg Cap.er.24h, 2 CAP PO DAILY, #30 Ref 11 (Reported) Entered as Reported by: ROBINA GARCIA on 03/05/17 1716 Last Action: Continued on 07/19/18907 by NIEVES LYNNE Tiotropium Br/Olodaterol HCl (Stiolto Respimat Inhal [place]) 4 Gm Mist.inhal, 2.5 GM IH DAILY for ., (Reported) Entered as Reported by: JOHN ALMODOVAR RN on 07/19/18531 Last Taken: Unknown Dose on 07/18/18 Last Action: Converted on 07/19/18907 by NIEVES LYNNE Scheduled PRN Acetaminophen (Tylenol) 325 Mg Tablet, 650 MG PO PRN Q6HRS PRN for PAIN / TEMP for 28 Days Prescribed by: HARESH BLAND on 11/15/13 0738 Last Action: HELD on 07/19/18907 by NIEVES LYNNE [Albuterol Sulfate] 2.5 MG/3 ML NEBU, 2.5 MG NEB qid and q 2 hours pr PRN for SHORTNESS OF BREATH, #1 Prescribed by: HARESH BLAND on 05/27/16 1553 Last Action: HELD on 07/19/18 09 by NIEVES LYNNE Discontinued Medications Ipratropium/Albuterol Sulfate (Combivent Respimat Inhal) 4 Gm Aer.w.adap, 2 INH IH QID, (Reported) Entered as Reported by: ANSON VALENZUELA on 12/25/17 0736 Last Action: Discontinued on 07/19/18531 by JOHN ALMODOVAR RN Potassium Chloride (Potassium Chloride) 10 Meq Capsule.er, 10 MEQ PO DAILY, (Reported) Entered as Reported by: ROBINA GARCIA on 03/05/17 1716 Last Action: Discontinued on 07/19/18531 by TIFFANY LITTLE CHERRIE Y MD July 21, 2018 12:34
--- NOTE | 2018-07-21 13:44 | PDOC ---
TAYLOR WADDELL DISC SANDER 07/21/18 1344: CARDIO Progress Notes Date and Time Date of Service 07/21/2018 Time of Evaluation 1320 Subjective Subjective: No Chest Pain, No shortness of breath, No Palpitations Vitals Vitals Vital Signs Date Time Temp Pulse Resp B/P (MAP) Pulse Ox O2 Delivery O2 Flow Rate FiO2 07/21/18 11:45 Nasal Cannula 2.0 07/21/18 11:00 97.5 65 20 116/59 (78) 97 97.5 Weight Weight [ ] Input and Output Intake and Output Intake and Output 07/21/18 07:00 Intake Total 1180 ml Balance 1180 ml Intake Oral 1180 ml # Voids 1 Laboratory Labs Laboratory Tests Test 07/21/18 09:20 07/21/18 09:24 Free Thyroxine 1.04 ng/dL (0.76-1.46) Free Triiodothyronine (T3) pg/mL 1.74 pg/mL (2.18-3.98) Sodium Level 144 mmol/L (136-145) Potassium Level 4.4 mmol/L (3.5-5.1) Chloride Level 106 mmol/L (98-107) Carbon Dioxide Level 28 mmol/L (21-32) Anion Gap 10 (6-14) Blood Urea Nitrogen 26 mg/dL (8-26) Creatinine 1.4 mg/dL (0.7-1.3) Estimated GFR (Cockcroft-Gault) 60.4 Glucose Level 153 mg/dL (70-99) Calcium Level 8.6 mg/dL (8.5-10.1) Magnesium Level 2.1 mg/dL (1.8-2.4) Physical Exam HEENT: Neck Supple W Full Motion Chest: Symmetric LUNGS: Other (diminished ) Heart: S1S2, RRR (SR ) Abdomen: Soft N/T Extremities: No Calf Tenderness Neurology: alert, oriented, follow commands Assessment Assessment 1. Asymptomatic Arrhythmia: frequent PVCs, better overnight with Mg replacement. Albuterol likely contributing. 2. Prolonged QTc: per review ranging from 470 to 520 per past EKG reviews, currently at 505 3. AECOPD: last known FEV1 35% 4. Acute on chronic diastolic CHF/cor pulmonale: clinically dyspnea is more from severe COPD, currently appears compensated 5. Hx of NICM: prior 40% currently EF at 45-50% and recent MPI with no reversible defect 6. HTN: controlled. No orthostasis 7. HLP 8. Possible secondary hypothyroidism: defer to PCP Recommendations 1. If possible avoid QT prolonging agents 2. PVC burden via MCOT as an outpt 3. Continue with secondary prevention measures. 4. BB is a consideration pending MCOT result. 5. Continue home PO lasix and encouraged daily wt and to call if wt gain or CHF symptoms. 6. Follow up in 4 weeks SOPHIE SHINE MD 07/21/18 1724: CARDIO Progress Notes Plan Plan Pt. seen and examined. Agree with above COMIC ILLUSTRATOR note. 73 y.o male with severe COPD and cor pulmonale Stable from CV standpoint. Continue diuresis. Continue asa, statin, low dose lasix and lisinopril. Consider further treatment of PVC's based on outpt monitoring. Supportive care. Pls call with questions. Repeat outpt EKG. TAYLOR WADDELL APRN July 21, 2018 13:44 SOPHIE SHINE MD July 21, 2018 17:24
[2018-07-21 15:00] VITALS: BP 121/62
--- NOTE | 2018-07-21 15:50 | NUR ---
Discharge Note: JUAN PABLO WATERMAN [facility] Discharge instructions and discharge home medications reviewed with Patient and a copy given. All questions have been answered and understanding verbalized. The following instructions and handouts were given: DIET, ACTIVITY, MEDICATION LIST, AND FOLLOW UP INSTRUCTIONS. Discontinued lines and drains: Peripheral IV DISCONTINUED AND CATHETER intact. Patient discharged to Home or Self Care with Self via Wheelchair.
== END 2018-07-21 15:30 | disposition home or self-care (01) | DRG 189 ==
LOC: ER 01:20 → 6 SOUTH 02:51
PROVIDERS: ADMIT Family Medicine; ATTEND Family Medicine
DX: J96.21 Acute and chronic respiratory failure with hypoxia (principal); N17.0 Acute kidney failure with tubular necrosis; I50.33 Acute on chronic diastolic (congestive) heart failure; J44.1 Chronic obstructive pulmonary disease with (acute) exacerbation; J44.0 Chronic obstructive pulmonary disease with (acute) lower respiratory infection; R65.10 Systemic inflammatory response syndrome (SIRS) of non-infectious origin without acute organ dysfunction; I42.9 Cardiomyopathy, unspecified; I11.0 Hypertensive heart disease with heart failure; J20.9 Acute bronchitis, unspecified; K57.90 Diverticulosis of intestine, part unspecified, without perforation or abscess without bleeding; E78.00 Pure hypercholesterolemia, unspecified; E78.5 Hyperlipidemia, unspecified; F17.211 Nicotine dependence, cigarettes, in remission; I27.29 Other secondary pulmonary hypertension; I45.81 Long QT syndrome; K21.9 Gastro-esophageal reflux disease without esophagitis; N40.0 Benign prostatic hyperplasia without lower urinary tract symptoms; Z82.3 Family history of stroke; Z82.49 Family history of ischemic heart disease and other diseases of the circulatory system; Z79.899 Other long term (current) drug therapy; Z99.81 Dependence on supplemental oxygen
CPT/HCPCS: 36415; 71045; 80048; 80053; 82553; 83036; 83605; 83735; 83880; 84439; 84443; 84481; 84484; 85025; 87804; 93005; 93306; 94640; 94760; 96374; J0456; J0696; J1100; J1956; J2920; J2930; J3475; J7050; J7613; J7620; J7626; Q0144; 99285-25; J7030

== ENCOUNTER 2018-10-02 01:13 | Inpatient (IN) | payer MEDICARE ==
[~2018-10-02] VITALS: Ht 175.3 cm; Wt 84.5 kg
[~2018-10-02 01:13] MED LIST changes: +LISI-338 PO; +MONT10TA49 PO; -MONT10TA9 PO; +PANT20TA2 PO; -PANT40TA5 PO; +PANT40TA77 PO; +RANI300T PO; +TIOT4MIS3 IH
--- NOTE | 2018-10-02 01:51 | PHYS DOC ---
Past Medical History Past Medical History: Arthritis, CHF, COPD, GERD, High Cholesterol, Hypertension Additional Past Medical Histor: ENLARGED PROSTATE, BOWEL OBSTRUCTION Past Surgical History: Tonsillectomy Additional Past Surgical Histo: foot surgery, bladder surgery, BOWEL RESECTION Alcohol Use: Occasionally Drug Use: None Adult General Chief Complaint Chief Complaint: ABDOMINAL PAIN HPI HPI Patient is a 73 year old male who presents with 5 days without a bowel moveme nt. He has passed gas intermittently during that time. He says he has early satiety every time he tries to eat something even a couple bites he feels very full and then his abdomen will start sort of getting distended and have some intermittent crampy abdominal pain he is worried because he had a bowel distraction 5 years ago and also now the abdomen is starting to press on his lungs making his COPD get worse. No fever no vomiting NO NARCOTIC PAIN MEDS, DOES TAKE NAPROXEN SOMETIMES Review of Systems Review of Systems Constitutional: Denies fever or chills [] Eyes: Denies change in visual acuity, redness, or eye pain [] HENT: Denies nasal congestion or sore throat [] Respiratory: Denies cough or shortness of breath [] Cardiovascular: No additional information not addressed in HPI [] GI: Musculoskeletal: Neurologic: Denies headache, focal weakness or sensory changes [] All other systems were reviewed and found to be within normal limits, except as documented in this note. Current Medications Current Medications Current Medications Medications (Trade) Dose Ordered Sig/Dandre Start Time Stop Time Status Last Admin Dose Admin Albuterol/ Ipratropium (Duoneb) 3 ml 1X ONCE 10/02/18 02:00 10/02/18 02:01 DC 10/02/18 01:50 3 ML Sodium Chloride 500 ml @ 500 mls/hr 1X ONCE 10/02/18 02:00 10/02/18 02:59 DC 10/02/18 02:24 500 MLS/HR Allergies Allergies Allergies Coded Allergies Type Severity Reaction Last Updated Verified No Known Drug Allergies 10/21/17 No Physical Exam Physical Exam Constitutional: Well developed, well nourished, no acute distress, non-toxic appearance. [] HENT: Normocephalic, atraumatic, bilateral external ears normal, oropharynx moist, no oral exudates, nose normal. [] Eyes: PERRLA, EOMI, conjunctiva normal, no discharge. [] Neck: Normal range of motion, no tenderness, supple, no stridor. [] Cardiovascular:Heart rate regular rhythm, no murmur [] Lungs & Thorax: Wheezing noted throughout all lung jordan Abdomen: Bowel sounds normal, soft, there is mild tenderness throughout there is a well-healed surgical incision Skin: Warm, dry, no erythema, no rash. [] Back: No tenderness, no CVA tenderness. [] Extremities: No tenderness, no cyanosis, no clubbing, ROM intact, no edema. [] Neurologic: Alert and oriented X 3, normal motor function, normal sensory function, no focal deficits noted. [] Psychologic: Affect normal, judgement normal, mood normal. [] Current Patient Data Vital Signs Vital Signs Date Time Temp Pulse Resp B/P (MAP) Pulse Ox O2 Delivery O2 Flow Rate FiO2 10/02/18 01:50 95 Room Air 10/02/18 01:20 98.0 90 17 137/87 (104) 98.0 Lab Values Laboratory Tests Test 10/02/18 01:52 White Blood Count 5.8 x10^3/uL (4.0-11.0) Red Blood Count 4.39 x10^6/uL (4.30-5.70) Hemoglobin 13.6 g/dL (13.0-17.5) Hematocrit 40.1 % (39.0-53.0) Mean Corpuscular Volume 91 fL (79-100) Mean Corpuscular Hemoglobin 31 pg (25-35) Mean Corpuscular Hemoglobin Concent 34 g/dL (31-37) Red Cell Distribution Width 14.9 % (11.5-14.5) H Platelet Count 161 x10^3/uL (140-400) Neutrophils (%) (Auto) 58 % (31-73) Lymphocytes (%) (Auto) 31 % (24-48) Monocytes (%) (Auto) 9 % (0-9) Eosinophils (%) (Auto) 2 % (0-3) Basophils (%) (Auto) 0 % (0-3) Neutrophils # (Auto) 3.4 x10^3/uL (1.8-7.7) Lymphocytes # (Auto) 1.8 x10^3/uL (1.0-4.8) Monocytes # (Auto) 0.5 x10^3/uL (0.0-1.1) Eosinophils # (Auto) 0.1 x10^3/uL (0.0-0.7) Basophils # (Auto) 0.0 x10^3/uL (0.0-0.2) Prothrombin Time 13.7 SEC (11.7-14.0) Prothrombin Time INR 1.1 (0.8-1.1) Sodium Level 142 mmol/L (136-145) Potassium Level 3.6 mmol/L (3.5-5.1) Chloride Level 106 mmol/L (98-107) Carbon Dioxide Level 29 mmol/L (21-32) Anion Gap 7 (6-14) Blood Urea Nitrogen 12 mg/dL (8-26) Creatinine 1.1 mg/dL (0.7-1.3) Estimated GFR (Cockcroft-Gault) 79.8 BUN/Creatinine Ratio 11 (6-20) Glucose Level 133 mg/dL (70-99) H Calcium Level 8.6 mg/dL (8.5-10.1) Total Bilirubin 0.6 mg/dL (0.2-1.0) Aspartate Amino Transferase (AST) 17 U/L (15-37) Alanine Aminotransferase (ALT) 13 U/L (16-63) L Alkaline Phosphatase 83 U/L (46-116) Troponin I Quantitative < 0.017 ng/mL (0.000-0.055) Total Protein 6.6 g/dL (6.4-8.2) Albumin 3.1 g/dL (3.4-5.0) L Albumin/Globulin Ratio 0.9 (1.0-1.7) L Lipase 1531 U/L (73-393) H Laboratory Tests 10/02/18 01:52 Laboratory Tests 10/02/18 01:52 EKG EKG EKG shows a normal sinus rhythm QTC 489 PVC noted no STEMI[] Radiology/Procedures Radiology/Procedures [] Impressions: IMPRESSION: 1. Minimal induration of fat surrounding the pancreas head and the proximal duodenum. Considerations include uncomplicated mild pancreatitis or duodenitis. 2. Consolidations in the right middle lobe and lingula are incompletely imaged. Considerations include scarring, atelectasis, or pneumonia. 3. 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 4. Distal colon diverticulosis. 5. Mild pelvic free fluid. 6. Mild urinary bladder wall thickening. Considerations include chronic bladder outlet obstruction or nonspecific cystitis. Electronically signed by: Albin Jeff MD (10/02/2018 3:23 AM) [facility] DICTATED and SIGNED BY: ALBIN JEFF MD DATE: 10/02/18 0323 Course & Med Decision Making Course & Med Decision Making Pertinent Labs and Imaging studies reviewed. 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 Abdomen is mildly distended he does have some bowel sounds that are slightly reduced differential would include bowel obstruction given his history so we will do some lab work and then get him over to the CT scanner. In addition he does have some wheezing albuterol was ordered for COPD we will do x-ray as well. noted lipase ct scan confirms pancreatitis. also pna, possibly --added cultures and levaquin ater seeing ct. noted gu findings on ct but pt has reassuring u/a and cr. admit to hims. Dragon Disclaimer Dragon Disclaimer This electronic medical record was generated, in whole or in part, using a voice recognition dictation system. Departure Departure Impression: Primary Impression: Pancreatitis Additional Impression: COPD exacerbation Disposition: ADMITTED INPATIENT Admitting Physician: CYNTHIA Condition: STABLE Referrals: HARESH BLAND MD (PCP) Problem Qualifiers SHIRA TURNER MD Oct 02, 2018 01:51
[2018-10-02] MEDS ORDERED: IV NORMAL SALINE 500ML BAG 500 ML IV ONE (02:00)
[2018-10-02] MEDS ORDERED: IPRATRPIUM/ALBUTEROL 0.5/2.5MG 3 ML NEBU. NEB ONE (02:00)
[2018-10-02 02:02] LABS: BASO % 0 % (0-3); EOS # 0.1 x10^3/uL (0.0-0.7); EOS % 2 % (0-3); HEMATOCRIT 40.1 % (39.0-53.0); HEMOGLOBIN 13.6 g/dL (13.0-17.5); LYMPH # 1.8 x10^3/uL (1.0-4.8); LYMPH % 31 % (24-48); MEAN CORPUSCULAR HEMOGLOBIN 31 pg (25-35); MEAN CORPUSCULAR HGB CONC 34 g/dL (31-37); MEAN CORPUSCULAR VOLUME 91 fL (79-100); MONO # 0.5 x10^3/uL (0.0-1.1); MONO % 9 % (0-9); NEUT # 3.4 x10^3/uL (1.8-7.7); NEUT % 58 % (31-73); PLATELET COUNT 161 x10^3/uL (140-400); RED BLOOD COUNT 4.39 x10^6/uL (4.30-5.70); RED CELL DISTRIBUTION WIDTH 14.9 % (11.5-14.5); WHITE BLOOD COUNT 5.8 x10^3/uL (4.0-11.0)
[2018-10-02 02:13] LABS: CALCIUM 8.6 mg/dL (8.5-10.1); CREATININE 1.1 mg/dL (0.7-1.3); GFR 79.8; POTASSIUM 3.6 mmol/L (3.5-5.1)
[2018-10-02 02:20] LABS: PROTHROMBIN TIME PATIENT 13.7 SEC (11.7-14.0)
[2018-10-02 02:22] LABS: ALBUMIN 3.1 g/dL (3.4-5.0); ALBUMIN/GLOBULIN RATIO 0.9 (1.0-1.7); TOTAL BILIRUBIN 0.6 mg/dL (0.2-1.0); TOTAL PROTEIN 6.6 g/dL (6.4-8.2)
[2018-10-02] MEDS ORDERED: CONTRAST GIVEN. MC PRN (02:45)
[2018-10-02] MEDS ORDERED: IOHEXOL 300 MG/ML 100ML VIAL. IV ONE (03:00)
[2018-10-02 03:07] LABS: BILIRUBIN,URINE NEGATIVE (NEG); CLARITY,URINE CLEAR; COLOR,URINE YELLOW; NITRITE,URINE NEGATIVE (NEG); PROTEIN,URINE NEGATIVE (NEG-TRACE)
[2018-10-02 03:11] LABS: SQUAMOUS EPITHELIAL CELL,UR FEW /LPF
[2018-10-02 03:12] LABS: BACTERIA,URINE 0 /HPF (0-FEW); RBC,URINE RARE /HPF (0-2); WBC,URINE RARE /HPF (0-4)
[2018-10-02 03:18] VITALS: BP 111/69
--- NOTE | 2018-10-02 03:26 | RAD ---
PQRS Compliance Statement: One or more of the following individualized dose reduction techniques were utilized for this examination: 1. Automated exposure control 2. Adjustment of the mA and/or kV according to patient size 3. Use of iterative reconstruction technique CT ABD PELV W/ IV CONTRST ONLY Clinical Indication: Elevated lipase. Prior history small bowel obstruction. Comparison: CT abdomen and pelvis with contrast, October 30, 2013. Technique: Helical CT imaging of the abdomen and pelvis is performed after 75 cc of Omnipaque 300 IV contrast. Oral contrast not given. Findings: There are consolidations in the inferior lingula and the right middle lobe, incompletely imaged. Air bronchograms are seen in the right middle lobe consolidation. Mild atelectasis or scarring in the left lower lobe. Mild bilateral lower lobe peribronchial thickening. Cardiac size normal. The liver, gallbladder, spleen, adrenal glands, and abdominal aorta caliber are normal. There is a 4.5 cm right renal cyst. There are several small left renal cysts. No ureteral calculus. There is mild left pelvicaliectasis, point of transition is the ureteropelvic junction, there may be UPJ stenosis. No right hydronephrosis. Pancreas is homogeneous. There is minimal induration of fat surrounding the pancreas head. No pseudocyst is seen. There is no gastric wall thickening. There is small duodenal diverticulum. No dilated small bowel. There is small bowel surgical anastomosis. Distal colon diverticulosis. No colon wall thickening is seen. The appendix is normal. No abdominal adenopathy or free fluid. Urinary bladder is not well distended, accentuating wall thickness. Prostate size upper limits of normal. Mild pelvic free fluid, abnormal. Minimal grade 1 anterolisthesis of L5 on S1. Degenerative arthropathy of the hips. IMPRESSION: 1. Minimal induration of fat surrounding the pancreas head and the proximal duodenum. Considerations include uncomplicated mild pancreatitis or duodenitis. 2. Consolidations in the right middle lobe and lingula are incompletely imaged. Considerations include scarring, atelectasis, or pneumonia. 3. 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 4. Distal colon diverticulosis. 5. Mild pelvic free fluid. 6. Mild urinary bladder wall thickening. Considerations include chronic bladder outlet obstruction or nonspecific cystitis. Electronically signed by: Albin Jeff MD (10/02/2018 3:23 AM) [facility]
[2018-10-02] MEDS ORDERED: levOFLOXacin PER PHARMACY. MC PRN (03:45)
[2018-10-02] MEDS: IV NORMAL SALINE 1000ML BAG 1,000 ML IV SCH ×3 (03:45→23:34)
[2018-10-02] MEDS: MORPHINE SULFATE 4 MG/ML VIAL. IV PRN ×2 (03:47→09:24)
--- NOTE | 2018-10-02 04:12 | RAD ---
PORTABLE CHEST 1V Clinical Indication: Shortness of breath. Comparison: AP chest, July 19, 2018. Findings: The cardiomediastinal silhouette is normal. Mild bibasilar airspace disease. There is no pneumothorax. No pleural effusion is appreciated. No acute bone abnormality. IMPRESSION: Mild bibasilar airspace disease. Electronically signed by: Albin Jeff MD (10/02/2018 4:09 AM) [facility]
[2018-10-02] MEDS ORDERED: FLUT16SP NS (05:27)
[2018-10-02 07:00] VITALS: BP 112/69
--- NOTE | 2018-10-02 07:21 | EKG ---
[facility] [address] [place] [address] Test Date: 2018-10-02 Test Time: 01:45:04 Pat Name: JUAN PABLO WATERMAN Department: Room: Gender: M Hand Tier: : 1945 Requested By: SHIRA TURNER Order Number: [id number] Reading MD: Measurements Intervals Prather Rate: 90 P: 71 DC: 142 QRS: 31 QRSD: 90 T: 43 QT: 396 QTc: 489 Interpretive Statements SINUS RHYTHM VENTRICULAR PREMATURE COMPLEX(ES) PROLONGED QT ABNORMAL ECG RI6.01 Unconfirmed report No previous ECG available for comparison
[2018-10-02] MEDS: IPRATRPIUM/ALBUTEROL 0.5/2.5MG 3 ML NEBU. NEB SCH ×4 (08:36→19:53)
--- NOTE | 2018-10-02 08:48 | PDOC1 ---
History and Physical Date of Admission Date of Admission DATE: 10/02/18 TIME: 08:43 Identification/Chief Complaint Chief Complaint Nausea and vomiting Source Source: Chart review, Patient History of Present Illness History of Present Illness Mr Caceres is a 73 yo M w/ PMHx Arthritis, CHF, COPD, GERD, High Cholesterol, Hypertension, BPH, h/o SBO who presents with 5 days with early satiety and constipation. He has passed gas intermittently during that time. He says he has early satiety every time he tries to eat something even a couple bites he feels very full and then his abdomen will start sort of getting distended and have some intermittent crampy abdominal pain he is worried because he had a bowel distraction 5 years ago and also now the abdomen is starting to press on his lungs making his COPD get worse. No fever no vomiting. In ED treated for COPD exacerbation and after lipase [address] abdomen confirmed pancreatitis was placed NPO on IVF and found with right middle lobe consolidation, started on levaquin for pneumonia. Past Medical History Cardiovascular: CHF, Hyperlipidemia, Pulmonary hypertension Pulmonary: Bronchitis, COPD GI: Other Heme/Onc: No pertinent hx Hepatobiliary: No pertinent hx Psych: No pertinent hx Rheumatologic: No pertinent hx Infectious disease: No pertinent hx Renal/: Benign prostatic enlarg. Endocrine: No pertinent hx Past Surgical History Past Surgical History: Other Family History Family History: Stroke Social History Smoke: No ALCOHOL: none Drugs: None Current Problem List Problem List Problems Medical Problems: (1) COPD exacerbation Status: Acute Current Medications Current Medications Current Medications Albuterol/ Ipratropium (Duoneb) 3 ml 1X ONCE NEB Last administered on 10/02/18at 01:50; Start 10/02/18 at 02:00; Stop 10/02/18 at 02:01; Status DC Sodium Chloride 500 ml @ 500 mls/hr 1X ONCE IV Last administered on 10/02/18at 02:24; Start 10/02/18 at 02:00; Stop 10/02/18 at 02:59; Status DC Morphine Sulfate (Morphine Sulfate) 4 mg PRN Q2HR PRN IV SEVERE PAIN 7-10 Last administered on 10/02/18at 03:47; Start 10/02/18 at 02:45; Stop 10/03/18 at 02:44 Sodium Chloride 1,000 ml @ 100 mls/hr Q10H IV Last administered on 10/02/18at 03:45; Start 10/02/18 at 03:00; Stop 10/03/18 at 02:59 Albuterol/ Ipratropium (Duoneb) 3 ml RTQID NEB Last administered on 10/02/18at 08:36; Start 10/02/18 at 08:00; Stop 10/03/18 at 07:59 Iohexol (Omnipaque 300 Mg/ml) 75 ml 1X ONCE IV Last administered on 10/02/18at 02:51; Start 10/02/18 at 03:00; Stop 10/02/18 at 03:01; Status DC Info (CONTRAST GIVEN -- Rx MONITORING) 1 each PRN DAILY PRN MC SEE COMMENTS; Start 10/02/18 at 02:45; Stop 10/04/18 at 02:44 Levofloxacin/ Dextrose (Levaquin Per Pharmacy) 1 each PRN DAILY PRN MC SEE COMMENTS; Start 10/02/18 at 03:45 Levofloxacin/ Dextrose 100 ml @ 100 mls/hr Q24H IV ; Start 10/02/18 at 05:00 Active Scripts Active Lasix (Furosemide) 20 Mg Tablet 1 Tab PO DAILY [Albuterol Sulfate] 2.5 MG/3 ML Nebu 2.5 Mg NEB QID AND Q 2 HOURS LA PRN Tylenol (Acetaminophen) 325 Mg Tablet 650 Mg PO PRN Q6HRS PRN 28 Days Reported Fluticasone Propionate Nasal Talpa (Fluticasone Propionate) 16 Gm Talpa.susp 2 Talpa NS DAILY Ranitidine Hcl 300 Mg Tablet 1 Tab PO QHS Protonix (Pantoprazole Sodium) 20 Mg Tablet.dr 40 Mg PO DAILYAC Naproxen 500 Mg Tablet 1 Tab PO BID Stiolto Respimat Inhal Talpa (Tiotropium Br/Olodaterol HCl) 4 Gm Mist.inhal 2.5 Gm IH DAILY Lisinopril 5 Mg Tablet 1 Tab PO DAILY Flomax (Tamsulosin Hcl) 0.4 Mg Cap.er.24h 2 Cap PO DAILY Albuterol Sulfate Neb Soln (Albuterol Sulfate) 2.5 Mg/3 Ml Vial.neb 2.5 Mg NEB QID Azelastine Hcl 137 Mcg/0.137 Ml Talpa.pump 2 Talpa NS BID Advair 500-50 Diskus (Fluticasone/Salmeterol) 1 Each Disk.w.dev 1 Inh IH BID Avodart (Dutasteride) 0.5 Mg Capsule 1 Cap PO HS Aspir 81 (Aspirin) 81 Mg Tablet.dr 1 Tab PO DAILY Zocor (Simvastatin) 20 Mg Tablet 20 Mg PO QHS Allergies Allergies: Coded Allergies: No Known Drug Allergies (Unverified , 10/21/17) ROS General: YES: Fatigue, Malaise; No: Chills, Night Sweats, Appetite, Other PSYCHOLOGICAL ROS: No: Anxiety, Behavioral Disorder, Concentration difficultie, Decreased libido, Depression, Disorientation, Hallucinations, Hostility, Irritablity, Memory difficulties, Mood Swings, Obsessive thoughts, Physical abuse, Sexual abuse, Sleep disturbances, Suicidal ideation, Other Eyes: No Blurry vision, No Decreased vision, No Double vision, No Dry eyes, No Excessive tearing, No Eye Pain, No Itchy Eyes, No Loss of vision, No Photoph obia, No Scotomata, No Uses contacts, No Uses glasses, No Other HEENT: YES: Hearing change; No: Heacaches, Visual Changes, Nasal congestion, Nasal discharge, Oral lesions, Sinus pain, Sore Throat, Epistaxis, Sneezing, Snoring, Tinnitus, Vertigo, Vocal changes, Other ALLERGY AND IMMUNOLOGY: No: Hives, Insect Bite Sensitivity, Itchy/Watery Eyes, Nasal Congestion, Post Nasal Drip, Seasonal Allergies, Other Hematological and Lymphatic: No: Bleeding Problems, Blood Clots, Blood Transfusions, Brusing, Night Sweats, Pallor, Swollen Lymph Nodes, Other ENDOCRINE: No: Breast Changes, Galactorrhea, Hair Pattern Changes, Hot Flashes, Malaise/lethargy, Mood Swings, Palpitations, Polydipsia/polyuria, Skin Changes, Temperature Intolerance, Unexpected Weight Changes, Other Breast: No New/Changing Breast Lumps, No Nipple changes, No Nipple discharge, No Other Respiratory: YES: Shortness of breath, SOB with excertion, Tachypnea, Wheezing; No: Cough, Hemoptysis, Orthopnea, Pleuritic Pain, Sputum Changes, Stridor, Other Cardiovascular: No Chest Pain, No Palpitations, No Orthopnea, No Paroxysmal Noc. Dyspnea, No Edema, No Lt Headedness, No Other Gastrointestinal: Yes Nausea, Yes Vomiting, Yes Abdominal Pain, Yes Constipation; No Diarrhea, No Melena, No Hematochezia, No Other Genitourinary: No Dysuria, No Frequency, No Incontinence, No Hematuria, No Retention, No Discharge, No Urgency, No Pain, No Flank Pain, No Other, No , No , No , No , No , No , No Musculoskeletal: No Gait Disturbance, No Joint Pain, No Joint Stiffness, No Joint Swelling, No Muscle Pain, No Muscular Weakness, No Pain In:, No Swelling In:, No Other Neurological: No Behavorial Changes, No Bowel/Bladder ControlChng, No Confusion, No Dizziness, No Gait Disturbance, No Headaches, No Impaired Coord/balance, No Memory Loss, No Numbness/Tingling, No Seizures, No Speech Problems, No Tremors, No Visual Changes, No Weakness, No Other Skin: No Dry Skin, No Eczema, No Hair Changes, No Lumps, No Mole Changes, No Mottling, No Nail Changes, No Pruritus, No Rash, No Skin Lesion Changes, No Other, No Acne Physical Exam General: Alert, Oriented X3, Cooperative, No acute distress HEENT: Atraumatic, PERRLA, EOMI, Mucous membr. moist/pink Lungs: Other (Right sided crackles, scattered wheezes) Heart: S1S2, RRR, no gallops, no murmurs Abdomen: Normal bowel sounds, Soft, No hepatosplenomegaly, No masses, Other (LLQ tenderness, left flank tenderness) Rectal Exam: not examined Extremities: No clubbing, No cyanosis, No edema, Normal pulses, No tenderness/swelling Skin: No rashes, No breakdown, No significant lesion Neuro: Normal gait, Normal speech, Strength at 5/5 X4 ext, Normal tone, Sens ation intact, Cranial nerves 3-12 NL, Reflexes 2+ Psych/Mental Status: Mental status NL, Mood NL Vitals Vitals Vital Signs Date Time Temp Pulse Resp B/P (MAP) Pulse Ox O2 Delivery O2 Flow Rate FiO2 10/02/18 07:00 97.5 64 18 112/69 (83) 97 Nasal Cannula 2.0 97.5 Labs Labs Laboratory Tests Test 10/02/18 01:52 10/02/18 02:59 White Blood Count 5.8 x10^3/uL (4.0-11.0) Red Blood Count 4.39 x10^6/uL (4.30-5.70) Hemoglobin 13.6 g/dL (13.0-17.5) Hematocrit 40.1 % (39.0-53.0) Mean Corpuscular Volume 91 fL (79-100) Mean Corpuscular Hemoglobin 31 pg (25-35) Mean Corpuscular Hemoglobin Concent 34 g/dL (31-37) Red Cell Distribution Width 14.9 % (11.5-14.5) Platelet Count 161 x10^3/uL (140-400) Neutrophils (%) (Auto) 58 % (31-73) Lymphocytes (%) (Auto) 31 % (24-48) Monocytes (%) (Auto) 9 % (0-9) Eosinophils (%) (Auto) 2 % (0-3) Basophils (%) (Auto) 0 % (0-3) Neutrophils # (Auto) 3.4 x10^3/uL (1.8-7.7) Lymphocytes # (Auto) 1.8 x10^3/uL (1.0-4.8) Monocytes # (Auto) 0.5 x10^3/uL (0.0-1.1) Eosinophils # (Auto) 0.1 x10^3/uL (0.0-0.7) Basophils # (Auto) 0.0 x10^3/uL (0.0-0.2) Prothrombin Time 13.7 SEC (11.7-14.0) Prothromb Time International Ratio 1.1 (0.8-1.1) Sodium Level 142 mmol/L (136-145) Potassium Level 3.6 mmol/L (3.5-5.1) Chloride Level 106 mmol/L (98-107) Carbon Dioxide Level 29 mmol/L (21-32) Anion Gap 7 (6-14) Blood Urea Nitrogen 12 mg/dL (8-26) Creatinine 1.1 mg/dL (0.7-1.3) Estimated GFR (Cockcroft-Gault) 79.8 BUN/Creatinine Ratio 11 (6-20) Glucose Level 133 mg/dL (70-99) Calcium Level 8.6 mg/dL (8.5-10.1) Total Bilirubin 0.6 mg/dL (0.2-1.0) Aspartate Amino Transf (AST/SGOT) 17 U/L (15-37) Alanine Aminotransferase (ALT/SGPT) 13 U/L (16-63) Alkaline Phosphatase 83 U/L (46-116) Troponin I Quantitative < 0.017 ng/mL (0.000-0.055) Total Protein 6.6 g/dL (6.4-8.2) Albumin 3.1 g/dL (3.4-5.0) Albumin/Globulin Ratio 0.9 (1.0-1.7) Lipase 1531 U/L (73-393) Urine Collection Type Unknown Urine Color Yellow Urine Clarity Clear Urine pH 6.0 Urine Specific [place] 1.020 Urine Protein Negative mg/dL (NEG-TRACE) Urine Glucose (UA) Negative mg/dL (NEG) Urine Ketones (Stick) Negative mg/dL (NEG) Urine Blood Negative (NEG) Urine Nitrite Negative (NEG) Urine Bilirubin Negative (NEG) Urine Urobilinogen Dipstick 1.0 mg/dL (0.2 mg/dL) Urine Leukocyte Esterase Negative (NEG) Urine RBC Rare /HPF (0-2) Urine WBC Rare /HPF (0-4) Urine Squamous Epithelial Cells Few /LPF Urine Bacteria 0 /HPF (0-FEW) Urine Mucus Slight /LPF Laboratory Tests Test 10/02/18 01:52 10/02/18 02:59 White Blood Count 5.8 x10^3/uL (4.0-11.0) Red Blood Count 4.39 x10^6/uL (4.30-5.70) Hemoglobin 13.6 g/dL (13.0-17.5) Hematocrit 40.1 % (39.0-53.0) Mean Corpuscular Volume 91 fL (79-100) Mean Corpuscular Hemoglobin 31 pg (25-35) Mean Corpuscular Hemoglobin Concent 34 g/dL (31-37) Red Cell Distribution Width 14.9 % (11.5-14.5) Platelet Count 161 x10^3/uL (140-400) Neutrophils (%) (Auto) 58 % (31-73) Lymphocytes (%) (Auto) 31 % (24-48) Monocytes (%) (Auto) 9 % (0-9) Eosinophils (%) (Auto) 2 % (0-3) Basophils (%) (Auto) 0 % (0-3) Neutrophils # (Auto) 3.4 x10^3/uL (1.8-7.7) Lymphocytes # (Auto) 1.8 x10^3/uL (1.0-4.8) Monocytes # (Auto) 0.5 x10^3/uL (0.0-1.1) Eosinophils # (Auto) 0.1 x10^3/uL (0.0-0.7) Basophils # (Auto) 0.0 x10^3/uL (0.0-0.2) Prothrombin Time 13.7 SEC (11.7-14.0) Prothromb Time International Ratio 1.1 (0.8-1.1) Sodium Level 142 mmol/L (136-145) Potassium Level 3.6 mmol/L (3.5-5.1) Chloride Level 106 mmol/L (98-107) Carbon Dioxide Level 29 mmol/L (21-32) Anion Gap 7 (6-14) Blood Urea Nitrogen 12 mg/dL (8-26) Creatinine 1.1 mg/dL (0.7-1.3) Estimated GFR (Cockcroft-Gault) 79.8 BUN/Creatinine Ratio 11 (6-20) Glucose Level 133 mg/dL (70-99) Calcium Level 8.6 mg/dL (8.5-10.1) Total Bilirubin 0.6 mg/dL (0.2-1.0) Aspartate Amino Transf (AST/SGOT) 17 U/L (15-37) Alanine Aminotransferase (ALT/SGPT) 13 U/L (16-63) Alkaline Phosphatase 83 U/L (46-116) Troponin I Quantitative < 0.017 ng/mL (0.000-0.055) Total Protein 6.6 g/dL (6.4-8.2) Albumin 3.1 g/dL (3.4-5.0) Albumin/Globulin Ratio 0.9 (1.0-1.7) Lipase 1531 U/L (73-393) Urine Collection Type Unknown Urine Color Yellow Urine Clarity Clear Urine pH 6.0 Urine Specific [place] 1.020 Urine Protein Negative mg/dL (NEG-TRACE) Urine Glucose (UA) Negative mg/dL (NEG) Urine Ketones (Stick) Negative mg/dL (NEG) Urine Blood Negative (NEG) Urine Nitrite Negative (NEG) Urine Bilirubin Negative (NEG) Urine Urobilinogen Dipstick 1.0 mg/dL (0.2 mg/dL) Urine Leukocyte Esterase Negative (NEG) Urine RBC Rare /HPF (0-2) Urine WBC Rare /HPF (0-4) Urine Squamous Epithelial Cells Few /LPF Urine Bacteria 0 /HPF (0-FEW) Urine Mucus Slight /LPF Images Images CXR - Mild bibasilar airspace disease. CT abdomen - 1. Minimal induration of fat surrounding the pancreas head and the proximal duodenum. Considerations include uncomplicated mild pancreatitis or duodenitis. 2. Consolidations in the right middle lobe and lingula are incompletely imaged. Considerations include scarring, atelectasis, or pneumonia. 3. 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 4. Distal colon diverticulosis. 5. Mild pelvic free fluid. 6. Mild urinary bladder wall thickening. Considerations include chronic bladder outlet obstruction or nonspecific cystitis. VTE Prophylaxis Ordered VTE Prophylaxis Devices: Yes VTE Pharmacological Prophylaxi: Yes Assessment/Plan Assessment/Plan A/P: Acute pancreatitis - does not drink, will keep NPO, US of GB, consult GI Right middle lobe pneumonia - with h/o COPD likely has gram negative pneumonia due to structural lung disease, needs coverage, will continue levaquin Hypoxia - likely 2/2 COPD exacerbation and pneumonia, wean as tolerated Arthritis - tylenol prn and IV fentanyl Chronic diastolic CHF - compensated Acute COPD exacerbation - will cont nebs GERD - pepcid High Cholesterol - will check triglycerides Hypertension - IV meds while NPO BPH - will get back on flomax when taking PO h/o SBO - not noted FEN - NPO, NSS PPX - lovenox FULL CODE Inpatient for acute pancreatitis, likely 2 midnights. DAPHNEY SWAIN MD Oct 02, 2018 08:48
--- NOTE | 2018-10-02 09:21 | PDOC2 ---
GI CONSULT Reason For Consult: Pancreatitis new onset HPI: HPI: I walked into his room and the respiratory therapist asked if he could eat. 73 y/o male who hasn't had a stool since Tuesday or Tuesday. Typically no issues w/ constipation. Associated mid abdominal discomfort radiating around both side to back - "I feel full." No n/v, dysphagia, diarrhea, hematochezia, melena, change in appetite, or weight loss. H/o GERD controlled w/ a pill. EGD in 2014 w/ reflux (no Brown's on biopsy), EGD in 10/2017 - can see pathology (cannot view procedure report) w/ gastric polyp biopsy showing gastric xanthelasma. Abd US was unrevealing in 11/2017. HIDA that month was also unrevealing w/ GB EF of 62%. Reports normal colonoscopy a couple years ago. H/o diverticulosis. Additional h/o SBO w/ resection and LULI. Also h/o C Diff. Denies PUD, liver, or pancreas history. Says takes nothing for pain at home. Tried Gas-X. PMH: PMH: CHF, HLD, pulm HTN, NICM, COPD, GERD, sinusitis, BPH, GERD, C Diff, diverticulosis foot surgery, bladder surgery FH: Family History: No pertinent hx (denies GI cancers though passed from pancreatic cancer) Social History: Smoke: <1 pack per day ALCOHOL: none Drugs: None ROS: GEN: Denies fevers, chills, sweats HEENT: Denies blurred vision, sore throat CV: Denies chest pain RESP: +SOA GI: Per HPI : Denies hematuria, dysuria ENDO: Denies weight changes NEURO: Denies confusion, dizziness MSK: Denies weakness, joint pain/swelling SKIN: Denies jaundice, pruritus Vitals: Vitals: Vital Signs Date Time Temp Pulse Resp B/P (MAP) Pulse Ox O2 Delivery O2 Flow Rate FiO2 10/02/18 08:48 98 Nasal Cannula 2.0 10/02/18 07:00 97.5 64 18 112/69 (83) 97.5 Labs: Labs: Laboratory Tests Test 10/02/18 01:52 10/02/18 02:59 White Blood Count 5.8 x10^3/uL (4.0-11.0) Red Blood Count 4.39 x10^6/uL (4.30-5.70) Hemoglobin 13.6 g/dL (13.0-17.5) Hematocrit 40.1 % (39.0-53.0) Mean Corpuscular Volume 91 fL (79-100) Mean Corpuscular Hemoglobin 31 pg (25-35) Mean Corpuscular Hemoglobin Concent 34 g/dL (31-37) Red Cell Distribution Width 14.9 % (11.5-14.5) Platelet Count 161 x10^3/uL (140-400) Neutrophils (%) (Auto) 58 % (31-73) Lymphocytes (%) (Auto) 31 % (24-48) Monocytes (%) (Auto) 9 % (0-9) Eosinophils (%) (Auto) 2 % (0-3) Basophils (%) (Auto) 0 % (0-3) Neutrophils # (Auto) 3.4 x10^3/uL (1.8-7.7) Lymphocytes # (Auto) 1.8 x10^3/uL (1.0-4.8) Monocytes # (Auto) 0.5 x10^3/uL (0.0-1.1) Eosinophils # (Auto) 0.1 x10^3/uL (0.0-0.7) Basophils # (Auto) 0.0 x10^3/uL (0.0-0.2) Prothrombin Time 13.7 SEC (11.7-14.0) Prothromb Time International Ratio 1.1 (0.8-1.1) Sodium Level 142 mmol/L (136-145) Potassium Level 3.6 mmol/L (3.5-5.1) Chloride Level 106 mmol/L (98-107) Carbon Dioxide Level 29 mmol/L (21-32) Anion Gap 7 (6-14) Blood Urea Nitrogen 12 mg/dL (8-26) Creatinine 1.1 mg/dL (0.7-1.3) Estimated GFR (Cockcroft-Gault) 79.8 BUN/Creatinine Ratio 11 (6-20) Glucose Level 133 mg/dL (70-99) Calcium Level 8.6 mg/dL (8.5-10.1) Total Bilirubin 0.6 mg/dL (0.2-1.0) Aspartate Amino Transf (AST/SGOT) 17 U/L (15-37) Alanine Aminotransferase (ALT/SGPT) 13 U/L (16-63) Alkaline Phosphatase 83 U/L (46-116) Troponin I Quantitative < 0.017 ng/mL (0.000-0.055) Total Protein 6.6 g/dL (6.4-8.2) Albumin 3.1 g/dL (3.4-5.0) Albumin/Globulin Ratio 0.9 (1.0-1.7) Lipase 1531 U/L (73-393) Urine Collection Type Unknown Urine Color Yellow Urine Clarity Clear Urine pH 6.0 Urine Specific [place] 1.020 Urine Protein Negative mg/dL (NEG-TRACE) Urine Glucose (UA) Negative mg/dL (NEG) Urine Ketones (Stick) Negative mg/dL (NEG) Urine Blood Negative (NEG) Urine Nitrite Negative (NEG) Urine Bilirubin Negative (NEG) Urine Urobilinogen Dipstick 1.0 mg/dL (0.2 mg/dL) Urine Leukocyte Esterase Negative (NEG) Urine RBC Rare /HPF (0-2) Urine WBC Rare /HPF (0-4) Urine Squamous Epithelial Cells Few /LPF Urine Bacteria 0 /HPF (0-FEW) Urine Mucus Slight /LPF Allergies: Coded Allergies: No Known Drug Allergies (Unverified , 10/21/17) Medications: Current Medications Medications (Trade) Dose Ordered Sig/Dandre Route PRN Reason Start Time Stop Time Status Last Admin Dose Admin Albuterol/ Ipratropium (Duoneb) 3 ml 1X ONCE NEB 10/02/18 02:00 10/02/18 02:01 DC 10/02/18 01:50 Sodium Chloride 500 ml @ 500 mls/hr 1X ONCE IV 10/02/18 02:00 10/02/18 02:59 DC 10/02/18 02:24 Morphine Sulfate (Morphine Sulfate) 4 mg PRN Q2HR PRN IV SEVERE PAIN 7-10/02/18 02:45 10/03/18 02:44 10/02/18 03:47 Sodium Chloride 1,000 ml @ 100 mls/hr Q10H IV 10/02/18 03:00 10/03/18 02:59 10/02/18 03:45 Albuterol/ Ipratropium (Duoneb) 3 ml RTQID NEB 10/02/18 08:00 10/03/18 07:59 10/02/18 08:36 Iohexol (Omnipaque 300 Mg/ml) 75 ml 1X ONCE IV 10/02/18 03:00 10/02/18 03:01 DC 10/02/18 02:51 Imaging: Imaging: CXR IMPRESSION: Mild bibasilar airspace disease. CT A/P IMPRESSION: 1. Minimal induration of fat surrounding the pancreas head and the proximal duodenum. Considerations include uncomplicated mild pancreatitis or duodenitis. 2. Consolidations in the right middle lobe and lingula are incompletely imaged. Considerations include scarring, atelectasis, or pneumonia. 3. 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 4. Distal colon diverticulosis. 5. Mild pelvic free fluid. 6. Mild urinary bladder wall thickening. Considerations include chronic bladder outlet obstruction or nonspecific cystitis. PE: GEN: NAD HEENT: Atraumatic, PERRL LUNGS: NC, RT present HEART: RRR ABD: quiet BS, S/ND, epigastric discomfort EXTREMITY: No edema SKIN: No rashes, no jaundice NEURO/PSYCH: A & O 3 A/P: A/P: Abd discomfort, early satiety, constipation Pancreatitis GERD CRC screen - UTD Diverticulosis H/o SBO/SBR H/o C Diff H/o COPD, NICM, CHF Abnormal imaging - RML consolidations, UPJ stenosis, mild urinary bladder wall thickening -- Unclear etiology. Denies alcohol. Recent GB imaging unremarkable. Trigs pending. Supportive care - sips of water and ice chips for now. Add PPI. Can better address constipation when diet advanced. Will check w/ our office re: past colonoscopy. May need additional pancreas imaging as outpt. FELTON BEGUM Oct 02, 2018 09:21
--- NOTE | 2018-10-02 09:23 | NUR ---
SW reviewed pt's medical chart and evaluated for dc needs. Pt lives at home alone and was admitted for pancreatitis. Pt is on room air and PT/OT has not been ordered. At this time, there appears to be no dc needs. SW will continue to follow and be available if pt's condition changes or dc planning is required.
[2018-10-02] MEDS ORDERED: PANTOPRAZOLE 40 MG TABLET.DR. PO SCH (10:00)
[2018-10-02 10:49] VITALS: BP 106/71
[2018-10-02] MEDS ORDERED: DOCUSATE SODIUM 283 MG/5 ML ENEMA. PR PRN (11:15)
[2018-10-02] MEDS ORDERED: BISACODYL 10 MG SUPP.RECT. PR ONE (11:15)
[2018-10-02] MEDS ORDERED: ACETAMINOPHEN 650 MG SUPP.RECT. PR PRN (11:15)
[2018-10-02] MEDS ORDERED: ONDANSETRON PF 4 MG/2 ML VIAL. IV PRN (11:30)
[2018-10-02] MEDS ORDERED: PANTOPRAZOLE IV PUSH 40 MG VIAL. IVP SCH (14:00)
[2018-10-02 15:03] VITALS: BP 110/68
[2018-10-02] MEDS: ENOXAPARIN 40 MG/0.4 ML SYRINGE. SQ SCH (15:36)
[2018-10-02] MEDS ORDERED: PROCHLORPERAZINE 10 MG/2 ML VIAL. IV PRN (16:30)
--- NOTE | 2018-10-02 16:41 | RAD ---
Examination: Ultrasound abdomen limited HISTORY: History of pancreatitis, elevated lipase COMPARISON: 11/15/2017 FINDINGS: The liver measures 15.7 cm in length. The common bile duct measures 4.5 mm in transverse dimension. There is increased echogenicity identified in the liver likely hepatic steatosis. The gallbladder wall thickness measures 1.8 mm. No evidence of gallstones. The right kidney measures 11.2 cm in length. There is a cystic structure identified in the right kidney measuring 5.2 cm likely a cyst. The pancreatic duct is mildly prominent measuring 2.7 mm. The IVC is poorly visualized. The visualized aorta grossly appears unremarkable. IMPRESSION: 1. Hepatic steatosis. 2. 5.3 cm cyst right kidney. 3. Mild prominent pancreatic duct. Electronically signed by: Vikash Leach MD (10/02/2018 4:38 PM) [facility]
[2018-10-02 19:00] VITALS: BP 132/80
[2018-10-02 20:02] LABS: BARBITURATES NEG (NEG); BENZODIAZEPINES NEG (NEG); CANNABINOIDS NEG (NEG); COCAINE NEG (NEG); METHADONE NEG (NEG); OPIATES POS (NEG); PHENCYCLIDINE NEG (NEG)
[2018-10-02 20:03] LABS: AMPHETAMINE/METHAMPHETAMINE NEG (NEG)
[2018-10-02 23:00] VITALS: BP 148/70
[2018-10-03 03:00] VITALS: BP 103/65
[2018-10-03 05:42] LABS: ALBUMIN 2.8 g/dL (3.4-5.0); CALCIUM 8.3 mg/dL (8.5-10.1); CREATININE 1.1 mg/dL (0.7-1.3); GFR 79.8; POTASSIUM 4.3 mmol/L (3.5-5.1); TOTAL BILIRUBIN 0.6 mg/dL (0.2-1.0); TOTAL PROTEIN 5.5 g/dL (6.4-8.2)
[2018-10-03 07:00] VITALS: BP 131/72
[2018-10-03] MEDS ORDERED: PANTOPRAZOLE IV PUSH 40 MG VIAL. IVP SCH (07:30)
[2018-10-03] MEDS: IPRATRPIUM/ALBUTEROL 0.5/2.5MG 3 ML NEBU. NEB SCH ×4 (07:39→19:19)
--- NOTE | 2018-10-03 08:14 | PDOC ---
PROGRESS NOTES Chief Complaint Chief Complaint A/P: Acute pancreatitis - does not drink, TAG are WNL, will keep NPO, US of GB =- Mild prominent pancreatic duct, consulted GI Right middle lobe pneumonia - with h/o COPD likely has gram negative pneumonia due to structural lung disease, needs coverage, will continue levaquin Hypoxia - likely 2/2 COPD exacerbation and pneumonia, wean as tolerated Arthritis - tylenol prn and IV fentanyl Chronic diastolic CHF - compensated Acute COPD exacerbation - will cont nebs GERD - pepcid High Cholesterol - will check triglycerides Hypertension - IV meds while NPO BPH - will get back on flomax when taking PO h/o SBO - not noted FEN - NPO, NSS PPX - lovenox FULL CODE Inpatient for acute pancreatitis, likely 2 midnights. History of Present Illness History of Present Illness Mr Caceres is a 73 yo M w/ PMHx Arthritis, CHF, COPD, GERD, High Cholesterol, Hypertension, BPH, h/o SBO who presents with 5 days with early satiety and constipation. He has passed gas intermittently during that time. He says he has early satiety every time he tries to eat something even a couple bites he feels very full and then his abdomen will start sort of getting distended and have some intermittent crampy abdominal pain he is worried because he had a bowel distraction 5 years ago and also now the abdomen is starting to press on his lungs making his COPD get worse. No fever no vomiting. In ED treated for COPD exacerbation and after lipase [address] abdomen confirmed pancreatitis was placed NPO on IVF and found with right middle lobe consolidation, started on levaquin for pneumonia. Seen by GI, has CA19-9 ordered today. He had some vomiting last night, asking for food today. Still with a bit of pain. Vitals Vitals Vital Signs Date Time Temp Pulse Resp B/P (MAP) Pulse Ox O2 Delivery O2 Flow Rate FiO2 10/03/18 07:40 93 Nasal Cannula 2.0 10/03/18 07:00 97.9 68 18 131/72 (91) 97.9 Physical Exam General: Alert, Oriented X3, Cooperative, No acute distress Lungs: Wheezing Abdomen: Normal bowel sounds, Soft, No hepatosplenomegaly, No masses, Other (LLQ tenderness, left flank tenderness) Extremities: No clubbing, No cyanosis, No edema, Normal pulses, No tenderness/swelling Skin: No rashes, No breakdown, No significant lesion Labs LABS Laboratory Tests Test 10/02/18 15:35 10/02/18 16:29 10/03/18 04:30 Urine Opiates Screen Pos (NEG) Urine Methadone Screen Neg (NEG) Urine Barbiturates Neg (NEG) Urine Phencyclidine Screen Neg (NEG) Urine Amphetamine/Methamphetamine Neg (NEG) Urine Benzodiazepines Screen Neg (NEG) Urine Cocaine Screen Neg (NEG) Urine Cannabinoids Screen Neg (NEG) Urine Ethyl Alcohol Neg (NEG) Glucose (Fingerstick) 82 mg/dL (70-99) Sodium Level 145 mmol/L (136-145) Potassium Level 4.3 mmol/L (3.5-5.1) Chloride Level 108 mmol/L (98-107) Carbon Dioxide Level 28 mmol/L (21-32) Anion Gap 9 (6-14) Blood Urea Nitrogen 10 mg/dL (8-26) Creatinine 1.1 mg/dL (0.7-1.3) Estimated GFR (Cockcroft-Gault) 79.8 BUN/Creatinine Ratio 9 (6-20) Glucose Level 72 mg/dL (70-99) Calcium Level 8.3 mg/dL (8.5-10.1) Total Bilirubin 0.6 mg/dL (0.2-1.0) Aspartate Amino Transf (AST/SGOT) 13 U/L (15-37) Alanine Aminotransferase (ALT/SGPT) 11 U/L (16-63) Alkaline Phosphatase 78 U/L (46-116) Total Protein 5.5 g/dL (6.4-8.2) Albumin 2.8 g/dL (3.4-5.0) Albumin/Globulin Ratio 1.0 (1.0-1.7) Lipase 301 U/L (73-393) Assessment and Plan Assessmemt and Plan Problems Medical Problems: (1) Arthritis Status: Chronic (2) BPH (benign prostatic hyperplasia) Status: Chronic (3) Chronic diastolic CHF (congestive heart failure) Status: Chronic (4) COPD exacerbation Status: Acute (5) GERD (gastroesophageal reflux disease) Status: Chronic (6) High cholesterol Status: Chronic (7) HTN (hypertension) Status: Chronic (8) Hypoxia Status: Acute (9) Pancreatitis Status: Acute (10) Pneumonia Status: Acute Comment Review of Relevant I have reviewed the following items myra (where applicable) has been applied. Labs Laboratory Tests Test 10/02/18 01:52 10/02/18 02:59 10/02/18 15:35 10/02/18 16:29 White Blood Count 5.8 x10^3/uL (4.0-11.0) Red Blood Count 4.39 x10^6/uL (4.30-5.70) Hemoglobin 13.6 g/dL (13.0-17.5) Hematocrit 40.1 % (39.0-53.0) Mean Corpuscular Volume 91 fL (79-100) Mean Corpuscular Hemoglobin 31 pg (25-35) Mean Corpuscular Hemoglobin Concent 34 g/dL (31-37) Red Cell Distribution Width 14.9 % (11.5-14.5) Platelet Count 161 x10^3/uL (140-400) Neutrophils (%) (Auto) 58 % (31-73) Lymphocytes (%) (Auto) 31 % (24-48) Monocytes (%) (Auto) 9 % (0-9) Eosinophils (%) (Auto) 2 % (0-3) Basophils (%) (Auto) 0 % (0-3) Neutrophils # (Auto) 3.4 x10^3/uL (1.8-7.7) Lymphocytes # (Auto) 1.8 x10^3/uL (1.0-4.8) Monocytes # (Auto) 0.5 x10^3/uL (0.0-1.1) Eosinophils # (Auto) 0.1 x10^3/uL (0.0-0.7) Basophils # (Auto) 0.0 x10^3/uL (0.0-0.2) Prothrombin Time 13.7 SEC (11.7-14.0) Prothromb Time International Ratio 1.1 (0.8-1.1) Sodium Level 142 mmol/L (136-145) Potassium Level 3.6 mmol/L (3.5-5.1) Chloride Level 106 mmol/L (98-107) Carbon Dioxide Level 29 mmol/L (21-32) Anion Gap 7 (6-14) Blood Urea Nitrogen 12 mg/dL (8-26) Creatinine 1.1 mg/dL (0.7-1.3) Estimated GFR (Cockcroft-Gault) 79.8 BUN/Creatinine Ratio 11 (6-20) Glucose Level 133 mg/dL (70-99) Calcium Level 8.6 mg/dL (8.5-10.1) Total Bilirubin 0.6 mg/dL (0.2-1.0) Aspartate Amino Transf (AST/SGOT) 17 U/L (15-37) Alanine Aminotransferase (ALT/SGPT) 13 U/L (16-63) Alkaline Phosphatase 83 U/L (46-116) Troponin I Quantitative < 0.017 ng/mL (0.000-0.055) Total Protein 6.6 g/dL (6.4-8.2) Albumin 3.1 g/dL (3.4-5.0) Albumin/Globulin Ratio 0.9 (1.0-1.7) Triglycerides Level 65 mg/dL (0-150) Lipase 1531 U/L (73-393) Urine Collection Type Unknown Urine Color Yellow Urine Clarity Clear Urine pH 6.0 Urine Specific [place] 1.020 Urine Protein Negative mg/dL (NEG-TRACE) Urine Glucose (UA) Negative mg/dL (NEG) Urine Ketones (Stick) Negative mg/dL (NEG) Urine Blood Negative (NEG) Urine Nitrite Negative (NEG) Urine Bilirubin Negative (NEG) Urine Urobilinogen Dipstick 1.0 mg/dL (0.2 mg/dL) Urine Leukocyte Esterase Negative (NEG) Urine RBC Rare /HPF (0-2) Urine WBC Rare /HPF (0-4) Urine Squamous Epithelial Cells Few /LPF Urine Bacteria 0 /HPF (0-FEW) Urine Mucus Slight /LPF Urine Opiates Screen Pos (NEG) Urine Methadone Screen Neg (NEG) Urine Barbiturates Neg (NEG) Urine Phencyclidine Screen Neg (NEG) Urine Amphetamine/Methamphetamine Neg (NEG) Urine Benzodiazepines Screen Neg (NEG) Urine Cocaine Screen Neg (NEG) Urine Cannabinoids Screen Neg (NEG) Urine Ethyl Alcohol Neg (NEG) Glucose (Fingerstick) 82 mg/dL (70-99) Test 10/03/18 04:30 Sodium Level 145 mmol/L (136-145) Potassium Level 4.3 mmol/L (3.5-5.1) Chloride Level 108 mmol/L (98-107) Carbon Dioxide Level 28 mmol/L (21-32) Anion Gap 9 (6-14) Blood Urea Nitrogen 10 mg/dL (8-26) Creatinine 1.1 mg/dL (0.7-1.3) Estimated GFR (Cockcroft-Gault) 79.8 BUN/Creatinine Ratio 9 (6-20) Glucose Level 72 mg/dL (70-99) Calcium Level 8.3 mg/dL (8.5-10.1) Total Bilirubin 0.6 mg/dL (0.2-1.0) Aspartate Amino Transf (AST/SGOT) 13 U/L (15-37) Alanine Aminotransferase (ALT/SGPT) 11 U/L (16-63) Alkaline Phosphatase 78 U/L (46-116) Total Protein 5.5 g/dL (6.4-8.2) Albumin 2.8 g/dL (3.4-5.0) Albumin/Globulin Ratio 1.0 (1.0-1.7) Lipase 301 U/L (73-393) Laboratory Tests Test 10/02/18 15:35 10/02/18 16:29 10/03/18 04:30 Urine Opiates Screen Pos (NEG) Urine Methadone Screen Neg (NEG) Urine Barbiturates Neg (NEG) Urine Phencyclidine Screen Neg (NEG) Urine Amphetamine/Methamphetamine Neg (NEG) Urine Benzodiazepines Screen Neg (NEG) Urine Cocaine Screen Neg (NEG) Urine Cannabinoids Screen Neg (NEG) Urine Ethyl Alcohol Neg (NEG) Glucose (Fingerstick) 82 mg/dL (70-99) Sodium Level 145 mmol/L (136-145) Potassium Level 4.3 mmol/L (3.5-5.1) Chloride Level 108 mmol/L (98-107) Carbon Dioxide Level 28 mmol/L (21-32) Anion Gap 9 (6-14) Blood Urea Nitrogen 10 mg/dL (8-26) Creatinine 1.1 mg/dL (0.7-1.3) Estimated GFR (Cockcroft-Gault) 79.8 BUN/Creatinine Ratio 9 (6-20) Glucose Level 72 mg/dL (70-99) Calcium Level 8.3 mg/dL (8.5-10.1) Total Bilirubin 0.6 mg/dL (0.2-1.0) Aspartate Amino Transf (AST/SGOT) 13 U/L (15-37) Alanine Aminotransferase (ALT/SGPT) 11 U/L (16-63) Alkaline Phosphatase 78 U/L (46-116) Total Protein 5.5 g/dL (6.4-8.2) Albumin 2.8 g/dL (3.4-5.0) Albumin/Globulin Ratio 1.0 (1.0-1.7) Lipase 301 U/L (73-393) Medications Current Medications Albuterol/ Ipratropium (Duoneb) 3 ml 1X ONCE NEB Last administered on 10/02/18at 01:50; Start 10/02/18 at 02:00; Stop 10/02/18 at 02:01; Status DC Sodium Chloride 500 ml @ 500 mls/hr 1X ONCE IV Last administered on 10/02/18at 02:24; Start 10/02/18 at 02:00; Stop 10/02/18 at 02:59; Status DC Morphine Sulfate (Morphine Sulfate) 4 mg PRN Q2HR PRN IV SEVERE PAIN 7-10 Last administered on 10/02/18at 09:24; Start 10/02/18 at 02:45; Stop 10/03/18 at 02:44; Status DC Sodium Chloride 1,000 ml @ 100 mls/hr Q10H IV Last administered on 10/02/18at 23:34; Start 10/02/18 at 03:00; Stop 10/03/18 at 02:59; Status DC Albuterol/ Ipratropium (Duoneb) 3 ml RTQID NEB Last administered on 10/03/18at 07:39; Start 10/02/18 at 08:00; Stop 10/03/18 at 07:59; Status DC Iohexol (Omnipaque 300 Mg/ml) 75 ml 1X ONCE IV Last administered on 10/02/18at 02:51; Start 10/02/18 at 03:00; Stop 10/02/18 at 03:01; Status DC Info (CONTRAST GIVEN -- Rx MONITORING) 1 each PRN DAILY PRN MC SEE COMMENTS; Start 10/02/18 at 02:45; Stop 10/04/18 at 02:44 Levofloxacin/ Dextrose (Levaquin Per Pharmacy) 1 each PRN DAILY PRN MC SEE COMMENTS; Start 10/02/18 at 03:45 Levofloxacin/ Dextrose 100 ml @ 100 mls/hr Q24H IV ; Start 10/02/18 at 05:00; Stop 10/02/18 at 10:02; Status DC Pantoprazole Sodium (Protonix) 40 mg DAILYAC PO Last administered on 10/02/18at 10:17; Start 10/02/18 at 10:00; Stop 10/02/18 at 12:44; Status DC Levofloxacin/ Dextrose 100 ml @ 100 mls/hr Q24H IV Last administered on 10/02/18at 10:18; Start 10/02/18 at 11:00 Bisacodyl (Dulcolax Supp) 10 mg 1X ONCE PA Last administered on 10/02/18at 15:36; Start 10/02/18 at 11:15; Stop 10/02/18 at 11:18; Status DC Acetaminophen (Tylenol Supp) 650 mg PRN Q6HRS PRN PA MILD PAIN / TEMP; Start 10/02/18 at 11:15 Docusate Sodium (Enemeez) 283 mg PRN DAILY PRN PA CONSTIPATION; Start 10/02/18 at 11:15 Enoxaparin Sodium (Lovenox 40mg Syringe) 40 mg Q24H SQ Last administered on 10/02/18at 15:36; Start 10/02/18 at 13:00 Ondansetron HCl (Zofran) 4 mg PRN Q6HRS PRN IV NAUSEA/VOMITING Last administered on 10/02/18at 12:14; Start 10/02/18 at 11:30 Pantoprazole Sodium (PROTONIX VIAL for IV PUSH) 40 mg DAILYAC IVP ; Start 10/02/18 at 14:00; Status Cancel Pantoprazole Sodium (PROTONIX VIAL for IV PUSH) 40 mg DAILYAC IVP Last administered on 10/03/18at 08:00; Start 10/03/18 at 07:30 Prochlorperazine Edisylate (Compazine) 10 mg PRN Q6HRS PRN IV NAUSEA/VOMITING, 2ND CHOICE Last administered on 10/02/18at 17:39; Start 10/02/18 at 16:30 Active Scripts Active Lasix (Furosemide) 20 Mg Tablet 1 Tab PO DAILY [Albuterol Sulfate] 2.5 MG/3 ML Nebu 2.5 Mg NEB QID AND Q 2 HOURS PA PRN Tylenol (Acetaminophen) 325 Mg Tablet 650 Mg PO PRN Q6HRS PRN 28 Days Reported Fluticasone Propionate Nasal [place] (Fluticasone Propionate) 16 Gm [place].susp 2 [place] NS DAILY Ranitidine Hcl 300 Mg Tablet 1 Tab PO QHS Protonix (Pantoprazole Sodium) 20 Mg Tablet.dr 40 Mg PO DAILYAC Naproxen 500 Mg Tablet 1 Tab PO BID Stiolto Respimat Inhal [place] (Tiotropium Br/Olodaterol HCl) 4 Gm Mist.inhal 2.5 Gm IH DAILY Lisinopril 5 Mg Tablet 1 Tab PO DAILY Flomax (Tamsulosin Hcl) 0.4 Mg Cap.er.24h 2 Cap PO DAILY Albuterol Sulfate Neb Soln (Albuterol Sulfate) 2.5 Mg/3 Ml Vial.neb 2.5 Mg NEB QID Azelastine Hcl 137 Mcg/0.137 Ml [place].pump 2 [place] NS BID Advair 500-50 Diskus (Fluticasone/Salmeterol) 1 Each Disk.w.dev 1 Inh IH BID Avodart (Dutasteride) 0.5 Mg Capsule 1 Cap PO HS Aspir 81 (Aspirin) 81 Mg Tablet.dr 1 Tab PO DAILY Zocor (Simvastatin) 20 Mg Tablet 20 Mg PO QHS Vitals/I & O Vital Sign - Last 24 Hours 10/02/18 10/02/18 10/02/18 10/02/18 08:48 09:24 10:05 10:49 Temp 97.5 97.5 Pulse 65 Resp 18 B/P (MAP) 106/71 (83) Pulse Ox 98 98 O2 Delivery Nasal Cannula Nasal Cannula Nasal Cannula Nasal Cannula O2 Flow Rate 2.0 2.0 2.0 2.0 10/02/18 10/02/18 10/02/18 10/02/18 11:49 15:03 19:00 19:53 Temp 97.6 97.5 97.6 97.5 Pulse 66 60 Resp 18 18 B/P (MAP) 110/68 (82) 132/80 (97) Pulse Ox 98 98 98 98 O2 Delivery Nasal Cannula Nasal Cannula Nasal Cannula Nasal Cannula O2 Flow Rate 2.0 2.0 2.0 2.0 10/02/18 10/02/18 10/03/18 10/03/18 20:00 23:00 03:00 07:00 Temp 97.9 97.9 97.9 97.9 97.9 97.9 Pulse 57 53 68 Resp 18 18 18 B/P (MAP) 148/70 (96) 103/65 (78) 131/72 (91) Pulse Ox 99 95 96 O2 Delivery Nasal Cannula Nasal Cannula Nasal Cannula Nasal Cannula O2 Flow Rate 2.0 2.0 2.0 2.0 10/03/18 07:40 Pulse Ox 93 O2 Delivery Nasal Cannula O2 Flow Rate 2.0 Intake and Output 0 10/02/18 10/02/18 10/03/18 14:59 22:59 06:59 Intake Total 0 ml Balance 0 ml DAPHNEY SWAIN MD Oct 03, 2018 08:14
[2018-10-03 11:00] VITALS: BP 124/67
[2018-10-03] MEDS: IV RINGERS,LACTATED 1000ML 1,000 ML IV SCH ×2 (11:34→23:35)
--- NOTE | 2018-10-03 11:56 | PDOC ---
Subjective: Subjective: Vomited yesterday. No abd pain today - feels better - still some "fullness" though. Snuck a cracker earlier. Breathing better. Objective: Vital Signs: Vital Signs Date Time Temp Pulse Resp B/P (MAP) Pulse Ox O2 Delivery O2 Flow Rate FiO2 10/03/18 11:30 Nasal Cannula 2.0 10/03/18 11:00 98.5 68 18 124/67 (86) 99 98.5 Labs: Laboratory Tests Test 10/02/18 15:35 10/02/18 16:29 10/03/18 04:30 Urine Opiates Screen Pos Urine Methadone Screen Neg Urine Barbiturates Neg Urine Phencyclidine Screen Neg Urine Amphetamine/Methamphetamine Neg Urine Benzodiazepines Screen Neg Urine Cocaine Screen Neg Urine Cannabinoids Screen Neg Urine Ethyl Alcohol Neg Glucose (Fingerstick) 82 mg/dL Sodium Level 145 mmol/L Potassium Level 4.3 mmol/L Chloride Level 108 mmol/L Carbon Dioxide Level 28 mmol/L Anion Gap 9 Blood Urea Nitrogen 10 mg/dL Creatinine 1.1 mg/dL Estimated GFR (Cockcroft-Gault) 79.8 BUN/Creatinine Ratio 9 Glucose Level 72 mg/dL Calcium Level 8.3 mg/dL Total Bilirubin 0.6 mg/dL Aspartate Amino Transf (AST/SGOT) 13 U/L Alanine Aminotransferase (ALT/SGPT) 11 U/L Alkaline Phosphatase 78 U/L Total Protein 5.5 g/dL Albumin 2.8 g/dL Albumin/Globulin Ratio 1.0 Lipase 301 U/L Imaging: Abd US FINDINGS: The liver measures 15.7 cm in length. The common bile duct measures 4.5 mm in transverse dimension. There is increased echogenicity identified in the liver likely hepatic steatosis. The gallbladder wall thickness measures 1.8 mm. No evidence of gallstones. The right kidney measures 11.2 cm in length. There is a cystic structure identified in the right kidney measuring 5.2 cm likely a cyst. The pancreatic duct is mildly prominent measuring 2.7 mm. The IVC is poorly visualized. The visualized aorta grossly appears unremarkable. IMPRESSION: 1. Hepatic steatosis. 2. 5.3 cm cyst right kidney. 3. Mild prominent pancreatic duct. PE: GEN: NAD, sitting on edge of bed, looks better today LUNGS: NC 2L HEART: RRR ABD: NABS, S/ND/NT NEURO/PSYCH: A & O 3 A/P: Pancreatitis - no alcohol history, normal GB, normal triglycerides - mildly prominent PD on US Early satiety, constipation -- Better today. Try clears, ADAT. PO PPI, Miralax. IgG4 and CA19-9 pending. ?outpt MRCP/EUS - will review w/ FELTON Castillo Oct 03, 2018 11:56
[2018-10-03] MEDS ORDERED: POLYETHYLENE GLYCOL 3350 17 GM PACKET. PO PRN (12:00)
[2018-10-03] MEDS: POLYETHYLENE GLYCOL 3350 17 GM PACKET. PO SCH (12:58)
[2018-10-03] MEDS: ENOXAPARIN 40 MG/0.4 ML SYRINGE. SQ SCH (12:59)
[2018-10-03 15:00] VITALS: BP 122/62
[2018-10-03 19:00] VITALS: BP 112/52
[2018-10-03] MEDS: LACTOBACILLUS RHAMNOSUS GG 1 CAPSULE. PO SCH (21:28)
[2018-10-03 23:00] VITALS: BP 116/66
--- NOTE | 2018-10-04 00:16 | NUR ---
IV fluids were not given at 2330 due to previous bag still 3/4 full. Pt IV got pulled out and needed new IV access to restart bag.
[2018-10-04 03:00] VITALS: BP 128/75
[2018-10-04 07:00] VITALS: BP 137/73
[2018-10-04] MEDS: IPRATRPIUM/ALBUTEROL 0.5/2.5MG 3 ML NEBU. NEB SCH ×2 (07:03→11:14)
[2018-10-04] MEDS ORDERED: PANTOPRAZOLE 40 MG TABLET.DR. PO SCH (07:30)
[2018-10-04] MEDS: LACTOBACILLUS RHAMNOSUS GG 1 CAPSULE. PO SCH (07:55)
[2018-10-04] MEDS: POLYETHYLENE GLYCOL 3350 17 GM PACKET. PO SCH (07:55)
--- NOTE | 2018-10-04 08:07 | PDOC ---
PROGRESS NOTES Chief Complaint Chief Complaint A/P: Acute pancreatitis - does not drink, TAG are WNL, will keep NPO, US of GB =- Mild prominent pancreatic duct, consulted GI Right middle lobe pneumonia - with h/o COPD likely has gram negative pneumonia due to structural lung disease, needs coverage, will continue levaquin Hypoxia - likely 2/2 COPD exacerbation and pneumonia, wean as tolerated Arthritis - tylenol prn and IV fentanyl Chronic diastolic CHF - compensated Acute COPD exacerbation - will cont nebs GERD - pepcid High Cholesterol - will check triglycerides Hypertension - IV meds while NPO BPH - will get back on flomax when taking PO h/o SBO - not noted FEN - NPO, NSS PPX - lovenox FULL CODE Inpatient for acute pancreatitis, likely 2 midnights. History of Present Illness History of Present Illness Mr Caceres is a 73 yo M w/ PMHx Arthritis, CHF, COPD, GERD, High Cholesterol, Hypertension, BPH, h/o SBO who presents with 5 days with early satiety and constipation. He has passed gas intermittently during that time. He says he has early satiety every time he tries to eat something even a couple bites he feels very full and then his abdomen will start sort of getting distended and have some intermittent crampy abdominal pain he is worried because he had a bowel distraction 5 years ago and also now the abdomen is starting to press on his lungs making his COPD get worse. No fever no vomiting. In ED treated for COPD exacerbation and after lipase [address] abdomen confirmed pancreatitis was placed NPO on IVF and found with right middle lobe consolidation, started on levaquin for pneumonia. Seen by GI, has CA19-9 ordered today. He had some vomiting last night, asking for food today. Still with a bit of pain. Vitals Vitals Vital Signs Date Time Temp Pulse Resp B/P (MAP) Pulse Ox O2 Delivery O2 Flow Rate FiO2 10/04/18 07:03 100 Nasal Cannula 2.0 10/04/18 07:00 98.1 63 12 137/73 (94) 98.1 Physical Exam General: Alert, Oriented X3, Cooperative, No acute distress Heart: Regular rate, Normal S1, Normal S2 Lungs: Wheezing Abdomen: Normal bowel sounds, Soft, No hepatosplenomegaly, No masses, Other (LLQ tenderness, left flank tenderness) Extremities: No clubbing, No cyanosis, No edema, Normal pulses, No tenderness/swelling Skin: No rashes, No breakdown, No significant lesion Assessment and Plan Assessmemt and Plan Problems Medical Problems: (1) Arthritis Status: Chronic (2) BPH (benign prostatic hyperplasia) Status: Chronic (3) Chronic diastolic CHF (congestive heart failure) Status: Chronic (4) COPD exacerbation Status: Acute (5) GERD (gastroesophageal reflux disease) Status: Chronic (6) High cholesterol Status: Chronic (7) HTN (hypertension) Status: Chronic (8) Hypoxia Status: Acute (9) Pancreatitis Status: Acute (10) Pneumonia Status: Acute Comment Review of Relevant I have reviewed the following items myra (where applicable) has been applied. Labs Laboratory Tests Test 10/02/18 15:35 10/02/18 16:29 10/03/18 04:30 Urine Opiates Screen Pos (NEG) Urine Methadone Screen Neg (NEG) Urine Barbiturates Neg (NEG) Urine Phencyclidine Screen Neg (NEG) Urine Amphetamine/Methamphetamine Neg (NEG) Urine Benzodiazepines Screen Neg (NEG) Urine Cocaine Screen Neg (NEG) Urine Cannabinoids Screen Neg (NEG) Urine Ethyl Alcohol Neg (NEG) Glucose (Fingerstick) 82 mg/dL (70-99) Sodium Level 145 mmol/L (136-145) Potassium Level 4.3 mmol/L (3.5-5.1) Chloride Level 108 mmol/L (98-107) Carbon Dioxide Level 28 mmol/L (21-32) Anion Gap 9 (6-14) Blood Urea Nitrogen 10 mg/dL (8-26) Creatinine 1.1 mg/dL (0.7-1.3) Estimated GFR (Cockcroft-Gault) 79.8 BUN/Creatinine Ratio 9 (6-20) Glucose Level 72 mg/dL (70-99) Calcium Level 8.3 mg/dL (8.5-10.1) Total Bilirubin 0.6 mg/dL (0.2-1.0) Aspartate Amino Transf (AST/SGOT) 13 U/L (15-37) Alanine Aminotransferase (ALT/SGPT) 11 U/L (16-63) Alkaline Phosphatase 78 U/L (46-116) Total Protein 5.5 g/dL (6.4-8.2) Albumin 2.8 g/dL (3.4-5.0) Albumin/Globulin Ratio 1.0 (1.0-1.7) Lipase 301 U/L (73-393) Microbiology 10/02/18 Blood Culture - Preliminary, Resulted NO GROWTH AFTER 1 DAY Medications Current Medications Albuterol/ Ipratropium (Duoneb) 3 ml 1X ONCE NEB Last administered on 10/02/18at 01:50; Start 10/02/18 at 02:00; Stop 10/02/18 at 02:01; Status DC Sodium Chloride 500 ml @ 500 mls/hr 1X ONCE IV Last administered on 10/02/18at 02:24; Start 10/02/18 at 02:00; Stop 10/02/18 at 02:59; Status DC Morphine Sulfate (Morphine Sulfate) 4 mg PRN Q2HR PRN IV SEVERE PAIN 7-10 Last administered on 10/02/18at 09:24; Start 10/02/18 at 02:45; Stop 10/03/18 at 02:44; Status DC Sodium Chloride 1,000 ml @ 100 mls/hr Q10H IV Last administered on 10/02/18at 23:34; Start 10/02/18 at 03:00; Stop 10/03/18 at 02:59; Status DC Albuterol/ Ipratropium (Duoneb) 3 ml RTQID NEB Last administered on 10/03/18at 07:39; Start 10/02/18 at 08:00; Stop 10/03/18 at 07:59; Status DC Iohexol (Omnipaque 300 Mg/ml) 75 ml 1X ONCE IV Last administered on 10/02/18at 02:51; Start 10/02/18 at 03:00; Stop 10/02/18 at 03:01; Status DC Info (CONTRAST GIVEN -- Rx MONITORING) 1 each PRN DAILY PRN MC SEE COMMENTS; Start 10/02/18 at 02:45; Stop 10/04/18 at 02:44; Status DC Levofloxacin/ Dextrose (Levaquin Per Pharmacy) 1 each PRN DAILY PRN MC SEE COMMENTS; Start 10/02/18 at 03:45 Levofloxacin/ Dextrose 100 ml @ 100 mls/hr Q24H IV ; Start 10/02/18 at 05:00; Stop 10/02/18 at 10:02; Status DC Pantoprazole Sodium (Protonix) 40 mg DAILYAC PO Last administered on 10/02/18 10:17; Start 10/02/18 at 10:00; Stop 10/02/18 at 12:44; Status DC Levofloxacin/ Dextrose 100 ml @ 100 mls/hr Q24H IV Last administered on 10/03/18 11:35; Start 10/02/18 at 11:00 Bisacodyl (Dulcolax Supp) 10 mg 1X ONCE AR Last administered on 10/02/18at 15:36; Start 10/02/18 at 11:15; Stop 10/02/18 at 11:18; Status DC Acetaminophen (Tylenol Supp) 650 mg PRN Q6HRS PRN AR MILD PAIN / TEMP; Start 10/02/18 at 11:15 Docusate Sodium (Enemeez) 283 mg PRN DAILY PRN AR CONSTIPATION; Start 10/02/18 at 11:15 Enoxaparin Sodium (Lovenox 40mg Syringe) 40 mg Q24H SQ Last administered on 10/03/18at 12:59; Start 10/02/18 at 13:00 Ondansetron HCl (Zofran) 4 mg PRN Q6HRS PRN IV NAUSEA/VOMITING, 1st CHOICE Last administered on 10/02/18 12:14; Start 10/02/18 at 11:30 Pantoprazole Sodium (PROTONIX VIAL for IV PUSH) 40 mg DAILYAC IVP ; Start 10/02/18 at 14:00; Status Cancel Pantoprazole Sodium (PROTONIX VIAL for IV PUSH) 40 mg DAILYAC IVP Last administered on 10/03/18 08:00; Start 10/03/18 at 07:30; Stop 10/03/18 at 11:55; Status DC Prochlorperazine Edisylate (Compazine) 10 mg PRN Q6HRS PRN IV NAUSEA/VOMITING, 2ND CHOICE Last administered on 10/02/18 17:39; Start 10/02/18 at 16:30 Albuterol/ Ipratropium (Duoneb) 3 ml RTQID NEB Last administered on 10/04/18 07:03; Start 10/03/18 at 12:00 Ringer's Solution 1,000 ml @ 75 mls/hr [id number] IV Last administered on 10/03/18 11:34; Start 10/03/18 at 10:15 Pantoprazole Sodium (Protonix) 40 mg DAILYAC PO Last administered on 10/04/18at 07:55; Start 10/04/18 at 07:30 Polyethylene Glycol (miraLAX PACKET) 17 gm DAILY PO Last administered on 10/04/18at 07:55; Start 10/03/18 at 13:00 Polyethylene Glycol (miraLAX PACKET) 17 gm PRN DAILY PRN PO CONSTIPATION; Start 10/03/18 at 12:00 Lactobacillus Rhamnosus (Culturelle) 1 cap BID PO Last administered on 10/04/18at 07:55; Start 10/03/18 at 21:00 Active Scripts Active Lasix (Furosemide) 20 Mg Tablet 1 Tab PO DAILY [Albuterol Sulfate] 2.5 MG/3 ML Nebu 2.5 Mg NEB QID AND Q 2 HOURS AR PRN Tylenol (Acetaminophen) 325 Mg Tablet 650 Mg PO PRN Q6HRS PRN 28 Days Reported Fluticasone Propionate Nasal [place] (Fluticasone Propionate) 16 Gm [place].susp 2 [place] NS DAILY Ranitidine Hcl 300 Mg Tablet 1 Tab PO QHS Protonix (Pantoprazole Sodium) 20 Mg Tablet.dr 40 Mg PO DAILYAC Naproxen 500 Mg Tablet 1 Tab PO BID Stiolto Respimat Inhal [place] (Tiotropium Br/Olodaterol HCl) 4 Gm Mist.inhal 2.5 Gm IH DAILY Lisinopril 5 Mg Tablet 1 Tab PO DAILY Flomax (Tamsulosin Hcl) 0.4 Mg Cap.er.24h 2 Cap PO DAILY Albuterol Sulfate Neb Soln (Albuterol Sulfate) 2.5 Mg/3 Ml Vial.neb 2.5 Mg NEB QID Azelastine Hcl 137 Mcg/0.137 Ml [place].pump 2 [place] NS BID Advair 500-50 Diskus (Fluticasone/Salmeterol) 1 Each Disk.w.dev 1 Inh IH BID Avodart (Dutasteride) 0.5 Mg Capsule 1 Cap PO HS Aspir 81 (Aspirin) 81 Mg Tablet.dr 1 Tab PO DAILY Zocor (Simvastatin) 20 Mg Tablet 20 Mg PO QHS Vitals/I & O Vital Sign - Last 24 Hours 10/03/18 10/03/18 10/03/18 10/03/18 11:00 11:30 15:00 15:45 Temp 98.5 98.0 98.5 98.0 Pulse 68 58 Resp 18 18 B/P (MAP) 124/67 (86) 122/62 (82) Pulse Ox 99 97 O2 Delivery Nasal Cannula Nasal Cannula Nasal Cannula Nasal Cannula O2 Flow Rate 2.0 2.0 2.0 2.0 10/03/18 10/03/18 10/03/18 10/03/18 19:00 19:19 20:30 23:00 Temp 97.8 98.1 97.8 98.1 Pulse 74 60 Resp 18 16 B/P (MAP) 112/52 (72) 116/66 (83) Pulse Ox 98 99 98 O2 Delivery Nasal Cannula Nasal Cannula Nasal Cannula Nasal Cannula O2 Flow Rate 2.0 2.0 2.0 2.0 10/04/18 10/04/18 10/04/18 03:00 07:00 07:03 Temp 98.0 98.1 98.0 98.1 Pulse 52 63 Resp 20 12 B/P (MAP) 128/75 (92) 137/73 (94) Pulse Ox 97 99 100 O2 Delivery Nasal Cannula Nasal Cannula Nasal Cannula O2 Flow Rate 2.0 2.0 2.0 Intake and Output 10/03/18 10/03/18 10/04/18 15:00 23:00 07:00 Intake Total 400 ml Balance 400 ml DAPHNEY SWAIN MD Oct 04, 2018 08:07
[2018-10-04 11:00] VITALS: BP 130/70
--- NOTE | 2018-10-04 11:15 | PDOC ---
Subjective: Subjective: Tolerating regular diet w/o abd pain. Passing gas but no stool. Has some right lower back discomfort. Objective: Vital Signs: Vital Signs Date Time Temp Pulse Resp B/P (MAP) Pulse Ox O2 Delivery O2 Flow Rate FiO2 10/04/18 07:03 100 Nasal Cannula 2.0 10/04/18 07:00 98.1 63 12 137/73 (94) 98.1 Labs: BLOOD CULTURE Preliminary NO GROWTH AFTER 2 DAYS PE: GEN: NAD, sitting on edge of bed watching the Yadav hearing LUNGS: NC HEART: RRR ABD: S/ND/NT NEURO/PSYCH: A & O 3 A/P: Pancreatitis - unclear etiology, small duodenal diverticulum on CT, mildly prominent PD on US, IgG4 and CA19-9 pending Early satiety - better Constipation -- Tolerating diet. Plan for outpt MRCP - have also discussed possible need for EUS @ [facility] or [facility]. Try Dulcolax, increase Miralax. Could also try Mag Citrate. Continue PPI for known GERD. DC per primary. FELTON BEGUM Oct 04, 2018 11:15
[2018-10-04] MEDS ORDERED: BISACODYL 5 MG TABLET.DR. PO ONE (11:30)
[2018-10-04] MEDS ORDERED: LACT1CAP19 PO (12:06)
[2018-10-04] MEDS ORDERED: LEVO500T59 PO (12:06)
--- NOTE | 2018-10-04 12:10 | NUR ---
SS following for discharge planning. Pt is from home and is currently requiring oxygen. Six minute walk ordered. SS will continue to follow for discharge planning.
--- NOTE | 2018-10-04 12:20 | PDOC3 ---
Discharge Summary Visit Information Date of Admission: Oct 02, 2018 Date of Discharge: Oct 04, 2018 Admitting Diagnosis: Pancreatitis, Pneumonia Final Diagnosis Problems Medical Problems: (1) Arthritis Status: Chronic (2) BPH (benign prostatic hyperplasia) Status: Chronic (3) Chronic diastolic CHF (congestive heart failure) Status: Chronic (4) COPD exacerbation Status: Acute (5) GERD (gastroesophageal reflux disease) Status: Chronic (6) High cholesterol Status: Chronic (7) HTN (hypertension) Status: Chronic (8) Hypoxia Status: Acute (9) Pancreatitis Status: Acute (10) Pneumonia Status: Acute Brief Hospital Course Allergies Allergies Coded Allergies Type Severity Reaction Last Updated Verified No Known Drug Allergies 10/21/17 No Vital Signs Vital Signs Date Time Temp Pulse Resp B/P (MAP) Pulse Ox O2 Delivery O2 Flow Rate FiO2 10/04/18 11:14 100 Nasal Cannula 2.0 10/04/18 11:00 97.5 55 14 130/70 (90) 97.5 Lab Results Laboratory Tests Test 10/02/18 15:35 10/02/18 16:29 10/03/18 04:30 Urine Opiates Screen Pos (NEG) Urine Methadone Screen Neg (NEG) Urine Barbiturates Neg (NEG) Urine Phencyclidine Screen Neg (NEG) Urine Amphetamine/Methamphetamine Neg (NEG) Urine Benzodiazepines Screen Neg (NEG) Urine Cocaine Screen Neg (NEG) Urine Cannabinoids Screen Neg (NEG) Urine Ethyl Alcohol Neg (NEG) Glucose (Fingerstick) 82 mg/dL (70-99) Sodium Level 145 mmol/L (136-145) Potassium Level 4.3 mmol/L (3.5-5.1) Chloride Level 108 mmol/L (98-107) Carbon Dioxide Level 28 mmol/L (21-32) Anion Gap 9 (6-14) Blood Urea Nitrogen 10 mg/dL (8-26) Creatinine 1.1 mg/dL (0.7-1.3) Estimated GFR (Cockcroft-Gault) 79.8 BUN/Creatinine Ratio 9 (6-20) Glucose Level 72 mg/dL (70-99) Calcium Level 8.3 mg/dL (8.5-10.1) Total Bilirubin 0.6 mg/dL (0.2-1.0) Aspartate Amino Transf (AST/SGOT) 13 U/L (15-37) Alanine Aminotransferase (ALT/SGPT) 11 U/L (16-63) Alkaline Phosphatase 78 U/L (46-116) Total Protein 5.5 g/dL (6.4-8.2) Albumin 2.8 g/dL (3.4-5.0) Albumin/Globulin Ratio 1.0 (1.0-1.7) Lipase 301 U/L (73-393) Brief Hospital Course Mr Caceres is a 73 yo M w/ PMHx Arthritis, CHF, COPD, GERD, High Cholesterol, Hypertension, BPH, h/o SBO who presents with 5 days with early satiety and constipation. He has passed gas intermittently during that time. He says he has early satiety every time he tries to eat something even a couple bites he feels very full and then his abdomen will start sort of getting distended and have some intermittent crampy abdominal pain he is worried because he had a bowel distraction 5 years ago and also now the abdomen is starting to press on his lungs making his COPD get worse. No fever no vomiting. In ED treated for COPD exacerbation and after lipase [address] abdomen confirmed pancreatitis was placed NPO on IVF and found with right middle lobe consolidation, started on levaquin for pneumonia. Seen by GI, has CA19-9 ordered, pain nearly resolved. Has GI f/u with MRCP and EUS planned for pancreatic duct dilation. Levaquin for 5 days for pneumonia. O2 titrated, already on home O2, increased needs based on pneumonia, 6 minute walk. A/P: Acute pancreatitis - does not drink, TAG are WNL, will keep NPO, US of GB =- Mild prominent pancreatic duct, consulted GI Right middle lobe pneumonia - with h/o COPD likely has gram negative pneumonia due to structural lung disease, needs coverage, will continue levaquin Hypoxia - likely 2/2 COPD exacerbation and pneumonia, wean as tolerated Arthritis - tylenol prn and IV fentanyl Chronic diastolic CHF - compensated Acute COPD exacerbation - will cont nebs GERD - pepcid High Cholesterol - will check triglycerides Hypertension - IV meds while NPO BPH - will get back on flomax when taking PO h/o SBO - not noted Greater than 30 minutes spent on discharge. Discharge Information Condition at Discharge: Improved Follow Up: Weeks (1) Disposition/Orders: D/C to Home Scheduled Albuterol Sulfate (Albuterol Sulfate Neb Soln) 2.5 Mg/3 Ml Vial.neb, 2.5 MG NEB QID for FOR ASTHMA, Ref 0 (Reported) Entered as Reported by: ROBINA GARCIA on 03/05/17 1716 Last Taken: Unknown Dose on 10/01/18899 Last Action: Last Taken Edited on 10/02/18526 by RAHUL CORCORAN Aspirin (Aspir 81) 81 Mg Tablet.dr, 1 TAB PO DAILY, #30 Ref 5 (Reported) Entered as Reported by: GERALD LYNCH on 12/27/14 1005 Last Taken: Unknown Dose on 10/01/18899 Last Action: Last Taken Edited on 10/02/18526 by RAHUL CORCORAN Azelastine Hcl (Azelastine Hcl) 137 Mcg/0.137 Ml [place].pump, 2 SPRAY NS BID, #30 Ref 5 (Reported) Entered as Reported by: LEO DON on 05/25/16 0857 Last Taken: Unknown Dose on 10/01/18899 Last Action: Last Taken Edited on 10/02/18526 by RAHUL CORCORAN Dutasteride (Avodart) 0.5 Mg Capsule, 1 CAP PO HS, #30 Ref 5 (Reported) Entered as Reported by: LEO DON on 05/25/16 0854 Last Taken: Unknown Dose on 09/30/182099 Last Action: Last Taken Edited on 10/02/18526 by RAHUL CORCORAN Fluticasone Propionate (Fluticasone Propionate Nasal [place]) 16 Gm [place].susp, 2 SPRAY NS DAILY for allergies, #1 Ref 11 (Reported) Entered as Reported by: RAHUL CORCORAN on 10/02/18526 Last Taken: Unknown Dose on 10/01/18899 Last Action: New Order on 10/02/18526 by RAHUL CORCORAN Fluticasone/Salmeterol (Advair 500-50 Diskus) 1 Each Disk.w.dev, 1 INH IH BID, (Reported) Entered as Reported by: LEO DON on 05/25/16 0856 Furosemide (Lasix) 20 Mg Tablet, 1 TAB PO DAILY, #30 Ref 1 Prescribed by: HARESH BLAND on 06/07/168 Last Taken: Unknown Dose on 09/30/18899 Last Action: Last Taken Edited on 10/02/18526 by RAHUL CORCORAN Lactobacillus Rhamnosus Gg (Culturelle) 1 Each Cap.sprink, 1 CAP PO BID for diarrhea for 5 Days, #10 Prescribed by: DAPHNEY SWAIN MD on 10/04/181205 Levofloxacin (Levaquin) 500 Mg Tablet, 1 TAB PO DAILY for Pneumonia for 5 Days, #5 Prescribed by: DAPHNEY SWAIN MD on 10/04/18 1206 Lisinopril (Lisinopril) 5 Mg Tablet, 1 TAB PO DAILY for HTN, #30 Ref 5 (Reported) Entered as Reported by: JOHN ALMODOVAR RN on 07/19/18531 Last Taken: Unknown Dose on 10/01/18899 Last Action: Last Taken Edited on 10/02/18526 by RAHUL CORCORAN Naproxen (Naproxen) 500 Mg Tablet, 1 TAB PO BID for ., #60 Ref 1 (Reported) Entered as Reported by: JOHN ALMODOVAR RN on 07/19/18531 Last Taken: Unknown Dose on 10/01/18899 Last Action: Last Taken Edited on 10/02/18526 by RAHUL CORCORAN Pantoprazole Sodium (Protonix) 20 Mg Tablet.dr, 40 MG PO DAILYAC for ., (Reported) Entered as Reported by: JOHN ALMODOVAR RN on 07/19/18531 Last Taken: Unknown Dose on 10/01/18899 Last Action: Last Taken Edited on 10/02/18526 by RAHUL CORCORAN Ranitidine Hcl (Ranitidine Hcl) 300 Mg Tablet, 1 TAB PO QHS for ., #90 Ref 3 (Reported) Entered as Reported by: JOHN ALMODOVAR RN on 07/19/18531 Last Taken: Unknown Dose on 09/30/182099 Last Action: Last Taken Edited on 10/02/18526 by RAHUL CORCORAN Simvastatin (Zocor) 20 Mg Tablet, 20 MG PO QHS, (Reported) Entered as Reported by: SHAKIR TALLEY on 02/10/13 722 Last Taken: Unknown Dose on 09/30/182099 Last Action: Last Taken Edited on 10/02/18526 by RAHUL CORCORAN Tamsulosin Hcl (Flomax) 0.4 Mg Cap.er.24h, 2 CAP PO DAILY, #30 Ref 11 (Reported) Entered as Reported by: ROBINA GARCIA on 03/05/17 1716 Last Taken: Unknown Dose on 09/30/18 2100 Last Action: Last Taken Edited on 10/02/18526 by RAHUL CORCORAN Tiotropium Br/Olodaterol HCl (Stiolto Respimat Inhal [place]) 4 Gm Mist.inhal, 2.5 GM IH DAILY for ., (Reported) Entered as Reported by: JOHN ALMODOVAR RN on 07/19/18 0532 Last Taken: Unknown Dose on 10/01/18 0900 Last Action: Last Taken Edited on 10/02/18526 by RAHUL CORCORAN Scheduled PRN Acetaminophen (Tylenol) 325 Mg Tablet, 650 MG PO PRN Q6HRS PRN for PAIN / TEMP for 28 Days Prescribed by: HARESH BLAND on 11/15/13 0738 [Albuterol Sulfate] 2.5 MG/3 ML NEBU, 2.5 MG NEB qid and q 2 hours pr PRN for SHORTNESS OF BREATH, #1 Prescribed by: HARESH BLAND on 05/27/16 1553 DAPHNEY SWAIN MD Oct 04, 2018 12:20
[2018-10-04] MEDS: ENOXAPARIN 40 MG/0.4 ML SYRINGE. SQ SCH (13:00)
[2018-10-04] MEDS: IV RINGERS,LACTATED 1000ML 1,000 ML IV SCH (13:12)
--- NOTE | 2018-10-04 15:46 | NUR ---
Discharge Note: JUAN PABLO WATERMAN Discharge instructions and discharge home medications reviewed with Patient and a copy given. All questions have been answered and understanding verbalized. The following instructions and handouts were given: Discharge Instructions, Prescriptions, Patient Teaching Discontinued lines and drains: PIV removed, Catheter intact. Patient discharged to Home with Self-Care via Private Vehicle
[2018-10-04] MEDS ORDERED: POLYETHYLENE GLYCOL 3350 17 GM PACKET. PO SCH (21:00)
[2018-10-04 21:07] LABS: IGG1 491 mg/dL (248-810); IGG2 163 mg/dL (130-555); IGG3 106 mg/dL (15-102); IGG4 14 mg/dL (2-96); TOTAL IGG 744 mg/dL (700-1600)
[2018-10-05 12:12] LABS: CA 19-9 14 U/mL (0-35)
== END 2018-10-04 15:00 | disposition home or self-care (01) | DRG 871 ==
LOC: ER 01:13 → 5 NORTH 02:30
PROVIDERS: ADMIT Internal Medicine; ATTEND Internal Medicine
DX: A41.9 Sepsis, unspecified organism (principal); K85.90 Acute pancreatitis without necrosis or infection, unspecified; J15.6 Pneumonia due to other Gram-negative bacteria; J44.0 Chronic obstructive pulmonary disease with (acute) lower respiratory infection; J44.1 Chronic obstructive pulmonary disease with (acute) exacerbation; I50.32 Chronic diastolic (congestive) heart failure; I42.9 Cardiomyopathy, unspecified; I11.0 Hypertensive heart disease with heart failure; I27.20 Pulmonary hypertension, unspecified; E78.5 Hyperlipidemia, unspecified; K21.9 Gastro-esophageal reflux disease without esophagitis; E78.00 Pure hypercholesterolemia, unspecified; N40.0 Benign prostatic hyperplasia without lower urinary tract symptoms; K57.30 Diverticulosis of large intestine without perforation or abscess without bleeding; K59.00 Constipation, unspecified; K76.0 Fatty (change of) liver, not elsewhere classified; M19.90 Unspecified osteoarthritis, unspecified site; F17.210 Nicotine dependence, cigarettes, uncomplicated; Z80.0 Family history of malignant neoplasm of digestive organs; Z82.3 Family history of stroke; Z99.81 Dependence on supplemental oxygen
CPT/HCPCS: 36415; 71045; 74177; 76705; 80053; 80307; 81001; 82787; 82962; 83690; 84478; 84484; 85025; 85610; 86301; 87040; 93005; 94618; 94640; 94760; 96360; C9113; J0780; J1650; J1956; J2270; J2405; J7030; J7040; J7120; J7620; Q9967; 99285-25

== ENCOUNTER → 2018-11-07 | Outpatient (CLI) | payer MEDICARE ==
[~2018-11-07] MED LIST changes: +FLUT16SP NS; +LACT1CAP19 PO; +LEVO500T59 PO
--- NOTE | 2018-11-07 14:19 | RAD ---
Examination: CT CHEST WO CONTRAST History: Lung nodule Comparison/Correlation: 04/22/2017 and 10/31/2017 CT chest without contrast, CT of the chest 11/13/2013 Findings: Axial images of chest were obtained without contrast. Sagittal and coronal reformatted images were provided. Axial images of chest were obtained without contrast. Sagittal and coronal reformatted images were provided. Partial atelectasis involving right middle lobe is present especially along the major fissure. Minimal atelectasis involving the lingula along the major fissure is also present. Nodular density measuring up to 0.6 cm diameter involving the left lower lobe near the major fissure is present on axial image 33 of series 2. This is similar upon correlation with multiple prior exams including CTA chest dated 11/13/2013. Diffuse centrilobular emphysematous involvement of the lung jordan evident. No enlarged thoracic lymph nodes. No pleural or pericardial effusion. Partially visualized upper abdomen is unremarkable. No acute bony process. Degenerative changes of the mid thoracic spine are present. Impression: Decrease in right middle lobe atelectatic consolidation is evident upon correlation with 10/02/2018 CT abdomen and pelvis with contrast. Decreased lingular atelectasis also evident. Consider interval follow-up to assess resolution. Left lower lobe nodule is stable compared to multiple prior exams. No further follow-up required. Centrilobular emphysema. PQRS Compliance Statement: One or more of the following individualized dose reduction techniques were utilized for this examination: 1. Automated exposure control 2. Adjustment of the mA and/or kV according to patient size 3. Use of iterative reconstruction technique Electronically signed by: Jesse Zepeda MD (11/07/2018 2:16 PM) [facility]
== END | disposition home or self-care (01) ==
LOC: CT 09:16
PROVIDERS: ATTEND Internal Medicine Pulmonary Disease
DX: J43.2 Centrilobular emphysema (principal); J98.11 Atelectasis; R91.1 Solitary pulmonary nodule; J98.4 Other disorders of lung; M47.814 Spondylosis without myelopathy or radiculopathy, thoracic region
CPT/HCPCS: 71250

== ENCOUNTER 2020-08-13 18:47 | Observation (INO) | payer MEDICARE ==
[~2020-08-13] VITALS: Ht 175.3 cm; Wt 84.4 kg
[~2020-08-13 18:47] MED LIST changes: +APIX5TAB PO; +BENZ-8 PO; -LISI-338 PO; +LISI-517 PO
[2020-08-13] MEDS ORDERED: FUROSEMIDE 40 MG/4 ML VIAL. IVP ONE (19:30)
--- NOTE | 2020-08-13 19:30 | ED.ADGEN ---
Past Medical History Past Medical History: Arthritis, CHF, COPD, GERD, High Cholesterol, Hypertension Additional Past Medical Histor: ENLARGED PROSTATE, BOWEL OBSTRUCTION Past Surgical History: Tonsillectomy Additional Past Surgical Histo: foot surgery, bladder surgery, BOWEL RESECTION Smoking Status: Current Every Day Smoker Alcohol Use: Occasionally Drug Use: None General Adult EDM: Chief Complaint: SHORTNESS OF BREATH HPI: HPI: Patient is a 75 year old male coming in for shortness of breath and increasing lower extremity edema. Patient states that all of his edema has gotten better but over the past 2 days has noticed his lower extremity edema getting worse. Also had increasing shortness of breath. Normally on 2 3 L nasal cannula, but had bumped up to 4 L today. Says dyspnea is worse with exertion. Denies any chest pain. Patient has had both of his Covid vaccines. Denies any cough or fevers. Patient states he took 3 extra doses of his diuretic today and has had increased urine output. Review of Systems: Review of Systems: All other systems within normal limits except for as noted in the HPI Current Medications: Current Medications Medications (Trade) Dose Ordered Sig/Dandre Start Time Stop Time Status Last Admin Dose Admin Acetaminophen (Tylenol) 650 mg PRN Q4HRS PRN 08/13/20 22:15 08/14/20 22:14 Albuterol/ Ipratropium (Duoneb) 3 ml RTQID 08/14/20 08:00 08/15/20 07:59 Furosemide (Lasix) 40 mg 1X ONCE 08/13/20 19:30 08/13/20 19:34 DC 08/13/20 21:08 40 MG Methylprednisolone Sodium Succinate (SOLU-Medrol 125MG VIAL) 125 mg 1X ONCE 08/13/20 22:00 08/13/20 22:01 DC Morphine Sulfate (Morphine Sulfate) 2 mg PRN Q2HR PRN 08/13/20 22:15 08/14/20 22:14 Ondansetron HCl (Zofran) 4 mg PRN Q8HRS PRN 08/13/20 22:15 08/14/20 22:14 Allergies: Allergies: Allergies Coded Allergies Type Severity Reaction Last Updated Verified doxycycline Allergy Mild Rash 03/07/19 Yes Physical Exam: PE: Constitutional: Well developed, well nourished, no acute distress, non-toxic appearance. [] HENT: Normocephalic, atraumatic, bilateral external ears normal, nose normal. [] Eyes: PERRLA, conjunctiva normal, no discharge. [] Neck: No rigidity, supple, no stridor. [] Cardiovascular: Regular rate and rhythm, brisk cap refill [] Lungs & Thorax: Non labored symmetric respirations, no tachypnea or respiratory distress [] Abdomen: Soft, nondistended. Skin: Warm, dry, no erythema, no rash. [] Back: Unremarkable Extremities: No deformities, range of motion grossly intact, 2+ bilateral lower extremity edema [] Neurologic: Alert and oriented X 3, no focal deficits noted. [] Psychologic: Affect normal, judgement normal, mood normal. [] Current Patient Data: Labs: Laboratory Tests Test 08/13/20 19:42 08/13/20 21:05 White Blood Count 9.1 x10^3/uL (4.0-11.0) Red Blood Count 4.36 x10^6/uL (4.30-5.70) Hemoglobin 13.1 g/dL (13.0-17.5) Hematocrit 39.1 % (39.0-53.0) Mean Corpuscular Volume 90 fL (79-100) Mean Corpuscular Hemoglobin 30 pg (25-35) Mean Corpuscular Hemoglobin Concent 34 g/dL (31-37) Red Cell Distribution Width 15.7 % (11.5-14.5) H Platelet Count 160 x10^3/uL (140-400) Neutrophils (%) (Auto) 65 % (31-73) Lymphocytes (%) (Auto) 24 % (24-48) Monocytes (%) (Auto) 9 % (0-9) Eosinophils (%) (Auto) 2 % (0-3) Basophils (%) (Auto) 1 % (0-3) Neutrophils # (Auto) 5.9 x10^3/uL (1.8-7.7) Lymphocytes # (Auto) 2.2 x10^3/uL (1.0-4.8) Monocytes # (Auto) 0.8 x10^3/uL (0.0-1.1) Eosinophils # (Auto) 0.2 x10^3/uL (0.0-0.7) Basophils # (Auto) 0.1 x10^3/uL (0.0-0.2) Sodium Level 146 mmol/L (136-145) H Potassium Level 3.5 mmol/L (3.5-5.1) Chloride Level 105 mmol/L (98-107) Carbon Dioxide Level 36 mmol/L (21-32) H Anion Gap 5 (6-14) L Blood Urea Nitrogen 14 mg/dL (8-26) Creatinine 1.2 mg/dL (0.7-1.3) Estimated GFR (Cockcroft-Gault) 71.8 BUN/Creatinine Ratio 12 (6-20) Glucose Level 90 mg/dL (70-99) Lactic Acid Level 1.0 mmol/L (0.4-2.0) Calcium Level 8.8 mg/dL (8.5-10.1) Phosphorus Level 3.0 mg/dL (2.6-4.7) Magnesium Level 1.8 mg/dL (1.8-2.4) Total Bilirubin 0.7 mg/dL (0.2-1.0) Aspartate Amino Transferase (AST) 19 U/L (15-37) Alanine Aminotransferase (ALT) 17 U/L (16-63) Alkaline Phosphatase 83 U/L (46-116) Troponin I Quantitative < 0.017 ng/mL (0.000-0.055) IQ-Cda-F-Type Natriuretic Peptide 115 pg/mL (0-124) Total Protein 6.6 g/dL (6.4-8.2) Albumin 3.6 g/dL (3.4-5.0) Albumin/Globulin Ratio 1.2 (1.0-1.7) Urine Collection Type Unknown Urine Color Yellow Urine Clarity Clear Urine pH 7.0 (<5.0-8.0) Urine Specific Volcano 1.010 (1.000-1.030) Urine Protein Negative mg/dL (NEG-TRACE) Urine Glucose (UA) Negative mg/dL (NEG) Urine Ketones (Stick) Negative mg/dL (NEG) Urine Blood Negative (NEG) Urine Nitrite Negative (NEG) Urine Bilirubin Negative (NEG) Urine Urobilinogen Dipstick 0.2 mg/dL (0.2 mg/dL) Urine Leukocyte Esterase Negative (NEG) Urine RBC Occ /HPF (0-2) Urine WBC Occ /HPF (0-4) Urine Squamous Epithelial Cells Occ /LPF Urine Bacteria 0 /HPF (0-FEW) Laboratory Tests 08/13/20 19:42 Laboratory Tests 08/13/20 19:42 EKG: EKG: Sinus rhythm, heart rate 80 bpm, normal axis, no ST elevation or depression, borderline QT prolongation. [] Heart Score: C/O Chest Pain: No Risk Factors: Risk Factors: DM, Current or recent (<one month) smoker, HTN, HLP, family history of CAD, obesity. Risk Scores: Score 0 - 3: 2.5% MACE over next 6 weeks - Discharge Home Score 4 - 6: 20.3% MACE over next 6 weeks - Admit for Clinical Observation Score 7 - 10: 72.7% MACE over next 6 weeks - Early Invasive Strategies Radiology/Procedures: Radiology/Procedures: [facility] [address] [place] [address] IMAGING REPORT Signed PATIENT: JUAN PABLO WATERMAN EACCOUNT: [id number] : 1945 LOCATION: ER AGE: 75 SEX: M EXAM STATUS: REG ER ORD. PHYSICIAN: NUHA CHANG MD REASON: chf PROCEDURE: CHEST AP ONLY XR CHEST 1V INDICATION: chf COMPARISON STUDY: 03/07/2019. FINDINGS: Lungs: Normal lung volume. No pulmonary mass or consolidation. The tracheobronchial tree and hilar structures are normal. Pleura: No pleural effusion or pneumothorax. Heart and Mediastinum: The cardiomediastinal silhouette is normal. Tortuosity of the thoracic aorta. IMPRESSION: No focal airspace disease. Electronically signed by: Radha Alcantara MD (08/13/2020 8:53 PM) [facility] [[email or web address]] DICTATED and SIGNED BY: ARDHA ALCANTARA MD DATE: 08/13/209434DEA4 0 [] Course & Med Decision Making: Course & Med Decision Making Pertinent Labs and Imaging studies reviewed. (See chart for details) [] Dragon Disclaimer: Dragon Disclaimer: This electronic medical record was generated, in whole or in part, using a voice recognition dictation system. Departure Departure Impression: Primary Impression: Chronic diastolic CHF (congestive heart failure) Additional Impressions: Shortness of breath COPD exacerbation Bilateral edema of lower extremity Disposition: ADMITTED INPATIENT Admitting Physician: CYNTHIA Condition: STABLE Referrals: HARESH BLAND MD (PCP) Problem Qualifiers NUHA CHANG MD Aug 13, 2020 19:30
[2020-08-13 19:50] LABS: BASO # 0.1 x10^3/uL (0.0-0.2); BASO % 1 % (0-3); EOS # 0.2 x10^3/uL (0.0-0.7); EOS % 2 % (0-3); HEMATOCRIT 39.1 % (39.0-53.0); HEMOGLOBIN 13.1 g/dL (13.0-17.5); LYMPH # 2.2 x10^3/uL (1.0-4.8); LYMPH % 24 % (24-48); MEAN CORPUSCULAR HEMOGLOBIN 30 pg (25-35); MEAN CORPUSCULAR HGB CONC 34 g/dL (31-37); MEAN CORPUSCULAR VOLUME 90 fL (79-100); MONO # 0.8 x10^3/uL (0.0-1.1); MONO % 9 % (0-9); NEUT # 5.9 x10^3/uL (1.8-7.7); NEUT % 65 % (31-73); PLATELET COUNT 160 x10^3/uL (140-400); RED BLOOD COUNT 4.36 x10^6/uL (4.30-5.70); RED CELL DISTRIBUTION WIDTH 15.7 % (11.5-14.5); WHITE BLOOD COUNT 9.1 x10^3/uL (4.0-11.0)
[2020-08-13 20:08] LABS: MAGNESIUM 1.8 mg/dL (1.8-2.4)
--- NOTE | 2020-08-13 20:55 | RAD ---
XR CHEST 1V INDICATION: chf COMPARISON STUDY: 03/07/2019. FINDINGS: Lungs: Normal lung volume. No pulmonary mass or consolidation. The tracheobronchial tree and hilar st ructures are normal. Pleura: No pleural effusion or pneumothorax. Heart and Mediastinum: The cardiomediastinal silhouette is normal. Tortuosity of the thoracic aorta. IMPRESSION: No focal airspace disease. Electronically signed by: Dimas Alcantara MD (08/13/2020 8:53 PM) [facility]
[2020-08-13 21:04] LABS: CALCIUM 8.8 mg/dL (8.5-10.1); CREATININE 1.2 mg/dL (0.7-1.3); GFR 71.8; POTASSIUM 3.5 mmol/L (3.5-5.1)
[2020-08-13 21:11] LABS: ALBUMIN 3.6 g/dL (3.4-5.0); ALBUMIN/GLOBULIN RATIO 1.2 (1.0-1.7); TOTAL BILIRUBIN 0.7 mg/dL (0.2-1.0); TOTAL PROTEIN 6.6 g/dL (6.4-8.2)
[2020-08-13 21:14] LABS: BILIRUBIN,URINE NEGATIVE (NEG); COLOR,URINE YELLOW; NITRITE,URINE NEGATIVE (NEG); PROTEIN,URINE NEGATIVE (NEG-TRACE); UROBILINOGEN,URINE 0.2 mg/dL (0.2 mg/dL)
[2020-08-13 21:24] LABS: CLARITY,URINE CLEAR
[2020-08-13 21:25] LABS: BACTERIA,URINE 0 /HPF (0-FEW); WBC,URINE OCC /HPF (0-4)
[2020-08-13 21:26] LABS: RBC,URINE OCC /HPF (0-2)
[2020-08-13] MEDS ORDERED: methylPREDNISolone SOD SUCC PF 125 MG/2 ML VIAL. IV ONE (22:00)
[2020-08-13] MEDS ORDERED: ACETAMINOPHEN 325 MG TABLET. PO PRN (22:15)
[2020-08-13] MEDS ORDERED: MORPHINE SULFATE 2 MG/ML VIAL. IV PRN (22:15)
[2020-08-13] MEDS ORDERED: ONDANSETRON PF 4 MG/2 ML VIAL. IV PRN (22:15)
[2020-08-14] VITALS: BP 124/74
[2020-08-14] MEDS ORDERED: ALBUTEROL SULFATE 2.5 MG/3 ML NEBU. NEB PRN (01:30)
[2020-08-14] MEDS ORDERED: LORA-627 PO (02:40)
[2020-08-14] MEDS ORDERED: BUME1TAB3 PO (02:40)
[2020-08-14] MEDS ORDERED: UBID200C7 PO (02:40)
[2020-08-14] MEDS ORDERED: MULT-154 PO (02:40)
[2020-08-14] MEDS ORDERED: LACT1CAP37 PO (02:40)
[2020-08-14] MEDS ORDERED: BUDE0.5A IH (02:40)
[2020-08-14] MEDS ORDERED: AZIT500T4 PO (02:40)
[2020-08-14] MEDS ORDERED: ARFO15VI IH (02:40)
[2020-08-14] MEDS ORDERED: VENTOLIN HFA18 GM INH (02:40)
[2020-08-14 03:00] VITALS: BP 125/73
[2020-08-14 06:27] LABS: BASO % 0 % (0-3); EOS % 0 % (0-3); HEMATOCRIT 39.1 % (39.0-53.0); LYMPH # 0.5 x10^3/uL (1.0-4.8); LYMPH % 5 % (24-48); MEAN CORPUSCULAR HEMOGLOBIN 30 pg (25-35); MEAN CORPUSCULAR HGB CONC 33 g/dL (31-37); MEAN CORPUSCULAR VOLUME 91 fL (79-100); MONO # 0.1 x10^3/uL (0.0-1.1); MONO % 1 % (0-9); NEUT # 10.9 x10^3/uL (1.8-7.7); NEUT % 94 % (31-73); PLATELET COUNT 164 x10^3/uL (140-400); RED BLOOD COUNT 4.29 x10^6/uL (4.30-5.70); RED CELL DISTRIBUTION WIDTH 15.9 % (11.5-14.5); WHITE BLOOD COUNT 11.5 x10^3/uL (4.0-11.0)
[2020-08-14 06:34] LABS: CREATININE 1.5 mg/dL (0.7-1.3); GFR 55.5; POTASSIUM 4.7 mmol/L (3.5-5.1)
[2020-08-14 07:00] VITALS: BP 115/63
[2020-08-14] MEDS: IPRATRPIUM/ALBUTEROL 0.5/2.5MG 3 ML NEBU. NEB SCH ×2 (07:39→11:06)
--- NOTE | 2020-08-14 08:57 | EKG ---
[facility] [address] [place] [address] Test Date: 2020-08-13 Test Time: 19:14:38 Pat Name: JUAN PABLO WATERMAN Department: Room: Gender: M Spoke Maker: : 1945 Requested By: NUHA CHANG Order Number: [id number] Reading MD: Measurements Intervals [place] Rate: 80 P: 77 [place]: 146 QRS: 66 QRSD: 90 T: 78 QT: 426 QTc: 495 Interpretive Statements SINUS RHYTHM PROLONGED QT NO SPECIFIC ECG ABNORMALITIES RI6.01 No previous ECG available for comparison
[2020-08-14] MEDS ORDERED: OXYMETAZOLINE 0.05% NASAL SPRAY 30ML BOTTLE. NS SCH (10:00)
--- NOTE | 2020-08-14 10:19 | NUR ---
SW following. Discussed with RN, pt from home alone, 3L (uses oxygen at home), cardiac diet. Per RN, pt gets around fine. RN anticipates discharge home with self care today.
[2020-08-14 10:29] LABS: % LYMPHS 7 % (24-48); % MONOS 2 % (0-10); % SEGS 91 % (35-66)
[2020-08-14 10:30] LABS: PLT ESTIMATE ADEQUATE (ADEQUATE)
[2020-08-14] MEDS ORDERED: OXYM-27 NS (10:37)
[2020-08-14 11:00] VITALS: BP 115/56
--- NOTE | 2020-08-14 11:30 | NUR ---
Discharge Note: JUAN PABLO WATERMAN Discharge instructions and discharge home medications reviewed with Patient and a copy given. All questions have been answered and understanding verbalized. The following instructions and handouts were given: Education over COPD and SOB Discontinued IV line and telemetry. Patient discharged to Home with Self-Care
--- NOTE | 2020-08-14 12:14 | SSS ---
ADMIT DATE: 08/14/2020 SHORT STAY SUMMARY CHIEF COMPLAINT: Shortness of breath and lower extremity swelling. HISTORY OF PRESENT ILLNESS: The patient is a pleasant 75-year-old male who presented to the ER with shortness of breath and lower extremity swelling. It has been occurring for several days, rated as 7/10, worse with moving, better with sitting still. States he also has congestion in the middle of the night. I discussed the case with ER physician. We admitted the patient overnight for observation. This morning, he is doing well, he wants to go home. PAST MEDICAL HISTORY: Previous tobacco abuse, allergic rhinitis, polypharmacy, upper respiratory infections, COPD, asthma, GERD, hyperlipidemia, BPH. ALLERGIES: DOXYCYCLINE. FAMILY HISTORY: COPD. SOCIAL HISTORY: He quit smoking. No drink or drugs. MEDICATIONS: Reviewed. Please refer to the MRAD. Medications were p.r.n. Afrin nasal spray, p.r.n. Tylenol, albuterol, Brovana 15 b.i.d., aspirin 81 a day, Z-Davide, budesonide 0.5 b.i.d., Avodart 1 cap at bedtime, Flonase, Combivent, Lactobacillus tablets, Claritin-D 1 a day, vitamins, Protonix 40 a day, simvastatin 20 a day, Flomax 0.4 a day and CoQ10. REVIEW OF SYSTEMS: GENERAL: No history of weight change, weakness or fevers. SKIN: No bruising, hair changes or rashes. EYES: No blurred, double or loss of vision. NOSE AND THROAT: No history of nosebleeds, hoarseness or sore throat. HEART: No history of palpitations, chest pain or shortness of breath on exertion. LUNGS: Denies cough, hemoptysis, wheezing or shortness of breath. GASTROINTESTINAL: Denies changes in appetite, nausea, vomiting, diarrhea or constipation. GENITOURINARY: No history of frequency, urgency, hesitancy or nocturia. NEUROLOGIC: Denies history of numbness, tingling, tremor or weakness. PSYCHIATRIC: No history of panic, anxiety or depression. ENDOCRINE: No history of heat or cold intolerance, polyuria or polydipsia. EXTREMITIES: Denies muscle weakness, joint pain, pain on walking or stiffness. PHYSICAL EXAMINATION: VITALS: Within normal limits and are stable. GENERAL: No apparent distress. Alert and oriented. HEENT: Normal cephalic atraumatic, external auditory canals are patent. EYES: Extraocular muscles are intact, pupils are equally round and reactive to light and accommodation. MUSCULOSKELETAL: Well developed, well nourished, good range of motion. ENDOCRINE: No thyromegaly was palpated. LYMPHATICS: No cervical chain or axillary nodes were noted. HEMATOPOIETIC: No bruising. NECK: Supple, no JVD, no thyromegaly was noted. LUNGS: Clear to auscultation in all lung jordan without rhonchi or wheezing. HEART: RRR, S1, S2 present. Peripheral pulses intact, no obvious murmurs were noted. ABDOMEN: Soft, nontender. Positive bowel sounds. No organomegaly, normal bowel sounds. EXTREMITIES: Without any cyanosis, clubbing, or edema. Pedal pulses intact, Homans sign is negative. NEUROLOGIC: Normal speech, normal tone. A and O x 3, moves all extremities, no obvious focal deficits. PSYCHIATRIC: Normal affect, normal mood. Stable. SKIN: No ulcerations or rashes, good skin turgor, no jaundice. VASCULAR: Good capillary refill, neurovascular bundle appears to be intact. ASSESSMENT AND PLAN: Resolving chronic obstructive pulmonary disease exacerbation, resolving acute on chronic systolic and diastolic heart failure. The patient has been admitted overnight for observation. This morning, he wants to go home. I saw and examined. We are going to discharge. DISPOSITION: Home. ACTIVITY: As tolerated. DIET: Low sodium. MEDICATIONS: Please see the MRAD. Total time 32 minutes. GUSTAVO/SARAHI/MANDY DR: Gumaro TID: [id number]
== END 2020-08-14 11:30 | disposition home or self-care (01) ==
LOC: ER 18:47 → ED HOLD 21:40 → INTOOBSV 21:40 → 6 SOUTH 23:35
PROVIDERS: ADMIT Internal Medicine; ATTEND Internal Medicine
DX: J44.1 Chronic obstructive pulmonary disease with (acute) exacerbation (principal); I11.0 Hypertensive heart disease with heart failure; I50.43 Acute on chronic combined systolic (congestive) and diastolic (congestive) heart failure; N40.0 Benign prostatic hyperplasia without lower urinary tract symptoms; K21.9 Gastro-esophageal reflux disease without esophagitis; E78.5 Hyperlipidemia, unspecified; E78.00 Pure hypercholesterolemia, unspecified; M19.90 Unspecified osteoarthritis, unspecified site; R60.0 Localized edema; Z87.891 Personal history of nicotine dependence; Z79.82 Long term (current) use of aspirin; Z90.49 Acquired absence of other specified parts of digestive tract; Z79.899 Other long term (current) drug therapy; Z98.890 Other specified postprocedural states
CPT/HCPCS: 36415; 71045; 80048; 80053; 81001; 83605; 83735; 83880; 84100; 84484; 85007; 85025; 93005; 94640; 96374; 96375; 99285; G0378; J1940; J2930; J7613; G0379

== ENCOUNTER → 2021-01-26 | Outpatient (CLI) | payer MEDICARE ==
[~2021-01-26] MED LIST changes: +ARFO15VI IH; +AZIT500T4 PO; +BUDE0.5A IH; +BUME1TAB3 PO; +LACT1CAP37 PO; -LISI-517 PO; +LISI5TAB15 PO; +LORA-627 PO; +MULT-154 PO; +OXYM-27 NS; +UBID200C7 PO; +VENTOLIN HFA18 GM INH
--- NOTE | 2021-01-26 11:45 | RAD ---
EXAM: CT CHEST WITHOUT CONTRAST (LDCT LUNG CANCER SCREENING). HISTORY: Risk factors for pulmonary malignancy. Cigarette smoking. TECHNIQUE: CT of the chest was performed without intravenous contrast using a low-dose lung screening protocol. Findings analysis is based on ACR Lung-RADS v1.1. *One or more of the following individual ized dose reduction techniques were utilized for this examination: 1. Automated exposure control. 2. Adjustment of the mA and/or kV according to patient size. 3. Use of iterative reconstruction technique. COMPARISON: 03/07/2019. FINDINGS: The heart is normal in size. There is stable scarring and partial consolidation with associ ated air bronchograms within the medial right middle lobe. There has been slight interval increase in suspected scarring within the lingula. There is emphysema. There is no pneumothorax or pleural effus ion. There is posterior dependent atelectasis. There is mild central bronchial wall thickening. There is a stable 9 mm nodule within the lateral left lower lobe (series 2, image 131). The aorta is marianela l in caliber. There is no lymphadenopathy. There is suspected left hydronephrosis, partially included on the [id number]. There are partially exophytic lesions within the left kidney likely due to cys ts, the largest of which measures 1.9 cm. There is a 5.6 cm cyst within the right kidney. There is an adjacent 1.1 cm hyperdense lesion which may be a hemorrhagic cyst. There is no suspicious osseous [place]. There is thoracic scoliosis. There is degenerative change primarily at the levels of maximum sc oliotic concavity. IMPRESSION: 1. Stable 9 mm nodule within the left lower lobe. Lung RADS category 4. The nearly two-year course of stability favors benignity. Therefore, follow-up at a 6 month interval rather than 3 month interval can be performed to confirm a greater than 2 year course of stability. 2. Pulmonary emphysema with bronchial wall thickening likely due to bronchitis. 3. Stable scarring and partial consolidation of the right middle lobe and slight increased scarring w ithin the lingula. 4. Suspected mild left hydronephrosis, partially included on the [id number]-[id number]. There are multiple re nal cysts, several which may be complicated cysts. Renal sonography can be performed for characteriza tion. Electronically signed by: Asya Guerrero MD (01/26/2021 11:42 AM) [id number]
== END ==
LOC: CT 09:39
PROVIDERS: ATTEND Internal Medicine Pulmonary Disease
DX: Z12.2 Encounter for screening for malignant neoplasm of respiratory organs (principal); J43.9 Emphysema, unspecified; J92.9 Pleural plaque without asbestos; M41.84 Other forms of scoliosis, thoracic region; J98.4 Other disorders of lung; N28.1 Cyst of kidney, acquired; F17.210 Nicotine dependence, cigarettes, uncomplicated
CPT/HCPCS: 71271

== ENCOUNTER 2021-07-27 00:02 | Inpatient (IN) | payer MEDICARE ==
[~2021-07-27] VITALS: Ht 175.3 cm; Wt 81.5 kg
[2021-07-27] MEDS ORDERED: predniSONE 10 MG TABLET PO ONE (00:30)
[2021-07-27] MEDS ORDERED: IPRATRPIUM/ALBUTEROL 0.5/2.5MG 3 ML NEBU. NEB ONE (00:30)
[2021-07-27 00:36] LABS: BASO # 0.1 x10^3/uL (0.0-0.2); BASO % 1 % (0-3); EOS # 0.2 x10^3/uL (0.0-0.7); EOS % 2 % (0-3); HEMATOCRIT 37.9 % (39.0-53.0); HEMOGLOBIN 12.6 g/dL (13.0-17.5); LYMPH # 3.2 x10^3/uL (1.0-4.8); LYMPH % 35 % (24-48); MEAN CORPUSCULAR HEMOGLOBIN 30 pg (25-35); MEAN CORPUSCULAR HGB CONC 33 g/dL (31-37); MEAN CORPUSCULAR VOLUME 91 fL (79-100); MONO # 0.9 x10^3/uL (0.0-1.1); MONO % 10 % (0-9); NEUT # 4.7 x10^3/uL (1.8-7.7); NEUT % 52 % (31-73); PLATELET COUNT 190 x10^3/uL (140-400); RED BLOOD COUNT 4.18 x10^6/uL (4.30-5.70); RED CELL DISTRIBUTION WIDTH 15.3 % (11.5-14.5)
--- NOTE | 2021-07-27 00:37 | PHYS DOC ---
Past Medical History Past Medical History: Arthritis, CHF, COPD, GERD, High Cholesterol, Hyper tension Additional Past Medical Histor: ENLARGED PROSTATE, BOWEL OBSTRUCTION Past Surgical History: Tonsillectomy Additional Past Surgical Histo: foot surgery, bladder surgery, BOWEL RESECTION Smoking Status: Current Every Day Smoker Alcohol Use: None Drug Use: None General Adult EDM: Chief Complaint: SHORTNESS OF BREATH HPI: HPI: Patient is a 76 year old M who presents with shortness of breath, associated with wheezing, not responding to his home medications for the past 2 days. Patient has severe COPD and uses multiple inhalers as well as they have the nebulizer treatments to manage his COPD. Patient denies any fevers or chills but says his breathing has become steadily worse until today when after using his nebulizer he was so short of breath he called 911. Patient is not sure the last time he was taking systemic steroids. Patient denies any significant chest pain nausea vomiting or diarrhea. No known sick contacts. Review of Systems: Review of Systems: Constitutional: Denies fever or chills. [] Eyes: Denies change in visual acuity. [] HENT: Denies nasal congestion or sore throat. [] Respiratory: cough and shortness of breath. [] Cardiovascular: Denies chest pain or edema. [] GI: Denies abdominal pain, nausea, vomiting, bloody stools or diarrhea. [] : Denies dysuria. [] Musculoskeletal: Denies back pain or joint pain. [] Integument: Denies rash. [] Neurologic: Denies headache, focal weakness or sensory changes. [] Endocrine: Denies polyuria or polydipsia. [] Lymphatic: Denies swollen glands. [] Psychiatric: Denies depression or anxiety. [] Heart Score: C/O Chest Pain: No Risk Factors: Risk Factors: DM, Current or recent (<one month) smoker, HTN, HLP, family history of CAD, obesity. Risk Scores: Score 0 - 3: 2.5% MACE over next 6 weeks - Discharge Home Score 4 - 6: 20.3% MACE over next 6 weeks - Admit for Clinical Observation Score 7 - 10: 72.7% MACE over next 6 weeks - Early Invasive Strategies Allergies: Allergies: Allergies Coded Allergies Type Severity Reaction Last Updated Verified doxycycline Allergy Intermediate Rash 07/27/21 Yes Physical Exam: PE: Constitutional: Well developed, well nourished, no acute distress, non-toxic appearance. [] HENT: Normocephalic, atraumatic, bilateral external ears normal, oropharynx moist, no oral exudates, nose normal. [] Eyes: PERRLA, EOMI, conjunctiva normal, no discharge. [] Neck: Normal range of motion, no tenderness, supple, no stridor. [] Cardiovascular:Heart rate regular rhythm, no murmur [] Lungs & Thorax: Bilateral wheezes and extra respiratory muscle use [] Abdomen: Bowel sounds normal, soft, no tenderness, no masses, no pulsatile masses. [] Skin: Warm, dry, no erythema, no rash. [] Back: No tenderness, no CVA tenderness. [] Extremities: No tenderness, no cyanosis, no clubbing, ROM intact, no edema. [] Neurologic: Alert and oriented X 3, normal motor function, normal sensory function, no focal deficits noted. [] Psychologic: Affect normal, judgement normal, mood normal. [] Current Patient Data: Vital Signs: Vital Signs Date Time Temp Pulse Resp B/P (MAP) Pulse Ox O2 Delivery O2 Flow Rate FiO2 07/27/21 00:05 98.2 68 16 124/70 (88) 99 Nasal Cannula 2.0 98.2 EKG: EKG: EKG done at 0706, sinus rhythm at a rate of 68, normal axis, QTC 496, no ischemic changes. Radiology/Procedures: Radiology/Procedures: [] Course & Med Decision Making: Course & Med Decision Making Patient with significant shortness of breath, likely secondary to COPD exacerbation, given his past medical history will also rule out CHF and infection. Labs, EKG, chest x-ray, prednisone and duo nebs and observation for improvement in his breathing. Patient continues to have difficulty breathing would like to be admitted. Chest x-ray with left upper lobe opacity consistent with infection, possible pneumonia, patient breathing somewhat improved but still very short of breath at rest, will admit the patient for pneumonia and COPD exacerbation, start IV ceftriaxone/azithro to cover for pneumonia and send blood cultures. Fiona Disclaimer: Fiona Disclaimer: This electronic medical record was generated, in whole or in part, using a voice recognition dictation system. Departure Departure Impression: Primary Impression: COPD exacerbation Additional Impression: Pneumonia Qualified Codes: J18.9 - Pneumonia, unspecified organism Disposition: ADMITTED INPATIENT Condition: STABLE Referrals: HARESH BLAND MD (PCP) GEORGIANA DE JESUS MD July 27, 2021 00:37
[2021-07-27 00:51] LABS: CALCIUM 8.6 mg/dL (8.5-10.1); CREATININE 1.4 mg/dL (0.7-1.3); GFR 59.9; POTASSIUM 3.3 mmol/L (3.5-5.1)
[2021-07-27 00:54] LABS: ALBUMIN 3.8 g/dL (3.4-5.0); ALBUMIN/GLOBULIN RATIO 1.2 (1.0-1.7); TOTAL BILIRUBIN 0.3 mg/dL (0.2-1.0); TOTAL PROTEIN 7.1 g/dL (6.4-8.2)
--- NOTE | 2021-07-27 01:05 | RAD ---
XR CHEST 1V 07/27/2021 12:33 AM INDICATION: Cough, shortness of breath COMPARISON: 08/13/2020 TECHNIQUE: Portable frontal view of the chest is provided. FINDINGS: The cardiomediastinal silhouette is within normal limits. Subtle patchy opacity identified in the lef t upper lobe is present pneumonitis of infectious/inflammatory etiology. Bronchial wall thickening beaulieu ggestive of nonspecific bronchitis. There are no significant pleural effusions. There is no pulmonary vascular congestion. No pneumothora x. No suspicious osseous abnormality. IMPRESSION: Subtle patchy opacity identified in the left upper lobe is present pneumonitis of infectious/inflamma tory etiology. Bronchial wall thickening as may be seen with nonspecific bronchitis. Electronically signed by: Tracy Maloney MD (07/27/2021 1:03 AM) [facility] [place]
[2021-07-27] MEDS ORDERED: AZITHROMYCIN 500 MG in IV NORMAL SALINE 250ML 250 ML IV ONE (01:30)
[2021-07-27] MEDS ORDERED: cefTRIAXone IV Push 1 GM VIAL. IVP ONE (01:30)
[2021-07-27] MEDS ORDERED: ACETAMINOPHEN 325 MG TABLET. PO PRN (01:30)
[2021-07-27 01:31] LABS: INFLUENZA A PATIENT NEGATIVE (NEGATIVE); INFLUENZA B PATIENT NEGATIVE (NEGATIVE)
[2021-07-27 03:00] VITALS: BP 107/71
--- NOTE | 2021-07-27 03:30 | NUR ---
Pt arrived to unit via gurney. Assessment and vitals completed and documented. History reviewed with pt. Pt orientated to room/bed/call light.Pt has no needs at this time.
[2021-07-27] MEDS ORDERED: ONDANSETRON PF 4 MG/2 ML VIAL. IVP PRN (04:15)
[2021-07-27] MEDS ORDERED: NITROGLYCERIN SUBLINGUAL 0.4 MG BOTTLE OF 25. SL PRN (04:15)
[2021-07-27] MEDS: CALCIUM CARBONATE 500 MG TABLET PO SCH ×4 (04:15→19:04)
[2021-07-27] MEDS ORDERED: traMADol 50 MG TABLET PO PRN (04:15)
[2021-07-27] MEDS ORDERED: ALBUTEROL SULFATE 2.5 MG/3 ML NEBU. NEB PRN (04:15)
[2021-07-27] MEDS ORDERED: hydrALAZINE 20 MG/ML VIAL. IVP PRN (04:15)
--- NOTE | 2021-07-27 05:48 | EKG ---
[facility] [address] [place] [address] Test Date: 2021-07-27 Test Time: 00:07:06 Pat Name: JUAN PABLO WATERMAN Department: Room: 112 1 Gender: M Manager Of Construction: : 1945 Requested By: GEORGIANA DE JESUS Order Number: [id number] Reading MD: Poncho Wylie Measurements Intervals [place] Rate: 68 P: 68 [place]: 158 QRS: 61 QRSD: 94 T: 67 QT: 466 QTc: 496 Interpretive Statements SINUS RHYTHM PROLONGED QT Electronically Signed On 07-27-2021 10:01:17 CDT by Poncho Wylie
[2021-07-27] MEDS: HEPARIN for SUB-Q USE 5,000 UNIT/ML VIAL. SQ SCH ×3 (06:17→22:00)
[2021-07-27 08:00] VITALS: BP 125/72
[2021-07-27] MEDS: IPRATRPIUM/ALBUTEROL 0.5/2.5MG 3 ML NEBU. NEB SCH ×4 (08:00→20:00)
[2021-07-27 12:00] VITALS: BP 118/65
[2021-07-27 16:00] VITALS: BP 105/53
[2021-07-27 19:00] VITALS: BP 99/61
[2021-07-27] MEDS: methylPREDNISolone SOD SUCC PF 40 MG/ML VIAL. IV SCH (20:47)
[2021-07-27] MEDS ORDERED: PSYLLIUM HUSK (SUGAR FREE) 1 PKT PACKET PO SCH (21:00)
[2021-07-27] MEDS ORDERED: cefTRIAXone IV Push 1 GM VIAL. IVP SCH (21:00)
[2021-07-28 05:48] LABS: BASO % 0 % (0-3); EOS % 0 % (0-3); HEMATOCRIT 33.2 % (39.0-53.0); LYMPH # 0.7 x10^3/uL (1.0-4.8); LYMPH % 6 % (24-48); MEAN CORPUSCULAR HEMOGLOBIN 30 pg (25-35); MEAN CORPUSCULAR HGB CONC 33 g/dL (31-37); MEAN CORPUSCULAR VOLUME 91 fL (79-100); MONO # 0.6 x10^3/uL (0.0-1.1); MONO % 5 % (0-9); NEUT # 10.2 x10^3/uL (1.8-7.7); NEUT % 89 % (31-73); PLATELET COUNT 184 x10^3/uL (140-400); RED BLOOD COUNT 3.66 x10^6/uL (4.30-5.70); WHITE BLOOD COUNT 11.4 x10^3/uL (4.0-11.0)
[2021-07-28] MEDS: HEPARIN for SUB-Q USE 5,000 UNIT/ML VIAL. SQ SCH (06:00)
[2021-07-28 06:04] LABS: CALCIUM 8.7 mg/dL (8.5-10.1); CREATININE 1.3 mg/dL (0.7-1.3); GFR 65.3; POTASSIUM 4.1 mmol/L (3.5-5.1)
[2021-07-28 07:28] VITALS: BP 104/55
[2021-07-28] MEDS: IPRATRPIUM/ALBUTEROL 0.5/2.5MG 3 ML NEBU. NEB SCH ×2 (07:43→11:40)
--- NOTE | 2021-07-28 07:45 | HP ---
DATE OF SERVICE: 07/27/2021 ADMIT DATE: 07/27/2021 CHIEF COMPLAINT: Shortness of breath. HISTORY OF PRESENT ILLNESS: The patient is a pleasant 76-year-old male who has COPD and CHF. He still smokes a little bit each week. Once again, he presents with shortness of breath and cough. He was noted to have a COPD exacerbation and pneumonia. I discussed the case with ER physician. We are going to admit the patient to the ICU on IV antibiotics, breathing treatments, steroids and nebulizers. PAST MEDICAL HISTORY: COPD, CHF, hypertension, continued tobacco abuse, couple times a week, arthritis, GERD, hyperlipidemia, BPH, bowel obstruction, tonsillectomy, foot surgery, bladder surgery, bowel resection. ALLERGIES: DOXYCYCLINE. FAMILY HISTORY: Diabetes. SOCIAL HISTORY: He smokes a couple of cigarettes a week. He does not drink or take drugs. 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 MEDICATIONS: Reviewed, please refer to the MRAD. REVIEW OF SYSTEMS: GENERAL: No history of weight change, weakness or fevers. SKIN: No bruising, hair changes or rashes. EYES: No blurred, double or loss of vision. NOSE AND THROAT: No history of nosebleeds, hoarseness or sore throat. HEART: No history of palpitations, chest pain or shortness of breath on exertion. LUNGS: He complains of shortness of breath. GASTROINTESTINAL: Denies changes in appetite, nausea, vomiting, diarrhea or constipation. GENITOURINARY: No history of frequency, urgency, hesitancy or nocturia. NEUROLOGIC: Denies history of numbness, tingling, tremor or weakness. PSYCHIATRIC: No history of panic, anxiety or depression. ENDOCRINE: No history of heat or cold intolerance, polyuria or polydipsia. EXTREMITIES: Denies muscle weakness, joint pain, pain on walking or stiffness. PHYSICAL EXAMINATION: VITALS: Within normal limits and are stable. GENERAL: No apparent distress. Alert and oriented. HEENT: Normal cephalic atraumatic, external auditory canals are patent. EYES: Extraocular muscles are intact, pupils are equally round and reactive to light and accommodation. MUSCULOSKELETAL: Well developed, well nourished, good range of motion. ENDOCRINE: No thyromegaly was palpated. LYMPHATICS: No cervical chain or axillary nodes were noted. HEMATOPOIETIC: No bruising. NECK: Supple, no JVD, no thyromegaly was noted. LUNGS: He has bibasilar crackles. HEART: RRR, S1, S2 present. Peripheral pulses intact, no obvious murmurs were noted. ABDOMEN: Soft, nontender. Positive bowel sounds no organomegaly, normal bowel sounds. EXTREMITIES: Without any cyanosis, clubbing, or edema. Pedal pulses intact, Homans sign is negative. NEUROLOGIC: Normal speech, normal tone. A and O x 3, moves all extremities, no obvious focal deficits. PSYCHIATRIC: Normal affect, normal mood. Stable. SKIN: No ulcerations or rashes, good skin turgor, no jaundice. VASCULAR: Good capillary refill, neurovascular bundle appears to be intact. LABORATORY DATA: White count 9, hemoglobin 12, platelets 190. Electrolytes: Sodium 149, potassium 3.3, chloride 106, bicarb 36, BUN 29, creatinine 1.4, glucose 101. COVID testing is negative. Flu testing negative. Chest x-ray shows left upper lobe pneumonia and some bronchial wall thickening, which may be nonspecific bronchitis. ASSESSMENT AND PLAN: Respiratory failure, pneumonia, bronchitis, tobacco abuse. The patient has been admitted. We will start IV antibiotics, breathing treatments, oxygen, steroids, home meds. DVT prophylaxis. Full code. Trend labs. Encourage p.o. intake. PT, OT. GUSTAVO/DONNA DR: GUSTAVO/hardik TID: [id number]
[2021-07-28] MEDS: CALCIUM CARBONATE 500 MG TABLET PO SCH (08:54)
[2021-07-28] MEDS: methylPREDNISolone SOD SUCC PF 40 MG/ML VIAL. IV SCH (08:54)
[2021-07-28] MEDS ORDERED: AMOX1TAB61 PO (10:12)
[2021-07-28] MEDS ORDERED: METH4TAB2 PO (10:12)
--- NOTE | 2021-07-28 10:13 | SNU/HH DC ---
DISCHARGE WITH HOME HEALTH DISCHARGE INFORMATION: Final Diagnosis: Problems Medical Problems: (1) Pneumonia Status: Acute Condition on Discharge: Stable CODE STATUS: Code Status: Full HOME HEALTH: Face to Face: I certify this patient is under my care and that I, or a nurse practitioner or physician's portfolio assistant working with me, had a face to face encounter that meets the physician face to face encounter requirements with this patient on []. Medical Complications: COPD Shelter For: Assess Cardiopulm Status RN For Eval/Treatment: Yes Physical Therapy For: Evalulation/Treatment Occupational Therapy For: Evaluation/Treatment Home Health Aide For: Self-care MANAGER INPATIENT For: Community Resources Pt Meets Homebound Status: Unsteady balance w/ amb, POST DISCHARGE ORDERS: Activity Instructions for Disc: Activity as tolerated Weight Bearing Status after Di: As tolerated DIET AFTER DISCHARGE: Cardiac Wound/Incision Care: No wound care needed CHECKS AFTER DISCHARGE: Checks after discharge: Check blood press - daily TREATMENT/EQUIPMENT ORDERS: Adaptive Equipment Issued: None Discharge Respiratory Equipmen: Oxygen, Nebulizer CERTIFICATION STATEMENT: Certification Statement: Certification Statement: Based on the above finding, I certify that this patient is confined to the home and needs intermittent longterm care, physical therapy and/or speech therapy, or continues to need occupational therapy.~ This patient is under my care, and I have initiated the establishment of the plan of care.~ This patient will be followed by myself or a community physician who will periodically review the plan of care. Home Meds Active Scripts Amoxicillin/Potassium Clav (AUGMENTIN 875-125 TABLET) 1 Each Tablet, 1 TAB PO BID for . for 7 Days, #14 TAB 0 Refills Prov:CASTLE,NIAL K III DO 07/28/21 Methylprednisolone (MEDROL) 4 Mg Tab.ds.pk, 1 PKG PO UD for ., #1 PKG Prov:CASTLE,NIAL K III DO 07/28/21 Oxymetazoline Hcl (NASAL DECONGESTANT) 30 Ml [place], 2 SPRAY NS BID for . for 30 Days, #1 SPRAY Prov:CASTLE,NIAL K III DO 08/14/20 Acetaminophen (TYLENOL) 325 Mg Tablet, 650 MG PO PRN Q6HRS PRN for PAIN / TEMP for 28 Days, TAB Prov:HARESH BLAND MD 11/15/13 Reported Medications Albuterol Sulfate (VENTOLIN HFA INHALER) 18 Gm Hfa.aer.ad, 2 PUFF INH PRN Q4HRS PRN for WHEEZING, EACH 0 Refills 08/14/20 Bumetanide (BUMETANIDE) 1 Mg Tablet, 1 MG PO DAILY for chf, TAB 08/14/20 Azithromycin (AZITHROMYCIN TABLET) 500 Mg Tablet, 500 MG PO QMWF for copd, TAB 0 Refills 08/14/20 Arformoterol Tartrate (BROVANA) 15 Mcg/2 Ml Vial.neb, 15 MCG IH BID for copd, EACH 08/14/20 Budesonide (BUDESONIDE) 0.5 Mg/2 Ml Ampul.neb, 0.5 MG IH BID for copd, EACH 08/14/20 Lactobacillus Combo No.10 (PROBIOTIC) 1 Each Capsule, 1 EACH PO DAILY for supplement, CAP 08/14/20 Multivitamin (ONE-A-DAY ESSENTIAL) 1 Each Tablet, 1 EACH PO DAILY for supplement, TAB 08/14/20 Ubidecarenone (CO Q-10) 200 Mg Capsule, 100 MG PO DAILY for supplement, CAP 08/14/20 Loratadine/Pseudoephedrine (CLARITIN-D 24 HOUR TABLET) 1 Each Tab.er.24h, 1 EACH PO DAILY for allergies, TAB.SR 08/14/20 Ipratropium/Albuterol Sulfate (COMBIVENT RESPIMAT INHAL) 4 Gm Aer.w.adap, 2 INH IH QID for COPD, INHALER 03/07/19 Fluticasone Propionate (FLUTICASONE PROPIONATE NASAL SPRAY) 16 Gm [place].susp, 2 SPRAY NS DAILY for allergies, #1 INHALER 11 Refills 10/02/18 Pantoprazole Sodium (PROTONIX) 20 Mg Tablet.dr, 40 MG PO DAILYAC for ., TAB 07/19/18 Tamsulosin Hcl (FLOMAX) 0.4 Mg Cap.er.24h, 2 CAP PO QHS 03/05/17 Azelastine Hcl (AZELASTINE HCL) 137 Mcg/0.137 Ml [place].pump, 2 SPRAY NS BID, #30 ML 5 Refills 05/25/16 Dutasteride (AVODART) 0.5 Mg Capsule, 1 CAP PO HS, #30 CAP 5 Refills 05/25/16 Aspirin (ASPIR 81) 81 Mg Tablet.dr, 1 TAB PO DAILY, #30 TAB 5 Refills 10/16/15 Simvastatin (ZOCOR) 20 Mg Tablet, 20 MG PO QHS 02/10/13 GISELL ORTEGA III DO July 28, 2021 10:13
--- NOTE | 2021-07-28 11:30 | NUR ---
SS following for discharge planning. Discharge orders received for home with home healthcare. Pt agreeable to home healthcare. No preference of company noted. Discharge orders and referral sent to [facility], ; fax [phone]. Pt accepted on services with [facility]. Pt's RN notified.
--- NOTE | 2021-07-28 11:50 | DS ---
DATE OF DISCHARGE: 07/28/2021 ADMITTING DIAGNOSES: Respiratory failure with pneumonia and chronic obstructive pulmonary disease. DISCHARGE DIAGNOSES: Resolving respiratory failure, resolving chronic obstructive pulmonary disease, resolving pneumonia, history of congestive heart failure, hypertension, continued tobacco abuse couple times a week, arthritis, gastroesophageal reflux disease, hyperlipidemia, benign prostatic hyperplasia, bowel obstruction, tonsillectomy, foot surgery, bladder surgery and bowel resection. CONSULTS: Marcell Sung MD PROCEDURES: None. HOSPITAL COURSE: The patient is a pleasant elderly male who has COPD and continues to smoke a couple times a week. Basically, he presented with respiratory failure with some hypoxia and abnormal chest x-ray. We gave him IV antibiotics, breathing treatments, IV Solu-Medrol, consulted Pulmonary Medicine. Today, I saw him and examined him, he is at his baseline and wants to go home. If okay with Pulmonary, we are going to discharge. DISPOSITION: Home. ACTIVITY: As tolerated. DIET: Low sodium. DISCHARGE MEDICATIONS: Please see the MRAD. Medrol Dosepak, Augmentin 875 b.i.d., p.r.n. Tylenol, albuterol, Brovana 15 mcg inhaled b.i.d., aspirin 81 a day, azelastine 137 mcg 2 sprays b.i.d., Z-Davide, budesonide breathing treatments b.i.d., Avodart 1 cap at bedtime 0.5 mg, fluticasone, Combivent, lactobacillus, probiotic, Claritin-D 1 tablet a day, multiple vitamins, Afrin nasal spray, Protonix 40 a day, simvastatin 20 a day, Flomax 0.4 a day and CoQ10. Total time 32 minutes. GUSTAVO/JULIAN DR: Gumaro TID: [id number]
--- NOTE | 2021-07-28 12:46 | PDOC ---
PULMONARY PROGRESS NOTES DATE: 07/28/21 TIME: 12:45 Vitals Vital Signs Date Time Temp Pulse Resp B/P (MAP) Pulse Ox O2 Delivery O2 Flow Rate FiO2 07/28/21 11:41 Nasal Cannula 3.0 07/28/21 07:44 100 07/28/21 07:28 98.1 56 16 104/55 (71) 98.1 General: Alert, No acute distress HEENT: Other Lungs: Clear Cardiovascular: S1, S2 Abdomen: Soft, Non-tender Extremities: No Edema Labs Laboratory Tests Test 07/27/21 00:28 07/27/21 01:10 07/28/21 05:10 White Blood Count 9.0 x10^3/uL (4.0-11.0) 11.4 x10^3/uL (4.0-11.0) Red Blood Count 4.18 x10^6/uL (4.30-5.70) 3.66 x10^6/uL (4.30-5.70) Hemoglobin 12.6 g/dL (13.0-17.5) 11.0 g/dL (13.0-17.5) Hematocrit 37.9 % (39.0-53.0) 33.2 % (39.0-53.0) Mean Corpuscular Volume 91 fL (79-100) 91 fL (79-100) Mean Corpuscular Hemoglobin 30 pg (25-35) 30 pg (25-35) Mean Corpuscular Hemoglobin Concent 33 g/dL (31-37) 33 g/dL (31-37) Red Cell Distribution Width 15.3 % (11.5-14.5) 15.0 % (11.5-14.5) Platelet Count 190 x10^3/uL (140-400) 184 x10^3/uL (140-400) Neutrophils (%) (Auto) 52 % (31-73) 89 % (31-73) Lymphocytes (%) (Auto) 35 % (24-48) 6 % (24-48) Monocytes (%) (Auto) 10 % (0-9) 5 % (0-9) Eosinophils (%) (Auto) 2 % (0-3) 0 % (0-3) Basophils (%) (Auto) 1 % (0-3) 0 % (0-3) Neutrophils # (Auto) 4.7 x10^3/uL (1.8-7.7) 10.2 x10^3/uL (1.8-7.7) Lymphocytes # (Auto) 3.2 x10^3/uL (1.0-4.8) 0.7 x10^3/uL (1.0-4.8) Monocytes # (Auto) 0.9 x10^3/uL (0.0-1.1) 0.6 x10^3/uL (0.0-1.1) Eosinophils # (Auto) 0.2 x10^3/uL (0.0-0.7) 0.0 x10^3/uL (0.0-0.7) Basophils # (Auto) 0.1 x10^3/uL (0.0-0.2) 0.0 x10^3/uL (0.0-0.2) Sodium Level 149 mmol/L (136-145) 145 mmol/L (136-145) Potassium Level 3.3 mmol/L (3.5-5.1) 4.1 mmol/L (3.5-5.1) Chloride Level 106 mmol/L (98-107) 106 mmol/L (98-107) Carbon Dioxide Level 36 mmol/L (21-32) 32 mmol/L (21-32) Anion Gap 7 (6-14) 7 (6-14) Blood Urea Nitrogen 29 mg/dL (8-26) 25 mg/dL (8-26) Creatinine 1.4 mg/dL (0.7-1.3) 1.3 mg/dL (0.7-1.3) Estimated GFR (Cockcroft-Gault) 59.9 65.3 BUN/Creatinine Ratio 21 (6-20) Glucose Level 101 mg/dL (70-99) 186 mg/dL (70-99) Calcium Level 8.6 mg/dL (8.5-10.1) 8.7 mg/dL (8.5-10.1) Total Bilirubin 0.3 mg/dL (0.2-1.0) Aspartate Amino Transf (AST/SGOT) 9 U/L (15-37) Alanine Aminotransferase (ALT/SGPT) 11 U/L (16-63) Alkaline Phosphatase 95 U/L (46-116) Troponin I High Sensitivity 11 ng/L (4-75) UW-Iul-F-Type Natriuretic Peptide 216 pg/mL (0-124) Total Protein 7.1 g/dL (6.4-8.2) Albumin 3.8 g/dL (3.4-5.0) Albumin/Globulin Ratio 1.2 (1.0-1.7) Influenza Type A Antigen Negative (NEGATIVE) Influenza Type B Antigen Negative (NEGATIVE) SARS-CoV-2 Antigen (Rapid) Negative (NEGATIVE) Laboratory Tests Test 07/28/21 05:10 White Blood Count 11.4 x10^3/uL (4.0-11.0) Red Blood Count 3.66 x10^6/uL (4.30-5.70) Hemoglobin 11.0 g/dL (13.0-17.5) Hematocrit 33.2 % (39.0-53.0) Mean Corpuscular Volume 91 fL (79-100) Mean Corpuscular Hemoglobin 30 pg (25-35) Mean Corpuscular Hemoglobin Concent 33 g/dL (31-37) Red Cell Distribution Width 15.0 % (11.5-14.5) Platelet Count 184 x10^3/uL (140-400) Neutrophils (%) (Auto) 89 % (31-73) Lymphocytes (%) (Auto) 6 % (24-48) Monocytes (%) (Auto) 5 % (0-9) Eosinophils (%) (Auto) 0 % (0-3) Basophils (%) (Auto) 0 % (0-3) Neutrophils # (Auto) 10.2 x10^3/uL (1.8-7.7) Lymphocytes # (Auto) 0.7 x10^3/uL (1.0-4.8) Monocytes # (Auto) 0.6 x10^3/uL (0.0-1.1) Eosinophils # (Auto) 0.0 x10^3/uL (0.0-0.7) Basophils # (Auto) 0.0 x10^3/uL (0.0-0.2) Sodium Level 145 mmol/L (136-145) Potassium Level 4.1 mmol/L (3.5-5.1) Chloride Level 106 mmol/L (98-107) Carbon Dioxide Level 32 mmol/L (21-32) Anion Gap 7 (6-14) Blood Urea Nitrogen 25 mg/dL (8-26) Creatinine 1.3 mg/dL (0.7-1.3) Estimated GFR (Cockcroft-Gault) 65.3 Glucose Level 186 mg/dL (70-99) Calcium Level 8.7 mg/dL (8.5-10.1) Medications Active Scripts Medications Dose Route/Sig Max Daily Dose Days Date Category Augmentin 875-125 Tablet (Amoxicillin/Potassium Clav) 1 Each Tablet 1 Tab PO BID 7 07/28/21 Rx Medrol (Methylprednisolone) 4 Mg Tab.ds.pk 1 Pkg PO UD 07/28/21 Rx Nasal Decongestant (Oxymetazoline Hcl) 30 Ml [place] 2 [place] NS BID 30 08/14/20 Rx Ventolin Hfa Inhaler (Albuterol Sulfate) 18 Gm Hfa.aer.ad 2 Puff INH PRN Q4HRS PRN 08/14/20 Reported Bumetanide 1 Mg Tablet 1 Mg PO DAILY 08/14/20 Reported Azithromycin Tablet (Azithromycin) 500 Mg Tablet 500 Mg PO QMWF 08/14/20 Reported Brovana (Arformoterol Tartrate) 15 Mcg/2 Ml Vial.neb 15 Mcg IH BID 08/14/20 Reported Budesonide 0.5 Mg/2 Ml Ampul.neb 0.5 Mg IH BID 08/14/20 Reported Probiotic (Lactobacillus Combo No.10) 1 Each Capsule 1 Each PO DAILY 08/14/20 Reported One-A-Day Essential (Multivitamin) 1 Each Tablet 1 Each PO DAILY 08/14/20 Reported Co Q-10 (Ubidecarenone) 200 Mg Capsule 100 Mg PO DAILY 08/14/20 Reported Claritin-D 24 Hour Tablet (Loratadine/Pseudoephedrine) 1 Each Tab.er.24h 1 Each PO DAILY 08/14/20 Reported Combivent Respimat Inhal (Ipratropium/Albuterol Sulfate) 4 Gm Aer.w.adap 2 Inh IH QID 03/07/19 Reported Fluticasone Propionate Nasal [place] (Fluticasone Propionate) 16 Gm [place].susp 2 [place] NS DAILY 10/02/18 Reported Protonix (Pantoprazole Sodium) 20 Mg Tablet.dr 40 Mg PO DAILYAC 5/8/19 Reported Flomax (Tamsulosin Hcl) 0.4 Mg Cap.er.24h 2 Cap PO QHS 03/05/17 Reported Azelastine Hcl 137 Mcg/0.137 Ml [place].pump 2 [place] NS BID 05/25/16 Reported Avodart (Dutasteride) 0.5 Mg Capsule 1 Cap PO HS 05/25/16 Reported Aspir 81 (Aspirin) 81 Mg Tablet.dr 1 Tab PO DAILY 12/27/14 Reported Tylenol (Acetaminophen) 325 Mg Tablet 650 Mg PO PRN Q6HRS PRN 28 11/15/13 Rx Zocor (Simvastatin) 20 Mg Tablet 20 Mg PO QHS 02/10/13 Reported Impression . Full consult dictated Acute exacerbation of COPD next possible pneumonia left upper lobe 9 millimeters nodule seen on previous CT Discharge home Follow-up with me on 03 September discussed with GINA WHEELER MD July 28, 2021 12:46
--- NOTE | 2021-07-29 00:40 | CONS ---
DATE OF CONSULTATION: 07/28/2021 ATTENDING PHYSICIAN: Tara Wilkins DO CONSULTING PHYSICIAN: Marcell Sung MD REASON FOR CONSULTATION: The patient is seen in pulmonary consultation at the request of Dr. Wilkins for acute on chronic hypoxemic respiratory failure. HISTORY OF PRESENT ILLNESS: The patient is a 76-year-old who normally sees Dr. Russo in the office. He was last seen on the 07/20/2021. At that time, his respiratory status was compensated. The patient normally utilizes nebulized bronchodilators at home including budesonide. In addition, he is on twice daily Arformoterol. He is utilizing p.r.n. ipratropium, presenting with acute onset of shortness of air, he had a coughing and sneezing spell and was unable to talk and complete sentences. He presented to the Emergency Room, was evaluated, had an influenza screen and SARS-CoV-2, which was negative. He did have a chest x-ray. I reviewed that there was some increased lung marking possible patchy opacity in the left upper lobe. He denies fever, chills, or night sweats. PAST MEDICAL HISTORY: Remarkable for hypertension, COPD, tobacco dependence in remission. He has also a history of chronic heart failure, arthritis, hyperlipidemia, and BPH. PAST SURGICAL HISTORY: He has had bowel resection, bladder surgery. SOCIAL HISTORY: He is currently not smoking. FAMILY HISTORY: Negative for lung disorders. REVIEW OF SYSTEMS: As indicated above, otherwise other systems were reviewed and negative. CURRENT MEDICATIONS: List was reviewed. ALLERGIES: LISTED TO DOXYCYCLINE. PHYSICAL EXAMINATION: VITAL SIGNS: Stable. O2 saturations greater than 92%, currently on 2 liters. HEENT: Eyes: His sclerae are nonicteric. NECK: Jugular venous distention was not elevated. No lymphadenopathy. CHEST: Full expansion. LUNGS: Adequate flow with no wheezes. CARDIOVASCULAR: Regular rate and rhythm with S1, S2. No S3. ABDOMEN: Soft, nontender. EXTREMITIES: No clubbing or cyanosis. No pitting edema. NEUROLOGIC: The patient was awake, alert, following commands. A detailed neuro exam was not performed. LABORATORY DATA: Reviewed. Initial white count was normal. Hemoglobin and hematocrit were noted. Electrolytes were noted. BUN was elevated. Creatinine was elevated. Chest x-ray revealed possible infiltrate in the left upper lobe. IMPRESSION: 1. Progressive dyspnea secondary to acute exacerbation of chronic obstructive pulmonary disease. 2. Acute exacerbation of chronic obstructive pulmonary disease. 3. Abnormal x-ray, possible left upper lobe pneumonia. 4. Tobacco dependence, in remission. 5. Hypertension. 6. Other comorbidities as listed above. PLAN: The patient has improved, he is back to his baseline oxygen supplementation. We will proceed with discharge home on prednisone taper and antibiotic. Follow up with me on 09/03/2021 at 3:[address] chest in 6-9 months. He has had a previous 9 mm left lower lobe lung nodule. HUMERA DR: Gera TID: [id number]
== END 2021-07-28 13:25 | disposition home or self-care (01) | DRG 193 ==
LOC: ER 00:02 → 1 WEST ICU 01:22
PROVIDERS: ADMIT Internal Medicine; ATTEND Internal Medicine
DX: J18.9 Pneumonia, unspecified organism (principal); J96.21 Acute and chronic respiratory failure with hypoxia; J44.0 Chronic obstructive pulmonary disease with (acute) lower respiratory infection; J44.1 Chronic obstructive pulmonary disease with (acute) exacerbation; E78.00 Pure hypercholesterolemia, unspecified; E78.5 Hyperlipidemia, unspecified; F17.211 Nicotine dependence, cigarettes, in remission; I11.0 Hypertensive heart disease with heart failure; I50.9 Heart failure, unspecified; N40.0 Benign prostatic hyperplasia without lower urinary tract symptoms; Z83.3 Family history of diabetes mellitus; K21.9 Gastro-esophageal reflux disease without esophagitis; M19.90 Unspecified osteoarthritis, unspecified site; Z20.822 Contact with and (suspected) exposure to COVID-19
CPT/HCPCS: 36415; 71045; 80048; 80053; 83880; 84484; 85025; 87040; 87428; 93005; 94640; 94760; 96365; 96375; J0456; J0696; J1644; J2920; J7050; J7512; 99285-25; G0378; J7030; J7613